=== PATIENT | female | born 1980 | race Caucasian/White ===

== ENCOUNTER 2019-08-08 21:17 | Emergency (ER) | payer BC, SELFPAY ==
[2019-08-08 21:32] VITALS: BP 116/81; PULSE 80; RESP 18; TEMP 36.4; O2SAT 99; BMI 18.0
--- NOTE | 2019-08-08 21:45 | W.ED.EXTPRO ---
HPI - Extremity Problem General: Chief complaint: Extremity Injury, Lower Stated complaint: ingrown toenail Time Seen by Provider: 08/08/19 21:32 History of Present Illness: HPI Narrative: Left great toe with redness and pain from ingrown nail. Patient currently is on Keflex. Complaint: other Onset (ago): month(s) Pain Consistency: constant Location: left and toe Severity scale (1-10): 8 Quality: aching Radiation: none Relieving factors: nothing Exacerbating factors: weight bearing and walking Associated symptoms: Reports no associated symptoms; Deny fever(s) Review of Systems Narrative: Ingrown nail on the left great toe present times months worse last few days currently taking antibiotics Const: Denies: fever or chills Psych: Denies: anxiety or depression PFSH ED PFSH: Social History Smoking and tobacco status: former smoker Physical Exam Const: COMMON NORMALS: no apparent distress Extremity: OTHER: Left great toe with redness and swelling to the lateral edge Course Vital Signs: Vital signs: Vital Signs Temperature 97.6 F 08/08/19 21:32 Pulse Rate 80 08/08/19 21:32 Respiratory Rate 18 08/08/19 21:32 Blood Pressure 116/81 08/08/19 21:32 Pulse Oximetry 99 08/08/19 21:32 Coding Level of Care Code ED Guest Laundry Attendant for Shira Carter
[2019-08-08 22:23] VITALS: BP 116/81; PULSE 102; RESP 22; TEMP 36.7; O2SAT 97
[2019-08-08] MEDS: lidocaine 1% INJ 20 mL INTRADERMA (22:45)
[2019-08-08 23:21] VITALS: BP 120/76; PULSE 96; RESP 20; TEMP 36.7; O2SAT 96
--- NOTE | 2019-08-08 23:28 | PC.NURSE ---
RN reviewed and agrees with assessment
== END 2019-08-08 23:21 | disposition home or self-care (01) ==
PROVIDERS: Emergency Provider Nurse Practitioner Family; Family Provider Family Medicine; PCP Family Medicine
DX: L60.0 Ingrowing nail (principal); Z87.891 Personal history of nicotine dependence
CPT/HCPCS: 99281; J2001

== ENCOUNTER 2019-10-12 08:57 | Emergency (ER) | payer BC, SELFPAY ==
[2019-10-12 08:59] VITALS: BP 157/92; PULSE 82; RESP 16; TEMP 36.6; O2SAT 98; BMI 20.9
--- NOTE | 2019-10-12 09:07 | W.ED.SEIZURE ---
HPI - Seizure General: Chief Complaint: Seizure Stated Complaint: seizure Time Seen by Provider: 10/12/19 09:07 History of Present Illness: HPI Narrative: 39-year-old female presents to the emergency room with complaint of abdominal pain with nausea and vomiting. She has history of psuedo-seizure disorders. She does use marijuana regularly she has been having problems with recurrent nausea and vomiting even sometimes small flecks of blood. She is being worked up for this and has a appointment set up with Dr. Garcia for an EGD. She continues to smoke marijuana regularly. She recognizes her pseudoseizures being pseudoseizures. Associated symptoms: Reports malaise; Deny chest pain, chills or fever(s) Review of Systems Const: Reports: fatigue and malaise; Denies: fever, chills, body aches or change in appetite ENMT: Denies: throat pain, ear pain, nasal discharge or nasal congestion Card: Denies: chest pain, edema, shortness of breath on exertion or shortness of breath when lying down Resp: Denies: shortness of breath, productive cough or non-productive cough GI: Reports: abdominal pain, nausea and vomiting; Denies: vomiting blood, coffee grounds in vomit, diarrhea, constipation, bloating, blood in stool or black tarry stool : Denies: flank pain, difficulty urinating, painful urination, urinary frequency or urinary urgency Skin/Breast: Denies: rash or itching [facility] ED PFSH: Family History Denies family history of Anesthesia complication Bleeding disorder Social History Smoking and tobacco status: current every day smoker cigarettes Alcohol intake: never Last substance use date: 10/12/19 Last substance use time: 01:00 Other details last substance use: Marijuana Physical Exam Const: COMMON NORMALS: no apparent distress GENERAL APPEARANCE: cooperative; not comfortable ORIENTATION/CONSCIOUSNESS: Yes awake, Yes oriented to person, Yes oriented to place and Yes oriented to time HENMT: COMMON NORMALS: normocephalic, head/scalp atraumatic, hearing grossly normal bilaterally, external ears normal, EAC's normal, TM's normal bilaterally, nasal mucous membranes and turbinates normal, moist oral mucous membranes and oropharynx normal HEAD & SCALP: normocephalic and atraumatic NOSE: nasal mucous membranes and turbinates normal EXTERNAL EAR: Yes external ears normal EXTERNAL AUDITORY CANAL: EAC's normal TYMPANIC MEMBRANE: TM's normal bilaterally Eye: COMMON NORMALS: PERRL, EOMs intact bilaterally, conjunctivae normal and no scleral icterus CONJUNCTIVA: Yes conjunctivae normal PUPIL: Yes PERRL Neck/C-Spine: COMMON NORMALS: full ROM, no lymphadenopathy, supple and no JVD Lymph: LYMPHATIC: no lymphadenopathy noted and no lymphedema noted Resp: COMMON NORMALS: normal respiratory effort, no retractions, no use of accessory muscles and clear to auscultation bilaterally AUSCULTATION: clear to auscultation bilaterally Cardio: COMMON NORMALS: no JVD, regular rate, regular rhythm and no murmurs RATE: regular rate RHYTHM: regular rhythm GI: COMMON NORMALS: soft to palpation and no hepatosplenomegaly AUSCULTATION: Yes normoactive bowel sounds PALPATION: Yes soft, No tender, No guarding and Yes no hepatosplenomegaly Extremity: COMMON NORMALS: normal to inspection, normal capillary refill, no clubbing, cyanosis or edema, no calf tenderness and no pedal edema Neuro: SENSORIUM/ORIENTATION: Yes oriented to person, Yes oriented to place and Yes oriented to time Skin: COMMON NORMALS: no rashes or lesions noted GENERAL SKIN EXAM: no rashes or lesions noted Course Vital Signs: Vital signs: Vital Signs Temperature 97.9 F 10/12/19 08:59 Pulse Rate 75 10/12/19 09:54 Respiratory Rate 16 10/12/19 09:54 Blood Pressure 142/85 10/12/19 09:54 Pulse Oximetry 97 10/12/19 09:54 MDM - Seizure MDM Narrative: Medical decision making narrative: Patient requesting to leave per the nurse. I went back to the room and talk to her she is anxious we already given her some Haldol offered to give her something else for anxiety encouraged her to stay. She is adamant about leaving. She wants to be with her . She refuses further IV fluids offers of further medication. I explained to her that since we have not completed a work-up she may actually get quite a bit worse and could even potentially from her medical issues. Of the labs we do a back she has an elevated white count. She declines offers or further health continues to insist on leaving AGAINST MEDICAL ADVICE despite these warnings. Lab Data: Labs: Lab Results 10/12/19 10/12/19 10/12/19 Range/Units 09:10 09:10 09:10 WBC 16.7 H (4.0-10.0) 10^3/ uL RBC 4.83 (4.1-5.3) 10^6/u L Hgb 14.6 (11.5-15.3) g/dL Hct 43.4 (37.0-47.0) % MCV 89.9 (81-99) fL MCH 30.2 (28.0-34.0) pg MCHC 33.6 (30.0-36.0) g/dL RDW 13.1 (12.1-15.1) % Plt Count 304 (130-400) 10^3/c mm MPV 10.6 H (7.4-10.4) fL Neut % (Auto) 72.4 % Lymph % (Auto) 20.0 % [place] % (Auto) 5.2 % Eos % (Auto) 1.3 % Baso % (Auto) 0.7 % Neut # (Auto) 12.1 H (1.8-7.7) 10^3/u L Lymph # (Auto) 3.3 (0.8-4.8) 10^3/u L [place] # (Auto) 0.9 (0.2-0.9) 10^3/u L Eos # (Auto) 0.2 (0.0-0.8) 10^3/u L Baso # (Auto) 0.1 (0.0-0.1) 10^3/u L Nucleated RBC % (a uto) 0 % Nucleated RBCs # 0.0 /100WBC Sodium 144 (136-145) mmol/L Potassium 4.1 (3.5-5.1) mmol/L Chloride 108 H (98-107) mmol/L Carbon Dioxide 19 L (22-29) mmol/L Anion Gap 21.1 H (5-19) BUN 17 (6-20) mg/dL Creatinine 0.8 (0.5-0.9) mg/dL GFR Calculation 79.0 L (90-130) mL/min Glucose 207 H (65-115) mg/dL Calculated Osmolal ity 300 H (285-295) mOsm/k g Calcium 10.5 (8.5-10.5) mg/dL Total Bilirubin 0.3 (0.15-1.2) mg/dL AST 20 (0-32) U/L ALT 13 (0-33) U/L Alkaline Phosphata se 87 (35-105) IU/L Total Protein 7.6 (6.6-8.7) g/dL Albumin 5.0 (3.5-5.2) g/dL Globulin 2.6 (1.3-4.6) g/dL Lipase 33 (13-60) U/L Serum Ketones Negative (Negative) Discharge Plan Discharge Patient Disposition: Left Against Medical Advice Clinical Impression: Pseudoseizures, Nausea and vomiting Prescriptions: No Action pantoprazole [Protonix] 40 mg tablet,delayed release (DR/EC) 40 mg PO DAILY RF: 0 promethazine 50 mg tablet 25 mg PO Q6H PRN (Reason: Nausea) RF: 0 Tylenol Extra Strength 500 mg Tablet 1,000 mg PO PRN RF: 0 amitriptyline 25 mg tablet 25 mg PO BEDTIME RF: 0 sucralfate 1 gram tablet 1 g PO QID RF: 0 hydroxyzine HCl 50 mg tablet 50 mg PO TID PRN (Reason: Anxiety) RF: 0 tamsulosin 0.4 mg capsule 0.4 mg PO DAILY RF: 0 Referrals: Jacky Freeman MD [Primary Care Provider] - Interventions: ED Discharge Assessment Last Done: 10/12/19 09:54 ED Charges Last Done: 10/12/19 09:54 Discharge Date/Time: 10/12/19 09:54 Coding Level of Care Code ED Property Site Manager for Chg Fwd Exam Comprehensive
[2019-10-12 09:16] LABS: Basophils # 0.1 10^3/uL (0.0-0.1); Basophils % 0.7 %; Eosinophils # 0.2 10^3/uL (0.0-0.8); Eosinophils % 1.3 %; Hematocrit 43.4 % (37.0-47.0); Hemoglobin 14.6 g/dL (11.5-15.3); Lymphocytes # 3.3 10^3/uL (0.8-4.8); Mean Corpuscular HGB Conc 33.6 g/dL (30.0-36.0); Mean Corpuscular Hemoglobin 30.2 pg (28.0-34.0); Mean Corpuscular Volume 89.9 fL (81-99); Mean Platelet Volume 10.6 fL (7.4-10.4); Monocytes # 0.9 10^3/uL (0.2-0.9); Monocytes % 5.2 %; Neutrophils # 12.1 10^3/uL (1.8-7.7); Neutrophils % 72.4 %; Nucleated Red Blood Cells % 0 %; Platelet Count 304 10^3/cmm (130-400); Red Blood Count 4.83 10^6/uL (4.1-5.3); Red Cell Distribution Width 13.1 % (12.1-15.1); White Blood Count 16.7 10^3/uL (4.0-10.0)
[2019-10-12] MEDS: haloperidol inj 5 mg/mL INJ 1 mL IVP (09:16)
[2019-10-12] MEDS: ondansetron 2 mg/ML SDV 2 mL 4 MG IVP (09:16)
[2019-10-12] MEDS: sodium chlor 0.9% + KCl 20 mEq 20 MEQ/1,000 ML BAG 125 MEQ IV (09:17)
--- NOTE | 2019-10-12 09:30 | PC.NURSE ---
Patient refused CT
[2019-10-12 09:37] LABS: Ketone (Acetest) Serum Negative (Negative)
[2019-10-12 09:49] LABS: Alanine Aminotransferase 13 U/L (0-33); Alkaline Phosphatase 87 IU/L (35-105); Anion Gap 21.1 (5-19); Aspartate Amino Transferase 20 U/L (0-32); Blood Urea Nitrogen 17 mg/dL (6-20); Calcium 10.5 mg/dL (8.5-10.5); Carbon Dioxide 19 mmol/L (22-29); Chloride 108 mmol/L (98-107); Globulin 2.6 g/dL (1.3-4.6); Glucose 207 mg/dL (65-115); Lipase 33 U/L (13-60); Osmolality Calculated 300 mOsm/kg (285-295); Potassium 4.1 mmol/L (3.5-5.1); Sodium 144 mmol/L (136-145); Total Bilirubin 0.3 mg/dL (0.15-1.2); Total Protein 7.6 g/dL (6.6-8.7)
[2019-10-12] MEDS: iohexol 300 mg/mL 100 mL Btl IV (09:52)
[2019-10-12 09:54] VITALS: BP 142/85; PULSE 75; RESP 16; O2SAT 97
== END 2019-10-12 09:54 | disposition left against medical advice (07) ==
PROVIDERS: Emergency Provider Family Medicine; Family Provider Family Medicine; PCP Family Medicine
DX: G40.89 Other seizures (principal); R11.2 Nausea with vomiting, unspecified; Z53.21 Procedure and treatment not carried out due to patient leaving prior to being seen by health care provider; F17.210 Nicotine dependence, cigarettes, uncomplicated
CPT/HCPCS: 12345; 80053; 82009; 83690; 85025; 96365; 96375; 99283; J1630; J2405; Q9967

== ENCOUNTER 2019-10-13 06:17 | Observation (INO) | payer BC, SELFPAY ==
[2019-10-13] VITALS (10 sets, daily range): BP systolic 123–158; BP diastolic 76–106; PULSE 81–103; RESP 16–20; TEMP 36.6–37.6; O2SAT 96–98; BMI 21.2
--- NOTE | 2019-10-13 06:29 | ED_ITS ---
HPI - Nausea/Vomiting/Diarrhea General: Chief complaint: Nausea/Vomiting/Diarrhea Stated complaint: N/V Time Seen by Provider: 10/13/19 06:28 History of Present Illness: Associated nausea: Yes Associated symtoms: Reports nausea Review of Systems General: Reports: 10 or more systems reviewed and unremarkable except in HPI and below GI: Reports: abdominal pain, nausea, vomiting and heartburn/indigestion; Denies: diarrhea PFSH ED PFSH: Medical History GERD (gastroesophageal reflux disease) Pseudoseizures Surgical History History of appendectomy History of History of cholecystectomy History of colonoscopy History of esophagogastroduodenoscopy (EGD) History of hysterectomy for cancer History of ovarian resection Family History Denies family history of Anesthesia complication Bleeding disorder Social History Smoking and tobacco status: never smoked Alcohol intake: never Last substance use date: 10/12/19 Last substance use time: 01:00 Other details last substance use: Marijuana Physical Exam Const: COMMON NORMALS: average body habitus, oriented x3, no limitations, healthy appearing, alert and well nourished GENERAL APPEARANCE: in distress, ill appearing and appears older than stated age HENMT: COMMON NORMALS: normocephalic, head/scalp atraumatic, hearing grossly normal bilaterally, external ears normal, EAC's normal, TM's normal bilaterally, external nose normal, nasal mucous membranes and turbinates normal, moist oral mucous membranes, oropharynx normal, dentition normal and gingiva normal HEAD & SCALP: normocephalic and atraumatic NOSE: external nose normal and nasal mucous membranes and turbinates normal EXTERNAL EAR: Yes external ears normal EXTERNAL AUDITORY CANAL: EAC's normal TYMPANIC MEMBRANE: TM's normal bilaterally Eye: COMMON NORMALS: PERRL, EOMs intact bilaterally, conjunctivae normal, no scleral icterus, no papilledema, normal visual salguero by confrontation and fundi normal bilaterally CONJUNCTIVA: Yes conjunctivae normal PUPIL: Yes PERRL DIRECT OPHTHALMOSCOPY: Yes no papilledema and Yes fundi normal bilaterally Neck/C-Spine: COMMON NORMALS: full ROM, no lymphadenopathy, supple, no meningeal signs, no JVD, thyroid normal and no carotid bruits THYROID: thyroid normal Chest: COMMONS NORMALS: inspection of chest normal and palpation of chest normal Resp: COMMON NORMALS: normal respiratory effort, no retractions, no use of accessory muscles, clear to auscultation bilaterally and percussion normal AUSCULTATION: clear to auscultation bilaterally PERCUSSION: percussion normal Cardio: COMMON NORMALS: no JVD, regular rate, regular rhythm, S1 normal heart sound, S2 normal heart sound, no gallops, no clicks, no murmurs, no rub and peripheral pulses 2+ throughout RATE: regular rate RHYTHM: regular rhythm HEART SOUNDS: S1 normal and S2 normal PERIPHERAL PULSES: pulses 2+ throughout GI: COMMON NORMALS: soft to palpation, no masses and no bruits AUSCULTATION: Yes normoactive bowel sounds PALPATION: Yes soft, Yes tender, Yes guarding and No rigid : COMMON NORMALS: Yes no CVA tenderness and Yes external appearance normal BLADDER/KIDNEY EXAM: Yes no CVA tenderness Back/Pelvis: COMMON NORMALS: no CVA tenderness, thoracic and lumbar spine normal to inspection, no thoracic nor lumbar tenderness, thoraco-lumbar ROM normal and straight leg raise negative bilaterally Extremity: COMMON NORMALS: normal to inspection, full ROM, normal capillary refill, no joint enlargement, no clubbing, cyanosis or edema, no calf tenderness and no pedal edema Neuro: COMMON NORMALS: oriented x3 SENSORIUM/ORIENTATION: Yes alert MENINGEAL SIGNS: Yes no meningeal signs Skin: COMMON NORMALS: no rashes or lesions noted, no wounds, skin turgor normal, no jaundice, no petechiae and no mottling GENERAL SKIN EXAM: no rashes or lesions noted and turgor normal Procedures Intubation Mg Given: 20 Mg Given: 200 Course Vital Signs: Vital signs: Vital Signs Temperature 99.6 F 10/13/19 08:52 Pulse Rate 95 10/13/19 09:46 Respiratory Rate 18 10/13/19 09:46 Blood Pressure 147/80 10/13/19 09:46 Pulse Oximetry 96 10/13/19 09:46 MDM - Nausea/Vomiting/Diarrhea Lab Data: Labs: Lab Results 05/10/2710/13/19 10/13/19 Range/Units 07:06 07:06 07:34 WBC 17.6 H (4.0-10.0) 10^3/ uL RBC 4.81 (4.1-5.3) 10^6/u L Hgb 14.3 (11.5-15.3) g/dL Hct 42.7 (37.0-47.0) % MCV 88.8 (81-99) fL MCH 29.7 (28.0-34.0) pg MCHC 33.5 (30.0-36.0) g/dL RDW 13.3 (12.1-15.1) % Plt Count 269 (130-400) 10^3/c mm MPV 11.2 H (7.4-10.4) fL Neut % (Auto) 82.9 % Lymph % (Auto) 8.2 % [place] % (Auto) 8.2 % Eos % (Auto) 0.1 % Baso % (Auto) 0.2 % Neut # (Auto) 14.6 H (1.8-7.7) 10^3/u L Lymph # (Auto) 1.4 (0.8-4.8) 10^3/u L [place] # (Auto) 1.5 H (0.2-0.9) 10^3/u L Eos # (Auto) 0.0 (0.0-0.8) 10^3/u L Baso # (Auto) 0.0 (0.0-0.1) 10^3/u L Nucleated RBC % (a uto) 0 % Nucleated RBCs # 0.0 /100WBC Sodium 145 (136-145) mmol/L Potassium 3.4 L (3.5-5.1) mmol/L Chloride 107 (98-107) mmol/L Carbon Dioxide 20 L (22-29) mmol/L Anion Gap 21.4 H (5-19) BUN 35 H (6-20) mg/dL Creatinine 1.3 H (0.5-0.9) mg/dL GFR Calculation 45.1 L (90-130) mL/min Glucose 145 H (65-115) mg/dL Calculated Osmolal ity 300 H (285-295) mOsm/k g Calcium 10.5 (8.5-10.5) mg/dL Magnesium 2.2 (1.7-2.3) mg/dL Total Bilirubin 0.6 (0.15-1.2) mg/dL AST 21 (0-32) U/L ALT 16 (0-33) U/L Alkaline Phosphata se 84 (35-105) IU/L Total Protein 8.5 (6.6-8.7) g/dL Albumin 5.3 H (3.5-5.2) g/dL Globulin 3.2 (1.3-4.6) g/dL Lipase 19 (13-60) U/L Urine Color Yellow (Yellow) Urine Appearance Clear (CLEAR) Urine pH 5.0 (5-7) Ur Specific Gravit y 1.010 (1.005-1.030) Urine Protein 1+ H (Negative) Urine Glucose (UA) Norm (Normal) Urine Ketones Negative (Negative) Urine Blood 3+ H (Negative) Urine Nitrate Negative (Negative) Urine Bilirubin Neg (NEGATIVE) Urine Urobilinogen Norm (Negative) mg/dL Ur Leukocyte Mandi ase Negative (Negative) Urine RBC 5-10 H (0-2) /hpf Urine WBC Rare (0-5) /hpf Ur Squamous Epith Cells 0-4 H (0-5) Urine Bacteria 1+ H (NONE) Hyaline Casts 25-40 H Urine Mucus 3+ Urine Opiates Scre en (Negative) ng/mL Ur Barbiturates Sc reen (Negative) ng/mL Ur Phencyclidine S crn (Negative) ng/mL Ur Amphetamines Sc reen (Negative) ng/mL U Benzodiazepines Scrn (Negative) ng/mL Urine Cocaine Scre en (Negative) ng/mL U Marijuana (THC) Screen (Negative) ng/mL 10/13/19 Range/Units 07:34 WBC (4.0-10.0) 10^3/ uL RBC (4.1-5.3) 10^6/u L Hgb (11.5-15.3) g/dL Hct (37.0-47.0) % MCV (81-99) fL MCH (28.0-34.0) pg MCHC (30.0-36.0) g/dL RDW (12.1-15.1) % Plt Count (130-400) 10^3/c mm MPV (7.4-10.4) fL Neut % (Auto) % Lymph % (Auto) % [place] % (Auto) % Eos % (Auto) % Baso % (Auto) % Neut # (Auto) (1.8-7.7) 10^3/u L Lymph # (Auto) (0.8-4.8) 10^3/u L [place] # (Auto) (0.2-0.9) 10^3/u L Eos # (Auto) (0.0-0.8) 10^3/u L Baso # (Auto) (0.0-0.1) 10^3/u L Nucleated RBC % (a uto) % Nucleated RBCs # /100WBC Sodium (136-145) mmol/L Potassium (3.5-5.1) mmol/L Chloride (98-107) mmol/L Carbon Dioxide (22-29) mmol/L Anion Gap (5-19) BUN (6-20) mg/dL Creatinine (0.5-0.9) mg/dL GFR Calculation (90-130) mL/min Glucose (65-115) mg/dL Calculated Osmolal ity (285-295) mOsm/k g Calcium (8.5-10.5) mg/dL Magnesium (1.7-2.3) mg/dL Total Bilirubin (0.15-1.2) mg/dL AST (0-32) U/L ALT (0-33) U/L Alkaline Phosphata se (35-105) IU/L Total Protein (6.6-8.7) g/dL Albumin (3.5-5.2) g/dL Globulin (1.3-4.6) g/dL Lipase (13-60) U/L Urine Color (Yellow) Urine Appearance (CLEAR) Urine pH (5-7) Ur Specific Gravit y (1.005-1.030) Urine Protein (Negative) Urine Glucose (UA) (Normal) Urine Ketones (Negative) Urine Blood (Negative) Urine Nitrate (Negative) Urine Bilirubin (NEGATIVE) Urine Urobilinogen (Negative) mg/dL Ur Leukocyte Mandi ase (Negative) Urine RBC (0-2) /hpf Urine WBC (0-5) /hpf Ur Squamous Epith Cells (0-5) Urine Bacteria (NONE) Hyaline Casts Urine Mucus Urine Opiates Scre en Negative (Negative) ng/mL Ur Barbiturates Sc reen Negative (Negative) ng/mL Ur Phencyclidine S crn Negative (Negative) ng/mL Ur Amphetamines Sc reen Negative (Negative) ng/mL U Benzodiazepines Scrn Positive H (Negative) ng/mL Urine Cocaine Scre en Negative (Negative) ng/mL U Marijuana (THC) Screen Positive H (Negative) ng/mL Discharge Plan Discharge Patient Disposition: Admitted As Inpatient Admit Provider: Radha Martinez Clinical Impression: Acute dehydration Nausea and vomiting Qualifiers: Vomiting type: unspecified Vomiting Intractability: intractable Qualified Code(s): R11.2 - Nausea with vomiting, unspecified Gastritis Qualifiers: Gastritis type: unspecified gastritis Chronicity: acute Gastritis bleeding: without bleeding Qualified Code(s): K29.00 - Acute gastritis without bleeding Condition: Fair Referrals: Jacky Freeman MD [Primary Care Provider] - Discharge Date/Time: 10/13/19 10:00 Coding Level of Care Code ED Film Numberer for g Fwd Exam Comprehensive
--- NOTE | 2019-10-13 06:35 | CTR_ITS ---
PROCEDURE INFORMATION: Exam: CT Abdomen And Pelvis With Contrast Exam date and time: 10/13/2019 6:42 AM Age: 39 years old Clinical indication: Abdominal pain; Prior surgery; Surgery type: Gb. Appy. Hysterectomy. ; Patient HX: Epigastric pain with n/v. History of pancreatitis; Additional info: Intractable nausea and vomiting; Epigastric abd pain TECHNIQUE: Imaging protocol: Computed tomography of the abdomen and pelvis with intravenous contrast. Radiation optimization: All CT scans at this facility use at least one of these dose optimization techniques: automated exposure control; mA and/or kV adjustment per patient size (includes targeted exams where dose is matched to clinical indication); or iterative reconstruction. Contrast material: OMNI 300; Contrast volume: 95 ml; Contrast route: 20G LAC; COMPARISON: CT abdomen pelvis wo con [id number] 10/23/2018 12:53 PM RADIATION DOSE METRICS: Total DLP: 538.04 mGy-cm FINDINGS: Liver: Normal. No mass. Gallbladder and bile ducts: The gallbladder is surgically absent. Pancreas: Normal. No ductal dilation. Spleen: Normal. No splenomegaly. Adrenals: Normal. No mass. Kidneys and ureters: Normal. No hydronephrosis. Stomach and bowel: Unremarkable. No obstruction. No mucosal thickening. Appendix: The appendix is surgically absent. Intraperitoneal space: Unremarkable. No free air. No significant fluid collection. Vasculature: Unremarkable. No abdominal aortic aneurysm. Lymph nodes: Unremarkable. No enlarged lymph nodes. Bladder: The urinary bladder is under filled and not well evaluated. Reproductive: The uterus is surgically absent. Bones/joints: Unremarkable. No acute fracture. Soft tissues: Unremarkable. CT/CT abdomen pelvis w con* [id number] IMPRESSION: No acute abnormality. Radiation Dose CTDIVOL = (mGy): DLP = 538.04 (mGy-cm)
--- NOTE | 2019-10-13 06:40 | PC.NURSE ---
Patient states she has been having nausea/diarrhea/vomiting with abdominal pain for the last two weeks. Patient states she has not been able to get out of the bath tub for the last 22 hours. Patient states that her symptoms are getting worse. Patient states she has a history of ovarian cancer, and that she has had her appendix out and multiple other abdominal surgeries. Patient had a hysterectomy two years ago.
[2019-10-13] MEDS: LORazepam 2 mg/mL INJ 1 mL 1 MG IVP (07:04)
[2019-10-13] MEDS: ondansetron 2 mg/ML SDV 2 mL 4 MG IVP ×2 (07:04→21:15)
[2019-10-13] MEDS: sodium chloride 0.9% 1,000 ML 999 ML IV (07:05)
[2019-10-13] MEDS: iohexol 300 mg/mL 100 mL Btl IV (07:20)
[2019-10-13 07:32] LABS: Basophils % 0.2 %; Eosinophils % 0.1 %; Hematocrit 42.7 % (37.0-47.0); Hemoglobin 14.3 g/dL (11.5-15.3); Lymphocytes # 1.4 10^3/uL (0.8-4.8); Lymphocytes % 8.2 %; Mean Corpuscular HGB Conc 33.5 g/dL (30.0-36.0); Mean Corpuscular Hemoglobin 29.7 pg (28.0-34.0); Mean Corpuscular Volume 88.8 fL (81-99); Mean Platelet Volume 11.2 fL (7.4-10.4); Monocytes # 1.5 10^3/uL (0.2-0.9); Monocytes % 8.2 %; Neutrophils # 14.6 10^3/uL (1.8-7.7); Neutrophils % 82.9 %; Nucleated Red Blood Cells % 0 %; Platelet Count 269 10^3/cmm (130-400); Red Blood Count 4.81 10^6/uL (4.1-5.3); Red Cell Distribution Width 13.3 % (12.1-15.1); White Blood Count 17.6 10^3/uL (4.0-10.0)
[2019-10-13 07:48] LABS: Alanine Aminotransferase 16 U/L (0-33); Albumin Level 5.3 g/dL (3.5-5.2); Alkaline Phosphatase 84 IU/L (35-105); Anion Gap 21.4 (5-19); Aspartate Amino Transferase 21 U/L (0-32); Blood Urea Nitrogen 35 mg/dL (6-20); Calcium 10.5 mg/dL (8.5-10.5); Carbon Dioxide 20 mmol/L (22-29); Chloride 107 mmol/L (98-107); Globulin 3.2 g/dL (1.3-4.6); Glomerular Filtration Rate 45.1 mL/min (90-130); Glucose 145 mg/dL (65-115); Lipase 19 U/L (13-60); Magnesium 2.2 mg/dL (1.7-2.3); Osmolality Calculated 300 mOsm/kg (285-295); Potassium 3.4 mmol/L (3.5-5.1); Sodium 145 mmol/L (136-145); Total Bilirubin 0.6 mg/dL (0.15-1.2); Total Protein 8.5 g/dL (6.6-8.7)
[2019-10-13 08:01] LABS: Amphetamines Screen Urine Negative (Negative); Barbiturates Screen Urine Negative (Negative); Benzodiazepines Screen Urine Positive (Negative); Cocaine Screen Urine Negative (Negative); Opiate Screen Urine Negative (Negative); PCP Screen Urine Negative (Negative); THC Screen Urine Positive (Negative)
[2019-10-13 08:15] LABS: Add Urine Microscopic? YES; Bilirubin Urine Neg (NEGATIVE); Blood Urine 3+ (Negative); Glucose Urine UA Norm (Normal); Ketones Urine Negative (Negative); Leukocyte Esterase Urine Negative (Negative); Nitrate Urine Negative (Negative); Protein Urine 1+ (Negative); Urine Appearance Clear (CLEAR); Urine Color Yellow (Yellow); Urobilinogen Urine Norm (Negative)
[2019-10-13 08:23] LABS: Add Urine Culture? No; Bacteria Urine 1+; Hyaline Casts Urine 25-40; Mucus Urine 3+; Squamous Epithelial Cell Urine 0-4 (0-5); WBC Urine RARE /hpf (0-5)
[2019-10-13] MEDS: metoclopramide 5 mg/mL SDV 2 mL 10 MG IVP (08:37)
[2019-10-13] MEDS: sodium chloride 0.9% 1,000 ML 100 ML IV (09:32)
--- NOTE | 2019-10-13 12:02 | PM.PN ---
Subjective Subjective: Interval history: Patient complains of history of persistent nausea and vomiting HPI This is a pleasant 39 years old female patient well-known to me and was recently evaluated in my office due to history of nausea and vomiting and epigastric pain, patient is already scheduled tomorrow for diagnostic EGD with possible biopsy, she gives a history of duodenitis and gastritis based on a scope that was done by me back in September 2018, apparently the patient since yesterday she had persistent symptoms came to the ER and was discharged and comes back again today with worsening symptoms of dehydration, patient was admitted on the medical service on Dr. Freeman and surgery was consulted for further evaluation. Vitals/I&O/Wt Last Vital Signs Temp 98.7 F 10/13/19 11:22 Pulse 87 10/13/19 11:22 Resp 18 10/13/19 11:22 BP 123/77 10/13/19 11:22 Pulse Ox 97 10/13/19 11:22 10/12/19 10/13/19 10/13/19 22:59 06:59 14:59 Intake Total 1000 / 1000 Balance 1000 / 1000 Weight last 48 hrs Weight 140 lb Physical Exam Narrative: EXAM NARRATIVE: Patient is conscious alert oriented X3 BMI 21 Head and neck examination PERRLA no masses no cervical lymphadenopathy no jaundice Abdomen tender in the epigastric region nondistended soft no organomegaly guarding or rigidity/no signs of peritonitis Extremities no cyanosis no clubbing no edema Data : 10/13/19 07:06 10/13/19 07:06 A&P Assessment and plan (1) Gastritis: Plan of care; After thorough history and physical examination and reviewing the chart and reviewing the CT scan images with my personal interpretation, plan to perform a diagnostic esophagogastroduodenoscopy and possible biopsy tomorrow as scheduled from before Informed consent per chart were,Indications, risks, benefits, and alternatives were all discussed with the patient and did agree to proceed. From surgical standpoint of view patient can have clear liquid diet if she tolerates and have her n.p.o. after midnight PPI therapy IV fluid resuscitation Repeat CBC and BMP in the a.m. We will continue coordinating with Dr. Freeman Status: Acute Qualifiers: Chronicity: acute Gastritis bleeding: without bleeding Gastritis type: unspecified gastritis Qualified Code(s): K29.00 - Acute gastritis without bleeding Attestations Medical Necessity Statement*: Observation Time Spent in Patient Care: less than 15 minutes (>than 50% of time spent in counselling and/or direct pt care on unit). Coding Level of Care Code Acute Mirror Department Supervisor for Shira Carter Diagnoses Gastritis K29.00 Chronicity: acute Gastritis bleeding: without bleeding Gastritis type: unspecified gastritis
[2019-10-13 14:31] LABS: Lactic Acid level (Lactate) 2.1 mmol/L (0.5-2.2)
[2019-10-13] MEDS: chlorPROMazine 25 mg Tablet PO ×2 (15:06→21:15)
--- NOTE | 2019-10-13 17:16 | PM.HP ---
Providers/Chief Complaint Admitting Physician: Jacky Freeman MD Primary Care Provider: Jacky Freeman MD Chief Complaint: ACUTE ON CHRONIC GASTRITITS History of Present Illness Jana Pulliam is a 39 year old female with history of nausea and vomiting, ovarian cancer, functional seizures who presented to the emergency department yesterday with nausea vomiting and abdominal pain. She left AGAINST MEDICAL ADVICE. The patient returns to the ER on the morning of 10/13/2019 with continued nausea, vomiting and abdominal pain. In the ER she was given Thorazine, Reglan and Zofran. She was given IV fluids for rehydration. Currently the patient states that she has not thrown up for approximately 3 hours. Prior to this, she had been throwing up approximately every hour. The patient was scheduled to have an upper endoscopy done by Dr. Garcia tomorrow. The patient admits to abdominal pain in the lower abdomen and she feels like it is secondary to her retching. It is crampy in nature. Patient denies any diarrhea, constipation, dysuria, cough, fever, chest pains, shortness of breath. Medications/Allergies Home Medications Medication Instructions Recorded Confirmed Last Taken Type pantoprazole 40 mg tablet,delayed 40 mg PO DAILY 10/07/19 10/13/19 10/12/19 History release promethazine 50 mg tablet 25 mg PO Q6H PRN 10/07/19 10/13/19 10/12/19 History hydroxyzine HCl 50 mg PO TID PRN 10/12/19 10/13/19 10/12/19 History sucralfate 1 g PO QID 10/12/19 10/13/19 10/11/19 History tamsulosin 0.4 mg PO DAILY 10/12/19 10/13/19 10/11/19 History acetaminophen [Tylenol Extra 1,000 mg PO PRN 10/13/19 10/13/19 10/12/19 History Strength] amitriptyline 25 mg PO BEDTIME 10/13/19 10/13/19 10/12/19 History Allergies Allergy/AdvReac Type Severity Reaction Status Date / Time aspirin Allergy Unknown Verified 10/08/19 15:54 cephalexin [From Keflex] Allergy Unknown Verified 10/08/19 15:54 meperidine [From Demerol] Allergy Unknown Verified 10/08/19 15:54 PFSH Acute PFSH: Medical History GERD (gastroesophageal reflux disease) Pseudoseizures Surgical History History of appendectomy History of History of cholecystectomy History of colonoscopy History of esophagogastroduodenoscopy (EGD) History of hysterectomy for cancer History of ovarian resection Family History Denies family history of Anesthesia complication Bleeding disorder Social History Smoking and tobacco status: current every day smoker cigarettes Alcohol intake: never Last substance use date: 10/12/19 Last substance use time: 01:00 Other details last substance use: Marijuana Vitals/I&O/Wt Last Vital Signs Temp 98.9 F 10/13/19 15:38 Pulse 90 10/13/19 15:38 Resp 16 10/13/19 15:38 BP 158/76 10/13/19 15:38 Pulse Ox 98 10/13/19 15:38 10/13/19 10/13/19 10/13/19 06:59 14:59 22:59 Intake Total 1240 / 1240 Output Total 200 / 200 Balance 1040 / 1040 Weight last 48 hrs Weight 140 lb Physical Exam Narrative: EXAM NARRATIVE: General: Alert and oriented x3 Eyes: PERRLA, EOMI Mouth: Mucous membranes moist, no lesions Neck: No lymphadenopathy appreciated, no thyromegaly noted. Cardiac: Regular rate and rhythm without murmurs Lungs: Clear to auscultation bilaterally without wheezes, crackles or rhonchi Abdomen: No significant tenderness over the liver or spleen. No hepatosplenomegaly noted, mild to moderate tenderness over the suprapubic abdominal wall. Moderate flank pain on the right. Extremities: Trace edema in the bilateral lower extremities Data : 10/13/19 07:06 10/13/19 07:06 A&P Additional A&P Information 1. Intractable nausea and vomiting -the patient is currently on Pepcid IV drip. She will get an upper endoscopy done tomorrow to further evaluate the underlying cause. Continue with Zofran and Reglan as needed. Thorazine if necessary after that. I spoke with the patient about the possibility of marijuana causing nausea and vomiting. She will look into this. 2. Anxiety -stable for now. We will treat if necessary while hospitalized. 3. Gastritis -continue with famotidine drip. Proceed with upper endoscopy tomorrow as scheduled with Dr. Garcia. 4. Volume depletion -the patient will be given IV fluids for rehydration. I will add potassium to replace levels. 5. Hypokalemia -replace by IV as the patient is unable to tolerate p.o. 6. Prophylaxis -SCDs for now. Attestations Medical Necessity Statement*: Patient currently under observation. My hope is that she will be able to be discharged over the next 48 hours. I expect her stay to not cross 2 midnights. Coding Level of Care Code Acute Automobile Rental Representative for Shira Carter
[2019-10-13] MEDS: sodium chlor 0.9% + KCl 40 mEq 40 MEQ/1,000 ML BAG 100 MEQ IV (17:51)
[2019-10-13] MEDS: trazodone 50 mg Tablet PO (21:15)
[2019-10-13] MEDS: sucralfate 1 gm Tablet PO (21:15)
[2019-10-13] MEDS: promethazine 25 mg Tablet PO (23:39)
[2019-10-13] MEDS: hyDROXYzine 25 mg Capsule 50 MG PO (23:39)
[2019-10-13] MEDS: morphine 4 mg/mL SDV 1 mL 2 MG IVP (23:50)
[2019-10-14] VITALS (10 sets, daily range): BP systolic 107–138; BP diastolic 65–91; PULSE 66–95; RESP 14–20; TEMP 36.4–36.8; O2SAT 94–98
--- NOTE | 2019-10-14 01:26 | PC.NURSE ---
Patient is complaining of gnawing/burning pain to generalized abdomen. Soft and tender to touch upon assessment. Nauseous and pain is 9 on a scale of 0-10. Morphine was given not long ago with some relief. Dr. Lozano called at this time and he ordered GI cocktail and 2MG IV dilaudid x1 dose. If pain does not get better in a couple of hours call back and may need abdominal CT.
[2019-10-14 01:33] LABS: Basophils % 0.3 %; Eosinophils # 0.1 10^3/uL (0.0-0.8); Eosinophils % 0.4 %; Hematocrit 33.9 % (37.0-47.0); Hemoglobin 11.2 g/dL (11.5-15.3); Lymphocytes # 2.8 10^3/uL (0.8-4.8); Lymphocytes % 20.9 %; Mean Corpuscular Hemoglobin 29.7 pg (28.0-34.0); Mean Corpuscular Volume 89.9 fL (81-99); Monocytes # 1.6 10^3/uL (0.2-0.9); Monocytes % 12.1 %; Neutrophils # 8.7 10^3/uL (1.8-7.7); Neutrophils % 65.9 %; Nucleated Red Blood Cells % 0 %; Platelet Count 200 10^3/cmm (130-400); Red Blood Count 3.77 10^6/uL (4.1-5.3); Red Cell Distribution Width 13.2 % (12.1-15.1); White Blood Count 13.3 10^3/uL (4.0-10.0)
[2019-10-14] MEDS: HYDROmorphone 1 mg/mL INJ 1 mL 2 MG IVP (01:44)
[2019-10-14] MEDS: lidocaine 2% viscous 15 ML, aluminum-mag hydrox-simethicon 30 ML, sucralfate oral liq 1 GM PO ×2 (01:45→13:16)
[2019-10-14] MEDS: ondansetron 2 mg/ML SDV 2 mL 4 MG IVP (01:51)
[2019-10-14] MEDS: sodium chlor 0.9% + KCl 40 mEq 40 MEQ/1,000 ML BAG 100 MEQ IV ×2 (01:51→13:19)
[2019-10-14 01:53] LABS: Alanine Aminotransferase 21 U/L (0-33); Albumin Level 4.2 g/dL (3.5-5.2); Alkaline Phosphatase 61 IU/L (35-105); Anion Gap 14.5 (5-19); Aspartate Amino Transferase 27 U/L (0-32); Blood Urea Nitrogen 11 mg/dL (6-20); Calcium 8.3 mg/dL (8.5-10.5); Carbon Dioxide 22 mmol/L (22-29); Chloride 110 mmol/L (98-107); Glomerular Filtration Rate 110.2 mL/min (90-130); Glucose 139 mg/dL (65-115); Magnesium 2.1 mg/dL (1.7-2.3); Osmolality Calculated 294 mOsm/kg (285-295); Phosphorus 1.7 mg/dL (2.5-4.5); Potassium 3.5 mmol/L (3.5-5.1); Sodium 143 mmol/L (136-145); Total Bilirubin 0.9 mg/dL (0.15-1.2); Total Protein 6.2 g/dL (6.6-8.7)
--- NOTE | 2019-10-14 07:57 | P.ANESASSM_ITS ---
Pre-Anesthetic Assessment Pre-Anesthetic Assessment: Height/Weight: Height 1.73 m Weight 63.503 kg Temp Pulse Resp BP Pulse Ox 98.2 F 85 14 125/71 94 10/14/19 04:00 10/14/19 04:00 10/14/19 04:00 10/14/19 04:00 10/14/19 04:00 Preop Diagnosis: Nausea and vomiting Proposed Procedure: Operation Date: 10/14/19 08:15 Proposed Procedures p EGD 34449 Z87.898(Not Applicable) - Booker Garcia MD Familial anesthetic complications: none Was Beta Hank taken within 24 hours: N/A Last intake: Intake Last vomited up stomach bile 4 hours ago, still feels nauseated, last ate on saturday Last Liquid Date 10/13/19 Last Liquid Time 23:00 Last Solid Date 10/11/19 Social: Social History: Tobacco and No alcohol Packs per day: 0.5 ppd Exam: Pre-Anes Outpt Exam: alert, oriented x 3, clear to auscultation bilaterally and regular rate & rhythm Airway: Cervical ROM: WNL MP: 2 Dentition: Full Pulmonary: Pulmonary: None reported CV/HEM: CV/HEM: None reported : : None reported Hepatic: Hepatic: None reported GI: GI: GERD Comments: NV/ Metabolic: Metabolic: None reported Musc/skel: Musc/skel: None reported Neuropsych: Neuropsych: Seizure (3 years ago -(pseudoseizures from stress)) Comments: Hx ovarian cancer Anesthetic Plan: ASA status: 2 Anesthesia: General Other: RSI d/t active nauesa and recent vomiting Risk of > 500 ml blood loss (7ml/kg in children): No Meds/Allergies Current Medications: Current Medications Generic Name Dose Route Start Last Admin Trade Name Freq PRN Reason Stop Dose Admin Chlorpromazine HCl 25 mg 10/13/19 08:58 10/13/19 21:15 Thorazine PO 25 mg Q6H PRN Administration AGITATION Hydroxyzine Pamoat e 50 mg 10/13/19 17:31 10/13/19 23:39 Vistaril PO 50 mg TID PRN Administration Anxiety Famotidine 100 mg/ Sodium 100 mls @ 4 mls/h r 10/13/19 09:00 10/14/19 03:55 Chloride IV 4 mg/hr .Q24H SIDNEY 4 mls/hr Infusion 4 MG/HR Potassium Chloride /Sodium Chloride 40 meq in 1,000 m ls @ 100 mls/hr 10/13/19 17:30 10/14/19 01:51 Sodium Chlor 0.9 % + Kcl 40 Meq IV 100 mls/hr .Q10H SIDNEY Administration Morphine Sulfate 2 mg 10/13/19 08:57 10/13/19 23:50 Morphine IVP 2 mg Q4H PRN Administration SEVERE PAIN Ondansetron HCl 4 mg 10/13/19 08:57 10/14/19 01:51 Zofran IVP 4 mg Q6H PRN Administration NAUSEA AND VOMITI NG Promethazine HCl 25 mg 10/13/19 17:31 10/13/19 23:39 Phenergan PO 25 mg Q6H PRN Administration Nausea Sucralfate 1 gm 10/13/19 21:00 10/13/19 21:15 Carafate PO 1 gm QID SIDNEY Administration Trazodone HCl 50 mg 10/13/19 17:30 10/13/19 21:15 Desyrel PO 50 mg BEDTIME PRN Administration INSOMNIA PFSH Anesthesia PFSH: Medical History GERD (gastroesophageal reflux disease) Pseudoseizures Surgical History History of appendectomy History of History of cholecystectomy History of colonoscopy History of esophagogastroduodenoscopy (EGD) History of hysterectomy for cancer History of ovarian resection Family History Denies family history of Anesthesia complication Bleeding disorder Social History Smoking and tobacco status: current every day smoker cigarettes Alcohol intake: never Last substance use date: 10/12/19 Last substance use time: 01:00 Other details last substance use: Marijuana Data Anesthesia CBC & Chem 7: 10/14/19 01:09 10/14/19 01:09 Other Labs: Laboratory Results - last 48 hr 10/13/19 10/13/19 10/13/19 07:06 07:06 07:34 WBC 17.6 H RBC 4.81 Hgb 14.3 Hct 42.7 MCV 88.8 MCH 29.7 MCHC 33.5 RDW 13.3 Plt Count 269 MPV 11.2 H Neut % (Auto) 82.9 Lymph % (Auto) 8.2 Isabella % (Auto) 8.2 Eos % (Auto) 0.1 Baso % (Auto) 0.2 Neut # (Auto) 14.6 H Lymph # (Auto) 1.4 Isabella # (Auto) 1.5 H Eos # (Auto) 0.0 Baso # (Auto) 0.0 Nucleated RBC % (auto) 0 Nucleated RBCs # 0.0 Sodium 145 Potassium 3.4 L Chloride 107 Carbon Dioxide 20 L Anion Gap 21.4 H BUN 35 H Creatinine 1.3 H GFR Calculation 45.1 L Glucose 145 H Calculated Osmolality 300 H Lactic Acid (Sepsis) Calcium 10.5 Phosphorus Magnesium 2.2 Total Bilirubin 0.6 AST 21 ALT 16 Alkaline Phosphatase 84 C-React Prot High Sens Total Protein 8.5 Albumin 5.3 H Globulin 3.2 Lipase 19 Urine Color Yellow Urine Appearance Clear Urine pH 5.0 Ur Specific [place] 1.010 Urine Protein 1+ H Urine Glucose (UA) Norm Urine Ketones Negative Urine Blood 3+ H Urine Nitrate Negative Urine Bilirubin Neg Urine Urobilinogen Norm Ur Leukocyte Esterase Negative Urine RBC 5-10 H Urine WBC Rare Ur Squamous Epith Cells 0-4 H Urine Bacteria 1+ H Hyaline Casts 25-40 H Urine Mucus 3+ Urine Opiates Screen Ur Barbiturates Screen Ur Phencyclidine Scrn Ur Amphetamines Screen U Benzodiazepines Scrn Urine Cocaine Screen U Marijuana (THC) Screen 10/13/19 10/13/19 10/14/19 07:34 13:38 01:09 WBC 13.3 H RBC 3.77 L Hgb 11.2 L Hct 33.9 L MCV 89.9 MCH 29.7 MCHC 33.0 RDW 13.2 Plt Count 200 MPV 11.0 H Neut % (Auto) 65.9 Lymph % (Auto) 20.9 Isabella % (Auto) 12.1 Eos % (Auto) 0.4 Baso % (Auto) 0.3 Neut # (Auto) 8.7 H Lymph # (Auto) 2.8 Isabella # (Auto) 1.6 H Eos # (Auto) 0.1 Baso # (Auto) 0.0 Nucleated RBC % (auto) 0 Nucleated RBCs # 0.0 Sodium Potassium Chloride Carbon Dioxide Anion Gap BUN Creatinine GFR Calculation Glucose Calculated Osmolality Lactic Acid (Sepsis) 2.1 Calcium Phosphorus Magnesium Total Bilirubin AST ALT Alkaline Phosphatase C-React Prot High Sens Total Protein Albumin Globulin Lipase Urine Color Urine Appearance Urine pH Ur Specific [place] Urine Protein Urine Glucose (UA) Urine Ketones Urine Blood Urine Nitrate Urine Bilirubin Urine Urobilinogen Ur Leukocyte Esterase Urine RBC Urine WBC Ur Squamous Epith Cells Urine Bacteria Hyaline Casts Urine Mucus Urine Opiates Screen Negative Ur Barbiturates Screen Negative Ur Phencyclidine Scrn Negative Ur Amphetamines Screen Negative U Benzodiazepines Scrn Positive H Urine Cocaine Screen Negative U Marijuana (THC) Screen Positive H 10/14/19 01:09 WBC RBC Hgb Hct MCV MCH MCHC RDW Plt Count MPV Neut % (Auto) Lymph % (Auto) [place]abella % (Auto) Eos % (Auto) Baso % (Auto) Neut # (Auto) Lymph # (Auto) Isabella # (Auto) Eos # (Auto) Baso # (Auto) Nucleated RBC % (auto) Nucleated RBCs # Sodium 143 Potassium 3.5 Chloride 110 H Carbon Dioxide 22 Anion Gap 14.5 BUN 11 Creatinine 0.6 GFR Calculation 110.2 Glucose 139 H Calculated Osmolality 294 Lactic Acid (Sepsis) Calcium 8.3 L Phosphorus 1.7 L Magnesium 2.1 Total Bilirubin 0.9 AST 27 ALT 21 Alkaline Phosphatase 61 C-React Prot High Sens 0.300 Total Protein 6.2 L D Albumin 4.2 Globulin 2.0 Lipase Urine Color Urine Appearance Urine pH Ur Specific [place] Urine Protein Urine Glucose (UA) Urine Ketones Urine Blood Urine Nitrate Urine Bilirubin Urine Urobilinogen Ur Leukocyte Esterase Urine RBC Urine WBC Ur Squamous Epith Cells Urine Bacteria Hyaline Casts Urine Mucus Urine Opiates Screen Ur Barbiturates Screen Ur Phencyclidine Scrn Ur Amphetamines Screen U Benzodiazepines Scrn Urine Cocaine Screen U Marijuana (THC) Screen Cardiac Studies: No Data to Display
[2019-10-14] MEDS: sodium chloride 0.9% 1,000 ML 30 ML IV (07:58)
[2019-10-14] MEDS: sucralfate 1 gm Tablet PO (08:49)
--- NOTE | 2019-10-14 10:19 | PC.CHAP ---
Pastoral Care Encounter/Spiritual Assessment Type of Contact [] Declined delivery associate visit [] Patient/Family/Request visit [] Outpatient visit [] Follow-up visit [] Physician referral [] Code/Alert [x] Routine visit [] Staff referral [] Actively dying [] Patient sleeping [] Family support [] [] Out of room [] Palliative care [] [] Receiving care in room [] Pre-surgical visit [] Trauma [] Long length of stay [] ICU visit [] Other: Relational/Emotional Strength [] Patient feels connected with others/family/visitors/staff [] Distress [] Loneliness/isolation [] Abandonment Spirituality of Patient [] Person of Romi [] Attends Shinto of their Romi [] Believes in Prayer [] Reads Bible or Congregational materials [] There are Spiritual issues to be addressed Camera Machinist Interventions [x] Prayer [] Active listening [] Non-anxious presence [] Spiritual/emotional support [] Crisis/trauma care [] Spiritual counseling [] Bereavement support [] Provided bereavement packet [] Provided Bible/devotional materials [] Provided toy/stuffed animal, coloring book to patient or family member [] Provided Communion [] Anointing/[place] [] Salvation [x] Completed spiritual assessment [] Other: Impact on Illness or Injury [] Angry [] Fearful [] Anxious [] Often cries [] Exhaustion [] Unable to work [] Unable to attend sikhism [] Unable to walk/stand [] Unable to read [] Unable to drive [] Unable to eat/drink [] Unable to sleep [] Unable to be with family [] Patient intubated [] Other: Summary Patient resting well Time spent with patient 5 min
--- NOTE | 2019-10-14 13:57 | PM.DCS ---
Discharge Providers Date of Admission: 10/13/19 09:01 Date of Discharge: October 14, 2019 Attending Provider at Admission: Radha Martinez DO Attending Provider at Discharge: Radha Martinez DO Primary Care Provider: Jacky Freeman MD Diagnoses at Discharge Discharge Diagnosis (1) Gastritis: Status: Acute Qualifiers: Chronicity: acute Gastritis bleeding: without bleeding Gastritis type: unspecified gastritis Qualified Code(s): K29.00 - Acute gastritis without bleeding (2) Intractable nausea and vomiting: Status: Acute Reason for Visit Reason for Visit: Reason For Visit: ACUTE ON CHRONIC GASTRITITS Hospital Course Hospital Course: The patient was admitted for observation secondary to intractable nausea and vomiting. Outpatient therapy has been attempted, however she did not improve with it. She was given a GI cocktail in the ER that helped and IV fluids for rehydration as she showed signs of elevated white blood cell count and hypokalemia with hypophosphatemia. These were replaced by IV. The patient's nausea and vomiting did improve with IV Zofran and Thorazine. The patient was scheduled to have an EGD to follow-up on the gastritis that she had previously and Dr. Garcia did the EGD on the morning of 10/14/2019. He found that there were signs of gastritis, however no other significant findings. The patient's abdominal pain is improving and is felt to be likely secondary to abdominal muscle strain from vomiting. The patient's nausea and vomiting has improved and she is able to hold down food and fluids at this time. She is showing signs of improvement, so will be discharged home on Protonix, Zofran, promethazine and Carafate. She is having further problems she is to let me know. She is to follow-up with me in clinic over the next week. Physical Exam Narrative: EXAM NARRATIVE: General: Alert and oriented x3 Cardiac: Regular rate and rhythm without murmurs Lungs: Clear to auscultation bilaterally without wheezes, crackles or rhonchi Abdomen: No significant tenderness over the liver or spleen. No hepatosplenomegaly noted, mild tenderness over the suprapubic abdominal wall. No significant flank pain. Extremities: Trace edema in the bilateral lower extremities Discharge Data Data Completed and Pending: Completed Studies During Hospitalization Category Date Time Status CT abdomen pelvis w con* [id number] Urge nt Cat Scan 05/05/20 06:35 Completed Pending at discharge Category Date Time Status H. Pylori / MARTY T est Routine Lab 10/14/19 08:19 Ordered Labs from last 24 hours 10/14/19 10/14/19 10/13/19 01:09 01:09 13:38 WBC 13.3 H RBC 3.77 L Hgb 11.2 L Hct 33.9 L MCV 89.9 MCH 29.7 MCHC 33.0 RDW 13.2 Plt Count 200 MPV 11.0 H Neut % (Auto) 65.9 Lymph % (Auto) 20.9 [place] % (Auto) 12.1 Eos % (Auto) 0.4 Baso % (Auto) 0.3 Neut # (Auto) 8.7 H Lymph # (Auto) 2.8 [place] # (Auto) 1.6 H Eos # (Auto) 0.1 Baso # (Auto) 0.0 Nucleated RBC % (a uto) 0 Nucleated RBCs # 0.0 Sodium 143 Potassium 3.5 Chloride 110 H Carbon Dioxide 22 Anion Gap 14.5 BUN 11 Creatinine 0.6 GFR Calculation 110.2 Glucose 139 H Calculated Osmolal ity 294 Lactic Acid (Sepsi s) 2.1 Calcium 8.3 L Phosphorus 1.7 L Magnesium 2.1 Total Bilirubin 0.9 AST 27 ALT 21 Alkaline Phosphata se 61 C-React Prot High Sens 0.300 Total Protein 6.2 L D Albumin 4.2 Globulin 2.0 Vitals: Last Vital Signs Temp 97.7 F 10/14/19 12:00 Pulse 66 10/14/19 12:00 Resp 18 10/14/19 12:00 BP 121/77 10/14/19 12:00 Pulse Ox 97 10/14/19 12:00 Discharge Plan Discharge Patient Disposition: Home, Self-Care Condition: Good Prescriptions: New ondansetron HCl 4 mg tablet 4 mg PO Q8H Qty: 30 RF: 2 Continued pantoprazole [Protonix] 40 mg tablet,delayed release (DR/EC) 40 mg PO DAILY RF: 0 promethazine 50 mg tablet 25 mg PO Q6H PRN (Reason: Nausea) RF: 0 Tylenol Extra Strength 500 mg Tablet 1,000 mg PO PRN RF: 0 amitriptyline 25 mg tablet 25 mg PO BEDTIME RF: 0 sucralfate 1 gram tablet 1 g PO QID RF: 0 hydroxyzine HCl 50 mg tablet 50 mg PO TID PRN (Reason: Anxiety) RF: 0 tamsulosin 0.4 mg capsule 0.4 mg PO DAILY RF: 0 Discharge Orders: Discharge Order (Routine); Ordered 10/14/19 Ordered By: Jacky Freeman Referrals: Jacky Freeman MD [Primary Care Provider] - 7-10 days (You have an follow-up appointment with Dr. Freeman on October 21 at 9:00a.m. If, need to reschedule or have any questions. Please, call ) Discharge Diet: Advance as tolerated Patient Instructions: Abdominal Pain - Adult, Ondansetron (By mouth), Gastritis (DC), Acute Nausea and Vomiting (DC) Discharge Date/Time: 10/14/19 15:37 Discharge Attestations Time Spent in Discharge Care*: less than 30 min Quality Metrics Clinical Quality Measures During this hospital stay, did patient experience: None Coding Level of Care Code Acute Range Technician for Gaurangg Fwd Diagnoses Gastritis K29.00 Chronicity: acute Gastritis bleeding: without bleeding Gastritis type: unspecified gastritis Intractable nausea and vomiting R11.2
[2019-10-15 08:01] LABS: H. Pylori / CLO Test Negative
== END 2019-10-14 15:37 | disposition home or self-care (01) ==
LOC: ER 08:51 → MEDSURG 09:31
PROVIDERS: Surgery; Admitting Provider Family Medicine; Emergency Provider Family Medicine; Family Provider Family Medicine; PCP Family Medicine; Visit Provider Family Medicine
PROC: 0DJ08ZZ Inspection of Upper Intestinal Tract, Via Natural or Artificial Opening Endoscopic (ICD-10-PCS; CPT 43235; principal; 2019-10-14 08:10)
DX: K29.00 Acute gastritis without bleeding (principal); R11.2 Nausea with vomiting, unspecified; F17.210 Nicotine dependence, cigarettes, uncomplicated; K21.9 Gastro-esophageal reflux disease without esophagitis
CPT/HCPCS: 12345; 36415; 43239; 74177; 80053; 80306; 81001; 83605; 83690; 83735; 84100; 85025; 86141; 87077; 96361; 96365; 96366; 96372; 96374; 96375; 99284; 99285; G0378; J1170; J2060; J2270; J2405; J2765; J3230; J3490; J7030; Q0161; Q0169; Q9967

== ENCOUNTER 2020-02-20 20:31 | Emergency (ER) | payer BC, SELFPAY ==
[2020-02-20 20:59] VITALS: BP 119/70; PULSE 84; RESP 16; TEMP 36.7; O2SAT 94; BMI 21.4
[2020-02-20 21:29] VITALS: BP 129/90; PULSE 80; RESP 16; O2SAT 96
[2020-02-20 21:36] VITALS: BP 129/90; PULSE 76; RESP 18; O2SAT 97
--- NOTE | 2020-02-20 21:43 | ED_ITS ---
HPI - Back Pain/Injury General: Chief Complaint: Back Pain/Injury Stated Complaint: heard pop in lower back/ pain/ tingling Time Seen by Provider: 02/20/20 21:37 Source: patient Mode of arrival: ambulatory Limitations: no limitations History of Present Illness: HPI Narrative: Jana is a very nice 39-year-old female who comes in complaining of pain in her left lower back. Patient states 2 days prior she was working on scrubbing a deck when she moved wrong and felt a pop in her back. Patient is complaining of pain in the left lower lateral side of her back that radiates shooting pain down her left leg into her foot. She also complains of a paresthesias type sensation sometimes going up the left side of her back along with back spasms. She denies any fevers or chills, loss of bowel or bladder control, groin numbness, leg weakness or abdominal pain. Patient denies having similar symptoms in the past. She states when she tries to walk or move in certain positions makes her back pain worse and occasionally will make the pain radiate down her left leg. Patient denies any abdominal pain, nausea or vomiting, chest pain or shortness of breath. Associated symptoms: Deny abdominal pain, chills, difficulty walking, dysuria, fatigue, fever(s), hematuria, nausea, syncope, urinary urgency or vomiting Review of Systems Const: Denies: fever(s), chills, body aches, fatigue, malaise or diaphoresis Eyes: Denies: change in vision, blurry vision, photophobia, eye discomfort, eye discharge, eye redness or yellow eyes ENMT: Denies: throat pain, odynophagia, hoarseness, swelling of lips/tongue, ear or mastoid pain, ear discharge, change in hearing or nasal discharge Card: Denies: chest pain, palpitations, irregular heart rhythm, edema, lightheadedness, syncope, pre-syncope, dyspnea on exertion or orthopnea Resp: Denies: dyspnea, productive cough, non-productive cough, wheezing, hemoptysis or chest congestion GI: Denies: abdominal pain, nausea, vomiting, hematemesis, coffee ground emesis, heartburn, diarrhea, constipation, GI cramping, hematochezia or melena : Denies: flank pain, dysuria, urinary frequency, urinary urgency or hematuria Musc: Reports: back pain and extremity pain; Denies: neck pain, extremity swelling, joint pain, joint swelling, joint redness, joint warmth or joint stiffness Skin/Breast: Denies: rash, pruritus, erythema, skin pain or skin tenderness Neuro: Denies: headache(s), numbness in extremities, weakness in extremities, sensory changes, lack of coordination, difficulty walking, dizziness, vertigo, confusion, Slurred speech present or seizure-like activity Austyn/Lymph: Denies: easy bruising, easy bleeding, petechiae, purpura or enlarged lymph nodes All/Imm: Denies: urticaria, throat swelling, tongue swelling, facial swelling or acute wheezing PFSH ED PFSH: Medical History GERD (gastroesophageal reflux disease) Pseudoseizures Surgical History History of appendectomy History of History of cholecystectomy History of colonoscopy History of esophagogastroduodenoscopy (EGD) History of hysterectomy for cancer History of ovarian resection Family History Denies family history of Anesthesia complication Bleeding disorder Social History Smoking and tobacco status: current every day smoker cigarettes Alcohol intake: never Last substance use date: 10/12/19 Last substance use time: 01:00 Other details last substance use: Marijuana Physical Exam Const: COMMON NORMALS: no acute distress, patient oriented x3, no limitations and alert GENERAL APPEARANCE: cooperative HENMT: COMMON NORMALS: normocephalic, atraumatic, external ears normal, EAC's normal and Normal external nose present HEAD & SCALP: normal to inspection, normocephalic and atraumatic FACE & SINUS: normal facial exam and face symmetric NOSE: Normal external nose present and Normal nares present EXTERNAL EAR: Yes external ears normal EXTERNAL AUDITORY CANAL: EAC's normal MOUTH: Normal oral and palatal mucosa present, lip normal and tongue normal Eye: COMMON NORMALS: Equal, round and reactive pupils present and conjunctivae normal GENERAL EYE: appearance normal, both eyes and all related structures ALIGNMENT: Yes alignment normal PERIORBITAL: periorbital findings normal EYELID: eyelids normal CONJUNCTIVA: Yes conjunctivae normal SCLERA: sclerae normal PUPIL: Yes Equal, round and reactive pupils present Neck/C-Spine: COMMON NORMALS: full ROM, no lymphadenopathy, supple, no meningeal signs and no JVD GENERAL: Yes normal visual inspection and Yes trachea midline Chest: COMMONS NORMALS: normal inspection of the chest and normal palpation of entire chest wall Resp: COMMON NORMALS: normal respiratory effort, No retractions, No use of accessory muscles and clear to auscultation bilaterally EFFORT & INSPECTION: Yes able to speak in complete sentences and Yes symmetric chest movement AUSCULTATION: clear to auscultation bilaterally, no crackles, no rales, no rhonchi and no wheezes Cardio: COMMON NORMALS: no JVD, regular rate, regular rhythm, S1 normal heart sound present and S2 normal heart sound present RATE: regular rate RHYTHM: regular rhythm HEART SOUNDS: S1 normal heart sound present, S2 normal heart sound present, no click, no gallops, no murmurs and no rubs GI: COMMON NORMALS: Soft to palpation and No hepatosplenomegaly present PALPATION: Yes Soft to palpation, No Tenderness to palpation present (GI), No Guarding due to palpation present (GI), No Rigid due to palpation, Yes No hepatosplenomegaly present, No Hernia present, No Palpable mass present and No Pulsatile mass present : COMMON NORMALS: Yes no CVA tenderness BLADDER/KIDNEY EXAM: Yes no CVA tenderness EXTERNAL FEMALE EXAM: No Hernia present Back/Pelvis: COMMON NORMALS: no CVA tenderness and thoraco-lumbar ROM normal OTHER: Patient with mild tenderness to palpation over left lower paraspinal muscles of the lumbar spine. Straight leg raising test on the left was positive at approximately 45 degrees. Patient had a negative contralateral straight leg raising test. Extremity: COMMON NORMALS: normal to inspection, full ROM, capillary refill normal, no joint enlargement, no clubbing, cyanosis or edema and no calf tenderness Neuro: COMMON NORMALS: patient oriented x3, CN's II-XII intact bilaterally, moves all extremities, no focal motor deficits and no sensory deficits noted SENSORIUM/ORIENTATION: Yes alert MENINGEAL SIGNS: Yes no meningeal signs SPEECH: speech normal DEEP TENDON REFLEXES: Right patellar reflex intensity grade: 2+, Left patellar reflex intensity grade: 2+, Right ankle reflex intensity grade: 2+ and Left ankle reflex intensity grade: 2+ Psych: COMMON NORMALS: mental status grossly normal, Normal thought process present, cooperative, normal affect, speech normal and activity/motor behavior normal SPEECH: Yes normal speech THOUGHT PROCESS: Normal thought process present Skin: COMMON NORMALS: no rashes or lesions noted, turgor normal, no jaundice, no petechiae and no mottling GENERAL SKIN EXAM: no rashes or lesions noted and turgor normal Course Vital Signs: Vital signs: Vital Signs Temperature 98.1 F 02/20/20 22:51 Pulse Rate 57 L 02/20/20 22:51 Respiratory Rate 16 02/20/20 22:51 Blood Pressure 101/61 02/20/20 22:51 Pulse Oximetry 99 02/20/20 22:51 MDM - Back Pain/Injury MDM Narrative: Medical decision making narrative: Jana is a very nice 39-year-old female who comes in complaining of back pain after she moved wrong while working on her deck at home. I see no sign of CRAFTI. Patient has no abdominal pain, no fever, no history of injection drug use, no saddle anesthesia, no loss of bowel or bladder control or any other sign of acute cord compressive syndrome. Patient's exam and history are most consistent with a sciatica type distribution of her pain. She could have a herniated disc or severe muscle spasm causing nerve irritation. This time I see no sign of motor loss/involvement or numbness. I believe the patient can be treated conservatively with pain medicine, muscle relaxers and anti-inflammatories. Patient has an allergy to aspirin but when asked she states she can take Motrin without any problems. Patient be medicated here and sent home with medications and instructed to follow-up with Dr. Freeman. Patient states she understands these directions she will follow-up as directed or return if needed. Patient does not have signs or symptoms consistent with acute abdominal or genitourinary infection. Patient does not have a history of trauma to the area or other reasons to think that there should be a need to image the bones. X-rays were negative for fracture or lytic lesions. Differential Diagnosis: Differential diagnosis back pain/injury: Likely lumbar radiculopathy, sciatica, strain of lumbar region, renal colic, pyelonephritis, thoracic back pain, AAA and discitis Imaging Data^: XR Lumbar Spine: Attestation: I personally reviewed and interpreted this imaging study as follows: My impression: No acute fractures or lytic lesions. Discharge Plan Discharge Patient Disposition: Home Clinical Impression: Sciatica Qualifiers: Laterality: left Qualified Code(s): M54.32 - Sciatica, left side Condition: Stable Prescriptions: New Motrin IB 200 mg tablet 400 mg PO Q6H PRN (Reason: pain) Qty: 30 RF: 0 cyclobenzaprine 10 mg tablet 10 mg PO Q8H Qty: 30 RF: 0 [place] 5-325 mg tablet 1 tab PO Q6H PRN (Reason: pain) Qty: 14 RF: 0 No Action pantoprazole [Protonix] 40 mg tablet,delayed release (DR/EC) 40 mg PO DAILY RF: 0 promethazine 50 mg tablet 25 mg PO Q6H PRN (Reason: Nausea) RF: 0 silver sulfadiazine [Silvadene] 1 % cream 1 applic TOPICAL BID Qty: 50 RF: 0 Tylenol Extra Strength 500 mg Tablet 1,000 mg PO PRN RF: 0 amitriptyline 25 mg tablet 25 mg PO BEDTIME RF: 0 ondansetron HCl 4 mg tablet 4 mg PO Q8H Qty: 30 RF: 2 sucralfate 1 gram tablet 1 g PO QID RF: 0 hydroxyzine HCl 50 mg tablet 50 mg PO TID PRN (Reason: Anxiety) RF: 0 tamsulosin 0.4 mg capsule 0.4 mg PO DAILY RF: 0 Discharge Orders: Discharge Order (Routine); Ordered 02/20/20 Ordered By: Amelia Mcclain Referrals: Jacky Freeman MD [Primary Care Provider] - 1-3 days Discharge Diet: Advance as tolerated Discharge Activity: Increase activity as tolerated Patient Instructions: Sciatica (ED) Activity Restrictions/Additional Instructions: Please return to the ER immediately for any of the signs or symptoms listed on your discharge instruction sheets, worsening/changing of your symptoms, you are not getting better as quickly as expected, or for ANY other cause or concerns. Return to the ER for fever, increased pain, numbness or weakness in your leg, abdominal pain, or for any other cause for concern. Be certain to follow-up with Dr. Freeman for recheck and for further evaluation and care. Discharge Date/Time: 02/20/20 22:51 Coding Level of Care Code ED Rehabilitation Liaison for g Fwd Exam Comprehensive
--- NOTE | 2020-02-20 21:54 | XRR_ITS ---
PROCEDURE INFORMATION: Exam: XR Lumbosacral Spine, 2 or 3 Views Exam date and time: 02/20/2020 10:37 PM Age: 39 years old Clinical indication: Low back pain; Patient HX: Lower back pain. Monona pop TECHNIQUE: Imaging protocol: XR of the lumbosacral spine, 2 or 3 views. COMPARISON: CR Lumbar Spine Flex/Extens [id number] 11/24/2018 3:48 PM FINDINGS: Vertebrae: Normal. No acute fracture. Normal alignment. Soft tissues: Unremarkable. XR/XR lumbar spine 2-3V* [id number] IMPRESSION: No acute findings.
[2020-02-20] MEDS: HYDROcodone-acetaminophen 5-325 mg Tablet 1 TAB PO (22:02)
[2020-02-20] MEDS: ketorolac 60 mg/2 mL INJ IM (22:04)
[2020-02-20] MEDS: orphenadrine 30 mg/mL Inj 2 mL 60 MG IM (22:04)
[2020-02-20 22:06] VITALS: BP 125/78; PULSE 64; RESP 18; O2SAT 98
[2020-02-20 22:51] VITALS: BP 101/61; PULSE 57; RESP 16; TEMP 36.7; O2SAT 99
== END 2020-02-20 22:51 | disposition home or self-care (01) ==
PROVIDERS: Emergency Provider Emergency Medicine; PCP Family Medicine
DX: M54.32 Sciatica, left side (principal); F17.210 Nicotine dependence, cigarettes, uncomplicated
CPT/HCPCS: 12345; 72100; 96372; 99281; 99283; J1885; J2360

== ENCOUNTER 2020-04-19 15:19 | Outpatient (CLI) | payer BC, SELFPAY ==
--- NOTE | 2020-04-19 15:27 | XR_ITS ---
WS: [id number] XR foot LT min 3V* [id number] REASON FOR EXAM: LEFT FOOT PAIN FINDINGS: Joint spaces of the left Joint spaces in the left midfoot are intact. No fracture or other focal bony abnormality. Joint spaces in the hindfoot are intact. No fracture or other focal bony abnormality. No soft tissue abnormality. Forefoot are intact. No fracture or other focal bony abnormality in the l eft forefoot. XR/XR foot LT min 3V* [id number] IMPRESSION: No significant abnormality of the left foot identified.
== END 2020-04-19 15:20 | disposition home or self-care (01) ==
LOC: RAD 15:24
PROVIDERS: PCP Family Medicine; Visit Provider Family Medicine
DX: M79.672 Pain in left foot (principal)
CPT/HCPCS: 73630

== ENCOUNTER 2020-05-07 12:37 | Emergency (ER) | payer BC, SELFPAY ==
[2020-05-07 12:48] VITALS: BP 105/75; PULSE 86; RESP 16; TEMP 36.4; O2SAT 96; BMI 19.5
--- NOTE | 2020-05-07 12:59 | W.ED.GENADLT ---
HPI - General Adult General: Chief complaint: Abdominal Pain Stated complaint: N/V X 24 HOURS, CRAMPING EXTREMITIES, ANXIETY Time Seen by Provider: 05/07/20 12:54 History of Present Illness: HPI narrative: Patient complain about anxiety and which is brought on by the vomiting and a low potassium is brought on by the vomiting also. Patient has had quite a few episodes of vomiting patient is a daily marijuana smoker also. Says she has her medical card. Denies any fever chills denies any bladder problems MD complaint: Vomiting and anxiety Onset (ago): hour(s) Location: abdomen Radiation: non-radiation Severity: moderate Pain Consistency: colicky Relieving factors: none Associated symptoms: Reports nausea and vomiting; Deny chest pain, dyspnea, headache(s) or rash Treatments prior to arrival: none Review of Systems Const: Denies: fever(s), chills or body aches Eyes: Denies: change in vision or blurry vision ENMT: Denies: throat pain or nasal congestion Card: Denies: chest pain or dyspnea on exertion Resp: Denies: dyspnea, productive cough or non-productive cough GI: Reports: abdominal pain, nausea and vomiting Musc: Denies: extremity pain Skin/Breast: Denies: rash Neuro: Denies: headache(s) Psych: Denies: anxiety or depression Austyn/Lymph: Denies: easy bruising PFS ED PFSH: Medical History (Updated 05/07/20 @ 14:02 by PETR Carr) GERD (gastroesophageal reflux disease) Pseudoseizures Surgical History History of appendectomy History of History of cholecystectomy History of colonoscopy History of esophagogastroduodenoscopy (EGD) History of hysterectomy for cancer History of ovarian resection Family History Denies family history of Anesthesia complication Bleeding disorder Social History Smoking and tobacco status: current every day smoker cigarettes Alcohol intake: never Last substance use date: 10/12/19 Last substance use time: 01:00 Other details last substance use: Marijuana Physical Exam Const: COMMON NORMALS: no acute distress, average body habitus and patient oriented x3 HENMT: COMMON NORMALS: normocephalic HEAD & SCALP: normal to inspection and normocephalic FACE & SINUS: normal facial exam Eye: COMMON NORMALS: conjunctivae normal GENERAL EYE: appearance normal, both eyes and all related structures CONJUNCTIVA: Yes conjunctivae normal Neck/C-Spine: COMMON NORMALS: no JVD Chest: COMMONS NORMALS: normal inspection of the chest Resp: COMMON NORMALS: normal respiratory effort and clear to auscultation bilaterally AUSCULTATION: clear to auscultation bilaterally Cardio: COMMON NORMALS: no JVD, regular rate and regular rhythm RATE: regular rate RHYTHM: regular rhythm GI: COMMON NORMALS: Normal to inspection, nondistended, normoactive bowel sounds present Extremity: COMMON NORMALS: normal to inspection and full ROM Neuro: COMMON NORMALS: patient oriented x3 Course Vital Signs: Vital signs: Vital Signs Temperature 97.5 F L 05/07/20 12:48 Pulse Rate 73 05/07/20 14:10 Respiratory Rate 14 05/07/20 14:10 Blood Pressure 119/65 05/07/20 14:10 Pulse Oximetry 98 05/07/20 14:10 [facility] - General Adult Lab Data: Labs: Lab Results 05/07/20 05/07/20 05/07/20 Range/Units 12:59 12:59 13:12 WBC 8.7 (4.0-10.0) 10^3/ uL RBC 4.74 (4.1-5.3) 10^6/u L Hgb 14.1 (11.5-15.3) g/dL Hct 42.3 (37.0-47.0) % MCV 89.2 (81-99) fL MCH 29.7 (28.0-34.0) pg MCHC 33.3 (30.0-36.0) g/dL RDW 12.5 (12.1-15.1) % Plt Count 288 (130-400) 10^3/c mm MPV 10.7 H (7.4-10.4) fL Neut % (Auto) 63.5 % Lymph % (Auto) 27.3 % [place] % (Auto) 6.6 % Eos % (Auto) 1.5 % Baso % (Auto) 0.8 % Neut # (Auto) 5.52 (1.8-7.7) 10^3/u L Lymph # (Auto) 2.4 (0.8-4.8) 10^3/u L [place] # (Auto) 0.6 (0.2-0.9) 10^3/u L Eos # (Auto) 0.1 (0.0-0.8) 10^3/u L Baso # (Auto) 0.1 (0.0-0.1) 10^3/u L Nucleated RBC % (a uto) 0 % Nucleated RBCs # 0.0 /100WBC Sodium 139 (136-145) mmol/L Potassium 3.9 (3.5-5.1) mmol/L Chloride 106 (98-107) mmol/L Carbon Dioxide 22 (22-29) mmol/L Anion Gap 14.9 (5-19) BUN 16 (6-20) mg/dL Creatinine 0.6 (0.5-0.9) mg/dL GFR Calculation 110.2 (90-130) mL/min Glucose 105 (65-115) mg/dL Calculated Osmolal ity 290 (285-295) mOsm/k g Calcium 9.5 (8.5-10.5) mg/dL Urine Color Dark yellow (Yellow) Urine Appearance Sl hazy (CLEAR) Urine pH 5 (5-7) Ur Specific Gravit y 1.020 (1.005-1.030) Urine Protein Neg (Negative) Urine Glucose (UA) Norm (Normal) Urine Ketones Negative (Negative) Urine Blood 3+ H (Negative) Urine Nitrate Negative (Negative) Urine Bilirubin 1+ H (Negative) Urine Urobilinogen 1 H (Negative) mg/dL Ur Leukocyte Mandi ase Negative (Negative) Urine RBC 0-4 H (0-2) /hpf Urine WBC 0-4 H (0-5) /hpf Ur Squamous Epith Cells 0-4 H (0-5) /hpf Amorphous Sediment 2+ /hpf Urine Bacteria Trace (NONE) /hpf Urine Mucus 2+ /hpf Discharge Plan Discharge Patient Disposition: Home Clinical Impression: Anxiety, Cyclic vomiting syndrome Nausea and vomiting Qualifiers: Vomiting type: unspecified Vomiting Intractability: intractable Qualified Code(s): R11.2 - Nausea with vomiting, unspecified Condition: Stable Prescriptions: New Ativan 0.5 mg tablet 0.5 mg PO BID PRN (Reason: anxiety) Qty: 10 RF: 0 Zofran 4 mg tablet 4 mg PO Q8H PRN (Reason: nausea and vomiting) 3 Days Qty: 10 RF: 0 Discontinued promethazine 50 mg tablet 25 mg PO Q6H PRN (Reason: Nausea) RF: 0 ondansetron HCl 4 mg tablet 4 mg PO Q8H Qty: 30 RF: 2 hydroxyzine HCl 50 mg tablet 50 mg PO TID PRN (Reason: Anxiety) RF: 0 No Action pantoprazole [Protonix] 40 mg tablet,delayed release (DR/EC) 40 mg PO DAILY RF: 0 silver sulfadiazine [Silvadene] 1 % cream 1 applic TOPICAL BID Qty: 50 RF: 0 Tylenol Extra Strength 500 mg Tablet 1,000 mg PO PRN RF: 0 amitriptyline 25 mg tablet 25 mg PO BEDTIME RF: 0 sucralfate 1 gram tablet 1 g PO QID RF: 0 tamsulosin 0.4 mg capsule 0.4 mg PO DAILY RF: 0 Motrin IB 200 mg tablet 400 mg PO Q6H PRN (Reason: pain) Qty: 30 RF: 0 cyclobenzaprine 10 mg tablet 10 mg PO Q8H Qty: 30 RF: 0 [place] 5-325 mg tablet 1 tab PO Q6H PRN (Reason: pain) Qty: 14 RF: 0 Discharge Orders: Discharge Order (Routine); Ordered 05/07/20 Ordered By: Kamran Fraser Referrals: Jacky Freeman MD [Primary Care Provider] - Discharge Diet: Usual diet Discharge Activity: Resume usual activity Patient Instructions: Medicinal Use of Cannabis (ED), Anxiety (ED) Activity Restrictions/Additional Instructions: Follow-up with medical provider as directed. Take medications as prescribed. Return to the ER or your medical provider if condition worsens. Please read and understand discharge instructions. If any questions ask please. See if marijuana use and vomiting correlate at all Coding Level of Care Code ED Hygiene Teacher for Shira Fwd Exam Comprehensive
[2020-05-07 13:09] LABS: Basophils # 0.1 10^3/uL (0.0-0.1); Basophils % 0.8 %; Eosinophils # 0.1 10^3/uL (0.0-0.8); Eosinophils % 1.5 %; Hematocrit 42.3 % (37.0-47.0); Hemoglobin 14.1 g/dL (11.5-15.3); Lymphocytes # 2.4 10^3/uL (0.8-4.8); Lymphocytes % 27.3 %; Mean Corpuscular HGB Conc 33.3 g/dL (30.0-36.0); Mean Corpuscular Hemoglobin 29.7 pg (28.0-34.0); Mean Corpuscular Volume 89.2 fL (81-99); Mean Platelet Volume 10.7 fL (7.4-10.4); Monocytes # 0.6 10^3/uL (0.2-0.9); Monocytes % 6.6 %; Neutrophils # 5.52 10^3/uL (1.8-7.7); Neutrophils % 63.5 %; Nucleated Red Blood Cells % 0 %; Platelet Count 288 10^3/cmm (130-400); Red Blood Count 4.74 10^6/uL (4.1-5.3); Red Cell Distribution Width 12.5 % (12.1-15.1); White Blood Count 8.7 10^3/uL (4.0-10.0)
[2020-05-07] MEDS: ondansetron 2 mg/ML SDV 2 mL 4 MG IVP (13:17)
[2020-05-07] MEDS: sodium chloride 0.9% 500 ML IV (13:17)
[2020-05-07 13:23] VITALS: BP 145/92; RESP 20; O2SAT 96
[2020-05-07 13:31] LABS: Anion Gap 14.9 (5-19); Blood Urea Nitrogen 16 mg/dL (6-20); Calcium 9.5 mg/dL (8.5-10.5); Carbon Dioxide 22 mmol/L (22-29); Chloride 106 mmol/L (98-107); Glomerular Filtration Rate 110.2 mL/min (90-130); Glucose 105 mg/dL (65-115); Osmolality Calculated 290 mOsm/kg (285-295); Potassium 3.9 mmol/L (3.5-5.1); Sodium 139 mmol/L (136-145)
[2020-05-07] MEDS: LORazepam 1 mg Tablet PO (13:36)
[2020-05-07 13:53] LABS: Add Urine Microscopic? YES; Bilirubin Urine 1+ (Negative); Blood Urine 3+ (Negative); Glucose Urine UA Norm (Normal); Ketones Urine Negative (Negative); Leukocyte Esterase Urine Negative (Negative); Nitrate Urine Negative (Negative); Protein Urine Neg (Negative); Urine Appearance SL Hazy (CLEAR); Urine Color Dark Yellow (Yellow); Urobilinogen Urine 1 mg/dL (Negative); pH Urine 5 (5-7)
[2020-05-07 13:54] LABS: Bacteria Urine TRACE /hpf; RBC Urine 0-4 /hpf (0-2); Squamous Epithelial Cell Urine 0-4 /hpf (0-5); WBC Urine 0-4 /hpf (0-5)
[2020-05-07 13:55] LABS: Add Urine Culture? No; Amorphous Sediment Urine 2+ /hpf; Mucus Urine 2+ /hpf
[2020-05-07 14:10] VITALS: BP 119/65; PULSE 73; RESP 14; O2SAT 98
== END 2020-05-07 14:11 | disposition home or self-care (01) ==
PROVIDERS: Emergency Provider Nurse Practitioner Family; PCP Family Medicine
DX: F41.9 Anxiety disorder, unspecified (principal); R11.15 Cyclical vomiting syndrome unrelated to migraine
CPT/HCPCS: 12345; 80048; 81001; 85025; 96361; 96374; 96375; 99283; J2405; J7040

== ENCOUNTER 2020-05-10 12:14 | Emergency (ER) | payer BC, SELFPAY ==
[2020-05-10 12:30] VITALS: BP 152/76; PULSE 92; RESP 18; TEMP 36.9; O2SAT 95; BMI 20.9
--- NOTE | 2020-05-10 13:45 | CT_ITS ---
WS: [id number] CT ABDOMEN PELVIS TECHNIQUE: Contrast-enhanced CT of the abdomen and pelvis with coronal and sagittal reformatted image s. CLINICAL INFORMATION: abd pain COMPARISON: None. DLP: 269.[address] scans at [facility] use at least one of these dose optimization techniques: automat ed exposure control; mA and/or kV adjustment per patient size (includes targeted exams where dose is matched to clinical indication); or iterative reconstruction. FINDINGS: Prior cholecystectomy. Prior hysterectomy. Prior appendectomy. Mild diffuse fatty infiltration of the liver. Lung bases are well aerated. Adrenal glands are normal. Normal spleen. Normal renal parenchym al enhancement. No hydronephrosis. Normal pancreas. No evidence of pancreatitis. Normal caliber abdom inal aorta. No free fluid in the abdomen or pelvis. Normal sigmoid colon. No evidence of small or large bowel obs truction. Tiny fat-containing umbilical hernia. No abdominal pelvic lymphadenopathy. No inguinal lymp hadenopathy. Normal lumbar spine. CT/CT abdomen pelvis w con* [id number] IMPRESSION: 1. No evidence of small or large bowel obstruction. 2. No free fluid in the pelvis. 3. A few sigmoid diverticuli. No evidence of diverticulitis. 4. Prior hysterectomy cholecystectomy. 5. Mild diffuse fatty infiltration of the liver. 6. No evidence of pancreatitis.
--- NOTE | 2020-05-10 13:47 | ED_ITS ---
HPI - Abdominal Pain General: Chief Complaint: Abdominal Pain Stated Complaint: phy ref/abd pain Time Seen by Provider: 05/10/20 13:39 Source: patient Mode of arrival: ambulatory Limitations: no limitations History of Present Illness: HPI narrative: 39-year-old female states she been having abdominal pain since Saturday. States pain is been sharp in nature and diffuse. She has had vomiting along with it. She denies any bowel movements. She had multiple surgeries including cholecystectomy appendectomy and had her ovaries out due to ovarian cancer. She is concerned she may have a small bowel obstruction. She denies any improving or worsening factors and rates her pain a 6 out of 10. Associated Symptoms: Denies chills, diarrhea, dysuria, fever(s), nausea and vomiting Review of Systems Const: Denies: fever(s), chills, body aches or change in appetite Eyes: Denies: blurry vision or eye discomfort ENMT: Denies: throat pain or dental pain Card: Denies: chest pain Resp: Denies: dyspnea GI: Reports: abdominal pain; Denies: nausea, vomiting or diarrhea : Denies: dysuria Musc: Denies: neck pain or back pain Skin/Breast: Denies: rash Neuro: Denies: headache(s) Psych: Denies: depression Austyn/Lymph: Denies: easy bruising All/Imm: Denies: urticaria PFSH ED PFSH: Medical History (Updated 05/10/20 @ 16:29 by Jessica Paniagua MD) GERD (gastroesophageal reflux disease) Pseudoseizures Surgical History History of appendectomy History of History of cholecystectomy History of colonoscopy History of esophagogastroduodenoscopy (EGD) History of hysterectomy for cancer History of ovarian resection Family History Denies family history of Anesthesia complication Bleeding disorder Social History Smoking and tobacco status: current every day smoker cigarettes Alcohol intake: never Last substance use date: 10/12/19 Last substance use time: 01:00 Other details last substance use: Marijuana Physical Exam Const: COMMON NORMALS: no acute distress, patient oriented x3 and healthy appearing HENMT: COMMON NORMALS: normocephalic and atraumatic HEAD & SCALP: normocephalic and atraumatic Eye: COMMON NORMALS: Equal, round and reactive pupils present and EOMs intact bilaterally PUPIL: Yes Equal, round and reactive pupils present Neck/C-Spine: COMMON NORMALS: full ROM and supple Chest: COMMONS NORMALS: normal inspection of the chest and normal palpation of entire chest wall Resp: COMMON NORMALS: normal respiratory effort, No retractions, No use of accessory muscles and clear to auscultation bilaterally AUSCULTATION: clear to auscultation bilaterally Cardio: COMMON NORMALS: regular rate, regular rhythm and No murmurs present (Cardio) RATE: regular rate RHYTHM: regular rhythm GI: COMMON NORMALS: Normal to inspection, nondistended, normoactive bowel sounds present, Soft to palpation and no masses PALPATION: Yes Soft to palpation and Yes Tenderness to palpation present (GI) (diffuse) Extremity: COMMON NORMALS: normal to inspection and full ROM Neuro: COMMON NORMALS: patient oriented x3, moves all extremities and no focal motor deficits Psych: COMMON NORMALS: mental status grossly normal, Normal thought process present and cooperative THOUGHT PROCESS: Normal thought process present Skin: COMMON NORMALS: no rashes or lesions noted and no wounds GENERAL SKIN EXAM: no rashes or lesions noted Course Vital Signs: Vital signs: Vital Signs Temperature 98.4 F 05/10/20 12:30 Pulse Rate 65 05/10/20 16:04 Respiratory Rate 18 05/10/20 16:04 Blood Pressure 121/70 05/10/20 16:04 Pulse Oximetry 97 05/10/20 16:04 MDM - Abdominal Pain MDM Narrative: Medical decision making narrative: Jana presents abdominal pain that resolved with Reglan. Her CT scan here showed no acute findings and her blood work including lactate are normal. Her abdominal exam at discharge is benign and she has no tenderness at discharge. We will place her on Reglan at home and she is to follow-up with PCP in 2 to 4 days return if worsening. She understands and agrees to the plan. Lab Data: Labs: Lab Results 05/10/20 05/10/20 05/10/20 Range/Units 13:50 13:50 13:58 WBC 8.1 (4.0-10.0) 10^3/ uL RBC 4.71 (4.1-5.3) 10^6/u L Hgb 13.9 (11.5-15.3) g/dL Hct 42.0 (37.0-47.0) % MCV 89.2 (81-99) fL MCH 29.5 (28.0-34.0) pg MCHC 33.1 (30.0-36.0) g/dL RDW 12.3 (12.1-15.1) % Plt Count 283 (130-400) 10^3/c mm MPV 10.7 H (7.4-10.4) fL Neut % (Auto) 49.3 % Lymph % (Auto) 37.3 % Jewell % (Auto) 9.3 % Eos % (Auto) 2.7 % Baso % (Auto) 1.2 % Neut # (Auto) 3.98 (1.8-7.7) 10^3/u L Lymph # (Auto) 3.0 (0.8-4.8) 10^3/u L Jewell # (Auto) 0.8 (0.2-0.9) 10^3/u L Eos # (Auto) 0.2 (0.0-0.8) 10^3/u L Baso # (Auto) 0.1 (0.0-0.1) 10^3/u L Nucleated RBC % (a uto) 0 % Nucleated RBCs # 0.0 /100WBC Sodium (136-145) mmol/L Potassium (3.5-5.1) mmol/L Chloride (98-107) mmol/L Carbon Dioxide (22-29) mmol/L Anion Gap (5-19) BUN (6-20) mg/dL Creatinine (0.5-0.9) mg/dL GFR Calculation (90-130) mL/min Glucose (65-115) mg/dL Calculated Osmolal ity (285-295) mOsm/k g Lactate (0.5-2.2) mmol/L Calcium (8.5-10.5) mg/dL Total Bilirubin (0.15-1.2) mg/dL AST (0-32) U/L ALT (0-33) U/L Alkaline Phosphata se (35-105) IU/L Total Protein (6.6-8.7) g/dL Albumin (3.5-5.2) g/dL Globulin (1.3-4.6) g/dL Lipase (13-60) U/L HCG, Qual Negative (Negative) Urine Color Straw (Yellow) Urine Appearance Clear (CLEAR) Urine pH 6.5 (5-7) Ur Specific Gravit y 1.005 (1.005-1.030) Urine Protein Neg (Negative) Urine Glucose (UA) Norm (Normal) Urine Ketones Negative (Negative) Urine Blood Neg (Negative) Urine Nitrate Negative (Negative) Urine Bilirubin Neg (Negative) Urine Urobilinogen Norm (Negative) mg/dL Ur Leukocyte Mandi ase Negative (Negative) 05/10/20 05/10/20 Range/Units 13:58 15:34 WBC (4.0-10.0) 10^3/ uL RBC (4.1-5.3) 10^6/u L Hgb (11.5-15.3) g/dL Hct (37.0-47.0) % MCV (81-99) fL MCH (28.0-34.0) pg MCHC (30.0-36.0) g/dL RDW (12.1-15.1) % Plt Count (130-400) 10^3/c mm MPV (7.4-10.4) fL Neut % (Auto) % Lymph % (Auto) % Jewell % (Auto) % Eos % (Auto) % Baso % (Auto) % Neut # (Auto) (1.8-7.7) 10^3/u L Lymph # (Auto) (0.8-4.8) 10^3/u L Jewell # (Auto) (0.2-0.9) 10^3/u L Eos # (Auto) (0.0-0.8) 10^3/u L Baso # (Auto) (0.0-0.1) 10^3/u L Nucleated RBC % (a uto) % Nucleated RBCs # /100WBC Sodium 142 (136-145) mmol/L Potassium 4.1 (3.5-5.1) mmol/L Chloride 107 (98-107) mmol/L Carbon Dioxide 24 (22-29) mmol/L Anion Gap 15.1 (5-19) BUN 11 (6-20) mg/dL Creatinine 0.7 (0.5-0.9) mg/dL GFR Calculation 92.2 (90-130) mL/min Glucose 97 (65-115) mg/dL Calculated Osmolal ity 293 (285-295) mOsm/k g Lactate 0.6 (0.5-2.2) mmol/L Calcium 9.3 (8.5-10.5) mg/dL Total Bilirubin 0.2 (0.15-1.2) mg/dL AST 14 (0-32) U/L ALT 9 (0-33) U/L Alkaline Phosphata se 84 (35-105) IU/L Total Protein 6.9 (6.6-8.7) g/dL Albumin 4.5 (3.5-5.2) g/dL Globulin 2.4 (1.3-4.6) g/dL Lipase 24 (13-60) U/L HCG, Qual (Negative) Urine Color (Yellow) Urine Appearance (CLEAR) Urine pH (5-7) Ur Specific Gravit y (1.005-1.030) Urine Protein (Negative) Urine Glucose (UA) (Normal) Urine Ketones (Negative) Urine Blood (Negative) Urine Nitrate (Negative) Urine Bilirubin (Negative) Urine Urobilinogen (Negative) mg/dL Ur Leukocyte Mandi ase (Negative) Imaging Data ^: CT Abd/Pel: Radiologist's impression: [address] [address] [address] Scan Report Signed Patient: Jana Pulliam I Unit #: [id number] : 1980 Age/Sex: 39 / F ADM Date: 05/10/20 Loc: ER Room/Bed: Attending Dr: Ordering Provider/Ordering MD: Jessica Paniagua MD Date of Service: 05/10/20 Procedure(s): CT abdomen pelvis w con* [id number] Accession Number(s): [id number] Report Number: [id number] WS: [id number] CT ABDOMEN PELVIS TECHNIQUE: Contrast-enhanced CT of the abdomen and pelvis with coronal and sagittal reformatted images. CLINICAL INFORMATION: abd pain COMPARISON: None. DLP: 269.[address] scans at [facility] use at least one of these dose optimization techniques: automated exposure control; mA and/or kV adjustment per patient size (includes targeted exams where dose is matched to clinical indication); or iterative reconstruction. FINDINGS: Prior cholecystectomy. Prior hysterectomy. Prior appendectomy. Mild diffuse fatty infiltration of the liver. Lung bases are well aerated. Adrenal glands are normal. Normal spleen. Normal renal parenchymal enhancement. No hydronephrosis. Normal pancreas. No evidence of pancreatitis. Normal caliber abdominal aorta. No free fluid in the abdomen or pelvis. Normal sigmoid colon. No evidence of small or large bowel obstruction. Tiny fat-containing umbilical hernia. No abdominal pelvic lymphadenopathy. No inguinal lymphadenopathy. Normal lumbar spine. CT/CT abdomen pelvis w con* [id number] IMPRESSION: 1. No evidence of small or large bowel obstruction. 2. No free fluid in the pelvis. 3. A few sigmoid diverticuli. No evidence of diverticulitis. 4. Prior hysterectomy cholecystectomy. 5. Mild diffuse fatty infiltration of the liver. 6. No evidence of pancreatitis. Discharge Plan Discharge Patient Disposition: Home Clinical Impression: Abdominal pain Qualifiers: Abdominal location: generalized Qualified Code(s): R10.84 - Generalized abdominal pain Condition: Stable Prescriptions: New Reglan 10 mg tablet 10 mg PO Q6H PRN (Reason: nausea and vomiting) Qty: 20 RF: 0 No Action pantoprazole [Protonix] 40 mg tablet,delayed release (DR/EC) 40 mg PO DAILY RF: 0 silver sulfadiazine [Silvadene] 1 % cream 1 applic TOPICAL BID Qty: 50 RF: 0 sucralfate 1 gram tablet 1 g PO QID RF: 0 ondansetron HCl 4 mg tablet 4 mg PO Q8H PRN (Reason: n/v) RF: 0 promethazine 25 mg tablet See Rx Instructions .ROUTE .COMPLEX RF: 0 Discharge Orders: Discharge ED (Routine); Ordered 05/10/20 Ordered By: Jessica Paniagua Referrals: Jacky Freeman MD [Primary Care Provider] - 1-3 days Discharge Diet: Advance as tolerated Discharge Activity: Resume usual activity Patient Instructions: Abdominal Pain (ED) Coding Level of Care Code ED Numerical Control Nesting Operator for Chg Fwd Exam Comprehensive
[2020-05-10 14:04] VITALS: BP 108/75; PULSE 63; RESP 18; O2SAT 97
[2020-05-10] MEDS: ondansetron 2 mg/ML SDV 2 mL 4 MG IVP (14:05)
[2020-05-10 14:06] VITALS: RESP 18
[2020-05-10] MEDS: morphine 4 mg/mL SDV 1 mL IM (14:06)
[2020-05-10 14:07] LABS: Add Urine Microscopic? NO
[2020-05-10] MEDS: sodium chloride 0.9% 1,000 ML 999 ML IV (14:07)
[2020-05-10] MEDS: iohexol 300 mg/mL 100 mL Btl IV (14:16)
[2020-05-10 14:18] LABS: Bilirubin Urine Neg (Negative); Blood Urine Neg (Negative); Glucose Urine UA Norm (Normal); HCG Qualitative Urine. Negative (Negative); Ketones Urine Negative (Negative); Leukocyte Esterase Urine Negative (Negative); Nitrate Urine Negative (Negative); Protein Urine Neg (Negative); Specific Gravity, Urine 1.005 (1.005-1.030); Urine Appearance Clear (CLEAR); Urine Color Straw (Yellow); Urobilinogen Urine Norm (Negative); pH Urine 6.5 (5-7)
[2020-05-10 14:19] LABS: Basophils # 0.1 10^3/uL (0.0-0.1); Basophils % 1.2 %; Eosinophils # 0.2 10^3/uL (0.0-0.8); Eosinophils % 2.7 %; Hemoglobin 13.9 g/dL (11.5-15.3); Lymphocytes % 37.3 %; Mean Corpuscular HGB Conc 33.1 g/dL (30.0-36.0); Mean Corpuscular Hemoglobin 29.5 pg (28.0-34.0); Mean Corpuscular Volume 89.2 fL (81-99); Mean Platelet Volume 10.7 fL (7.4-10.4); Monocytes # 0.8 10^3/uL (0.2-0.9); Monocytes % 9.3 %; Neutrophils # 3.98 10^3/uL (1.8-7.7); Neutrophils % 49.3 %; Nucleated Red Blood Cells % 0 %; Platelet Count 283 10^3/cmm (130-400); Red Blood Count 4.71 10^6/uL (4.1-5.3); Red Cell Distribution Width 12.3 % (12.1-15.1); White Blood Count 8.1 10^3/uL (4.0-10.0)
[2020-05-10 15:12] VITALS: BP 111/72; PULSE 66; RESP 18; O2SAT 98
--- NOTE | 2020-05-10 15:13 | PC.NURSE ---
C/o low abd pain 03/19
[2020-05-10] MEDS: metoclopramide 5 mg/mL SDV 2 mL 10 MG IVP (15:23)
[2020-05-10] MEDS: diphenhydrAMINE 50 mg/mL SDV 1mL IVP (15:23)
[2020-05-10 16:04] VITALS: BP 121/70; PULSE 65; RESP 18; O2SAT 97
[2020-05-10 16:11] LABS: Alanine Aminotransferase 9 U/L (0-33); Albumin Level 4.5 g/dL (3.5-5.2); Alkaline Phosphatase 84 IU/L (35-105); Anion Gap 15.1 (5-19); Aspartate Amino Transferase 14 U/L (0-32); Blood Urea Nitrogen 11 mg/dL (6-20); Calcium 9.3 mg/dL (8.5-10.5); Carbon Dioxide 24 mmol/L (22-29); Chloride 107 mmol/L (98-107); Globulin 2.4 g/dL (1.3-4.6); Glomerular Filtration Rate 92.2 mL/min (90-130); Glucose 97 mg/dL (65-115); Lipase 24 U/L (13-60); Osmolality Calculated 293 mOsm/kg (285-295); Potassium 4.1 mmol/L (3.5-5.1); Sodium 142 mmol/L (136-145); Total Bilirubin 0.2 mg/dL (0.15-1.2); Total Protein 6.9 g/dL (6.6-8.7)
[2020-05-10 16:14] LABS: Lactate (Lactic Acid level) 0.6 mmol/L (0.5-2.2)
[2020-05-10 16:47] VITALS: BP 121/70; PULSE 64; RESP 18; TEMP 36.6; O2SAT 99
== END 2020-05-10 16:50 | disposition home or self-care (01) ==
PROVIDERS: Emergency Provider Emergency Medicine; PCP Family Medicine
DX: R10.84 Generalized abdominal pain (principal); F17.210 Nicotine dependence, cigarettes, uncomplicated
CPT/HCPCS: 12345; 74177; 80053; 81003; 81025; 83605; 83690; 85025; 96372; 96375; 99283; J1200; J2270; J2405; J2765; J7030; Q9967

== ENCOUNTER 2020-05-14 09:29 | Emergency (ER) | payer BC, SELFPAY ==
[2020-05-14 09:39] VITALS: BP 125/74; PULSE 74; RESP 18; TEMP 36.6; O2SAT 96; BMI 20.9
--- NOTE | 2020-05-14 09:44 | XRR_ITS ---
PROCEDURE INFORMATION: Exam: XR Abdomen, 2 Views Exam date and time: 05/14/2020 9:45 AM Age: 39 years old Clinical indication: Nausea and vomiting; Additional info: N/v TECHNIQUE: Imaging protocol: XR of the abdomen. Views: 2 Views. COMPARISON: CT abdomen pelvis w con* [id number] 05/10/2020 2:08 PM FINDINGS: Gastrointestinal tract: Normal. No bowel dilation. Intraperitoneal space: Normal. No free air. Organs: Clips are present in the right upper quadrant from cholecystectomy. Vasculature: Small phleboliths are present in the pelvis. No other calcifications project on the kidneys. Bones/joints: Unremarkable for age. XR/XR abdomen min 2V [id number] IMPRESSION: No acute abnormalities are seen in the abdomen.
[2020-05-14 10:13] VITALS: BP 125/85; PULSE 63; RESP 18; O2SAT 96
[2020-05-14 10:15] LABS: Basophils # 0.1 10^3/uL (0.0-0.1); Basophils % 0.8 %; Eosinophils # 0.2 10^3/uL (0.0-0.8); Eosinophils % 3.1 %; Hematocrit 40.5 % (37.0-47.0); Lymphocytes # 2.4 10^3/uL (0.8-4.8); Lymphocytes % 32.3 %; Mean Corpuscular HGB Conc 34.6 g/dL (30.0-36.0); Mean Corpuscular Volume 86.7 fL (81-99); Mean Platelet Volume 10.8 fL (7.4-10.4); Monocytes # 0.6 10^3/uL (0.2-0.9); Monocytes % 8.1 %; Neutrophils # 4.09 10^3/uL (1.8-7.7); Neutrophils % 55.6 %; Nucleated Red Blood Cells % 0 %; Platelet Count 267 10^3/cmm (130-400); Red Blood Count 4.67 10^6/uL (4.1-5.3); Red Cell Distribution Width 12.6 % (12.1-15.1); White Blood Count 7.4 10^3/uL (4.0-10.0)
[2020-05-14] MEDS: ondansetron 2 mg/ML SDV 2 mL 4 MG IVP (10:15)
[2020-05-14] MEDS: sodium chloride 0.9% 500 ML 999 ML IV (10:15)
--- NOTE | 2020-05-14 10:39 | ED_ITS ---
HPI - Nausea/Vomiting/Diarrhea General: Chief complaint: Nausea/Vomiting/Diarrhea Stated complaint: n/v Time Seen by Provider: 05/14/20 09:36 Source: patient Mode of arrival: ambulatory Limitations: no limitations History of Present Illness: HPI Narrative: 39-year-old female patient presents to the emergency department with continued nausea vomiting diarrhea x7 days. She reports seen in the emergency department 05/10/2020 for similar symptoms. Reports unable to tolerate oral fluids, ice chips or broth at home despite use of Reglan and Zofran. She reports abdominal pain continues. CT scan of the abdomen and pelvis completed 05/10/2020 did not reveal acute abnormalities. She reports pain is the same. She denies change of pain. 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 She also reports 7-day history of chest congestion, nasal congestion. Reports chills but denies fever. Reports history of interstitial cystitis, referred to urology due to chronic hematuria. She denies urinary symptoms upon exam. MD elicited complaint: nausea, vomiting and diarrhea (denies diarrhea today) Pertinent past history: abdominal surgery (Cholecystectomy, hysterectomy and appendectomy) Onset (ago): day(s) (7) Associated nausea: Yes Associated abdominal pain: Yes Location of pain: Epigastric and Periumbilical Severity: moderate Quality: cramping and aching Exacerbating factors: eating Relieving factors: rest and hot shower/bath Context: sick contacts (COVID through employees) Associated symtoms: Reports cough, fatigue, malaise, nausea and weakness; Denies anxiety, change in vision, chest pain, dysuria, headache(s) or palpitations Treatment prior to arrival: other (Rx Zofran and Reglan) Review of Systems General: Reports: 10 or more systems reviewed and unremarkable except in HPI and below Const: Reports: chills, body aches, change in appetite, fatigue and malaise Eyes: Denies: change in vision, blurry vision, eye discharge, eye redness or yellow eyes ENMT: Reports: nasal discharge, nasal congestion and post nasal drip; Denies: throat pain, odynophagia, mouth pain, dental pain or disequilibrium Card: Denies: chest pain, palpitations, irregular heart rhythm, lightheadedness or dyspnea on exertion Resp: Reports: chest congestion; Denies: dyspnea, productive cough, non-productive cough or wheezing GI: Reports: abdominal pain, nausea, vomiting and diarrhea; Denies: dysphagia, heartburn or constipation : Denies: difficulty voiding or dysuria Musc: Denies: neck pain, back pain, joint pain or joint warmth Skin/Breast: Denies: rash or pruritus Neuro: Denies: headache(s), weakness in extremities or behavioral changes Psych: Denies: anxiety or depression Austyn/Lymph: Denies: easy bruising PFSH ED PFSH: Medical History (Updated 05/14/20 @ 12:35 by SHAYY García) GERD (gastroesophageal reflux disease) Pseudoseizures Surgical History History of appendectomy History of History of cholecystectomy History of colonoscopy History of esophagogastroduodenoscopy (EGD) History of hysterectomy for cancer History of ovarian resection Family History Denies family history of Anesthesia complication Bleeding disorder Social History Smoking and tobacco status: current every day smoker cigarettes Alcohol intake: never Last substance use date: 10/12/19 Last substance use time: 01:00 Other details last substance use: Marijuana Physical Exam Const: COMMON NORMALS: no acute distress, patient oriented x3, healthy appearing and alert GENERAL APPEARANCE: cooperative, well kempt and well hydrated; not ill appearing and not frail appearing NUTRITIONAL APPEARANCE: thin ORIENTATION/CONSCIOUSNESS: Yes awake, Yes oriented to person, Yes oriented to place and Yes oriented to time HENMT: COMMON NORMALS: normocephalic, atraumatic, Normal external nose present and moist oral mucous membranes HEAD & SCALP: normocephalic and atraumatic FACE & SINUS: normal facial exam and face symmetric NOSE: Normal external nose present MOUTH: Normal oral and palatal mucosa present THROAT: posterior oropharynx normal Eye: COMMON NORMALS: Equal, round and reactive pupils present and EOMs intact bilaterally GENERAL EYE: appearance normal, both eyes and all related structures PUPIL: Yes Equal, round and reactive pupils present Neck/C-Spine: COMMON NORMALS: full ROM and no lymphadenopathy GENERAL: Yes normal visual inspection and Yes trachea midline CERVICAL SPINE: Yes cervical ROM normal, No Cervical spine tenderness, No Paracervical muscle tenderness and No Trapezius muscle tenderness Lymph: LYMPHATIC: no lymphadenopathy noted Chest: COMMONS NORMALS: normal inspection of the chest Resp: COMMON NORMALS: normal respiratory effort and clear to auscultation bilaterally EFFORT & INSPECTION: Yes able to speak in complete sentences, Yes symmetric chest movement and No paradoxical thoraco-abdominal movements AUSCULTATION: clear to auscultation bilaterally Cardio: COMMON NORMALS: regular rhythm, S1 normal heart sound present, S2 normal heart sound present and Peripheral pulses 2+ throughout RHYTHM: regular rhythm HEART SOUNDS: S1 normal heart sound present and S2 normal heart sound present PERIPHERAL PULSES: Peripheral pulses 2+ throughout GI: COMMON NORMALS: Soft to palpation INSPECTION: Yes normal to inspection, No Abdominal wall edema, No abdominal distension, Yes scar (RLQ) and No GI erythema present AUSCULTATION: Yes normoactive bowel sounds PALPATION: Yes Soft to palpation and Yes Tenderness to palpation present (GI) Details: other (central abdomen) : COMMON NORMALS: Yes no CVA tenderness BLADDER/KIDNEY EXAM: Yes no CVA tenderness Back/Pelvis: COMMON NORMALS: no CVA tenderness and thoracic and lumbar spine normal to inspection Extremity: COMMON NORMALS: normal to inspection and capillary refill normal Neuro: COMMON NORMALS: patient oriented x3 and no focal motor deficits SENSORIUM/ORIENTATION: Yes alert, Yes oriented to person, Yes oriented to place and Yes oriented to time Psych: COMMON NORMALS: mental status grossly normal, Normal thought process present and cooperative APPEARANCE: Yes well kempt ACTIVITY/MOTOR BEHAVIOR: Yes appropriate eye contact THOUGHT PROCESS: Normal thought process present Skin: COMMON NORMALS: no rashes or lesions noted and turgor normal GENERAL SKIN EXAM: no rashes or lesions noted and turgor normal Course ED course: 39-year-old female patient presents to the emergency department with 7-day history of nausea vomiting diarrhea. Reports Zofran and Reglan has not helped with symptoms at home. States Covid exposure to fellow employees. She also reports 7-day history of cough congestion with nasal congestion. Phenergan, promethazine, and Reglan administered here in the ED. Was able to tolerate ice chips and Sprite without further vomiting. She states wants to go home. X-ray abdominal series, serology testing negative for acute findings. CT scan completed on 05/10/2020 without acute abnormalities. She was advised to return to the emergency department if she develops further symptoms or inability to tolerate p.o. intake with use of promethazine. Abdominal pain resolved with use of promethazine. She is requesting prescription of promethazine for home use. Vital Signs: Vital signs: Vital Signs Temperature 98.9 F 05/14/20 13:37 Pulse Rate 61 05/14/20 13:37 Respiratory Rate 18 05/14/20 13:37 Blood Pressure 123/78 05/14/20 13:37 Pulse Oximetry 97 05/14/20 13:37 MDM - Nausea/Vomiting/Diarrhea Lab Data: Labs: Lab Results 05/14/20 05/14/20 05/14/20 Range/Units 10:07 10:07 10:43 WBC 7.4 (4.0-10.0) 10^3/ uL RBC 4.67 (4.1-5.3) 10^6/u L Hgb 14.0 (11.5-15.3) g/dL Hct 40.5 (37.0-47.0) % MCV 86.7 (81-99) fL MCH 30.0 (28.0-34.0) pg MCHC 34.6 (30.0-36.0) g/dL RDW 12.6 (12.1-15.1) % Plt Count 267 (130-400) 10^3/c mm MPV 10.8 H (7.4-10.4) fL Neut % (Auto) 55.6 % Lymph % (Auto) 32.3 % Benzie % (Auto) 8.1 % Eos % (Auto) 3.1 % Baso % (Auto) 0.8 % Neut # (Auto) 4.09 (1.8-7.7) 10^3/u L Lymph # (Auto) 2.4 (0.8-4.8) 10^3/u L Benzie # (Auto) 0.6 (0.2-0.9) 10^3/u L Eos # (Auto) 0.2 (0.0-0.8) 10^3/u L Baso # (Auto) 0.1 (0.0-0.1) 10^3/u L Nucleated RBC % (a uto) 0 % Nucleated RBCs # 0.0 /100WBC Sodium 139 (136-145) mmol/L Potassium 3.9 (3.5-5.1) mmol/L Chloride 105 (98-107) mmol/L Carbon Dioxide 24 (22-29) mmol/L Anion Gap 13.9 (5-19) BUN 13 (6-20) mg/dL Creatinine 0.6 (0.5-0.9) mg/dL GFR Calculation 110.2 (90-130) mL/min Glucose 101 (65-115) mg/dL Calculated Osmolal ity 288 (285-295) mOsm/k g Calcium 9.5 (8.5-10.5) mg/dL Total Bilirubin 0.3 (0.15-1.2) mg/dL AST 13 (0-32) U/L ALT 15 (0-33) U/L Alkaline Phosphata se 85 (35-105) IU/L Total Protein 7.0 (6.6-8.7) g/dL Albumin 4.5 (3.5-5.2) g/dL Globulin 2.5 (1.3-4.6) g/dL Lipase 25 (13-60) U/L Urine Color (Yellow) Urine Appearance (CLEAR) Urine pH (5-7) Ur Specific Gravit y (1.005-1.030) Urine Protein (Negative) Urine Glucose (UA) (Normal) Urine Ketones (Negative) Urine Blood (Negative) Urine Nitrate (Negative) Urine Bilirubin (Negative) Urine Urobilinogen (Negative) mg/dL Ur Leukocyte Mandi ase (Negative) Urine RBC (0-2) /hpf Urine WBC (0-5) /hpf Ur Squamous Epith Cells (0-5) /hpf Amorphous Sediment Urine Bacteria (NONE) /hpf Urine Mucus /hpf Influenza Type A A g Negative (Negative) Influenza Type B A g Negative (Negative) 05/14/20 Range/Units 10:45 WBC (4.0-10.0) 10^3/ uL RBC (4.1-5.3) 10^6/u L Hgb (11.5-15.3) g/dL Hct (37.0-47.0) % MCV (81-99) fL MCH (28.0-34.0) pg MCHC (30.0-36.0) g/dL RDW (12.1-15.1) % Plt Count (130-400) 10^3/c mm MPV (7.4-10.4) fL Neut % (Auto) % Lymph % (Auto) % Benzie % (Auto) % Eos % (Auto) % Baso % (Auto) % Neut # (Auto) (1.8-7.7) 10^3/u L Lymph # (Auto) (0.8-4.8) 10^3/u L Benzie # (Auto) (0.2-0.9) 10^3/u L Eos # (Auto) (0.0-0.8) 10^3/u L Baso # (Auto) (0.0-0.1) 10^3/u L Nucleated RBC % (a uto) % Nucleated RBCs # /100WBC Sodium (136-145) mmol/L Potassium (3.5-5.1) mmol/L Chloride (98-107) mmol/L Carbon Dioxide (22-29) mmol/L Anion Gap (5-19) BUN (6-20) mg/dL Creatinine (0.5-0.9) mg/dL GFR Calculation (90-130) mL/min Glucose (65-115) mg/dL Calculated Osmolal ity (285-295) mOsm/k g Calcium (8.5-10.5) mg/dL Total Bilirubin (0.15-1.2) mg/dL AST (0-32) U/L ALT (0-33) U/L Alkaline Phosphata se (35-105) IU/L Total Protein (6.6-8.7) g/dL Albumin (3.5-5.2) g/dL Globulin (1.3-4.6) g/dL Lipase (13-60) U/L Urine Color Yellow (Yellow) Urine Appearance Clear (CLEAR) Urine pH 5 (5-7) Ur Specific Gravit y 1.010 (1.005-1.030) Urine Protein Neg (Negative) Urine Glucose (UA) Norm (Normal) Urine Ketones Negative (Negative) Urine Blood 2+ H (Negative) Urine Nitrate Negative (Negative) Urine Bilirubin Neg (Negative) Urine Urobilinogen Norm (Negative) mg/dL Ur Leukocyte Mandi ase Negative (Negative) Urine RBC 0-4 H (0-2) /hpf Urine WBC None (0-5) /hpf Ur Squamous Epith Cells Rare (0-5) /hpf Amorphous Sediment Not Reportable Urine Bacteria Trace (NONE) /hpf Urine Mucus Trace /hpf Influenza Type A A g (Negative) Influenza Type B A g (Negative) Imaging Data^: Other Xray: Radiologist's impression: [facility] [address] [place] [address] XRay Report Signed Patient: Jana Pulliam I Unit #: [id number] : 1980 Age/Sex: 39 / F ADM Date: 05/14/20 Loc: ER Room/Bed: Attending Dr: Ordering Provider/Ordering MD: Eliana Clarke Date of Service: 05/14/20 Procedure(s): XR abdomen min 2V [id number] Accession Number(s): [id number] Report Number: [id number] PROCEDURE INFORMATION: Exam: XR Abdomen, 2 Views Exam date and time: 05/14/2020 9:45 AM Age: 39 years old Clinical indication: Nausea and vomiting; Additional info: N/v TECHNIQUE: Imaging protocol: XR of the abdomen. Views: 2 Views. COMPARISON: CT abdomen pelvis w con* [id number] 05/10/2020 2:08 PM FINDINGS: Gastrointestinal tract: Normal. No bowel dilation. Intraperitoneal space: Normal. No free air. Organs: Clips are present in the right upper quadrant from cholecystectomy. Vasculature: Small phleboliths are present in the pelvis. No other calcifications project on the kidneys. Bones/joints: Unremarkable for age. XR/XR abdomen min 2V [id number] IMPRESSION: No acute abnormalities are seen in the abdomen. Dictated By: Trevor Regan Signed By: Trevor Regan Signed Date/Time: 05/14/20 1201 DD/ 120 Discharge Plan Discharge Patient Disposition: Home Clinical Impression: Suspected 2019 novel coronavirus infection Nausea & vomiting Qualifiers: Vomiting type: unspecified Vomiting Intractability: intractable Qualified Code(s): R11.2 - Nausea with vomiting, unspecified Abdominal pain Qualifiers: Abdominal location: generalized Qualified Code(s): R10.84 - Generalized abdominal pain Condition: Stable Prescriptions: New promethazine 25 mg suppository 25 mg W[place] Q6H PRN (Reason: nausea and vomiting) Qty: 12 RF: 0 Continued pantoprazole [Protonix] 40 mg tablet,delayed release (DR/EC) 40 mg PO DAILY@08 RF: 0 sucralfate 1 gram tablet 1 g PO QID RF: 0 ondansetron HCl 4 mg tablet 4 mg PO Q8H PRN (Reason: n/v) RF: 0 hydroxyzine HCl 50 mg tablet 50 mg PO TID@08,13,21 RF: 0 Reglan 10 mg Tablet 10 mg PO Q6H PRN (Reason: nausea/vomiting) RF: 0 Discharge Orders: Discharge ED (Routine); Ordered 05/14/20 Ordered By: Eliana Clarke Referrals: Jacky Freeman MD [Primary Care Provider] - Discharge Diet: Advance as tolerated and Clear Liquid Discharge Activity: Limit activity as instructed Patient Instructions: Acute Nausea and Vomiting (ED), Acute Abdominal Pain (ED), Abdominal Pain (ED) Activity Restrictions/Additional Instructions: Clear liquid diet x24 hours then attempt bland diet. No fried greasy fatty or spicy foods for the next 72 hours. Follow-up with your primary care physician this week without fail to ensure you are improving. Return to the emergency department if you develop blood in your stool, blood in your emesis. Continue Zofran, Reglan and Carafate, if vomiting occurs, use promethazine, rectal then wait 30 minutes before attempting oral hydration. Avoid alcohol for 7 days to allow stomach to heal. Remain in quarantine until Covid results are known. Results will be called to you in 24 to 48 hours. Tylenol as needed for pain. Coding Level of Care Code ED Quality Assurance Auditor for Chg Fwd Exam Comprehensive
[2020-05-14 10:42] LABS: Alanine Aminotransferase 15 U/L (0-33); Albumin Level 4.5 g/dL (3.5-5.2); Alkaline Phosphatase 85 IU/L (35-105); Anion Gap 13.9 (5-19); Aspartate Amino Transferase 13 U/L (0-32); Blood Urea Nitrogen 13 mg/dL (6-20); Calcium 9.5 mg/dL (8.5-10.5); Carbon Dioxide 24 mmol/L (22-29); Chloride 105 mmol/L (98-107); Globulin 2.5 g/dL (1.3-4.6); Glomerular Filtration Rate 110.2 mL/min (90-130); Glucose 101 mg/dL (65-115); Lipase 25 U/L (13-60); Osmolality Calculated 288 mOsm/kg (285-295); Potassium 3.9 mmol/L (3.5-5.1); Sodium 139 mmol/L (136-145); Total Bilirubin 0.3 mg/dL (0.15-1.2)
[2020-05-14 11:07] LABS: Add Urine Microscopic? YES; Bilirubin Urine Neg (Negative); Blood Urine 2+ (Negative); Glucose Urine UA Norm (Normal); Ketones Urine Negative (Negative); Leukocyte Esterase Urine Negative (Negative); Nitrate Urine Negative (Negative); Protein Urine Neg (Negative); Urine Appearance Clear (CLEAR); Urine Color Yellow (Yellow); Urobilinogen Urine Norm (Negative); pH Urine 5 (5-7)
[2020-05-14 11:09] LABS: Bacteria Urine TRACE /hpf; RBC Urine 0-4 /hpf (0-2); Squamous Epithelial Cell Urine RARE /hpf (0-5)
[2020-05-14 11:10] LABS: Add Urine Culture? No; Mucus Urine TRACE /hpf
[2020-05-14 11:20] LABS: Influenza A by IFA Negative (Negative); Influenza B by IFA Negative (Negative)
[2020-05-14 11:21] VITALS: RESP 18
[2020-05-14] MEDS: morphine 4 mg/mL SDV 1 mL 2 MG IVP (11:21)
[2020-05-14] MEDS: promethazine 25 mg/mL SDV 1 mL IM (12:09)
[2020-05-14 12:14] VITALS: BP 124/86; PULSE 61; RESP 18; O2SAT 97
[2020-05-14] MEDS: metoclopramide 5 mg/mL SDV 2 mL 10 MG IVP (13:09)
[2020-05-14 13:37] VITALS: BP 123/78; PULSE 61; RESP 18; TEMP 37.2; O2SAT 97
[2020-05-15 17:47] LABS: Quest SARS-CoV-2 RNA NOT DETECTED (NOT DETECTED)
--- NOTE | 2020-05-16 08:56 | PC.NURSE ---
pt called and informed of covid results
== END 2020-05-14 13:39 | disposition home or self-care (01) ==
PROVIDERS: Emergency Provider Nurse Practitioner Family; PCP Family Medicine
DX: Z20.828 Contact with and (suspected) exposure to other viral communicable diseases (principal); R11.2 Nausea with vomiting, unspecified; R10.84 Generalized abdominal pain; F17.210 Nicotine dependence, cigarettes, uncomplicated
CPT/HCPCS: 12345; 74019; 80053; 81001; 83690; 85025; 87635; 87804; 96372; 96374; 96375; 99283; J2270; J2405; J2550; J2765; J7040

== ENCOUNTER 2020-06-06 15:05 | Outpatient (CLI) | payer BC, SELFPAY ==
--- NOTE | 2020-06-06 15:18 | XR_ITS ---
WS: [id number] Exam: XR elbow RT min 3V* [id number] Date/Time of Exam: 06/06/2020 3:42 PM Reason For Exam: RIGHT LATERAL EPICONDYLITIS Findings: There are no fractures, soft tissue swelling, or calcifications. The elbow shows normal bony alignme nt. There is no irregularity of the bony architecture. Small tendinous bone spur along the lateral e picondyle of the lower humerus. XR/XR elbow RT min 3V* [id number] IMPRESSION: No fracture or dislocation. Small bone spur seen along the lateral humeral epi condyles.
== END 2020-06-06 15:06 | disposition home or self-care (01) ==
LOC: RAD 15:07
PROVIDERS: PCP Family Medicine; Visit Provider Family Medicine
DX: M77.11 Lateral epicondylitis, right elbow (principal)
CPT/HCPCS: 73080

== ENCOUNTER → 2020-06-14 14:54 | Outpatient (BNVA) | payer OTHER, SELFPAY | PROVIDERS: PCP Family Medicine; Visit Provider Nurse Practitioner Family | DX: N30.20 Other chronic cystitis without hematuria (principal); R31.0 Gross hematuria | CPT/HCPCS: 81003; 87086 ==

== ENCOUNTER 2020-06-15 08:09 | Outpatient (RCR) | payer OTHER, SELFPAY | END 2020-07-10 23:59 | disposition home or self-care (01) | LOC: SOT 08:09 | PROVIDERS: PCP Family Medicine; Referring Provider Orthopaedic Surgery; Visit Provider Orthopaedic Surgery | DX: M25.521 Pain in right elbow (principal) | CPT/HCPCS: 88112; 97110; 97140; 97166 ==

== ENCOUNTER 2020-06-23 20:27 | Emergency (ER) | payer SELFPAY ==
[2020-06-23 20:31] VITALS: BP 114/78; PULSE 73; RESP 18; TEMP 36.4; O2SAT 97; BMI 23.1
[2020-06-23 21:36] LABS: Add Urine Microscopic? NO
[2020-06-23 21:43] LABS: Bilirubin Urine Neg (Negative); Blood Urine Neg (Negative); Glucose Urine UA Norm (Normal); Ketones Urine Negative (Negative); Leukocyte Esterase Urine Negative (Negative); Nitrate Urine Negative (Negative); Protein Urine Neg (Negative); Urine Appearance Clear (CLEAR); Urine Color Yellow (Yellow); Urobilinogen Urine Norm (Negative)
--- NOTE | 2020-06-23 21:46 | W.ED.FEMALGU ---
HPI - Female Genitourinary General: Chief complaint: Urogenital-Female Stated complaint: suspects kidney stones/lower abdominal pain Time Seen by Provider: 06/23/20 21:45 History of Present Illness: HPI Narrative: Patient is a 39-year-old female comes to the ED with right flank pain. Patient has a history of multiple kidney stones. Today she developed right flank pain, hematuria and nausea. She says symptoms are similar to her past kidney stone episodes. Endorses chills. Denies fever, emesis, chest pain, shortness of breath, bowel symptoms. Associated symptoms: Deny abdominal pain, headache(s) or nausea Review of Systems Const: Reports: chills; Denies: fever(s) or fatigue Eyes: Denies: change in vision or eye discomfort ENMT: Denies: throat pain, odynophagia, nasal discharge or nasal congestion Card: Denies: chest pain, palpitations, edema, swelling of feet/ankles, dyspnea on exertion or orthopnea Resp: Denies: dyspnea, productive cough or non-productive cough GI: Denies: abdominal pain, nausea, vomiting, diarrhea, constipation or hematochezia : Reports: flank pain (right) and hematuria; Denies: dysuria Musc: Denies: neck pain, back pain or extremity swelling Skin/Breast: Denies: rash or new lesions Neuro: Denies: headache(s), numbness in extremities or weakness in extremities PFSH ED PFSH: Medical History Cystitis GERD (gastroesophageal reflux disease) Gross hematuria Pseudoseizures Surgical History History of appendectomy History of History of cholecystectomy History of colonoscopy History of esophagogastroduodenoscopy (EGD) History of hysterectomy for cancer History of ovarian resection Family History Denies family history of Anesthesia complication Bleeding disorder Social History Smoking and tobacco status: current every day smoker cigarettes Alcohol intake: never Last substance use date: 10/12/19 Last substance use time: 01:00 Other details last substance use: Marijuana Current occupational status: employed Physical Exam Const: COMMON NORMALS: patient oriented x3 and alert GENERAL APPEARANCE: cooperative; not comfortable (uncomfortable due to pain) HENMT: COMMON NORMALS: normocephalic HEAD & SCALP: normocephalic MOUTH: Normal oral and palatal mucosa present THROAT: posterior oropharynx normal and uvula midline Neck/C-Spine: COMMON NORMALS: supple GENERAL: Yes normal visual inspection Resp: COMMON NORMALS: normal respiratory effort, No retractions, No use of accessory muscles and clear to auscultation bilaterally AUSCULTATION: clear to auscultation bilaterally Cardio: COMMON NORMALS: regular rate, regular rhythm, S1 normal heart sound present, S2 normal heart sound present, No gallops present (Cardio), No clicks present (Cardio), No murmurs present (Cardio) and Peripheral pulses 2+ throughout RATE: regular rate RHYTHM: regular rhythm HEART SOUNDS: S1 normal heart sound present and S2 normal heart sound present PERIPHERAL PULSES: Peripheral pulses 2+ throughout GI: COMMON NORMALS: Normal to inspection, nondistended, normoactive bowel sounds present, Soft to palpation, non-tender and no masses PALPATION: Yes Soft to palpation : COMMON NORMALS: Yes no CVA tenderness BLADDER/KIDNEY EXAM: Yes no CVA tenderness and Yes CVA tenderness Back/Pelvis: COMMON NORMALS: no CVA tenderness GENERAL BACK: Yes CVA tenderness CVA tenderness: right Extremity: COMMON NORMALS: normal to inspection Neuro: COMMON NORMALS: patient oriented x3 and moves all extremities SENSORIUM/ORIENTATION: Yes alert Skin: GENERAL SKIN EXAM: dry skin Course Vital Signs: Vital signs: Vital Signs Temperature 97.6 F 06/23/20 20:31 Pulse Rate 63 06/23/20 23:47 Respiratory Rate 17 06/23/20 23:47 Blood Pressure 136/84 06/23/20 23:47 Pulse Oximetry 98 06/23/20 23:47 MDM - Female MDM Narrative: Medical decision making narrative: Patient is a 39-year-old female comes to the ED with right flank pain. Patient has a history of multiple kidney stones and states that this pain is similar to past kidney stone symptoms. Exam shows right CVA tenderness. UA was clean. CBC and CMP were unremarkable. CT abdomen showed a small stone near the right UVJ. Patient was given IV Toradol while here in the ED and her pain improved. I placed an order with case management for patient to be referred to Dr. Stevenson. She was discharged with a prescription for naproxen, tamsulosin and Reglan. She was told to continue straining urine to catch stone and save stone and bring to Dr. Stevenson's office at next appointment. Return to ED precautions given. Told patient that watch case polisher will be contacting her in the next several days set up an appoint with Dr. Stevenson. Patient understood agree with plan. Lab Data: Attestation: I reviewed the patient's lab results. Labs: Lab Results 06/23/20 06/23/20 06/23/20 Range/Units 20:42 21:55 21:55 WBC 9.1 (4.0-10.0) 10^3/ uL RBC 3.87 L (4.1-5.3) 10^6/u L Hgb 11.7 (11.5-15.3) g/dL Hct 36.0 L (37.0-47.0) % MCV 93.0 (81-99) fL MCH 30.2 (28.0-34.0) pg MCHC 32.5 (30.0-36.0) g/dL RDW 13.1 (12.1-15.1) % Plt Count 271 (130-400) 10^3/c mm MPV 10.8 H (7.4-10.4) fL Neut % (Auto) 46.0 % Lymph % (Auto) 39.1 % [place] % (Auto) 10.6 % Eos % (Auto) 3.2 % Baso % (Auto) 0.8 % Neut # (Auto) 4.20 (1.8-7.7) 10^3/u L Lymph # (Auto) 3.6 (0.8-4.8) 10^3/u L [place] # (Auto) 1.0 H (0.2-0.9) 10^3/u L Eos # (Auto) 0.3 (0.0-0.8) 10^3/u L Baso # (Auto) 0.1 (0.0-0.1) 10^3/u L Nucleated RBC % (a uto) 0 % Nucleated RBCs # 0.0 /100WBC Sodium 140 (136-145) mmol/L Potassium 3.9 (3.5-5.1) mmol/L Chloride 106 (98-107) mmol/L Carbon Dioxide 24 (22-29) mmol/L Anion Gap 13.9 (5-19) BUN 21 H (6-20) mg/dL Creatinine 0.7 (0.5-0.9) mg/dL GFR Calculation 92.2 (90-130) mL/min Glucose 129 H (65-115) mg/dL Calculated Osmolal ity 295 (285-295) mOsm/k g Calcium 9.0 (8.5-10.5) mg/dL Total Bilirubin 0.2 (0.15-1.2) mg/dL AST 12 (0-32) U/L ALT 11 (0-33) U/L Alkaline Phosphata se 85 (35-105) IU/L Total Protein 6.1 L (6.6-8.7) g/dL Albumin 3.8 (3.5-5.2) g/dL Globulin 2.3 (1.3-4.6) g/dL Urine Color Yellow (Yellow) Urine Appearance Clear (CLEAR) Urine pH 5.0 (5-7) Ur Specific Gravit y 1.020 (1.005-1.030) Urine Protein Neg (Negative) Urine Glucose (UA) Norm (Normal) Urine Ketones Negative (Negative) Urine Blood Neg (Negative) Urine Nitrate Negative (Negative) Urine Bilirubin Neg (Negative) Urine Urobilinogen Norm (Negative) mg/dL Ur Leukocyte Mandi ase Negative (Negative) Imaging Data: CT Abd/Pel: Attestation: I personally reviewed and interpreted this imaging study as follows: My impression: CT the abdomen appears to show a small stone near the right UVJ. Radiologist's impression: [address] [address] [address] Scan Report Signed Patient: Jana Pulliam I Unit #: [id number] : 1980 Age/Sex: 39 / F ADM Date: 06/23/20 Loc: ER Room/Bed: Attending Dr: Ordering Provider/Ordering MD: Jacky Latif Date of Service: 06/23/20 Procedure(s): CT kidney stone 84086 Accession Number(s): [id number] Report Number: [id number] PROCEDURE INFORMATION: Exam: CT Abdomen And Pelvis Without Contrast Exam date and time: 06/23/2020 10:08 PM Age: 39 years old Clinical indication: Abdominal pain; Prior surgery; Surgery type: Hysterectomy. Gb. Appy. ; Patient HX: Right flank pain. TECHNIQUE: Imaging protocol: Computed tomography of the abdomen and pelvis without contrast. Radiation optimization: All CT scans at this facility use at least one of these dose optimization techniques: automated exposure control; mA and/or kV adjustment per patient size (includes targeted exams where dose is matched to clinical indication); or iterative reconstruction. COMPARISON: CT abdomen pelvis w con* [id number] 05/10/2020 2:08 PM RADIATION DOSE METRICS: Total DLP (mGy-cm): 803.68 FINDINGS: Lungs: Small ground-glass opacities in the right middle lobe. No consolidation. Liver: Normal. No mass. Gallbladder and bile ducts: Cholecystectomy. The bile ducts are normal. Pancreas: Normal. No ductal dilation. Spleen: Calcified granuloma in the spleen. Adrenal glands: Normal. No mass. Kidneys and ureters: Normal. No hydronephrosis. Stomach and bowel: The stomach is distended with food. Mild diverticulosis of the sigmoid colon without diverticulitis. The stomach and small bowel are unremarkable. Appendix: The appendix is not visualized. No secondary signs of appendicitis. Intraperitoneal space: Unremarkable. No free air. No significant fluid collection. Vasculature: Unremarkable. No abdominal aortic aneurysm. Lymph nodes: Unremarkable. No enlarged lymph nodes. Urinary bladder: Unremarkable as visualized. Reproductive: The uterus and ovaries are absent. Bones/joints: Unremarkable. No acute fracture. Soft tissues: Unremarkable. CT/CT kidney stone [id number] IMPRESSION: 1. No acute abnormality identified in the abdomen or pelvis. 2. Small ground-glass opacities in the right middle lobe could represent mild pneumonia. Radiation Dose CTDIVOL = (mGy): DLP = 803.68 (mGy-cm) Dictated By: Yury Zhu Signed By: Yury Zhu Signed Date/Time: 06/23/202237 DD/ 36 Discharge Plan Discharge Patient Disposition: Home Clinical Impression: Kidney stone on right side Condition: Stable Prescriptions: New naproxen 500 mg tablet 500 mg PO BID PRN (Reason: pain) Qty: 20 RF: 0 metoclopramide HCl 10 mg tablet 10 mg PO Q6H PRN (Reason: nausea and vomiting) Qty: 15 RF: 0 tamsulosin 0.4 mg capsule 0.4 mg PO DAILY Qty: 20 RF: 0 No Action pantoprazole [Protonix] 40 mg tablet,delayed release (DR/EC) 40 mg PO DAILY@08 RF: 0 estradiol 10 mcg tablet 10 mcg vaginal DAILY RF: 0 naproxen [EC-Naprosyn] 500 mg tablet,delayed release (DR/EC) 500 mg PO Q12H 30 Days Qty: 60 RF: 0 sucralfate 1 gram tablet 1 g PO QID RF: 0 ondansetron HCl 4 mg tablet 4 mg PO Q8H PRN (Reason: n/v) RF: 0 hydroxyzine HCl 50 mg tablet 50 mg PO TID@08,,21 RF: 0 Reglan 10 mg Tablet 10 mg PO Q6H PRN (Reason: nausea/vomiting) RF: 0 promethazine 25 mg suppository 25 mg [place] Q6H PRN (Reason: nausea and vomiting) Qty: 12 RF: 0 Discharge Orders: Discharge ED (Routine); Ordered 06/23/20 Ordered By: Jacky Latif Referrals: Jacky Freeman MD [Primary Care Provider] - Discharge Diet: Regular Discharge Activity: Resume usual activity Patient Instructions: Kidney Stones (ED) Activity Restrictions/Additional Instructions: Follow-up with medical provider as directed. Case management should be contacting you in the next several days to set up an appointment with Dr. Stevenson the urologist. Strain urine to catch stone and drink lots of fluid to stay hydrated and help pass stone. Take medications as prescribed. Return to the ER or your medical provider if condition worsens. Please read and understand discharge instructions. If any questions, please ask. Coding Level of Care Code ED Switchboard Wirer for Gaurangg Fwd Exam Comprehensive
--- NOTE | 2020-06-23 22:06 | CTR_ITS ---
PROCEDURE INFORMATION: Exam: CT Abdomen And Pelvis Without Contrast Exam date and time: 06/23/2020 10:08 PM Age: 39 years old Clinical indication: Abdominal pain; Prior surgery; Surgery type: Hysterectomy. Gb. Appy. ; Patient HX: Right flank pain. TECHNIQUE: Imaging protocol: Computed tomography of the abdomen and pelvis without contrast. Radiation optimization: All CT scans at this facility use at least one of these dose optimization techniques: automated exposure control; mA and/or kV adjustment per patient size (includes targeted exams where dose is matched to clinical indication); or iterative reconstruction. COMPARISON: CT abdomen pelvis w con* [id number] 05/10/2020 2:08 PM RADIATION DOSE METRICS: Total DLP (mGy-cm): 803.68 FINDINGS: Lungs: Small ground-glass opacities in the right middle lobe. No consolidation. Liver: Normal. No mass. Gallbladder and bile ducts: Cholecystectomy. The bile ducts are normal. Pancreas: Normal. No ductal dilation. Spleen: Calcified granuloma in the spleen. Adrenal glands: Normal. No mass. Kidneys and ureters: Normal. No hydronephrosis. Stomach and bowel: The stomach is distended with food. Mild diverticulosis of the sigmoid colon without diverticulitis. The stomach and small bowel are unremarkable. Appendix: The appendix is not visualized. No secondary signs of appendicitis. Intraperitoneal space: Unremarkable. No free air. No significant fluid collection. Vasculature: Unremarkable. No abdominal aortic aneurysm. Lymph nodes: Unremarkable. No enlarged lymph nodes. Urinary bladder: Unremarkable as visualized. Reproductive: The uterus and ovaries are absent. Bones/joints: Unremarkable. No acute fracture. Soft tissues: Unremarkable. CT/CT kidney stone [id number] IMPRESSION: 1. No acute abnormality identified in the abdomen or pelvis. 2. Small ground-glass opacities in the right middle lobe could represent mild pneumonia. Radiation Dose CTDIVOL = (mGy): DLP = 803.68 (mGy-cm)
[2020-06-23 22:18] VITALS: RESP 17; O2SAT 97
[2020-06-23] MEDS: morphine 4 mg/mL SDV 1 mL IVP (22:18)
[2020-06-23] MEDS: ondansetron 2 mg/ML SDV 2 mL 4 MG IVP (22:19)
[2020-06-23] MEDS: sodium chloride 0.9% 1,000 ML 999 ML IV (22:19)
[2020-06-23 22:40] VITALS: BP 173/111; PULSE 62; RESP 18; O2SAT 98
[2020-06-23 22:40] LABS: Alanine Aminotransferase 11 U/L (0-33); Albumin Level 3.8 g/dL (3.5-5.2); Alkaline Phosphatase 85 IU/L (35-105); Anion Gap 13.9 (5-19); Aspartate Amino Transferase 12 U/L (0-32); Basophils # 0.1 10^3/uL (0.0-0.1); Basophils % 0.8 %; Blood Urea Nitrogen 21 mg/dL (6-20); Carbon Dioxide 24 mmol/L (22-29); Chloride 106 mmol/L (98-107); Eosinophils # 0.3 10^3/uL (0.0-0.8); Eosinophils % 3.2 %; Globulin 2.3 g/dL (1.3-4.6); Glomerular Filtration Rate 92.2 mL/min (90-130); Glucose 129 mg/dL (65-115); Hemoglobin 11.7 g/dL (11.5-15.3); Lymphocytes # 3.6 10^3/uL (0.8-4.8); Lymphocytes % 39.1 %; Mean Corpuscular HGB Conc 32.5 g/dL (30.0-36.0); Mean Corpuscular Hemoglobin 30.2 pg (28.0-34.0); Mean Platelet Volume 10.8 fL (7.4-10.4); Monocytes % 10.6 %; Nucleated Red Blood Cells % 0 %; Osmolality Calculated 295 mOsm/kg (285-295); Platelet Count 271 10^3/cmm (130-400); Potassium 3.9 mmol/L (3.5-5.1); Red Blood Count 3.87 10^6/uL (4.1-5.3); Red Cell Distribution Width 13.1 % (12.1-15.1); Sodium 140 mmol/L (136-145); Total Bilirubin 0.2 mg/dL (0.15-1.2); Total Protein 6.1 g/dL (6.6-8.7); White Blood Count 9.1 10^3/uL (4.0-10.0)
[2020-06-23] MEDS: ketorolac 30 mg/mL INJ IVP (23:29)
[2020-06-23] MEDS: tamsulosin 0.4 mg Capsule PO (23:29)
[2020-06-23 23:31] VITALS: BP 136/84; PULSE 63; RESP 18; O2SAT 99
[2020-06-23 23:47] VITALS: BP 136/84; PULSE 63; RESP 17; O2SAT 98
--- NOTE | 2020-06-24 09:37 | DCPLANNER ---
manager social responsibility had message to schedule a follow up appointment for patient with Dr. Stevenson. manager social responsibility called the office of Dr. Stevenson, spoke with Shima, gave clinic patients information. manager social responsibility was told that patients information would be printed and reviewed. Clinic will call patient with appointment information.
--- NOTE | 2020-06-27 16:08 | DCPLANNER ---
Patient has a follow up appointment scheduled for Saturday, July 04, 2020 at 4:[address] Stevenson. Clinic will call patient with appointment information.
--- NOTE | 2020-07-12 07:34 | DCPLANNER ---
Patient had a follow up appointment scheduled for 07.04.[address] Stevenson - patient did attend appointment.
== END 2020-06-23 23:47 | disposition home or self-care (01) ==
PROVIDERS: Emergency Medicine; Emergency Provider Physician Assistant; PCP Family Medicine
DX: N20.0 Calculus of kidney (principal); F17.210 Nicotine dependence, cigarettes, uncomplicated
CPT/HCPCS: 12345; 74176; 80053; 81003; 85025; 96361; 96374; 96375; 99282; 99284; J1885; J2270; J2405; J7030

== ENCOUNTER 2020-06-27 08:41 | Outpatient (CLI) | payer SELFPAY ==
--- NOTE | 2020-06-27 08:53 | XRR_ITS ---
PROCEDURE INFORMATION: Exam: XR Abdomen, 1 View Exam date and time: 06/27/2020 8:55 AM Age: 39 years old Clinical indication: Condition or disease; Kidney or ureter condition; Calculus (stone) in kidney; Prior surgery; Surgery type: Hyst, gb, appy; Additional info: Kidney stone TECHNIQUE: Imaging protocol: XR of the abdomen. Views: Frontal supine view of the abdomen. 1 View. COMPARISON: CT kidney stone [id number] 06/23/2020 10:13 PM FINDINGS: Gastrointestinal tract: The bowel gas pattern is nonspecific. Air filled large bowel including distal rectal gas. Moderate amount stool within the large bowel. Organs: Surgical clips are present in the region of the gallbladder fossa. No calcifications are seen overlying the renal outlines or the expected course of the right or left ureters. No suspicious calcifications within the pelvis. Bones/joints: Unremarkable. XR/XR KUB [id number] IMPRESSION: The bowel gas pattern is nonspecific. Air filled large bowel including distal rectal gas.
== END 2020-06-27 08:42 | disposition home or self-care (01) ==
PROVIDERS: PCP Family Medicine; Visit Provider Urology
DX: N20.0 Calculus of kidney (principal)
CPT/HCPCS: 74018; 81003

== ENCOUNTER 2020-07-13 11:51 | Outpatient (CLI) | payer OTHER, SELFPAY ==
--- NOTE | 2020-07-13 11:59 | MM_ITS ---
WS: [id number] BILATERAL SCREENING DIGITAL MAMMOGRAM WITH CAD HISTORY: SCREENING COMPARISON: None available. Bilateral CC and MLO views submitted. Computer aided detection analyzed. Breast composition: The breasts are heterogeneously dense, which may obscure small masses. No suspici ous masses, microcalcifications or architectural distortion. MM/[place] [id number] IMPRESSION: BI-RADS: 1-Negative FOLLOW UP: 1 Year Follow-up
== END 2020-07-13 11:52 | disposition home or self-care (01) ==
LOC: RADSHAW 11:55
PROVIDERS: PCP Family Medicine; Visit Provider Family Medicine
DX: Z12.31 Encounter for screening mammogram for malignant neoplasm of breast (principal)
CPT/HCPCS: 77067

== ENCOUNTER → 2020-07-18 10:30 | Outpatient (BNVA) | payer OTHER, SELFPAY | PROVIDERS: PCP Family Medicine; Visit Provider Nurse Practitioner Family | DX: N30.10 Interstitial cystitis (chronic) without hematuria (principal) | CPT/HCPCS: 81003 ==

== ENCOUNTER 2020-07-19 12:27 | Emergency (ER) | payer OTHER, SELFPAY ==
[2020-07-19 12:36] VITALS: BP 138/84; PULSE 79; RESP 26; TEMP 36.6; O2SAT 97; BMI 23.1
[2020-07-19 12:40] VITALS: BP 146/83; PULSE 73; RESP 28; O2SAT 100
[2020-07-19] MEDS: LORazepam 2 mg Tablet PO (12:47)
[2020-07-19 12:49] VITALS: BP 116/88; PULSE 79; RESP 28; O2SAT 98
--- NOTE | 2020-07-19 12:51 | W.ED.ANXIETY ---
HPI - Anxiety General: Chief Complaint: Anxiety Stated Complaint: panic attack Time Seen by Provider: 07/19/20 12:42 Source: patient Mode of arrival: ambulatory Limitations: no limitations History of Present Illness: HPI narrative: 40-year-old female who states she has a history of anxiety. 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 Patient is hyperventilating and is quite anxious. She states she took hydroxyzine typically abates this but states that did not help her anxiety attack. She denies any suicidal or homicidal ideations. Associated symptoms: Deny chest pain, chills, fever(s), headache(s), nausea or vomiting Review of Systems Const: Denies: fever(s), chills, body aches or change in appetite Eyes: Denies: blurry vision or eye discomfort ENMT: Denies: throat pain or dental pain Card: Denies: chest pain Resp: Denies: dyspnea GI: Denies: abdominal pain, nausea, vomiting or diarrhea : Denies: dysuria Musc: Denies: neck pain or back pain Skin/Breast: Denies: rash Neuro: Denies: headache(s) Psych: Reports: anxiety Austyn/Lymph: Denies: easy bruising All/Imm: Denies: urticaria PFSH ED PFSH: Medical History Cystitis GERD (gastroesophageal reflux disease) Gross hematuria Interstitial cystitis Pseudoseizures Surgical History History of appendectomy History of History of cholecystectomy History of colonoscopy History of esophagogastroduodenoscopy (EGD) History of hysterectomy for cancer History of ovarian resection Family History Denies family history of Anesthesia complication Bleeding disorder Social History Smoking and tobacco status: current every day smoker cigarettes Alcohol intake: never Last substance use date: 10/12/19 Last substance use time: 01:00 Other details last substance use: Marijuana Current occupational status: employed Physical Exam Const: COMMON NORMALS: no acute distress, patient oriented x3 and healthy appearing HENMT: COMMON NORMALS: normocephalic and atraumatic HEAD & SCALP: normocephalic and atraumatic Eye: COMMON NORMALS: Equal, round and reactive pupils present and EOMs intact bilaterally PUPIL: Yes Equal, round and reactive pupils present Neck/C-Spine: COMMON NORMALS: full ROM and supple Chest: COMMONS NORMALS: normal inspection of the chest and normal palpation of entire chest wall Resp: COMMON NORMALS: normal respiratory effort, No retractions, No use of accessory muscles and clear to auscultation bilaterally EFFORT & INSPECTION: Yes tachypneic AUSCULTATION: clear to auscultation bilaterally Cardio: COMMON NORMALS: regular rhythm and No murmurs present (Cardio) RATE: tachycardic RHYTHM: regular rhythm GI: COMMON NORMALS: Normal to inspection, nondistended, normoactive bowel sounds present, Soft to palpation, non-tender and no masses PALPATION: Yes Soft to palpation Extremity: COMMON NORMALS: normal to inspection and full ROM Neuro: COMMON NORMALS: patient oriented x3, moves all extremities and no focal motor deficits Psych: COMMON NORMALS: mental status grossly normal, Normal thought process present and cooperative MOOD & AFFECT: Yes anxious THOUGHT PROCESS: Normal thought process present Skin: COMMON NORMALS: no rashes or lesions noted and no wounds GENERAL SKIN EXAM: no rashes or lesions noted Course Vital Signs: Vital signs: Vital Signs Temperature 97.9 F 07/19/20 12:36 Pulse Rate 79 07/19/20 12:49 Respiratory Rate 28 H 07/19/20 12:49 Blood Pressure 116/88 07/19/20 12:49 Pulse Oximetry 98 07/19/20 12:49 MDM - Anxiety MDM Narrative: Medical decision making narrative: Jana presents here with an anxiety attack after being in a verbal altercation. She feels much improved here after Ativan. She has no sign of heart attack and has no chest pain. She is to continue take her hydroxyzine as needed and she is to follow-up with her PCP for her anxiety. She has no suicidal or homicidal ideations. She is stable for discharge is to follow-up with PCP and return if worsening. Discharge Plan Discharge Patient Disposition: Home Clinical Impression: Acute anxiety Condition: Stable Prescriptions: No Action pantoprazole [Protonix] 40 mg tablet,delayed release (DR/EC) 40 mg PO DAILY@08 RF: 0 estradiol 10 mcg tablet See Rx Instructions .ROUTE .COMPLEX RF: 0 Elmiron 100 mg capsule 200 mg PO BID Qty: 120 RF: 12 naproxen 500 mg tablet 500 mg PO BID PRN (Reason: pain) Qty: 20 RF: 0 sucralfate 1 gram tablet 1 g PO QID PRN (Reason: stomach ) RF: 0 ondansetron HCl 4 mg tablet 4 mg PO Q8H PRN (Reason: n/v) RF: 0 hydroxyzine HCl 50 mg tablet 50 mg PO TID@08,13,21 RF: 0 promethazine 25 mg suppository 25 mg [place] Q6H PRN (Reason: nausea and vomiting) Qty: 12 RF: 0 Discharge Orders: Discharge ED (Routine); Ordered 07/19/20 Ordered By: Jessica Paniagua Referrals: Jacky Freeman MD [Primary Care Provider] - 1-3 days Discharge Diet: Advance as tolerated Discharge Activity: Resume usual activity Patient Instructions: Anxiety (ED) Coding Level of Care Code ED Lithograph Printer for Chg Fwd Exam Comprehensive
--- NOTE | 2020-07-19 13:01 | PC.NURSE ---
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
[2020-07-19] MEDS: LORazepam 2 mg/mL INJ 1 mL 1 MG IVP (13:23)
[2020-07-19 14:04] VITALS: BP 119/64; PULSE 73; RESP 18; TEMP 36.6; O2SAT 99
== END 2020-07-19 14:06 | disposition home or self-care (01) ==
PROVIDERS: Emergency Provider Emergency Medicine; PCP Family Medicine
DX: F41.8 Other specified anxiety disorders (principal); F43.0 Acute stress reaction; Z79.1 Long term (current) use of non-steroidal anti-inflammatories (NSAID)
CPT/HCPCS: 12345; 96374; 99282; 99283; J2060

== ENCOUNTER 2020-07-22 13:27 | Emergency (ER) | payer OTHER, SELFPAY ==
[2020-07-22 13:30] VITALS: BP 176/150; PULSE 84; RESP 20; TEMP 36.8; O2SAT 95; BMI 23.1
--- NOTE | 2020-07-22 13:48 | W.ED.ANXIETY ---
Documented by User: PETR Carr 07/22/20 16:56 HPI - Anxiety General: Chief Complaint: Anxiety Stated Complaint: PANIC ATTACK Time Seen by Provider: 07/22/20 13:44 History of Present Illness: HPI narrative: Patient complains about to increase number of panic attacks since Covid crisis. 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 Said she had a lot of patients complain about having to wear a mask at her restaurant because it required. And she keeps have more more panic attacks. A she returned back to work after being off couple days because the last panic attack and and had customers yell at her because the mask and and she went into full-blown panic attack she states MD complaint: anxiety and heart racing Onset (ago): hour(s) Severity: similar to previous episodes Quality: worsening Place: work History of similar episodes: Yes Provoking factors: emotional stress and work/job stress Relieving factors: nothing Exacerbating factors: thinking about event Associated symptoms: Reports other (Blood pressure elevated in triage); Deny chest pain, chills, fever(s), headache(s), nausea or vomiting Review of Systems Const: Denies: fever(s), chills or body aches Eyes: Denies: change in vision or blurry vision ENMT: Denies: throat pain or nasal congestion Card: Denies: chest pain or dyspnea on exertion Resp: Denies: dyspnea, productive cough or non-productive cough GI: Denies: abdominal pain, nausea or vomiting Musc: Denies: extremity pain Skin/Breast: Denies: rash Neuro: Denies: headache(s) Psych: Reports: other (History of anxiety panic attacks at has been controlled for the last 5 year); Denies: anxiety ([employer] usually works for her but is not working today has been to ER ) or depression Austyn/Lymph: Denies: easy bruising PFSH ED PFSH: Medical History Cystitis GERD (gastroesophageal reflux disease) Gross hematuria Interstitial cystitis Pseudoseizures Surgical History History of appendectomy History of History of cholecystectomy History of colonoscopy History of esophagogastroduodenoscopy (EGD) History of hysterectomy for cancer History of ovarian resection Family History Denies family history of Anesthesia complication Bleeding disorder Social History Smoking and tobacco status: current every day smoker cigarettes Alcohol intake: never Last substance use date: 10/12/19 Last substance use time: 01:00 Other details last substance use: Marijuana Current occupational status: employed Physical Exam Const: COMMON NORMALS: no acute distress, average body habitus and patient oriented x3 GENERAL APPEARANCE: well kempt HENMT: COMMON NORMALS: normocephalic HEAD & SCALP: normal to inspection and normocephalic FACE & SINUS: normal facial exam Eye: COMMON NORMALS: conjunctivae normal GENERAL EYE: appearance normal, both eyes and all related structures CONJUNCTIVA: Yes conjunctivae normal Neck/C-Spine: COMMON NORMALS: no JVD Chest: COMMONS NORMALS: normal inspection of the chest Resp: COMMON NORMALS: normal respiratory effort and clear to auscultation bilaterally AUSCULTATION: clear to auscultation bilaterally Cardio: COMMON NORMALS: no JVD, regular rate and regular rhythm RATE: regular rate RHYTHM: regular rhythm GI: COMMON NORMALS: Normal to inspection, nondistended, normoactive bowel sounds present Extremity: COMMON NORMALS: normal to inspection and full ROM Neuro: COMMON NORMALS: patient oriented x3 Psych: COMMON NORMALS: mental status grossly normal and Normal thought process present APPEARANCE: Yes well kempt ATTITUDE: Yes agitated ACTIVITY/MOTOR BEHAVIOR: Yes appropriate eye contact SPEECH: Yes soft MOOD & AFFECT: Yes anxious THOUGHT PROCESS: Normal thought process present THOUGHT CONTENT: Yes Normal thought content present ATTENTION/CONCENTRATION: Yes attention grossly intact MEMORY/COGNITION: Yes memory grossly intact INSIGHT: Good insight present (Psych) JUDGEMENT: Good judgement present (Psych) OTHER: Appears to be having a panic attack Course Vital Signs: Vital signs: Vital Signs Temperature 98.2 F 07/22/20 13:30 Pulse Rate 69 07/22/20 18:41 Respiratory Rate 20 H 07/22/20 18:41 Blood Pressure 140/113 07/22/20 18:41 Pulse Oximetry 98 07/22/20 18:41 MDM - Anxiety MDM Narrative: Medical decision making narrative: Discussed patient's presenting signs and symptoms EKG and medication regimen with Dr. Greene. Discussed plan of care. Patient did have some relief from anxiety with Ativan not complete has has chest tightness along the way. Morphine helps some but not as much as she had hoped. Patient is having burning going up into her chest from her stomach she will feel like her stomach is cramping some still feels anxious. Will try GI cocktail for possible reflux from the throwing up that she did after the morphine. And also get 1 more milligram of Ativan. Patient is alert breathing fine does not appear that she would have problem haling 1 more milligram. Respirations are 1620 sats 100% Lab Data: Labs: Lab Results 07/22/20 07/22/20 07/22/20 Range/Units 15:45 15:45 15:45 WBC 8.2 (4.0-10.0) 10^3/ uL RBC 4.46 (4.1-5.3) 10^6/u L Hgb 13.2 (11.5-15.3) g/dL Hct 39.0 (37.0-47.0) % MCV 87.4 (81-99) fL MCH 29.6 (28.0-34.0) pg MCHC 33.8 (30.0-36.0) g/dL RDW 12.8 (12.1-15.1) % Plt Count 289 (130-400) 10^3/c mm MPV 10.6 H (7.4-10.4) fL Neut % (Auto) 58.2 % Lymph % (Auto) 30.6 % [place] % (Auto) 9.2 % Eos % (Auto) 0.9 % Baso % (Auto) 0.9 % Neut # (Auto) 4.75 (1.8-7.7) 10^3/u L Lymph # (Auto) 2.5 (0.8-4.8) 10^3/u L [place] # (Auto) 0.8 (0.2-0.9) 10^3/u L Eos # (Auto) 0.1 (0.0-0.8) 10^3/u L Baso # (Auto) 0.1 (0.0-0.1) 10^3/u L Nucleated RBC % (a uto) 0 % Nucleated RBCs # 0.0 /100WBC Sodium 139 (136-145) mmol/L Potassium 3.9 (3.5-5.1) mmol/L Chloride 102 (98-107) mmol/L Carbon Dioxide 25 (22-29) mmol/L Anion Gap 15.9 (5-19) BUN 10 (6-20) mg/dL Creatinine 0.5 (0.5-0.9) mg/dL GFR Calculation 135.3 H (90-130) mL/min Glucose 82 (65-115) mg/dL Calculated Osmolal ity 286 (285-295) mOsm/k g Calcium 9.3 (8.5-10.5) mg/dL Total Bilirubin 0.4 (0.15-1.2) mg/dL AST 18 (0-32) U/L ALT 14 (0-33) U/L Alkaline Phosphata se 92 (35-105) IU/L Troponin T Baselin e 6 (0-10) ng/L Total Protein 7.7 (6.6-8.7) g/dL Albumin 4.6 (3.5-5.2) g/dL Globulin 3.1 (1.3-4.6) g/dL Discharge Plan Discharge Patient Disposition: Home Clinical Impression: Acute anxiety Gastritis Qualifiers: Gastritis type: unspecified gastritis Chronicity: acute Gastritis bleeding: without bleeding Qualified Code(s): K29.00 - Acute gastritis without bleeding Condition: Stable Prescriptions: New metronidazole 500 mg tablet 500 mg PO TID 10 Days Qty: 30 RF: 0 bismuth subsalicylate 262 mg tablet,chewable 2 tab PO QID 7 Days Qty: 56 RF: 0 clarithromycin 500 mg tablet 500 mg PO BID 10 Days Qty: 20 RF: 0 No Action pantoprazole [Protonix] 40 mg tablet,delayed release (DR/EC) 40 mg PO DAILY@08 RF: 0 estradiol 10 mcg tablet See Rx Instructions .ROUTE .COMPLEX RF: 0 naproxen 500 mg tablet 500 mg PO BID PRN (Reason: pain) Qty: 20 RF: 0 sucralfate 1 gram tablet 1 g PO QID PRN (Reason: stomach ) RF: 0 ondansetron HCl 4 mg tablet 4 mg PO Q8H PRN (Reason: n/v) RF: 0 hydroxyzine HCl 50 mg tablet 50 mg PO TID@08,13,21 RF: 0 promethazine 25 mg suppository 25 mg IA Q6H PRN (Reason: nausea and vomiting) Qty: 12 RF: 0 citalopram 10 mg tablet 10 mg PO DAILY@0800 RF: 0 lorazepam 0.5 mg tablet 0.5 mg PO DAILY PRN (Reason: Anxiety) RF: 0 Elmiron 100 mg capsule 200 mg PO BID@0800,1999 RF: 0 Discharge Orders: Discharge ED (Routine); Ordered 07/22/20 Ordered By: Jacky Latif Referrals: Jacky Freeman MD [Primary Care Provider] - Discharge Diet: Advance as tolerated Discharge Activity: Resume usual activity Patient Instructions: Gastritis (ED), Anxiety (ED) Activity Restrictions/Additional Instructions: Follow-up with medical provider as directed. Take medications as prescribed. Return to the ER or your medical provider if condition worsens. Please read and understand discharge instructions. If any questions, please ask. Sign Out Sign Out Data: Patient Sign Out occurred on 07/22/20 at 17:08. Patient's care was discussed, and care was transferred from to DINH Suarez. Coding Level of Care Code ED Employee Development Director for Chg Fwd Exam Comprehensive Documented by User: DINH Suarez 07/23/20 02:01 HPI - Anxiety General: Chief Complaint: Anxiety Stated Complaint: PANIC ATTACK Time Seen by Provider: 07/22/20 13:44 [facility] ED PFSH: Medical History Cystitis GERD (gastroesophageal reflux disease) Gross hematuria Interstitial cystitis Pseudoseizures Surgical History History of appendectomy History of History of cholecystectomy History of colonoscopy History of esophagogastroduodenoscopy (EGD) History of hysterectomy for cancer History of ovarian resection Family History Denies family history of Anesthesia complication Bleeding disorder Social History Smoking and tobacco status: current every day smoker cigarettes Alcohol intake: never Last substance use date: 10/12/19 Last substance use time: 01:00 Other details last substance use: Marijuana Current occupational status: employed Physical Exam GI: PALPATION: Yes Tenderness to palpation present (GI) (Mild epigastric) Details: other (Mild epigastric tenderness) Course Vital Signs: Vital signs: Vital Signs Temperature 98.2 F 07/22/20 13:30 Pulse Rate 69 07/22/20 18:41 Respiratory Rate 20 H 07/22/20 18:41 Blood Pressure 140/113 07/22/20 18:41 Pulse Oximetry 98 07/22/20 18:41 MDM - Anxiety MDM Narrative: Medical decision making narrative: I took over patient care at 5 PM from Evelio's nurse practitioner. Patient had anxiety and some chest pain and Evelio performed a chest pain work-up on patient. Patient's chest pain and anxiety improved with some Ativan. EKG and troponins negative for any [place]. CBC and CMP were unremarkable. Patient was also complaining to me of some epigastric pain since she was given a GI cocktail and it did improve her symptoms. She still had some tenderness of her epigastric region patient was diagnosed with gastritis and discharged with bismuth, clarithromycin and Flagyl. Patient already takes Protonix. She was told to follow-up with her PCP in 7 to 10 days for reevaluation. She also has a scheduled appointment with behavioral health in the next 2 weeks to reevaluate her anxiety. Return to ED precautions given. Patient understood and agreed with plan. Lab Data: Attestation: I reviewed the patient's lab results. Labs: Lab Results 07/22/20 07/22/20 07/22/20 Range/Units 15:45 15:45 15:45 WBC 8.2 (4.0-10.0) 10^3/ uL RBC 4.46 (4.1-5.3) 10^6/u L Hgb 13.2 (11.5-15.3) g/dL Hct 39.0 (37.0-47.0) % MCV 87.4 (81-99) fL MCH 29.6 (28.0-34.0) pg MCHC 33.8 (30.0-36.0) g/dL RDW 12.8 (12.1-15.1) % Plt Count 289 (130-400) 10^3/c mm MPV 10.6 H (7.4-10.4) fL Neut % (Auto) 58.2 % Lymph % (Auto) 30.6 % [place] % (Auto) 9.2 % Eos % (Auto) 0.9 % Baso % (Auto) 0.9 % Neut # (Auto) 4.75 (1.8-7.7) 10^3/u L Lymph # (Auto) 2.5 (0.8-4.8) 10^3/u L [place] # (Auto) 0.8 (0.2-0.9) 10^3/u L Eos # (Auto) 0.1 (0.0-0.8) 10^3/u L Baso # (Auto) 0.1 (0.0-0.1) 10^3/u L Nucleated RBC % (a uto) 0 % Nucleated RBCs # 0.0 /100WBC Sodium 139 (136-145) mmol/L Potassium 3.9 (3.5-5.1) mmol/L Chloride 102 (98-107) mmol/L Carbon Dioxide 25 (22-29) mmol/L Anion Gap 15.9 (5-19) BUN 10 (6-20) mg/dL Creatinine 0.5 (0.5-0.9) mg/dL GFR Calculation 135.3 H (90-130) mL/min Glucose 82 (65-115) mg/dL Calculated Osmolal ity 286 (285-295) mOsm/k g Calcium 9.3 (8.5-10.5) mg/dL Total Bilirubin 0.4 (0.15-1.2) mg/dL AST 18 (0-32) U/L ALT 14 (0-33) U/L Alkaline Phosphata se 92 (35-105) IU/L Troponin T Baselin e 6 (0-10) ng/L Total Protein 7.7 (6.6-8.7) g/dL Albumin 4.6 (3.5-5.2) g/dL Globulin 3.1 (1.3-4.6) g/dL Discharge Plan Discharge Patient Disposition: Home Clinical Impression: Acute anxiety Gastritis Qualifiers: Gastritis type: unspecified gastritis Chronicity: acute Gastritis bleeding: without bleeding Qualified Code(s): K29.00 - Acute gastritis without bleeding Condition: Stable Prescriptions: New metronidazole 500 mg tablet 500 mg PO TID 10 Days Qty: 30 RF: 0 bismuth subsalicylate 262 mg tablet,chewable 2 tab PO QID 7 Days Qty: 56 RF: 0 clarithromycin 500 mg tablet 500 mg PO BID 10 Days Qty: 20 RF: 0 No Action pantoprazole [Protonix] 40 mg tablet,delayed release (DR/EC) 40 mg PO DAILY@08 RF: 0 estradiol 10 mcg tablet See Rx Instructions .ROUTE .COMPLEX RF: 0 naproxen 500 mg tablet 500 mg PO BID PRN (Reason: pain) Qty: 20 RF: 0 sucralfate 1 gram tablet 1 g PO QID PRN (Reason: stomach ) RF: 0 ondansetron HCl 4 mg tablet 4 mg PO Q8H PRN (Reason: n/v) RF: 0 hydroxyzine HCl 50 mg tablet 50 mg PO TID@08,,21 RF: 0 promethazine 25 mg suppository 25 mg IA Q6H PRN (Reason: nausea and vomiting) Qty: 12 RF: 0 citalopram 10 mg tablet 10 mg PO DAILY@0800 RF: 0 lorazepam 0.5 mg tablet 0.5 mg PO DAILY PRN (Reason: Anxiety) RF: 0 Elmiron 100 mg capsule 200 mg PO BID@0800,2000 RF: 0 Discharge Orders: Discharge ED (Routine); Ordered 07/22/20 Ordered By: Jacky Latif Referrals: Jacky Freeman MD [Primary Care Provider] - Discharge Diet: Advance as tolerated Discharge Activity: Resume usual activity Patient Instructions: Gastritis (ED), Anxiety (ED) Activity Restrictions/Additional Instructions: Follow-up with medical provider as directed. Take medications as prescribed. Return to the ER or your medical provider if condition worsens. Please read and understand discharge instructions. If any questions, please ask. Sign Out Sign Out Data: Patient Sign Out occurred on 07/22/20 at 17:08. Patient's care was discussed, and care was transferred from to DINH Suarez. Coding Level of Care Code ED Employee Development Director for g Fwd Exam Comprehensive
[2020-07-22] MEDS: LORazepam 2 mg/mL INJ 1 mL IM (14:11)
[2020-07-22 14:23] VITALS: BP 136/113; PULSE 773; RESP 18; O2SAT 98
[2020-07-22 15:12] VITALS: BP 136/91; PULSE 85; RESP 22; O2SAT 97
--- NOTE | 2020-07-22 15:12 | XR_ITS ---
WS: [id number] Portable AP upright chest, 07/22/2020 Clinical Data: chest tight Comparison: PA and lateral chest, 05/11/2019. Findings: No nodules, masses or effusions are seen. The heart is normal. The pulmonary vascularity is not increased. No pneumonia or pneumothorax is seen. XR/XR chest 1V portable [id number] Impression: Negative chest.
--- NOTE | 2020-07-22 15:12 | ECG_ITS ---
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 Measurements Intervals [place] Rate: 78 P: 89 PA: 128 QRS: 78 QRSD: 82 T: -90 QT: 354 QTc: 403 Interpretive Statements SINUS RHYTHM WITH SINUS ARRHYTHMIA POSSIBLE LEFT ATRIAL ENLARGEMENT [-0.1mV P WAVE IN V1/V2] ST DEVIATION AND MODERATE T-WAVE ABNORMALITY, CONSIDER ANTEROLATERAL ISCHEMIA [-0.1+ mV T WAVE IN V3-V6] ST DEVIATION AND MODERATE T-WAVE ABNORMALITY, CONSIDER INFERIOR ISCHEMIA [-0.1+ mV T WAVE IN II/aVF] Compared to ECG 12/02/2018 10:42:50 No significant changes Electronically Signed On 07-23-2020 19:18:40 POWER PLANT MANAGER by Andre Kong M.D. [email or web address]/store/[id number]
[2020-07-22 15:45] VITALS: RESP 22
[2020-07-22] MEDS: ondansetron 2 mg/ML SDV 2 mL 4 MG IVP (15:45)
[2020-07-22] MEDS: morphine 4 mg/mL SDV 1 mL IVP (15:45)
[2020-07-22 16:25] LABS: Basophils # 0.1 10^3/uL (0.0-0.1); Basophils % 0.9 %; Eosinophils # 0.1 10^3/uL (0.0-0.8); Eosinophils % 0.9 %; Hemoglobin 13.2 g/dL (11.5-15.3); Lymphocytes # 2.5 10^3/uL (0.8-4.8); Lymphocytes % 30.6 %; Mean Corpuscular HGB Conc 33.8 g/dL (30.0-36.0); Mean Corpuscular Hemoglobin 29.6 pg (28.0-34.0); Mean Corpuscular Volume 87.4 fL (81-99); Mean Platelet Volume 10.6 fL (7.4-10.4); Monocytes # 0.8 10^3/uL (0.2-0.9); Monocytes % 9.2 %; Neutrophils # 4.75 10^3/uL (1.8-7.7); Neutrophils % 58.2 %; Nucleated Red Blood Cells % 0 %; Platelet Count 289 10^3/cmm (130-400); Red Blood Count 4.46 10^6/uL (4.1-5.3); Red Cell Distribution Width 12.8 % (12.1-15.1); White Blood Count 8.2 10^3/uL (4.0-10.0)
[2020-07-22] MEDS: morphine 4 mg/mL SDV 1 mL 2 MG IVP (16:35)
[2020-07-22 16:55] LABS: Alanine Aminotransferase 14 U/L (0-33); Albumin Level 4.6 g/dL (3.5-5.2); Alkaline Phosphatase 92 IU/L (35-105); Anion Gap 15.9 (5-19); Aspartate Amino Transferase 18 U/L (0-32); Blood Urea Nitrogen 10 mg/dL (6-20); Calcium 9.3 mg/dL (8.5-10.5); Carbon Dioxide 25 mmol/L (22-29); Chloride 102 mmol/L (98-107); Globulin 3.1 g/dL (1.3-4.6); Glomerular Filtration Rate 135.3 mL/min (90-130); Glucose 82 mg/dL (65-115); Osmolality Calculated 286 mOsm/kg (285-295); Potassium 3.9 mmol/L (3.5-5.1); Sodium 139 mmol/L (136-145); Total Bilirubin 0.4 mg/dL (0.15-1.2); Total Protein 7.7 g/dL (6.6-8.7); Troponin(5th) Baseline 6 ng/L (0-10)
[2020-07-22] MEDS: LORazepam 2 mg/mL INJ 1 mL 1 MG IVP (17:10)
[2020-07-22] MEDS: lidocaine 2% viscous 15 ML, aluminum-mag hydrox-simethicon 30 ML, sucralfate oral liq 1 GM PO (17:14)
--- NOTE | 2020-07-22 17:27 | ECG_ITS ---
[facility] Test Date: 2020-07-22 Pat Name: Jana Pulliam Department: Room: Gender: Female Note Teller: : 1980 Requested By: Kamran Fraser Order Number: [id number] Misa MD: Andre Kong M.D. Measurements Intervals [place] Rate: 79 P: 83 AL: 126 QRS: 77 QRSD: 86 T: -45 QT: 402 QTc: 461 Interpretive Statements SINUS RHYTHM POSSIBLE LEFT ATRIAL ENLARGEMENT [-0.1mV P WAVE IN V1/V2] ST DEVIATION AND MODERATE T-WAVE ABNORMALITY, CONSIDER ANTEROLATERAL ISCHEMIA [-0.1+ mV T WAVE IN V3-V6] ST DEVIATION AND MODERATE T-WAVE ABNORMALITY, CONSIDER INFERIOR ISCHEMIA [-0.1+ mV T WAVE IN II/aVF] Compared to ECG 07/22/2020 15:22:25 Sinus arrhythmia no longer present T-wave abnormality still present Possible ischemia still present Electronically Signed On 07-23-2020 19:34:33 CHANNEL EXECUTIVE by Andre Kong M.D. [id number]
--- NOTE | 2020-07-22 18:12 | PC.NURSE ---
EKG done at 1802 and shown to ER doctor
[2020-07-22 18:41] VITALS: BP 140/113; PULSE 69; RESP 20; O2SAT 98
[2020-07-22] MEDS: HYDROmorphone 1 mg/mL INJ 1 mL 0.5 MG IVP (18:41)
== END 2020-07-22 18:58 | disposition home or self-care (01) ==
PROVIDERS: Nurse Practitioner Family; Emergency Provider Physician Assistant; PCP Family Medicine
DX: F41.9 Anxiety disorder, unspecified (principal); K29.00 Acute gastritis without bleeding; F17.210 Nicotine dependence, cigarettes, uncomplicated
CPT/HCPCS: 71045; 80053; 84484; 85025; 93005; 96372; 96374; 96375; 96376; 99284; J1170; J2060; J2270; J2405

== ENCOUNTER 2020-08-04 16:42 | Emergency (ER) | payer OTHER, SELFPAY ==
[2020-08-04] VITALS (10 sets, daily range): BP systolic 122–176; BP diastolic 75–132; PULSE 63–78; RESP 11–22; TEMP 36.7; O2SAT 95–98; BMI 23.3
--- NOTE | 2020-08-04 17:15 | ECG_ITS ---
[facility] Test Date: 2020-08-04 Pat Name: Jana Pulliam Department: Room: Gender: Female Center Customer Service Associate: : 1980 Requested By: Jacky Latif Order Number: [id number] Misa MD: Andre Kong M.D. Measurements Intervals [place] Rate: 90 P: 79 MD: 126 QRS: 75 QRSD: 89 T: -4 QT: 356 QTc: 437 Interpretive Statements SINUS RHYTHM WITH SINUS ARRHYTHMIA POSSIBLE RIGHT ATRIAL ENLARGEMENT [0.25mV P WAVE] POSSIBLE LEFT ATRIAL ENLARGEMENT [-0.1mV P WAVE IN V1/V2] ST DEVIATION AND MODERATE T-WAVE ABNORMALITY, CONSIDER LATERAL ISCHEMIA [-0.1+ mV T WAVE IN I/aVL/V5/V6] ST DEVIATION AND MODERATE T-WAVE ABNORMALITY, CONSIDER INFERIOR ISCHEMIA [-0.1+ mV T WAVE IN II/aVF] Compared to ECG 07/22/2020 18:02:26 No significant changes Electronically Signed On 08-04-2020 20:08:49 MAIL CALLER by Andre Kong M.D. [id number]
--- NOTE | 2020-08-04 17:15 | XR_ITS ---
WS: [id number] Exam: XR chest 1V portable [id number] Date/Time of Exam: 08/04/2020 5:24 PM Reason For Exam: cp Comparison 07/22/2020. The lungs are clear and fully inflated. Normal cardiomediastinal structures and bony elements. No ple ural effusions. Soft tissue calcification along the right humeral head suggesting calcific bursitis o r tendinitis. XR/XR chest 1V portable [id number] IMPRESSION: 1. No acute cardiopulmonary finding.
--- NOTE | 2020-08-04 17:27 | W.ED.CHESTPA ---
HPI - Chest Pain General: Chief Complaint: Chest Pain Stated Complaint: CHEST PAIN Time Seen by Provider: 08/04/20 17:07 History of Present Illness: HPI narrative: Patient is a 40-year-old female comes to the ED with chest pain. Patient has a past medical history of GERD, anxiety and interstitial cystitis. Patient is also had her gallbladder removed. Patient says she started getting chest pain this morning while at rest. She states that the chest discomfort got a little worse and she got nauseous when she was up trying to move around. Denies any worsening of symptoms after she ate. Her current chest pain is centrally located and she rates it about a 7 out of 10. She describes the chest pain as that squeezing or tightness. She has a history of anxiety and has had similar chest pain before that ended up being anxiety or acid reflux symptoms. 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 Denies any fever, chills, heart palpitations, abdominal pain, bladder or bowel symptoms. Patient says that she stopped smoking approximately 1 year ago. Patient does have a history of having previous upper GI scopes and will be seen Dr. Garcia to talk about getting another upper GI scope on August 08. Associated symptoms: Deny abdominal pain, dyspnea, fever(s), nausea, palpitations or vomiting Review of Systems Const: Denies: fever(s), chills or fatigue Eyes: Denies: change in vision or eye discomfort ENMT: Denies: throat pain, odynophagia, nasal discharge or nasal congestion Card: Reports: chest pain; Denies: palpitations, edema, swelling of feet/ankles, dyspnea on exertion or orthopnea Resp: Denies: dyspnea, productive cough or non-productive cough GI: Denies: abdominal pain, nausea, vomiting, diarrhea, constipation or hematochezia : Denies: flank pain, dysuria or hematuria Musc: Denies: neck pain, back pain or extremity swelling Skin/Breast: Denies: rash or new lesions Neuro: Denies: headache(s), numbness in extremities or weakness in extremities PFS ED PFSH: Medical History Cystitis GERD (gastroesophageal reflux disease) Gross hematuria Interstitial cystitis Pseudoseizures Surgical History History of appendectomy History of History of cholecystectomy History of colonoscopy History of esophagogastroduodenoscopy (EGD) History of hysterectomy for cancer History of ovarian resection Family History Denies family history of Anesthesia complication Bleeding disorder Social History Smoking and tobacco status: former smoker Alcohol intake: never Last substance use date: 10/12/19 Last substance use time: 01:00 Other details last substance use: Marijuana Current occupational status: employed Physical Exam Const: COMMON NORMALS: no acute distress, patient oriented x3, healthy appearing and alert GENERAL APPEARANCE: cooperative and comfortable HENMT: COMMON NORMALS: normocephalic HEAD & SCALP: normocephalic MOUTH: Normal oral and palatal mucosa present THROAT: posterior oropharynx normal and uvula midline Neck/C-Spine: COMMON NORMALS: supple GENERAL: Yes normal visual inspection Resp: COMMON NORMALS: normal respiratory effort, No retractions, No use of accessory muscles and clear to auscultation bilaterally EFFORT & INSPECTION: Yes able to speak in complete sentences, No tachypneic, No respiratory distress and No labored AUSCULTATION: clear to auscultation bilaterally Cardio: COMMON NORMALS: regular rate, regular rhythm, S1 normal heart sound present, S2 normal heart sound present, No gallops present (Cardio), No clicks present (Cardio), No murmurs present (Cardio) and Peripheral pulses 2+ throughout RATE: regular rate RHYTHM: regular rhythm HEART SOUNDS: S1 normal heart sound present and S2 normal heart sound present PERIPHERAL PULSES: Peripheral pulses 2+ throughout GI: COMMON NORMALS: Normal to inspection, nondistended, normoactive bowel sounds present, Soft to palpation and no masses PALPATION: Yes Soft to palpation and Yes Tenderness to palpation present (GI) (Epigastric tenderness) : COMMON NORMALS: Yes no CVA tenderness BLADDER/KIDNEY EXAM: Yes no CVA tenderness Back/Pelvis: COMMON NORMALS: no CVA tenderness Extremity: COMMON NORMALS: normal to inspection Neuro: COMMON NORMALS: patient oriented x3 and moves all extremities SENSORIUM/ORIENTATION: Yes alert Skin: GENERAL SKIN EXAM: dry skin Course ED course: heart score-1 Pt is low risk for any major cardiac event Reevaluation(s): Reevaluation #1: I checked on patient after she received a GI cocktail and IV morphine. Patient says she is still feeling some chest tightness and pressure. I told her I will give her a dose of Ativan here and then reevaluate. Told her first troponin was very low which is a good indicator that it is not cardiac related but I did want to keep her around for the 2-hour troponin check to make sure. Patient patient understood and agreed with plan. Time: 18:10 Vital Signs: Vital signs: Vital Signs Temperature 98.0 F 08/04/20 21:57 Pulse Rate 72 08/04/20 21:57 Respiratory Rate 16 08/04/20 21:57 Blood Pressure 122/75 08/04/20 21:57 Pulse Oximetry 98 08/04/20 21:57 MDM - Chest Pain MDM Narrative: Medical decision making narrative: Patient is a 40-year-old female comes to the ED with chest pain. Patient has had this kind of chest pain in the past and has a history of anxiety, GERD and interstitial cystitis. Patient has history of cholecystectomy. Chest pain started at rest and she describes it as a tightness and it is centrally located in the chest. Patient admits to having some increased stress at work recently. Exam findings are remarkable for epigastric region tenderness. CBC and CMP were unremarkable. EKG showed no signs of GA and comparing EKGs from previous ED visit on July 22 showed no acute change. Troponins were negative. Chest x-ray showed no acute findings. Patient was given IV fluids, GI cocktail and morphine. She had some improvement in her symptoms, but states that when she received Ativan she got the most improvement in her symptoms. Patient's heart score is 1 and she does have an appointment with Dr. Garcia on August 08 to evaluate her GERD symptoms and to discuss possibly doing another upper GI scope. Patient diagnosed with noncardiac chest pain and acute anxiety. Patient was discharged home and told to continue taking her sucralfate and Protonix as previously prescribed. Also discussed with her about starting to clear liquid diet and then slowly advancing diet as tolerated. She has an appointment with Dr. Garcia on August 08 to evaluate her GERD symptoms. Lab Data: Attestation: I reviewed the patient's lab results. Labs: Lab Results 08/04/20 08/04/20 08/04/20 Range/Units 17:15 17:15 17:15 WBC 9.6 (4.0-10.0) 10^3/ uL RBC 4.24 (4.1-5.3) 10^6/u L Hgb 12.6 (11.5-15.3) g/dL Hct 39.3 (37.0-47.0) % MCV 92.7 (81-99) fL MCH 29.7 (28.0-34.0) pg MCHC 32.1 (30.0-36.0) g/dL RDW 13.2 (12.1-15.1) % Plt Count 287 (130-400) 10^3/c mm MPV 10.5 H (7.4-10.4) fL Neut % (Auto) 47.1 % Lymph % (Auto) 37.7 % [place] % (Auto) 10.2 % Eos % (Auto) 3.4 % Baso % (Auto) 1.1 % Neut # (Auto) 4.54 (1.8-7.7) 10^3/u L Lymph # (Auto) 3.6 (0.8-4.8) 10^3/u L [place] # (Auto) 1.0 H (0.2-0.9) 10^3/u L Eos # (Auto) 0.3 (0.0-0.8) 10^3/u L Baso # (Auto) 0.1 (0.0-0.1) 10^3/u L Nucleated RBC % (a uto) 0 % Nucleated RBCs # 0.0 /100WBC Sodium 140 (136-145) mmol/L Potassium 4.0 (3.5-5.1) mmol/L Chloride 102 (98-107) mmol/L Carbon Dioxide 26 (22-29) mmol/L Anion Gap 16.0 (5-19) BUN 14 (6-20) mg/dL Creatinine 0.6 (0.5-0.9) mg/dL GFR Calculation 109.6 (90-130) mL/min Glucose 100 (65-115) mg/dL Calculated Osmolal ity 291 (285-295) mOsm/k g Calcium 8.8 (8.5-10.5) mg/dL Troponin T Baselin e 6 (0-10) ng/L Troponin T 120 Min [place] (0-10) ng/L Delta Troponin T (0-10) ABS# Lipase 37 (13-60) U/L 08/04/20 Range/Units 19:17 WBC (4.0-10.0) 10^3/ uL RBC (4.1-5.3) 10^6/u L Hgb (11.5-15.3) g/dL Hct (37.0-47.0) % MCV (81-99) fL MCH (28.0-34.0) pg MCHC (30.0-36.0) g/dL RDW (12.1-15.1) % Plt Count (130-400) 10^3/c mm MPV (7.4-10.4) fL Neut % (Auto) % Lymph % (Auto) % [place] % (Auto) % Eos % (Auto) % Baso % (Auto) % Neut # (Auto) (1.8-7.7) 10^3/u L Lymph # (Auto) (0.8-4.8) 10^3/u L [place] # (Auto) (0.2-0.9) 10^3/u L Eos # (Auto) (0.0-0.8) 10^3/u L Baso # (Auto) (0.0-0.1) 10^3/u L Nucleated RBC % (a uto) % Nucleated RBCs # /100WBC Sodium (136-145) mmol/L Potassium (3.5-5.1) mmol/L Chloride (98-107) mmol/L Carbon Dioxide (22-29) mmol/L Anion Gap (5-19) BUN (6-20) mg/dL Creatinine (0.5-0.9) mg/dL GFR Calculation (90-130) mL/min Glucose (65-115) mg/dL Calculated Osmolal ity (285-295) mOsm/k g Calcium (8.5-10.5) mg/dL Troponin T Baselin e (0-10) ng/L Troponin T 120 Min [place] 6.00 (0-10) ng/L Delta Troponin T 0 (0-10) ABS# Lipase (13-60) U/L Imaging Data^: CXR: Attestation: I personally reviewed and interpreted this imaging study as follows: My impression: Chest x-ray showed no acute findings or infiltrates seen. EKG Data^: EKG 1: Attestation: I personally reviewed and interpreted this EKG as follows: EKG interpretation date: 08/04/20 Interpretation: Sinus rhythm, 90 bpm, no ST segment elevation or depression seen. EKG 2: Attestation: I personally reviewed and interpreted this EKG as follows: EKG interpretation date: 08/04/20 Interpretation: Normal sinus rhythm, 63 bpm, no ST segment elevation or depression seen. Discharge Plan Discharge Patient Disposition: Home Clinical Impression: Non-cardiac chest pain, Acute anxiety Condition: Stable Prescriptions: No Action pantoprazole [Protonix] 40 mg tablet,delayed release (DR/EC) 40 mg PO DAILY@08 RF: 0 estradiol 10 mcg tablet See Rx Instructions .ROUTE .COMPLEX RF: 0 naproxen 500 mg tablet 500 mg PO BID PRN (Reason: pain) Qty: 20 RF: 0 sucralfate 1 gram tablet 1 g PO QID PRN (Reason: stomach ) RF: 0 ondansetron HCl 4 mg tablet 4 mg PO Q8H PRN (Reason: n/v) RF: 0 hydroxyzine HCl 50 mg tablet 50 mg PO TID@08,, RF: 0 promethazine 25 mg suppository 25 mg GA Q6H PRN (Reason: nausea and vomiting) Qty: 12 RF: 0 citalopram 10 mg tablet 10 mg PO DAILY@0800 RF: 0 lorazepam 0.5 mg tablet 0.5 mg PO DAILY PRN (Reason: Anxiety) RF: 0 Elmiron 100 mg capsule 200 mg PO BID@0800,1999 RF: 0 Discharge Orders: Discharge ED (Routine); Ordered 08/04/20 Ordered By: Jacky Latif Referrals: Jacky Freeman MD [Primary Care Provider] - Discharge Diet: Advance as tolerated and Clear Liquid Discharge Activity: Increase activity as tolerated Patient Instructions: Gastritis (ED), Noncardiac Chest Pain (ED), Anxiety (ED) Activity Restrictions/Additional Instructions: Follow-up with medical provider as directed. Go to your previously scheduled appointment on August [address] Garcia. Continue taking all home medications as prescribed. Return to the ER or your medical provider if condition worsens. Please read and understand discharge instructions. If any questions, please ask. Coding Level of Care Code ED Outside Food Server for Chg Fwd Exam Comprehensive
[2020-08-04] MEDS: lidocaine 2% viscous 15 ML, aluminum-mag hydrox-simethicon 30 ML, sucralfate oral liq 1 GM PO (17:29)
[2020-08-04] MEDS: sodium chloride 0.9% 500 ML IV (17:31)
[2020-08-04] MEDS: ondansetron 2 mg/ML SDV 2 mL 4 MG IVP (17:32)
[2020-08-04] MEDS: morphine 4 mg/mL SDV 1 mL IVP ×2 (17:32→19:47)
[2020-08-04 17:33] LABS: Basophils # 0.1 10^3/uL (0.0-0.1); Basophils % 1.1 %; Eosinophils # 0.3 10^3/uL (0.0-0.8); Eosinophils % 3.4 %; Hematocrit 39.3 % (37.0-47.0); Hemoglobin 12.6 g/dL (11.5-15.3); Lymphocytes # 3.6 10^3/uL (0.8-4.8); Lymphocytes % 37.7 %; Mean Corpuscular HGB Conc 32.1 g/dL (30.0-36.0); Mean Corpuscular Hemoglobin 29.7 pg (28.0-34.0); Mean Corpuscular Volume 92.7 fL (81-99); Mean Platelet Volume 10.5 fL (7.4-10.4); Monocytes % 10.2 %; Neutrophils # 4.54 10^3/uL (1.8-7.7); Neutrophils % 47.1 %; Nucleated Red Blood Cells % 0 %; Platelet Count 287 10^3/cmm (130-400); Red Blood Count 4.24 10^6/uL (4.1-5.3); Red Cell Distribution Width 13.2 % (12.1-15.1); White Blood Count 9.6 10^3/uL (4.0-10.0)
[2020-08-04 18:02] LABS: Blood Urea Nitrogen 14 mg/dL (6-20); Calcium 8.8 mg/dL (8.5-10.5); Carbon Dioxide 26 mmol/L (22-29); Chloride 102 mmol/L (98-107); Glomerular Filtration Rate 109.6 mL/min (90-130); Glucose 100 mg/dL (65-115); Lipase 37 U/L (13-60); Osmolality Calculated 291 mOsm/kg (285-295); Sodium 140 mmol/L (136-145)
[2020-08-04 18:04] LABS: Troponin(5th) Baseline 6 ng/L (0-10)
--- NOTE | 2020-08-04 18:31 | PC.NURSE ---
Collected urine and sent to lab, informed doc that an order is needed if he would like a UA.
[2020-08-04] MEDS: LORazepam 2 mg/mL INJ 1 mL IVP ×2 (18:53→21:01)
--- NOTE | 2020-08-04 19:15 | ECG_ITS ---
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 Measurements Intervals [place] Rate: 63 P: 69 RI: 124 QRS: 66 QRSD: 90 T: 33 QT: 413 QTc: 425 Interpretive Statements SINUS RHYTHM ST DEVIATION AND MODERATE T-WAVE ABNORMALITY, CONSIDER INFERIOR ISCHEMIA [-0.1+ mV T WAVE IN II/aVF] Compared to ECG 08/04/2020 17:02:57 Sinus arrhythmia no longer present T-wave abnormality still present Possible ischemia still present Electronically Signed On 08-04-2020 20:14:06 [employer] by Andre Kong M.D. [id number]
[2020-08-04 19:42] LABS: Troponin 5 2HR Delta 0 ABS# (0-10)
--- NOTE | 2020-08-04 20:18 | PC.NURSE ---
EKG done at 1999 and shown to ER doctor
--- NOTE | 2020-08-04 20:45 | PC.NURSE ---
Provider seen patient nurse monitoring showing abnormalities and went to check on her. Patient seizing, provider states seizing lasted 30 seconds. Provider shook patient and patient stopped seizing and became responsive. Patient talking immediately after.
--- NOTE | 2020-08-04 20:57 | PC.NURSE ---
Patient discharge specialist showed VF and I went into room patient was having seizure. Seizure lasted for approximately 30 seconds. Patient arms and legs were stiff. Immediately after seizing stopped patient was responsive and talking.
== END 2020-08-04 21:57 | disposition home or self-care (01) ==
PROVIDERS: Emergency Provider Physician Assistant; PCP Family Medicine
DX: R07.89 Other chest pain (principal); F41.9 Anxiety disorder, unspecified; Z87.891 Personal history of nicotine dependence
CPT/HCPCS: 36415; 71045; 80048; 81003; 83690; 84484; 85025; 93005; 96361; 96374; 96375; 96376; 99284; J2060; J2270; J2405; J7040

== ENCOUNTER → 2020-08-12 10:46 | Outpatient (BNVA) | payer OTHER, SELFPAY | PROVIDERS: PCP Family Medicine; Visit Provider Surgery | DX: Z20.822 Contact with and (suspected) exposure to COVID-19 (principal) | CPT/HCPCS: 87635 ==

== ENCOUNTER 2020-08-15 09:54 | Outpatient (CLI) | payer OTHER, SELFPAY ==
--- NOTE | 2020-08-15 09:58 | FL_ITS ---
WS: [id number] DOUBLE CONTRAST UPPER GI EXAMINATION HISTORY: K29.00 - Acute gastritis without bleeding COMPARISON: 06/22/2010 FLUOROSCOPY TIME: 2.4 minutes. Barium mixture traversed normally throughout the esophagus. No filling defects within the stomach. Du odenal bulb was normally distensible and pliable. No gastroesophageal reflux Single episode of very small reducible hiatal hernia was identified. Prior cholecystectomy. FL/FL upper GI w air* [id number] IMPRESSION: 1. No gastroesophageal reflux identified on this examination. 2. Very small reducible hiatal hernia.
== END 2020-08-15 09:55 | disposition home or self-care (01) ==
LOC: RADWPI 09:56
PROVIDERS: PCP Family Medicine; Visit Provider Surgery
DX: K29.00 Acute gastritis without bleeding (principal); K44.9 Diaphragmatic hernia without obstruction or gangrene
CPT/HCPCS: 74246

== ENCOUNTER 2020-08-17 08:58 | Day surgery (SDC) | payer OTHER, SELFPAY ==
[2020-08-16 16:10] VITALS: BMI 22.8
[2020-08-17] VITALS (13 sets, daily range): BP systolic 90–122; BP diastolic 53–86; PULSE 54–84; RESP 14–20; TEMP 36.3–36.9; O2SAT 97–100
--- NOTE | 2020-08-17 09:19 | ANES.PREANE2 ---
Pre-Anesthetic Assessment Pre-Anesthetic Assessment: Height/Weight: Height 1.7 m Weight 66.224 kg Preop Diagnosis: Nausea and vomiting Proposed Procedure: Operation Date: 08/17/20 10:45 Proposed Procedures p EGD 82870 k29.0(Not Applicable) - Booker Garcia MD Was Beta Hank taken within 24 hours: N/A Social: Social History: No alcohol and No tobacco Exam: Pre-Anes Outpt Exam: alert, oriented x 3, clear to auscultation bilaterally and regular rate & rhythm Airway: Submandibular: WNL Cervical ROM: WNL MP: 2 Dentition: Full GI: GI: GERD Musc/skel: Musc/skel: Lower Back Pain Neuropsych: Neuropsych: Anxiety Anesthetic Plan: ASA status: 3 Anesthesia: MAC Risk of > 500 ml blood loss (7ml/kg in children): No PFSH Anesthesia PFSH: Medical History Cystitis GERD (gastroesophageal reflux disease) Gross hematuria Interstitial cystitis Pseudoseizures Surgical History History of appendectomy History of History of cholecystectomy History of colonoscopy History of esophagogastroduodenoscopy (EGD) History of hysterectomy for cancer History of ovarian resection Family History Denies family history of Anesthesia complication Bleeding disorder Social History Smoking and tobacco status: former smoker Alcohol intake: never Last substance use date: 10/12/19 Last substance use time: 01:00 Other details last substance use: Marijuana Current occupational status: employed Data Anesthesia Cardiac Studies: No Data to Display
--- NOTE | 2020-08-17 09:36 | W.PM.OPSUD ---
Surgery/Procedure H&P Update DATE OF PROCEDURE: August 17, 2020 DATE H&P PERFORMED: 08/08/20 H&P UPDATE INFORMATION: I have reviewed H&P completed within last 30 days, I have examined patient prior to procedure and No changes to prior documentation PREOP DIAGNOSIS: Nausea and vomiting PRIMARY INDICATION FOR PROCEDURE: The same PLANNED PROCEDURE: Operation Date: 08/17/20 10:45 Proposed Procedures p EGD 99433 k29.0(Not Applicable) - Booker Garcia MD
[2020-08-17] MEDS: sodium chloride 0.9% 1,000 ML 30 ML IV (09:50)
--- NOTE | 2020-08-17 10:27 | PC.NURSE ---
Patient was taken to GI post-op room at 1027. Pt was there for a couple minutes before she started having seizure-like s/sx. Nurse gave 2 mg Versed IVP ordered by WASTE SPECIALIST. WASTE SPECIALIST got ambu bag to ventilate patient and began bagging. WASTE SPECIALIST ordered another 2 mg Versed IVP. WASTE SPECIALIST decided to take patient to PACU for more intensive care. GI nurse and WASTE SPECIALIST took patient by kate to PACU. Upon arrival to PACU, patient began having seizure-like s/sx again. WASTE SPECIALIST asked RN to give another 2mg Versed IVP. Pt was hooked up to monitors and oxygen. WASTE SPECIALIST asked RN to give 1 mg Versed. WASTE SPECIALIST asked PACU nurse to give Ativan which was given by PACU nurse. GI nurse departed PACU when patient was stable and a full team of providers and nurses were available.
[2020-08-17] MEDS: midazolam 1 mg/mL INJ 5 ML 5 MG (10:30)
[2020-08-17] MEDS: midazolam 1 mg/mL INJ 2 mL 2 MG IVP (10:35)
[2020-08-17] MEDS: midazolam 1 mg/mL INJ 2 mL IVP (10:40)
--- NOTE | 2020-08-17 11:04 | SUR.PHASEII ---
PATIENT TRANSFERRED TO GI POST ROOM 2. ONCE IN ROOM PATIENT STARTED TO SEIZE. PATIENT WAS STARTED ON O2 AND BAGGED BY ANESTHESIA. PATIENT WAS GIVEN 2ML OF VERSED AND ANOTHER 2ML OF VERSED IN 5MIN TO TOTAL 4ML. PATIENT WAS THEN TRANSFERRED TO PACU PER ANESTHESIA REQUEST.
--- NOTE | 2020-08-17 11:24 | SUR.PHASEI ---
1035 PT TO PACU O2 PER AMBU BAG TO ASSIST PT RESP SATS 100% HR SR APPROX 80 BUT HARD TO TELL PT HAVING FULL BODY SX ACTIVITY, IV PATENT DISCHARGE RN X 3 AT BEDSIDE, SEE MEDS GIVEN VERSED AND ATIVAN CALLED FOR, UNABLE TO GET BP AT THIS TIME, PT SKIN PINK WARM DRY. 1050 PT STILL HAVING ACTIVITY BUT LESS SEE ATIVAN GIVEN PER DISCHARGE RN. IV PATENT SX PADS TO SIDES OF CART. 1055 PT NOT HAVING SIEZURES NOW AND AWAKES LOOKS AT STAFF, VERBALIZES APPROP VSS.
--- NOTE | 2020-08-17 11:37 | SUR.PHASEI ---
1056 DR TOTH AT BEDSIDE PT HAVING SAME FULL BODY JERKING SEEMS UNCONTROLLED WITH HEAD PRESSED BACK IN BED EYES ROLLED BACK IN HEAD MANUAL JAW LIFT DONE AND PT TOLD TO STOP THIS, AND PT AWAKES AND STOPS IMMEDIATELY, NO S/S OF SEIZURES NOW, PT TEARFULL VSS 1113 PT TO OPS HANDOFF AT BEDSIDE PT REQUESTS SPRITE TO SIP ON.
--- NOTE | 2020-08-17 14:27 | ANE.PACU2 ---
Inpatient post-anesthesia follow up: Airway intact: Yes Vital signs: Temperature 97.8 F Pulse Rate 72 Respiratory Rate 16 Blood Pressure 114/78 Pulse Oximetry 99 Oxygen Delivery Me thod Room Air Oxygen Flow Rate 8 Fraction of Inspir ed Oxygen Hydration adequate: Yes Nausea and vomiting: No Pain level: 1 Additional Comments: Patient with multiple pseudoseizure events post procedure with transfer to PACU (6mg midazolam and 3mg Ativan), patient stable and able to follow commands.
[2020-08-18 14:05] LABS: H. Pylori / CLO Test Negative
== END 2020-08-17 12:05 | disposition home or self-care (01) ==
LOC: GILAB 10:27 → OPS 10:38
PROVIDERS: PCP Family Medicine; Visit Provider Surgery
PROC: 0DJ08ZZ Inspection of Upper Intestinal Tract, Via Natural or Artificial Opening Endoscopic (ICD-10-PCS; CPT 43235; principal; 2020-08-17 10:45)
DX: R11.2 Nausea with vomiting, unspecified (principal); K21.00 Gastro-esophageal reflux disease with esophagitis, without bleeding; K44.9 Diaphragmatic hernia without obstruction or gangrene; K29.70 Gastritis, unspecified, without bleeding; Z87.891 Personal history of nicotine dependence
CPT/HCPCS: 43239; 87077; 96361; 96374; 96375; J2060; J2250; J2704; J3490; J7030

== ENCOUNTER 2020-09-05 14:32 | Emergency (ER) | payer OTHER, SELFPAY ==
[2020-09-05 15:01] VITALS: BP 148/94; PULSE 96; RESP 18; TEMP 36.5; O2SAT 99; BMI 25.0
--- NOTE | 2020-09-05 15:21 | W.ED.NAVMDI ---
HPI - Nausea/Vomiting/Diarrhea General: Chief complaint: Nausea/Vomiting/Diarrhea Stated complaint: N/V, ANXIETY ATTACK Time Seen by Provider: 09/05/20 15:14 History of Present Illness: HPI Narrative: Patient is a 40-year-old female comes to the ED with nausea/vomiting and anxiety attack. Patient says she woke up at 4:00 this morning nauseous and vomiting. The nausea vomiting has continued throughout the day and then she started developing an anxiety attack. She also reports having some epigastric pain which is very common for her and she has been seen here in the ED for epigastric pain multiple times in the last 2 months. Patient also had a seizure that lasted about 30 seconds before arriving here to the ED. She had seen bladder and bowel incontinence during seizure. Associated nausea: Yes Associated symtoms: Reports anxiety and nausea; Denies change in vision, chest pain, dysuria, fatigue, headache(s) or palpitations Review of Systems Const: Denies: fever(s), chills or fatigue Eyes: Denies: change in vision or eye discomfort ENMT: Denies: throat pain, odynophagia, nasal discharge or nasal congestion Card: Denies: chest pain, palpitations, edema, swelling of feet/ankles, dyspnea on exertion or orthopnea Resp: Denies: dyspnea, productive cough or non-productive cough GI: Reports: nausea and vomiting; Denies: abdominal pain, diarrhea, constipation or hematochezia : Denies: flank pain, dysuria or hematuria Musc: Denies: neck pain, back pain or extremity swelling Skin/Breast: Denies: rash or new lesions Neuro: Denies: headache(s), numbness in extremities or weakness in extremities Psych: Reports: anxiety and panic attacks PFS ED PFSH: Medical History Cystitis GERD (gastroesophageal reflux disease) Gross hematuria Interstitial cystitis Pseudoseizures Surgical History History of appendectomy History of History of cholecystectomy History of colonoscopy History of esophagogastroduodenoscopy (EGD) History of hysterectomy for cancer History of ovarian resection Family History Denies family history of Anesthesia complication Bleeding disorder Social History Smoking and tobacco status: former smoker Alcohol intake: never Last substance use date: 10/12/19 Last substance use time: 01:00 Other details last substance use: Marijuana Current occupational status: employed Physical Exam Const: COMMON NORMALS: patient oriented x3 and alert GENERAL APPEARANCE: cooperative, in distress (Patient appears anxious and in pain.) and anxious HENMT: COMMON NORMALS: normocephalic HEAD & SCALP: normocephalic MOUTH: Normal oral and palatal mucosa present THROAT: posterior oropharynx normal and uvula midline Neck/C-Spine: COMMON NORMALS: supple GENERAL: Yes normal visual inspection Resp: COMMON NORMALS: normal respiratory effort, No retractions, No use of accessory muscles and clear to auscultation bilaterally AUSCULTATION: clear to auscultation bilaterally Cardio: COMMON NORMALS: regular rate, regular rhythm, S1 normal heart sound present, S2 normal heart sound present, No gallops present (Cardio), No clicks present (Cardio), No murmurs present (Cardio) and Peripheral pulses 2+ throughout RATE: regular rate RHYTHM: regular rhythm HEART SOUNDS: S1 normal heart sound present and S2 normal heart sound present PERIPHERAL PULSES: Peripheral pulses 2+ throughout GI: COMMON NORMALS: Normal to inspection, nondistended, normoactive bowel sounds present, Soft to palpation, non-tender and no masses PALPATION: Yes Soft to palpation : COMMON NORMALS: Yes no CVA tenderness BLADDER/KIDNEY EXAM: Yes no CVA tenderness Back/Pelvis: COMMON NORMALS: no CVA tenderness Extremity: COMMON NORMALS: normal to inspection Neuro: COMMON NORMALS: patient oriented x3 and moves all extremities SENSORIUM/ORIENTATION: Yes alert Skin: GENERAL SKIN EXAM: dry skin Course Reevaluation(s): Reevaluation #1: Pt given ativan for anxiety along with zofran, halidol for nausea/vomiting. Her nausea and vomiting improved but was not completely gone. pt wanted to go home and did not want to be here in the ED. I told pt that labs had not been complete and further testing would be recommended. Patient understood and still wanted to go home so she signed AMA form. Vital Signs: Vital signs: Vital Signs Temperature 98.2 F 09/05/20 17:13 Pulse Rate 88 09/05/20 17:13 Respiratory Rate 18 09/05/20 17:13 Blood Pressure 151/95 09/05/20 17:13 Pulse Oximetry 94 09/05/20 17:13 MDM - Nausea/Vomiting/Diarrhea MDM Narrative: Medical decision making narrative: Patient is a 40-year-old female comes to the ED with acute anxiety nausea and vomiting. Pt given ativan for anxiety along with zofran, halidol for nausea/vomiting. Her nausea and vomiting improved but was not completely gone. pt wanted to go home and did not want to be here in the ED. I told pt that labs had not been complete and further testing would be recommended. Patient understood and still wanted to go home so she signed AMA form. Lab Data: Attestation: I reviewed the patient's lab results. Labs: Lab Results 09/05/20 09/05/20 Range/Units 15:16 15:16 WBC 14.2 H (4.0-10.0) 10^3/ uL RBC 5.06 (4.1-5.3) 10^6/u L Hgb 14.9 (11.5-15.3) g/dL Hct 44.5 (37.0-47.0) % MCV 87.9 (81-99) fL MCH 29.4 (28.0-34.0) pg MCHC 33.5 (30.0-36.0) g/dL RDW 12.5 (12.1-15.1) % Plt Count 345 (130-400) 10^3/c mm MPV 10.8 H (7.4-10.4) fL Neut % (Auto) 86.9 % Lymph % (Auto) 6.5 % [place] % (Auto) 5.5 % Eos % (Auto) 0.1 % Baso % (Auto) 0.4 % Neut # (Auto) 12.39 H (1.8-7.7) 10^3/u L Lymph # (Auto) 0.9 (0.8-4.8) 10^3/u L [place] # (Auto) 0.8 (0.2-0.9) 10^3/u L Eos # (Auto) 0.0 (0.0-0.8) 10^3/u L Baso # (Auto) 0.1 (0.0-0.1) 10^3/u L Nucleated RBC % (a uto) 0 % Nucleated RBCs # 0.0 /100WBC Sodium 136 (136-145) mmol/L Potassium 3.7 (3.5-5.1) mmol/L Chloride 99 (98-107) mmol/L Carbon Dioxide 18 L (22-29) mmol/L Anion Gap 22.7 H (5-19) BUN 14 (6-20) mg/dL Creatinine 0.6 (0.5-0.9) mg/dL GFR Calculation 109.6 (90-130) mL/min Glucose 193 H (65-115) mg/dL Calculated Osmolal ity 288 (285-295) mOsm/k g Calcium 9.5 (8.5-10.5) mg/dL Total Bilirubin 0.3 (0.15-1.2) mg/dL AST 25 (0-32) U/L ALT 18 (0-33) U/L Alkaline Phosphata se 126 H (35-105) IU/L Total Protein 8.3 (6.6-8.7) g/dL Albumin 4.7 (3.5-5.2) g/dL Globulin 3.6 (1.3-4.6) g/dL Lipase 16 (13-60) U/L Discharge Plan Discharge Patient Disposition: Left Against Medical Advice Clinical Impression: Acute anxiety Nausea and vomiting Qualifiers: Vomiting type: unspecified Vomiting Intractability: non-intractable Qualified Code(s): R11.2 - Nausea with vomiting, unspecified Condition: Stable Prescriptions: No Action pantoprazole [Protonix] 40 mg tablet,delayed release (DR/EC) 40 mg PO BID RF: 0 estradiol 10 mcg tablet See Rx Instructions .ROUTE .COMPLEX RF: 0 cyclobenzaprine 10 mg tablet 10 mg PO TID PRN (Reason: muscle spasm) Qty: 15 RF: 0 sucralfate 1 gram tablet 1 g PO QID PRN (Reason: stomach ) RF: 0 ondansetron HCl 4 mg tablet 4 mg PO Q8H PRN (Reason: n/v) RF: 0 hydroxyzine HCl 50 mg tablet 50 mg PO TID@08,13,21 RF: 0 promethazine 25 mg suppository 25 mg MA Q6H PRN (Reason: nausea and vomiting) Qty: 12 RF: 0 citalopram 10 mg tablet 10 mg PO DAILY@0800 RF: 0 Elmiron 100 mg capsule 200 mg PO BID@0800,1999 RF: 0 Referrals: Jacky Freemna MD [Primary Care Provider] - Coding Level of Care Code ED Stone Finisher for Chg Fwd Exam Comprehensive
[2020-09-05] MEDS: sodium chloride 0.9% 1,000 ML 999 ML IV (16:06)
[2020-09-05] MEDS: ondansetron 2 mg/ML SDV 2 mL 4 MG IVP (16:06)
[2020-09-05] MEDS: LORazepam 2 mg/mL INJ 1 mL IM (16:08)
[2020-09-05 16:10] VITALS: RESP 18
[2020-09-05] MEDS: morphine 4 mg/mL SDV 1 mL 2 MG IVP (16:10)
[2020-09-05 16:38] LABS: Basophils # 0.1 10^3/uL (0.0-0.1); Basophils % 0.4 %; Eosinophils % 0.1 %; Hematocrit 44.5 % (37.0-47.0); Hemoglobin 14.9 g/dL (11.5-15.3); Lymphocytes # 0.9 10^3/uL (0.8-4.8); Lymphocytes % 6.5 %; Mean Corpuscular HGB Conc 33.5 g/dL (30.0-36.0); Mean Corpuscular Hemoglobin 29.4 pg (28.0-34.0); Mean Corpuscular Volume 87.9 fL (81-99); Mean Platelet Volume 10.8 fL (7.4-10.4); Monocytes # 0.8 10^3/uL (0.2-0.9); Monocytes % 5.5 %; Neutrophils # 12.39 10^3/uL (1.8-7.7); Neutrophils % 86.9 %; Nucleated Red Blood Cells % 0 %; Platelet Count 345 10^3/cmm (130-400); Red Blood Count 5.06 10^6/uL (4.1-5.3); Red Cell Distribution Width 12.5 % (12.1-15.1); White Blood Count 14.2 10^3/uL (4.0-10.0)
[2020-09-05 16:41] LABS: Albumin Level 4.7 g/dL (3.5-5.2); Blood Urea Nitrogen 14 mg/dL (6-20); Calcium 9.5 mg/dL (8.5-10.5); Chloride 99 mmol/L (98-107); Globulin 3.6 g/dL (1.3-4.6); Glomerular Filtration Rate 109.6 mL/min (90-130); Lipase 16 U/L (13-60); Osmolality Calculated 288 mOsm/kg (285-295); Sodium 136 mmol/L (136-145); Total Bilirubin 0.3 mg/dL (0.15-1.2); Total Protein 8.3 g/dL (6.6-8.7)
[2020-09-05] MEDS: haloperidol inj 5 mg/mL INJ 1 mL IVP (16:42)
[2020-09-05 17:10] LABS: Alanine Aminotransferase 18 U/L (0-33)
[2020-09-05 17:13] VITALS: BP 151/95; PULSE 88; RESP 18; TEMP 36.8; O2SAT 94
[2020-09-05 17:28] LABS: Aspartate Amino Transferase 25 U/L (0-32); Potassium 3.7 mmol/L (3.5-5.1)
[2020-09-05 17:59] LABS: Anion Gap 22.7 (5-19); Carbon Dioxide 18 mmol/L (22-29)
[2020-09-05 18:00] LABS: Glucose 193 mg/dL (65-115)
[2020-09-05 18:02] LABS: Alkaline Phosphatase 126 IU/L (35-105)
== END 2020-09-05 17:14 | disposition left against medical advice (07) ==
PROVIDERS: Emergency Provider Physician Assistant; PCP Family Medicine
DX: F41.9 Anxiety disorder, unspecified (principal); Z53.21 Procedure and treatment not carried out due to patient leaving prior to being seen by health care provider; Z87.891 Personal history of nicotine dependence
CPT/HCPCS: 80053; 83690; 85025; 96361; 96372; 96374; 96375; 99284; J1630; J2060; J2270; J2405; J7030

== ENCOUNTER → 2020-09-08 15:54 | Outpatient (BNVA) | payer OTHER, SELFPAY | PROVIDERS: PCP Family Medicine; Visit Provider Nurse Practitioner Family | DX: N30.10 Interstitial cystitis (chronic) without hematuria (principal) | CPT/HCPCS: 81003 ==

== ENCOUNTER 2020-09-10 08:15 | Emergency (ER) | payer OTHER, SELFPAY ==
[2020-09-10 08:25] VITALS: BP 152/110; PULSE 70; RESP 16; TEMP 36.4; O2SAT 97; BMI 25.0
--- NOTE | 2020-09-10 08:35 | ED_ITS ---
HPI - GI Bleed General: Chief complaint: GI Bleed Stated complaint: Anal Bleeding Time Seen by Provider: 09/10/20 08:25 History of Present Illness: HPI Narrative: Patient presents with a 3-day history of bright red bleeding associated with loose stools and some mild lower abdominal cramping. This is happening about twice a day she came in today because it seems to just be more volume amounts. She denies any clots earlier in the week she had some foul-smelling stool but denies having any now and feels like that is improved. She was on antibiotics about a month ago for urine complaint. She denies any fevers or chills she is had previous appendectomy C [place] ovarian cancer and interstitial cystitis as well as a recent EGD that showed some gastritis. She describes the blood is bright red denies it being dark or melanotic. She denies any recent hemorrhoid she does have a history of internal hemorrhoids that are usually associated with pain and itching and she denies feeling any type of that sensation and denies any external bulges or masses Review of Systems General: Reports: 10 or more systems reviewed and unremarkable except in HPI and below Narrative: General: denies fatigue, fever or chills HEENT: denies ear pain, denies nasal congestion, denies vision changes, denies sore throat Neck: denies masses or pain Resp: denies cough, denies shortness of breath, denies pleuritic pain Cardio: denies chest pain, denies edema GI: + abdominal pain lower crampy, bright red blood associated with stool : denies hematuria, denies dysuria Neuro: denies headache, denies dizziness, denies motor or sensory changes Musculoskeletal: denies pain, denies swelling Skin: denies rashes Psych: denies SI or HI Endocrine: denies thyroid symptoms, denies lymphadenopathy all over ROS reviewed and patient denies PFSH ED PFSH: Medical History Cystitis GERD (gastroesophageal reflux disease) Gross hematuria Interstitial cystitis Pseudoseizures Surgical History History of appendectomy History of History of cholecystectomy History of colonoscopy History of esophagogastroduodenoscopy (EGD) History of hysterectomy for cancer History of ovarian resection Family History Denies family history of Anesthesia complication Bleeding disorder Social History Smoking and tobacco status: former smoker Alcohol intake: never Last substance use date: 10/12/19 Last substance use time: 01:00 Other details last substance use: Marijuana Current occupational status: employed Physical Exam Narrative: EXAM NARRATIVE: General: a/o/3, no distress Head: atraumatic HEENT: normal eyes, normal conjunctiva, normal hearing, normal external nose, normal mouth, mucous membranes moist Neck: FROM, trachea midline Chest: normal expansion, no gross deformities Resp: normal speech, no retractions, no accessory muscle use, CTA bilaterally Cardio: regular rate and rhythm and no murmur, no peripheral edema, normal p eripheral pulses GI: soft, flat non tender, no guarding normal BS pt defers Rectal exam : deferred Musculoskeletal: FROM, no pain or gross deformities Neuro: a/o appropriate for age, no gross motor or sensory deficitys, CN II-XII grossly intact, normal coordination, normal speech Skin: no rashes Psych: cooperative, normal mood and effect Course Vital Signs: Vital signs: Vital Signs Temperature 97.5 F L 09/10/20 08:25 Pulse Rate 62 09/10/20 10:31 Respiratory Rate 17 09/10/20 10:31 Blood Pressure 123/82 09/10/20 10:31 Pulse Oximetry 98 09/10/20 10:31 MDM - GI Bleed MDM Narrative: Medical decision making narrative: Discussed with patient checking her bottom for hemorrhoids she really does not want that done at this time if we do not need to she says it does not feel like hemorrhoids however I discussed with her that her laboratory work is stable and her CT scan does not show any lower GI pathology at this time she has some cortisone suppositories she may try for the next couple of days and see if that helps otherwise discussed with her colonoscopy and following up with general surgery Dr. Tna or Lydia to discuss a colonoscopy she should return if she has increased pain increased bleeding if she feels weak or dizzy Differential Diagnosis: GI bleed differential diagnosis: Likely hemorrhoids, Lower gastrointestinal hemorrhage and anal fissure Medical Records: Attestation: I reviewed the patient's medical records. Lab Data: Attestation: I reviewed the patient's lab results. Labs: Lab Results 09/10/20 09/10/20 09/10/20 Range/Units 08:52 08:52 08:52 WBC 6.9 (4.0-10.0) 10^3/ uL RBC 4.44 (4.1-5.3) 10^6/u L Hgb 13.0 (11.5-15.3) g/dL Hct 39.8 (37.0-47.0) % MCV 89.6 (81-99) fL MCH 29.3 (28.0-34.0) pg MCHC 32.7 (30.0-36.0) g/dL RDW 12.4 (12.1-15.1) % Plt Count 306 (130-400) 10^3/c mm MPV 10.2 (7.4-10.4) fL Neut % (Auto) 51.8 % Lymph % (Auto) 34.5 % [place] % (Auto) 8.7 % Eos % (Auto) 3.8 % Baso % (Auto) 0.9 % Neut # (Auto) 3.60 (1.8-7.7) 10^3/u L Lymph # (Auto) 2.4 (0.8-4.8) 10^3/u L [place] # (Auto) 0.6 (0.2-0.9) 10^3/u L Eos # (Auto) 0.3 (0.0-0.8) 10^3/u L Baso # (Auto) 0.1 (0.0-0.1) 10^3/u L Nucleated RBC % (a uto) 0 % Nucleated RBCs # 0.0 /100WBC Sodium 140 (136-145) mmol/L Potassium 4.2 (3.5-5.1) mmol/L Chloride 102 (98-107) mmol/L Carbon Dioxide 30 H (22-29) mmol/L Anion Gap 12.2 (5-19) BUN 11 (6-20) mg/dL Creatinine 0.6 (0.5-0.9) mg/dL GFR Calculation 109.6 (90-130) mL/min Glucose 89 (65-115) mg/dL Calculated Osmolal ity 289 (285-295) mOsm/k g Calcium 9.3 (8.5-10.5) mg/dL Total Bilirubin 0.2 (0.15-1.2) mg/dL AST 14 (0-32) U/L ALT 12 (0-33) U/L Alkaline Phosphata se 94 (35-105) IU/L Total Protein 6.8 (6.6-8.7) g/dL Albumin 4.5 (3.5-5.2) g/dL Globulin 2.3 (1.3-4.6) g/dL Lipase 25 (13-60) U/L Urine Color Straw (Yellow) Urine Appearance Clear (CLEAR) Urine pH 7 (5-7) Ur Specific Gravit y 1.005 (1.005-1.030) Urine Protein Neg (Negative) Urine Glucose (UA) Norm (Normal) Urine Ketones Negative (Negative) Urine Blood Neg (Negative) Urine Nitrate Negative (Negative) Urine Bilirubin Neg (Negative) Urine Urobilinogen Norm (Negative) mg/dL Ur Leukocyte Mandi ase Negative (Negative) Urine RBC None (0-2) /hpf Urine WBC Rare (0-5) /hpf Ur Squamous Epith Cells Rare (0-5) /hpf Amorphous Sediment Not Reportable Urine Bacteria Trace (NONE) /hpf Imaging Data^: CT Abd/Pel: Radiologist's impression: [place] [address] CT Scan Report Signed Patient: Jhonny Pulliam #: [id number] : 1980Acct#:[id number] Age/Sex: 40 / FADM Date: 09/10/20 Loc: ERRoom/Bed: Attending Dr: Ordering Provider/Ordering MD: Angelita Ernandez DO Date of Service: 09/10/20 Procedure(s): CT abdomen pelvis w con* [id number] Accession Number(s): [id number] Report Number: [id number] PROCEDURE INFORMATION: Exam: CT Abdomen And Pelvis With Contrast Exam date and time: 09/10/2020 8:48 AM Age: 40 years old Clinical indication: Abdominal tenderness; Abdominal pain; Localized; Lower; Prior surgery; Surgery date: 6+ months; Surgery type: Hyster, gb, appy; Additional info: Lower abd pain, lower gi bleeding, diarrhea TECHNIQUE: Imaging protocol: Computed tomography of the abdomen and pelvis with contrast. Radiation optimization: All CT scans at this facility use at least one of these dose optimization techniques: automated exposure control; mA and/or kV adjustment per patient size (includes targeted exams where dose is matched to clinical indication); or iterative reconstruction. Contrast material: OMNIPAQUE 300; Contrast volume: 95 ml; Contrast route: INTRAVENOUS (IV); COMPARISON: CT abdomen pelvis w con* [id number] 05/10/2020 2:08 PM RADIATION DOSE METRICS: Total DLP (mGy-cm): 1209.15 FINDINGS: Inferior thorax: Mild interstitial prominence without acute airspace or pleural disease. Liver: Stable 7 mm hemangioma in the posterior segment of the right hepatic lobe. Gallbladder and bile ducts: Status post cholecystectomy. Pancreas: No pancreatic mass or ductal dilatation. Spleen: No splenomegaly. Adrenal glands: Unremarkable adrenals. Kidneys and ureters: Normal renal morphology. No hydronephrosis. Stomach and bowel: Gastric and jejunal wall thickening, consistent with gastroenteritis in the appropriate clinical setting. Additional jejunal dilatation. Copious stool. Diverticula, without pericolonic inflammation. Appendix: Status post appendectomy. Intraperitoneal space: No significant free fluid. Vasculature: Vascular calcification. Normal caliber of the abdominal aorta. Lymph nodes: Subcentimeter lymph nodes. Urinary bladder: Normal bladder morphology. Reproductive: Status post hysterectomy. Bones/joints: Mild degenerative change and disc bulging. Soft tissues: Small umbilical hernia. CT/CT abdomen pelvis w con* [id number] IMPRESSION: 1. Gastric and jejunal wall thickening, consistent with gastroenteritis in the appropriate clinical setting. 2. Copious stool. 3. Additional findings as described above. Discharge Plan Discharge Condition: Stable Prescriptions: No Action pantoprazole [Protonix] 40 mg tablet,delayed release (DR/EC) 40 mg PO BID RF: 0 estradiol 10 mcg tablet See Rx Instructions .ROUTE .COMPLEX RF: 0 cyclobenzaprine 10 mg tablet 10 mg PO TID PRN (Reason: muscle spasm) Qty: 15 RF: 0 sucralfate 1 gram tablet 1 g PO QID PRN (Reason: stomach ) RF: 0 ondansetron HCl 4 mg tablet 4 mg PO Q8H PRN (Reason: n/v) RF: 0 hydroxyzine HCl 50 mg tablet 50 mg PO TID@,, RF: 0 promethazine 25 mg suppository 25 mg CO Q6H PRN (Reason: nausea and vomiting) Qty: 12 RF: 0 citalopram 10 mg tablet 10 mg PO DAILY@0800 RF: 0 Elmiron 100 mg capsule 200 mg PO BID@0800,1999 RF: 0 Discharge Orders: Discharge ED (Routine); Ordered 09/10/20 Ordered By: Angelita Ernandez Referrals: Jacky Freeman MD [Primary Care Provider] - Discharge Diet: Usual diet Discharge Activity: Resume usual activity Patient Instructions: Gastrointestinal Bleeding (ED), Rectal Bleeding (ED) Activity Restrictions/Additional Instructions: Make sure you call your providers to discuss if you need to get a colonoscopy Return if you have weakness dizziness increased pain increased bleeding Thank you for choosing [facility] for your healthcare needs today. Please realize this is an emergency room and that we are providing you with a medical screening exam and this may not be complete and all inclusive of all the testing and or work up that you may need to determine your ailment or severity of your illness. It is very important that you follow up as instructed or that you return to the Emergency Department should you have concerns or if your condition changes or worsens in any way. Coding Level of Care Code ED Statement Clerks Manager for Shira Carter
[2020-09-10 09:09] LABS: Basophils # 0.1 10^3/uL (0.0-0.1); Basophils % 0.9 %; Eosinophils # 0.3 10^3/uL (0.0-0.8); Eosinophils % 3.8 %; Hematocrit 39.8 % (37.0-47.0); Lymphocytes # 2.4 10^3/uL (0.8-4.8); Lymphocytes % 34.5 %; Mean Corpuscular HGB Conc 32.7 g/dL (30.0-36.0); Mean Corpuscular Hemoglobin 29.3 pg (28.0-34.0); Mean Corpuscular Volume 89.6 fL (81-99); Mean Platelet Volume 10.2 fL (7.4-10.4); Monocytes # 0.6 10^3/uL (0.2-0.9); Monocytes % 8.7 %; Neutrophils % 51.8 %; Nucleated Red Blood Cells % 0 %; Platelet Count 306 10^3/cmm (130-400); Red Blood Count 4.44 10^6/uL (4.1-5.3); Red Cell Distribution Width 12.4 % (12.1-15.1); White Blood Count 6.9 10^3/uL (4.0-10.0)
[2020-09-10 09:13] VITALS: BP 133/84; PULSE 67; RESP 18; O2SAT 98
[2020-09-10 09:27] LABS: Alanine Aminotransferase 12 U/L (0-33); Albumin Level 4.5 g/dL (3.5-5.2); Alkaline Phosphatase 94 IU/L (35-105); Anion Gap 12.2 (5-19); Aspartate Amino Transferase 14 U/L (0-32); Blood Urea Nitrogen 11 mg/dL (6-20); Calcium 9.3 mg/dL (8.5-10.5); Carbon Dioxide 30 mmol/L (22-29); Chloride 102 mmol/L (98-107); Globulin 2.3 g/dL (1.3-4.6); Glomerular Filtration Rate 109.6 mL/min (90-130); Glucose 89 mg/dL (65-115); Lipase 25 U/L (13-60); Osmolality Calculated 289 mOsm/kg (285-295); Potassium 4.2 mmol/L (3.5-5.1); Sodium 140 mmol/L (136-145); Total Bilirubin 0.2 mg/dL (0.15-1.2); Total Protein 6.8 g/dL (6.6-8.7)
[2020-09-10 09:32] LABS: Add Urine Culture? No; Bacteria Urine TRACE /hpf; Bilirubin Urine Neg (Negative); Blood Urine Neg (Negative); Glucose Urine UA Norm (Normal); Ketones Urine Negative (Negative); Leukocyte Esterase Urine Negative (Negative); Nitrate Urine Negative (Negative); Protein Urine Neg (Negative); Specific Gravity, Urine 1.005 (1.005-1.030); Squamous Epithelial Cell Urine RARE /hpf (0-5); Urine Appearance Clear (CLEAR); Urine Color Straw (Yellow); Urobilinogen Urine Norm (Negative); WBC Urine RARE /hpf (0-5); pH Urine 7 (5-7)
[2020-09-10 10:31] VITALS: BP 123/82; PULSE 62; RESP 17; O2SAT 98
[2020-09-10 10:45] VITALS: BP 123/82; PULSE 67; RESP 18; O2SAT 97
== END 2020-09-10 10:46 ==
PROVIDERS: Emergency Provider Emergency Medicine; PCP Family Medicine
DX: K92.2 Gastrointestinal hemorrhage, unspecified (principal); Z87.891 Personal history of nicotine dependence
CPT/HCPCS: 74177; 80053; 81001; 83690; 85025; 99283; Q9967

== ENCOUNTER 2021-02-19 11:16 | Emergency (ER) | payer SELFPAY ==
[2021-02-19 11:25] VITALS: BP 148/102; PULSE 82; RESP 16; TEMP 37; O2SAT 100
--- NOTE | 2021-02-19 11:30 | ED_ITS ---
HPI - General Adult General: Chief complaint: Nausea/Vomiting/Diarrhea Stated complaint: ANXIETY/ SEIZURES/ VOMITING Time Seen by Provider: 02/19/21 11:23 History of Present Illness: HPI narrative: 40-year-old female with history of anxiety presenting to the emergency room after a panic attack. Patient describes feeling severely short of breath and anxious to the point where she had 2 episodes of vomiting. Afterwards, patient says that she felt shaky over her body and almost lost consciousness. In addition, patient was witnessed to have multiple episodes while in the emergency room each time, patient is easily distractible, she has maintained reflex and has no postictal confusion. Onset:1 hr ago Duration:1 hr Location:home Severity:mild Review of Systems Narrative: Constitutional: No fever, no chills. HEENT: No vision changes CV: No chest pain, no palpitations PULM: no cough, no dyspnea. GI: No abdominal pain, +N/+V/-D. : No dysuria MSKEL: No muscle pain SKIN: No new rashes, no lesions. NEURO: +headache, no focal weakness. HEME: No visible bruises PSYCH: Normal mood PFSH ED PFSH: Medical History Acute dehydration Cystitis Gastritis GERD (gastroesophageal reflux disease) Gross hematuria Interstitial cystitis Nausea and vomiting Pseudoseizures Surgical History History of appendectomy History of History of cholecystectomy History of colonoscopy History of esophagogastroduodenoscopy (EGD) History of hysterectomy for cancer History of ovarian resection Family History Denies family history of Anesthesia complication Bleeding disorder Social History Smoking and tobacco status: former smoker Alcohol intake: never Last substance use date: 10/12/19 Last substance use time: 01:00 Other details last substance use: Marijuana Current occupational status: employed Female Reproductive History: Date of last menstrual period: 09/01/20 Physical Exam Narrative: EXAM NARRATIVE: Head: Atraumatic Eyes: PERRL, conjunctiva without injection ENT: Mucous membrane moist NECK: Supple, ROM intact LUNGS: LCTAB, no crackles/rhonchi CV: RRR ABDOMEN: Soft, nontender in all quadrants EXTREMITY: Normal ROM SKIN: No rash or erythema NEURO: Awake and alert, no focal motor deficits, +jerky movements all over PSYCH: Normal mood and affect Course Vital Signs: Vital signs: Vital Signs Temperature 98.6 F 02/19/21 11:25 Pulse Rate 81 02/19/21 15:09 Respiratory Rate 16 02/19/21 13:41 Blood Pressure 170/100 02/19/21 15:09 Pulse Oximetry 97 02/19/21 15:09 MDM - General Adult MDM Narrative: Medical decision making narrative: [40]yo patient presents with severe anxiety and observed shaking-jerking movements in ED today. In contrast from findings in normal seizure activity, patient was: ? ABSENT postictal confusion ? ABSENT physical injury ? Continued to respond to stimuli throughout shaking movements ? Demonstrated voluntary eye movements away from the examiner/forceful closing of the eyes ? Actively cried during shaking activity Symptoms more consistent with PNES and not concerning for seizure. [13:00] On reassessment, patient is back to baseline, now tolerating PO, ambulating, without neurological complaints. Patient received Ativan, Reglan, IVF, and Haldol, and magnesium in the emergency room for nausea/vomiting, anxiety, and headache with significant improvement of symptoms. Neuro exam at this time back to baseline and wnl. No supsicion for ACS at ths time. Patient will be discharged with strict return precautions and follow up with primary MD within 24-48 hours for further evaluation including a referral to psychiatry and neurology for further testing. Lab Data: Labs: Lab Results 02/19/21 Range/Units 12:00 Urine HCG, Qual Negative (Negative) Discharge Plan Discharge Patient Disposition: Home Clinical Impression: Anxiety, Shortness of breath, Nausea & vomiting Condition: Stable Prescriptions: No Action pantoprazole [Protonix] 40 mg tablet,delayed release (DR/EC) 40 mg PO BID RF: 0 estradiol 10 mcg tablet See Rx Instructions .ROUTE .COMPLEX RF: 0 cyclobenzaprine 10 mg tablet 10 mg PO TID PRN (Reason: muscle spasm) Qty: 15 RF: 0 sucralfate 1 gram tablet 1 g PO QID PRN (Reason: stomach ) RF: 0 ondansetron HCl 4 mg tablet 4 mg PO Q8H PRN (Reason: n/v) RF: 0 hydroxyzine HCl 50 mg tablet 50 mg PO TID@,, RF: 0 promethazine 25 mg suppository 25 mg ID Q6H PRN (Reason: nausea and vomiting) Qty: 12 RF: 0 citalopram 10 mg tablet 10 mg PO DAILY@0800 RF: 0 Elmiron 100 mg capsule 200 mg PO BID@0800,2000 RF: 0 Discharge Orders: Discharge ED (Routine); Ordered 02/19/21 Ordered By: Sven Cruz Referrals: Jacky Freeman MD [Primary Care Provider] - Discharge Diet: Advance as tolerated Discharge Activity: Resume usual activity Patient Instructions: Anxiety (ED) Activity Restrictions/Additional Instructions: Please come back to the emergency room if you have any more symptoms, if have any anxiety, if you have any worsening shortness of breath, nausea or vomiting. Please do not operate vehicles, bathe, or do any unsupervised activity at this time. Coding Level of Care Code ED Doctor Of Nurse Anesthesia Practice for Shira Carter
[2021-02-19] MEDS: LORazepam 2 mg/mL INJ 1 mL IVP (12:04)
[2021-02-19] MEDS: metoclopramide 5 mg/mL SDV 2 mL IVP (12:05)
[2021-02-19] MEDS: sodium chloride 0.9% 1,000 ML 30 ML IV (12:05)
[2021-02-19] MEDS: lidocaine 1% INJ 20 mL 5 ML INTRADERMA (12:06)
[2021-02-19] MEDS: haloperidol inj 5 mg/mL INJ 1 mL IVP (12:44)
[2021-02-19] MEDS: magnesium sulfate premix 2 GM/50 ML PIGGYBACK IV (13:29)
[2021-02-19] MEDS: diphenhydrAMINE 50 mg/mL SDV 1mL IVP (13:29)
[2021-02-19 13:41] VITALS: BP 152/66; PULSE 85; RESP 16; O2SAT 96
[2021-02-19] MEDS: LORazepam 2 mg Tablet PO (15:08)
[2021-02-19 15:09] VITALS: BP 170/100; PULSE 81; O2SAT 97
== END 2021-02-19 15:09 | disposition home or self-care (01) ==
PROVIDERS: Emergency Provider Emergency Medicine; PCP Family Medicine
DX: F41.9 Anxiety disorder, unspecified (principal); R06.02 Shortness of breath; R11.2 Nausea with vomiting, unspecified; Z87.891 Personal history of nicotine dependence
CPT/HCPCS: 81025; 96365; 96375; 96376; 99284; J1200; J1630; J2060; J2765; J3475; J7030

== ENCOUNTER 2021-04-20 08:20 | Emergency (ER) | payer OTHER, SELFPAY ==
[2021-04-20 09:13] VITALS: BP 128/93; PULSE 68; RESP 16; TEMP 36.8; O2SAT 99; BMI 27.3
--- NOTE | 2021-04-20 09:27 | XR_ITS ---
WS: [id number] Right elbow, 2 views, 04/20/2021 Clinical Data: pain Comparison: Right elbow, 06/06/2020. Findings: No fractures or dislocations are seen. The radial head is normal. The soft tissues are unremarkable. XR/XR elbow RT min 3V* [id number] Impression: Negative right elbow.
--- NOTE | 2021-04-20 09:28 | XR_ITS ---
WS: [id number] Right foot, 3 views, 04/20/2021 Clinical Data: injury Comparison: None. Findings: No fractures or dislocations are seen. No bone destruction or erosion is noted. The joint spaces and soft tissues are normal. XR/XR foot RT min 3V* [id number] Impression: Negative right foot.
--- NOTE | 2021-04-20 09:28 | W.ED.FALL ---
HPI - Fall General: Chief Complaint: Fall Stated Complaint: Injury to right foot and elbow from fall Time Seen by Provider: 04/20/21 08:22 Source: patient Mode of arrival: ambulatory Limitations: no limitations History of Present Illness: HPI Narrative: Patient is a 40-year-old female who presents to ED today with complaint of right elbow and right foot pain. Patient tells me she accidentally tripped and fell a few weeks ago and injured these areas. She states pain has continued to persist. She states she is on her feet all day and her right foot continues to bother her. She has no other injuries or complaints at this time. complaint: fall Onset (ago): week(s) Fall from: standing Fall witnessed: no Place fall occurred: home Loss of consciousness: None Prolonged down time: no Symptoms prior to fall: none Context: tripped/slipped Location of injury - extremities: Right: elbow and foot Associated symptoms-after fall: Reports no associated symptoms; Denies chest pain, difficulty walking or neck pain Review of Systems Card: Denies: chest pain Resp: Denies: dyspnea Musc: Reports: extremity pain and joint pain; Denies: neck pain, back pain, extremity swelling, joint swelling, joint redness, joint warmth or limited range of motion Skin/Breast: Denies: rash Neuro: Denies: numbness in extremities, weakness in extremities, sensory changes or difficulty walking [facility] ED PFSH: Medical History Acute dehydration Cystitis Gastritis GERD (gastroesophageal reflux disease) Gross hematuria Interstitial cystitis Nausea and vomiting Pseudoseizures Surgical History History of appendectomy History of History of cholecystectomy History of colonoscopy History of esophagogastroduodenoscopy (EGD) History of hysterectomy for cancer History of ovarian resection Family History Denies family history of Anesthesia complication Bleeding disorder Social History Smoking and tobacco status: former smoker Alcohol intake: never Last substance use date: 10/12/19 Last substance use time: 01:00 Other details last substance use: Marijuana Current occupational status: employed Female Reproductive History: Date of last menstrual period: 09/01/20 Physical Exam Const: COMMON NORMALS: no acute distress, average body habitus, patient oriented x3, no limitations, healthy appearing, alert and well nourished Extremity: RIGHT UPPER EXTREMITY: Yes elbow joint Right elbow: Yes palpation (mild TTP to radial head), Yes ROM (full) and Yes neurovascular exam (normal) RIGHT LOWER EXTREMITY: Yes foot & digits Right foot and digits: Yes palpation (TTP at head of 1st metatarsal), Yes ROM (normal) and Yes neurovascular exam (normal) Neuro: COMMON NORMALS: patient oriented x3, moves all extremities, no focal motor deficits and no sensory deficits noted SENSORIUM/ORIENTATION: Yes alert Skin: COMMON NORMALS: no rashes or lesions noted GENERAL SKIN EXAM: no rashes or lesions noted TRAUMA: no lacerations or abrasions Course Vital Signs: Vital signs: Vital Signs Temperature 98.6 F 04/20/21 09:42 Pulse Rate 66 04/20/21 09:42 Respiratory Rate 16 04/20/21 09:42 Blood Pressure 124/71 04/20/21 09:42 Pulse Oximetry 98 04/20/21 09:42 MDM - Fall MDM Narrative: Medical decision making narrative: XRs negative. Recommend follow up with PCP if pain persists. Imaging Data^: XR R elbow: Radiologist's impression: [address] [address] XRay Report Signed Patient: Jana Strange Unit #: [id number] : 1980 Age/Sex: 40 / F ADM Date: 04/20/21 Loc: ER Room/Bed: Attending Dr: Ordering Provider/Ordering MD: Qian Knight Date of Service: 04/20/21 Procedure(s): XR elbow RT min 3V* 06252 Accession Number(s): [id number] Report Number: [id number] WS: [id number] Right elbow, 2 views, 04/20/2021 Clinical Data: pain Comparison: Right elbow, 06/06/2020. Findings: No fractures or dislocations are seen. The radial head is normal. The soft tissues are unremarkable. XR/XR elbow RT min 3V* 22871 Impression: Negative right elbow. Dictated By: Berta Freeman MD Signed By: Berta Freeman MD Signed Date/Time: 04/20/21944 DD/ 3 XR R foot: Radiologist's impression: [facility] [address] [place] [address] XRay Report Signed Patient: Jana Strange Unit #: [id number] : 1980 Age/Sex: 40 / F ADM Date: 04/20/21 Loc: ER Room/Bed: Attending Dr: Ordering Provider/Ordering MD: Qian Knight Date of Service: 04/20/21 Procedure(s): XR foot RT min 3V* 14983 Accession Number(s): [id number] Report Number: [id number] WS: [id number] Right foot, 3 views, 04/20/2021 Clinical Data: injury Comparison: None. Findings: No fractures or dislocations are seen. No bone destruction or erosion is noted. The joint spaces and soft tissues are normal. XR/XR foot RT min 3V* 26793 Impression: Negative right foot. Dictated By: Berta Freeman MD Signed By: Berta Freeman MD Signed Date/Time: 04/20/21947 DD/ 7 Discharge Plan Discharge Patient Disposition: Home Clinical Impression: Pain in right foot, Pain in right elbow Condition: Stable Prescriptions: No Action pantoprazole [Protonix] 40 mg tablet,delayed release (DR/EC) 40 mg PO BID RF: 0 estradiol 10 mcg tablet See Rx Instructions .ROUTE .COMPLEX RF: 0 cyclobenzaprine 10 mg tablet 10 mg PO TID PRN (Reason: muscle spasm) Qty: 15 RF: 0 sucralfate 1 gram tablet 1 g PO QID PRN (Reason: stomach ) RF: 0 ondansetron HCl 4 mg tablet 4 mg PO Q8H PRN (Reason: n/v) RF: 0 hydroxyzine HCl 50 mg tablet 50 mg PO TID@08,,21 RF: 0 promethazine 25 mg suppository 25 mg [place] Q6H PRN (Reason: nausea and vomiting) Qty: 12 RF: 0 citalopram 10 mg tablet 10 mg PO DAILY@0800 RF: 0 Elmiron 100 mg capsule 200 mg PO BID@0800,2000 RF: 0 Discharge Orders: Discharge ED (Routine); Ordered 04/20/21 Ordered By: Qian Knight Referrals: Jacky Freeman MD [Primary Care Provider] - Coding Level of Care Code ED Senior Controls Analyst for Shira Carter
[2021-04-20 09:42] VITALS: BP 124/71; PULSE 66; RESP 16; TEMP 37; O2SAT 98
== END 2021-04-20 10:06 | disposition home or self-care (01) ==
PROVIDERS: Emergency Provider Physician Assistant; PCP Family Medicine
DX: M25.521 Pain in right elbow (principal); M79.671 Pain in right foot; Z87.891 Personal history of nicotine dependence
CPT/HCPCS: 73080; 73630; 99282

== ENCOUNTER 2021-07-08 02:09 | Emergency (ER) | payer OTHER, SELFPAY ==
[2021-07-08 02:30] VITALS: BP 130/75; PULSE 67; RESP 18; TEMP 36.7; O2SAT 95; BMI 27.3
--- NOTE | 2021-07-08 02:56 | XRR_ITS ---
PROCEDURE INFORMATION: Exam: XR Right Shoulder Exam date and time: 07/08/2021 2:56 AM Age: 40 years old Clinical indication: Injury or trauma; Fall; Blunt trauma (contusions or hematomas); Right; Patient HX: Patient fell at home landing directly onto RT shoulder. C/O pain with reduced rom. ; Additional info: Fall shoulder pain TECHNIQUE: Imaging protocol: XR Right shoulder. Views: 2 or more views. COMPARISON: CR XR chest 1V portable [id number] 08/04/2020 5:23 PM FINDINGS: Bones/joints: There are calcifications of the rotator cuff tendons. No acute fracture or dislocation. Soft tissues: Normal. XR/XR shoulder RT min 2V* 52111 IMPRESSION: 1. No acute fracture or dislocation. 2. Calcific tendinitis of the rotator cuff.
[2021-07-08] MEDS: oxyCODONE-APAP 5-325 mg Tablet 2 TAB PO (04:11)
--- NOTE | 2021-07-08 20:17 | ED_ITS ---
HPI - Extremity Problem General: Chief complaint: Extremity Injury, Upper Stated complaint: R shoulder injury Time Seen by Provider: 07/08/21 03:32 Source: patient History of Present Illness: 40-year-old female who fell out of her chair tonight, on her right shoulder. She is experiencing lateral and anterior right shoulder pain. No numbness or tingling. No other injury MD Complaint: extremity pain Onset (ago): hour(s) Pain Consistency: constant Location: right and upper extremity Quality: aching Radiation: none Relieving factors: nothing Exacerbating factors: nothing Associated symptoms: Deny chest pain, fever(s), myalgias, rash or short of breath Review of Systems Const: Denies: fever(s) Card: Denies: chest pain Resp: Denies: dyspnea or productive cough GI: Denies: abdominal pain or vomiting Skin/Breast: Denies: rash PFSH ED PFSH: Medical History Acute dehydration Cystitis Gastritis GERD (gastroesophageal reflux disease) Gross hematuria Interstitial cystitis Nausea and vomiting Pseudoseizures Surgical History History of appendectomy History of History of cholecystectomy History of colonoscopy History of esophagogastroduodenoscopy (EGD) History of hysterectomy for cancer History of ovarian resection Family History Denies family history of Anesthesia complication Bleeding disorder Social History Smoking and tobacco status: former smoker Alcohol intake: never Last substance use date: 10/12/19 Last substance use time: 01:00 Other details last substance use: Marijuana Current occupational status: employed Female Reproductive History: Date of last menstrual period: 09/01/20 Physical Exam Const: GENERAL APPEARANCE: cooperative; not comfortable HENMT: COMMON NORMALS: normocephalic, atraumatic and Normal external nose present HEAD & SCALP: normocephalic and atraumatic FACE & SINUS: normal facial exam NOSE: Normal external nose present Eye: COMMON NORMALS: Equal, round and reactive pupils present and EOMs intact bilaterally PUPIL: Yes Equal, round and reactive pupils present Neck/C-Spine: COMMON NORMALS: full ROM GENERAL: No tender Chest: COMMONS NORMALS: normal inspection of the chest Resp: COMMON NORMALS: normal respiratory effort and No use of accessory muscles Cardio: COMMON NORMALS: regular rate and regular rhythm RATE: regular rate RHYTHM: regular rhythm Extremity: NARRATIVE EXTREMITY EXAM: Exam of the right shoulder reveals tenderness over the anterior joint line and deltoid. No posterior tenderness. No deformity. There is pain with passive and active range of motion. Sensation is intact distally. Pulses are normal Course Vital Signs: Vital signs: Vital Signs Temperature 98.1 F 07/08/21 02:30 Pulse Rate 67 07/08/21 02:30 Respiratory Rate 18 07/08/21 02:30 Blood Pressure 130/75 07/08/21 02:30 Pulse Oximetry 95 07/08/21 02:30 MDM - Extremity (Nontraumatic) Medical Decision Making Calcific tendinitis on x-ray. Shoulder is in joint. No fracture. No evidence of AC separation. She will be placed in a sling for comfort, given medication for pain control, and asked to follow-up with PCP Lab Data Radiology Impressions Shoulder X-Ray 07/08/21 02:56 IMPRESSION: 1. No acute fracture or dislocation. 2. Calcific tendinitis of the rotator cuff. Discharge Plan Discharge Patient Disposition: Home Clinical Impression: Contusion of right shoulder Condition: Stable Prescriptions: New hydrocodone-acetaminophen 5-325 mg tablet 1 tab PO Q8H PRN (Reason: pain) Qty: 7 0RF ketorolac 10 mg tablet 10 mg PO TID PRN (Reason: pain) Qty: 10 0RF No Action pantoprazole [Protonix] 40 mg tablet,delayed release (DR/EC) 40 mg PO BID 0RF estradiol 10 mcg tablet See Rx Instructions .ROUTE .COMPLEX 0RF Rx Instructions: 10 mcg vaginally twice weekly cyclobenzaprine 10 mg tablet 10 mg PO TID PRN (Reason: muscle spasm) Qty: 15 0RF sucralfate 1 gram tablet 1 g PO QID PRN (Reason: stomach ) 0RF ondansetron HCl 4 mg tablet 4 mg PO Q8H PRN (Reason: n/v) 0RF hydroxyzine HCl 50 mg tablet 50 mg PO TID@08,13,21 0RF promethazine 25 mg suppository 25 mg [place] Q6H PRN (Reason: nausea and vomiting) Qty: 12 0RF Rx Instructions: 1 MI every 6 hour PRN n/v - wait 30 minutes then attempt oral fluids citalopram 10 mg tablet 10 mg PO DAILY@0800 0RF Elmiron 100 mg capsule 200 mg PO BID@0800,2000 0RF Discharge Orders: Discharge ED (Routine); Ordered 07/08/21 Ordered By: Roman Myles Referrals: Jacky Freeman MD [Primary Care Provider] - 4-7 days Discharge Diet: Usual diet Discharge Activity: Limit activity as instructed Patient Instructions: Shoulder Pain (ED) Activity Restrictions/Additional Instructions: Sling from no more than 5 days. Come out of your sling to stretch as you were shown in the emergency room several times a day. Ice the shoulder, especially for the next 48 hours. Alternate pain medication for pain control. Return for worsening pain despite treatment, inability to move your wrist, loss of sensati on, other concerning symptoms peer Coding Level of Care Code ED Clinical Systems Educator for Shira Carter
== END 2021-07-08 04:12 | disposition home or self-care (01) ==
PROVIDERS: Emergency Provider Emergency Medicine; PCP Family Medicine
DX: S40.011A Contusion of right shoulder, initial encounter (principal); Z87.891 Personal history of nicotine dependence; W07.XXXA Fall from chair, initial encounter
CPT/HCPCS: 73030; 99283

== ENCOUNTER 2021-07-14 21:24 | Emergency (ER) | payer OTHER, SELFPAY ==
[2021-07-14 22:04] VITALS: BP 141/83; PULSE 61; RESP 12; TEMP 36.6; O2SAT 99; BMI 26.9
--- NOTE | 2021-07-14 22:16 | ED_ITS ---
HPI - Extremity Problem General: Chief complaint: Extremity Injury, Upper Stated complaint: left shoulder injury\last week Time Seen by Provider: 07/14/21 22:14 Source: patient Mode of arrival: ambulatory Limitations: no limitations History of Present Illness: 41-year-old female states she had injured her shoulder a week ago when she fell. States she is followed up with Ortho they are concerned that she has a rotator cuff tear and actually set up for an MRI states she is ran out of her pain meds and is having increasing pain especially with movement denies any fever denies any weakness in that arm states the pain is worse with the movement improved with rest. Rates her pain a 7 out of 10 currently and is having difficulty sleeping. Associated symptoms: Deny chest pain, fever(s) or rash Review of Systems Const: Denies: fever(s), chills, body aches or change in appetite Eyes: Denies: blurry vision or eye discomfort ENMT: Denies: throat pain or dental pain Card: Denies: chest pain Resp: Denies: dyspnea GI: Denies: abdominal pain, nausea, vomiting or diarrhea : Denies: dysuria Musc: Reports: extremity pain Skin/Breast: Denies: rash Neuro: Denies: headache(s) Psych: Denies: depression Austyn/Lymph: Denies: easy bruising All/Imm: Denies: urticaria PFSH ED PFSH: Medical History Acute dehydration Cystitis Gastritis GERD (gastroesophageal reflux disease) Gross hematuria Interstitial cystitis Nausea and vomiting Pseudoseizures Surgical History History of appendectomy History of History of cholecystectomy History of colonoscopy History of esophagogastroduodenoscopy (EGD) History of hysterectomy for cancer History of ovarian resection Family History Denies family history of Anesthesia complication Bleeding disorder Social History Smoking and tobacco status: former smoker Alcohol intake: never Last substance use date: 10/12/19 Last substance use time: 01:00 Other details last substance use: Marijuana Current occupational status: employed Female Reproductive History: Date of last menstrual period: 09/01/20 Physical Exam Const: COMMON NORMALS: no acute distress, patient oriented x3 and healthy appearing HENMT: COMMON NORMALS: normocephalic and atraumatic HEAD & SCALP: normocephalic and atraumatic Eye: COMMON NORMALS: Equal, round and reactive pupils present and EOMs intact bilaterally PUPIL: Yes Equal, round and reactive pupils present Neck/C-Spine: COMMON NORMALS: full ROM and supple Chest: COMMONS NORMALS: normal inspection of the chest and normal palpation of entire chest wall Resp: COMMON NORMALS: normal respiratory effort, No retractions, No use of accessory muscles and clear to auscultation bilaterally AUSCULTATION: clear to auscultation bilaterally Cardio: COMMON NORMALS: regular rate, regular rhythm and No murmurs present (Cardio) RATE: regular rate RHYTHM: regular rhythm GI: COMMON NORMALS: Normal to inspection, nondistended, normoactive bowel sounds present, Soft to palpation, non-tender and no masses PALPATION: Yes Soft to palpation Extremity: COMMON NORMALS: normal to inspection and full ROM Neuro: COMMON NORMALS: patient oriented x3, moves all extremities and no focal motor deficits Psych: COMMON NORMALS: mental status grossly normal, Normal thought process present and cooperative THOUGHT PROCESS: Normal thought process present Skin: COMMON NORMALS: no rashes or lesions noted and no wounds GENERAL SKIN EXAM: no rashes or lesions noted Course Vital Signs: Vital signs: Vital Signs Temperature 98 F 07/14/21 22:04 Pulse Rate 61 07/14/21 22:04 Respiratory Rate 12 07/14/21 22:04 Blood Pressure 141/83 07/14/21 22:04 Pulse Oximetry 99 07/14/21 22:04 MDM - Extremity (Nontraumatic) Medical Decision Making Patient presents here with shoulder pain from a fall a week ago she refused x- rays she has had an x-ray before and is actually scheduled to have an MRI in a couple weeks. She is having pain could have a rotator cuff tear no signs of infection distal pulses intact we will place her on pain meds she is to follow- up with orthopedic as scheduled return if worsening. Discharge Plan Discharge Patient Disposition: Home Clinical Impression: Pain in right shoulder Qualifiers: Chronicity: acute Qualified Code(s): M25.511 - Pain in right shoulder Condition: Stable Prescriptions: New hydrocodone-acetaminophen 5-325 mg tablet 1 tab PO Q6H PRN (Reason: pain) Qty: 14 0RF Naprosyn 500 mg tablet 500 mg PO BID PRN (Reason: pain) Qty: 20 0RF No Action pantoprazole [Protonix] 40 mg tablet,delayed release (DR/EC) 40 mg PO BID 0RF estradiol 10 mcg tablet See Rx Instructions .ROUTE .COMPLEX 0RF Rx Instructions: 10 mcg vaginally twice weekly cyclobenzaprine 10 mg tablet 10 mg PO TID PRN (Reason: muscle spasm) Qty: 15 0RF hydrocodone-acetaminophen 5-325 mg tablet 1 tab PO Q8H PRN (Reason: pain) Qty: 7 0RF ketorolac 10 mg tablet 10 mg PO TID PRN (Reason: pain) Qty: 10 0RF sucralfate 1 gram tablet 1 g PO QID PRN (Reason: stomach ) 0RF ondansetron HCl 4 mg tablet 4 mg PO Q8H PRN (Reason: n/v) 0RF hydroxyzine HCl 50 mg tablet 50 mg PO TID@08,13,21 0RF promethazine 25 mg suppository 25 mg [place] Q6H PRN (Reason: nausea and vomiting) Qty: 12 0RF Rx Instructions: 1 MA every 6 hour PRN n/v - wait 30 minutes then attempt oral fluids citalopram 10 mg tablet 10 mg PO DAILY@0800 0RF Elmiron 100 mg capsule 200 mg PO BID@0800,2000 0RF Discharge Orders: Discharge ED (Routine); Ordered 07/14/21 Ordered By: Jessica Paniagua Referrals: Jacky Freeman MD [Primary Care Provider] - Discharge Diet: Advance as tolerated Discharge Activity: Resume usual activity Patient Instructions: Shoulder Pain (ED), Opioid Safety Coding Level of Care Code ED Director Sanitation Bureau for Shira Carter
[2021-07-14] MEDS: HYDROcodone-acetaminophen 7.5-325 mg Tablet 1 TAB PO (22:26)
[2021-07-14 22:42] VITALS: BP 122/72; PULSE 63; RESP 16; O2SAT 97
== END 2021-07-14 22:43 | disposition home or self-care (01) ==
PROVIDERS: Emergency Provider Emergency Medicine; PCP Family Medicine
DX: M25.511 Pain in right shoulder (principal); Z87.891 Personal history of nicotine dependence
CPT/HCPCS: 99283

== ENCOUNTER 2021-09-14 09:26 | Observation (INO) | payer OTHER, SELFPAY ==
[2021-09-14] VITALS (12 sets, daily range): BP systolic 127–172; BP diastolic 76–113; PULSE 77–90; RESP 16–30; TEMP 35.8–36.9; O2SAT 96–100; BMI 25.0
[2021-09-14] MEDS: ondansetron 2 mg/ML SDV 2 mL 4 MG IVP ×4 (09:30→23:23)
--- NOTE | 2021-09-14 09:30 | ECG_ITS ---
[facility] Test Date: 2021-09-14 Pat Name: Jana Strange Department: Room: Gender: Female Campaign Consultant: : 1980 Requested By: Catarino Machuca Order Number: [id number] Misa MD: Jaydon Ray M.D. Measurements Intervals [place] Rate: 88 P: 66 [place]: 138 QRS: 59 QRSD: 85 T: -39 QT: 396 QTc: 480 Interpretive Statements SINUS RHYTHM ST DEVIATION AND MODERATE T-WAVE ABNORMALITY, CONSIDER ANTEROLATERAL ISCHEMIA [-0.1+ mV T-WAVE IN V3-V6] ST DEVIATION AND MODERATE T-WAVE ABNORMALITY, CONSIDER INFERIOR ISCHEMIA [-0.1+ mV T-WAVE IN II/aVF] Compared to ECG 08/04/2020 20:05:30 No significant changes Electronically Signed On 09-14-2021 16:12:10 CDT by Jaydon Ray M.D. [id number]
--- NOTE | 2021-09-14 09:30 | CT_ITS ---
WS: [id number] CT HEAD TECHNIQUE: Noncontrast CT of the head obtained from the skullbase to the vertex. CLINICAL INFORMATION: AMS/vomitting/new onset seizure COMPARISON: 5 16,019 DLP: 1536.[address] scans at [facility] use at least one of these dose optimization techniques: automated e xposure control; mA and/or kV adjustment per patient size (includes targeted exams where dose is matc hed to clinical indication); or iterative reconstruction. FINDINGS: No evidence of intracranial hemorrhage or mass effect. Ventricular system and basal cisterns are rust nt. No extra-axial fluid collections. No evidence of mass or mass effect. Normal bender-white different iation. Mastoid air cells are well aerated. Secretions within the RIGHT maxillary sinus mucosal thickening. S ecretions in the ethmoid air cells. CT/CT head wo con* [id number] IMPRESSION: 1. No evidence of intracranial hemorrhage or mass effect. 2. Normal bender-white differentiation. 3. Mild sinusitis within the RIGHT maxillary sinus and ethmoid air cells.
[2021-09-14] MEDS: LORazepam 2 mg/mL INJ 1 mL IVP (09:37)
[2021-09-14 09:49] LABS: ABG PH Result 7.53 (7.35-7.45); Alveolar-Arterial Oxygen Gradi 0.7 mmHg (5-10); Arterial Blood Gas Hematocrit 44.8 % (37-47); Base Excess ABG -5.4 mmol/L (-2.0-2.0); Blood Gas Allen Test Pos; Blood Gas Operator Identificat CAK; Blood Gas Sample Site Radial, left; Blood Gas Sample Type Arterial; Carboxyhemoglobin 0.7 %THgb (0.4-20.1); HCO3 ABG 14.2 mmol/L (22-26); HGB O2 Sat 98.1 % (95-100); Ionized Calcium Level - ABG 1.2 mmol/L (1.1-1.4); Methemoglobin 0.8 % (0.4-1.5); Oxygen Device ROOM AIR; Oxygen Saturation ABG 99.6; Potassium Level - ABG 3.6 mmol/L (3.5-5.0); Total Hemoglobin 14.6 g/dL (12-16)
--- NOTE | 2021-09-14 10:13 | ED_ITS ---
HPI - Seizure General: Chief Complaint: Nausea/Vomiting/Diarrhea Stated Complaint: vomiting/seizing Time Seen by Provider: 09/14/21 09:29 Source: patient Mode of arrival: wheelchair Limitations: altered mental status History of Present Illness: HPI Narrative: 41-year-old female initially arrives with a complaint of a seizure there is report of a seizure prior to arrival shortly after she arrived here I witnessed seizure-like activity after being called to the bedside by the nursing staff. Patient subsequently had other seizures that she was able to terminate with verbal redirecting. 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 She had been vomiting prior to the episodes of seizures. Evidently according to her this is a pattern that she has had in the past. MD complaint: seizure Onset (ago): minute(s) Description of Episode: tonic-clonic movement and post-event confusion Witnessed: Yes - by Other (Initial seizure witnessed in the waiting room by staff I witnessed a second seizure in the exam room shortly after she arrived in room) Trauma: No Seizure History: Yes Place: Home Associated symptoms: Reports confusion, malaise and weakness; Deny chest pain, chills, cough, diaphoresis, fever(s), anorexia, rash, short of breath or syncope Treatments prior to arrival: none Review of Systems Const: Reports: malaise; Denies: fever(s), chills or diaphoresis ENMT: Denies: throat pain, ear or mastoid pain, nasal discharge or nasal congestion Card: Denies: chest pain or syncope Resp: Denies: dyspnea, productive cough or non-productive cough GI: Reports: nausea and vomiting; Denies: abdominal pain, hematemesis, coffee ground emesis, diarrhea, constipation, bloating, hematochezia or melena : Denies: flank pain, difficulty voiding, dysuria, urinary frequency or urinary urgency Skin/Breast: Denies: rash or pruritus Neuro: Reports: confusion PFSH ED PFSH: Medical History Acute dehydration Cystitis Gastritis GERD (gastroesophageal reflux disease) Gross hematuria Interstitial cystitis Nausea and vomiting Pseudoseizures Surgical History History of appendectomy History of History of cholecystectomy History of colonoscopy History of esophagogastroduodenoscopy (EGD) History of hysterectomy for cancer History of ovarian resection Family History Denies family history of Anesthesia complication Bleeding disorder Social History Smoking and tobacco status: former smoker Alcohol intake: never Last substance use date: 10/12/19 Last substance use time: 01:00 Other details last substance use: Marijuana Current occupational status: employed Female Reproductive History: Date of last menstrual period: 09/01/20 Physical Exam HENMT: COMMON NORMALS: normocephalic and atraumatic HEAD & SCALP: normocephalic and atraumatic Eye: COMMON NORMALS: Equal, round and reactive pupils present, EOMs intact bilaterally, conjunctivae normal and no scleral icterus CONJUNCTIVA: Yes conjunctivae normal PUPIL: Yes Equal, round and reactive pupils present Neck/C-Spine: COMMON NORMALS: full ROM, no lymphadenopathy and supple Resp: COMMON NORMALS: normal respiratory effort, No retractions, No use of accessory muscles and clear to auscultation bilaterally AUSCULTATION: clear to auscultation bilaterally Cardio: COMMON NORMALS: regular rate, regular rhythm and No murmurs present (Cardio) RATE: regular rate RHYTHM: regular rhythm GI: COMMON NORMALS: Soft to palpation and No hepatosplenomegaly present AUS CULTATION: Yes normoactive bowel sounds PALPATION: Yes Soft to palpation, No Tenderness to palpation present (GI), No Guarding due to palpation present (GI) and Yes No hepatosplenomegaly present Extremity: COMMON NORMALS: normal to inspection, capillary refill normal, no clubbing, cyanosis or edema, no calf tenderness and no pedal edema Skin: OTHER: Erythema across the buttocks and proximal thighs without evidence of induration. No drainage no lesions no vesicles Course Vital Signs: Vital signs: Vital Signs Temperature 96.4 F L 09/14/21 13:48 Pulse Rate 86 09/14/21 16:13 Respiratory Rate 17 09/14/21 13:48 Blood Pressure 135/76 09/14/21 16:13 Pulse Oximetry 98 09/14/21 16:13 MDM - Seizure MDM Narrative Medical decision making narrative: Patient protracted nausea vomiting initially we gave her Ativan presumptively for seizures once it is covered in the records and she had the episode where she was able to terminate seizure with verbal redirection we did not give any further AVID Ativan I been holding off on any antiemetics that are concerning may lower seizure threshold. Patient informed me that she previously had seen Dr. Hernandez and evidently stopped the Keppra because the seizures were thought to be part of a conversion disorder. Patient is having persistent nausea vomiting despite several hours multiple medications and fluids unable to get the vomiting under control will admit. She also has an elevated white count I think that is in part due to stress in her system from continued vomiting the redness in her skin in the buttocks proximal thighs does not look like cellulitis she not run a fever at all there is no drainage no vesicles no i nduration no abscesses or lumps are noted. I did not initiate antibiotics in the emergency room and I did discuss with hospitalist. Observation for IV fluids antiemetics. Medical Records Attestation: I reviewed the patient's medical records. Lab Data Attestation: I reviewed the patient's lab results. Result diagrams: 09/14/21 09:45 09/14/21 09:45 Labs: Radiology Impressions Head CT 09/14/21 09:30 IMPRESSION: 1. No evidence of intracranial hemorrhage or mass effect. 2. Normal bender-white differentiation. 3. Mild sinusitis within the RIGHT maxillary sinus and ethmoid air cells. Chest X-Ray 09/14/21 12:22 IMPRESSION: No acute chest abnormality Abdomen/Pelvis CT 09/14/21 12:42 IMPRESSION: 1. No acute abdominal or pelvic findings. 2. Prior hysterectomy and cholecystectomy. Prior reported appendectomy. 3. No evidence of high-grade small or large bowel obstruction. No free fluid in the abdomen or pelvis. 4. Tiny fat-containing umbilical hernia. 5. No other significant findings. Laboratory Results WBC 18.2 10^3/uL (4.0-10.0) H 09/14/21 09:45 RBC 4.95 10^6/uL (4.1-5.3) 09/14/21 09:45 Hgb 14.4 g/dL (11.5-15.3) 09/14/21 09:45 Hct 42.2 % (37.0-47.0) 09/14/21 09:45 MCV 85.3 fl (81-99) 09/14/21 09:45 MCH 29.1 pg (28.0-34.0) 09/14/21 09:45 MCHC 34.1 g/dL (30.0-36.0) 09/14/21 09:45 RDW 13.0 % (12.1-15.1) 09/14/21 09:45 Plt Count 423 10^3/cmm (130-400) H 09/14/21 09:45 MPV 11.2 fL (7.4-10.4) H 09/14/21 09:45 Neut % (Auto) 76.2 % 09/14/21 09:45 Lymph % (Auto) 15.1 % 09/14/21 09:45 [place] % (Auto) 7.3 % 09/14/21 09:45 Eos % (Auto) 0.3 % 09/14/21 09:45 Baso % (Auto) 0.5 % 09/14/21 09:45 Neut # (Auto) 13.88 10^3/uL (1.8-7.7) H 09/14/21 09:45 Lymph # (Auto) 2.8 10^3/uL (0.8-4.8) 09/14/21 09:45 [place] # (Auto) 1.3 10^3/uL (0.2-0.9) H 09/14/21 09:45 Eos # (Auto) 0.1 10^3/uL (0.0-0.8) 09/14/21 09:45 Baso # (Auto) 0.1 10^3/uL (0.0-0.1) 09/14/21 09:45 Nucleated RBC % (auto) 0 % 09/14/21 09:45 Nucleated RBCs # 0.0 /100WBC 09/14/21 09:45 Specimen Type Arterial 09/14/21 09:38 Sample Site Radial, left 09/14/21 09:38 ABG pH 7.53 (7.35-7.45) H 09/14/21 09:38 ABG pCO2 16.8 mmHg (35-45) L* 09/14/21 09:38 ABG pO2 119.0 mmHg (80.0-100.0) H 09/14/21 09:38 ABG HCO3 14.2 mmol/L (22-26) L 09/14/21 09:38 ABG O2 Saturation 99.6 04 09:38 ABG Base Excess -5.4 mmol/L (-2.0-2.0) L 09/14/21 09:38 Dylan Test Pos 09/14/21 09:38 A-a O2 Gradient 0.7 mmHg (5-10) L 09/14/21 09:38 Hematocrit 44.8 % (37-47) 09/14/21 09:38 Hgb O2 Saturation 98.1 % (95-100) 09/14/21 09:38 Carboxyhemoglobin 0.7 %THgb (0.4-20.1) 09/14/21 09:38 Methemoglobin 0.8 % (0.4-1.5) 09/14/21 09:38 Total Hemoglobin 14.6 g/dL (12-16) 09/14/21 09:38 Sodium 146.0 mmol/L (131-143) H 09/14/21 09:38 Potassium 3.6 mmol/L (3.5-5.0) 09/14/21 09:38 Glucose 214.0 mg/dL (70-115) H 09/14/21 09:38 Ionized Calcium 1.2 mmol/L (1.1-1.4) 09/14/21 09:38 O2 Delivery Device Room air 09/14/21 09:38 FiO2 21.0 % 09/14/21 09:38 Hydrochloric Area Supervisor ID Cak 09/14/21 09:38 Sodium 142 mmol/L (136-145) 09/14/21 09:45 Potassium 3.6 mmol/L (3.5-5.1) 09/14/21 09:45 Chloride 106 mmol/L (98-107) 09/14/21 09:45 Carbon Dioxide 15 mmol/L (22-29) L 09/14/21 09:45 Anion Gap 24.6 (5-19) H 09/14/21 09:45 BUN 19 mg/dL (6-20) 09/14/21 09:45 Creatinine 0.8 mg/dL (0.5-0.9) 09/14/21 09:45 GFR Calculation 78.3 mL/min (90-130) L 09/14/21 09:45 Glucose 200 mg/dL (65-115) H 09/14/21 09:45 Calculated Osmolality 302 mOsm/kg (285-295) H 09/14/21 09:45 Lactic Acid 4.4 mmol/L (0.5-2.2) H* 09/14/21 09:45 Lactic Acid (Sepsis) 1.8 mmol/L (0.5-2.2) 09/14/21 15:42 Calcium 10.8 mg/dL (8.5-10.5) H 09/14/21 09:45 Magnesium 2.2 mg/dL (1.7-2.3) 09/14/21 09:45 Total Bilirubin 0.5 mg/dL (0.15-1.2) 09/14/21 09:45 AST 20 U/L (0-32) 09/14/21 09:45 ALT 15 U/L (0-33) 09/14/21 09:45 Alkaline Phosphatase 117 IU/L (35-105) H 09/14/21 09:45 Creatine Kinase 109 U/L (26-192) 09/14/21 09:45 Total Protein 8.8 g/dL (6.6-8.7) H 09/14/21 09:45 Albumin 5.1 g/dL (3.5-5.2) 09/14/21 09:45 Globulin 3.7 g/dL (1.3-4.6) 09/14/21 09:45 Lipase 23 U/L (13-60) 09/14/21 09:45 Urine Color Yellow (Yellow) 09/14/21 11:05 Urine Appearance Cloudy (CLEAR) 09/14/21 11:05 Urine pH 5 (5-7) 09/14/21 11:05 Ur Specific [place] 1.030 (1.005-1.030) 09/14/21 11:05 Urine Protein Neg (Negative) 09/14/21 11:05 Urine Glucose (UA) Norm (Normal) 09/14/21 11:05 Urine Ketones 2+ (Negative) H 09/14/21 11:05 Urine Blood 2+ (Negative) H 09/14/21 11:05 Urine Nitrate Negative (Negative) 09/14/21 11:05 Urine Bilirubin Neg (Negative) 09/14/21 11:05 Urine Urobilinogen Norm mg/dL (Negative) 09/14/21 11:05 Ur Leukocyte Esterase Negative (Negative) 09/14/21 11:05 Urine RBC 0-4 /hpf (0-2) H 09/14/21 11:05 Urine WBC 0-4 /hpf (0-5) H 09/14/21 11:05 Ur Squamous Epith Cells 0-4 /hpf (0-5) H 09/14/21 11:05 Amorphous Sediment Not Reportable 09/14/21 11:05 Urine Bacteria Trace /hpf (NONE) 09/14/21 11:05 Hyaline Casts 0-4 /lpf H 09/14/21 11:05 Urine Mucus 3+ /hpf 09/14/21 11:05 Discharge Plan Discharge Patient Disposition: Placed in Observation Admit Provider: Guillermo Aviles Clinical Impression: Nausea and vomiting, Pseudoseizures Condition: Stable Coding Level of Care Code ED Publication Specialist for Chg Fwd Exam Comprehensive
[2021-09-14 10:27] LABS: Basophils # 0.1 10^3/uL (0.0-0.1); Basophils % 0.5 %; Eosinophils # 0.1 10^3/uL (0.0-0.8); Eosinophils % 0.3 %; Hematocrit 42.2 % (37.0-47.0); Hemoglobin 14.4 g/dL (11.5-15.3); Lymphocytes # 2.8 10^3/uL (0.8-4.8); Lymphocytes % 15.1 %; Mean Corpuscular HGB Conc 34.1 g/dL (30.0-36.0); Mean Corpuscular Hemoglobin 29.1 pg (28.0-34.0); Mean Corpuscular Volume 85.3 fl (81-99); Mean Platelet Volume 11.2 fL (7.4-10.4); Monocytes # 1.3 10^3/uL (0.2-0.9); Monocytes % 7.3 %; Neutrophils # 13.88 10^3/uL (1.8-7.7); Neutrophils % 76.2 %; Nucleated Red Blood Cells % 0 %; Platelet Count 423 10^3/cmm (130-400); Red Blood Count 4.95 10^6/uL (4.1-5.3); White Blood Count 18.2 10^3/uL (4.0-10.0)
[2021-09-14] MEDS: LORazepam 2 mg/mL INJ 1 mL 1 MG IVP (10:31)
[2021-09-14 10:49] LABS: Alanine Aminotransferase 15 U/L (0-33); Albumin Level 5.1 g/dL (3.5-5.2); Alkaline Phosphatase 117 IU/L (35-105); Aspartate Amino Transferase 20 U/L (0-32); Blood Urea Nitrogen 19 mg/dL (6-20); Calcium 10.8 mg/dL (8.5-10.5); Carbon Dioxide 15 mmol/L (22-29); Chloride 106 mmol/L (98-107); Creatine Phosphokinase 109 U/L (26-192); Creatinine Clr Calc Pharmacy 94.4596; Globulin 3.7 g/dL (1.3-4.6); Glomerular Filtration Rate 78.3 mL/min (90-130); Glucose 200 mg/dL (65-115); Lipase 23 U/L (13-60); Magnesium 2.2 mg/dL (1.7-2.3); Osmolality Calculated 302 mOsm/kg (285-295); Sodium 142 mmol/L (136-145); Total Bilirubin 0.5 mg/dL (0.15-1.2); Total Protein 8.8 g/dL (6.6-8.7)
[2021-09-14 10:50] LABS: Anion Gap 24.6 (5-19); Potassium 3.6 mmol/L (3.5-5.1)
[2021-09-14] MEDS: sodium chloride 0.9% 1,000 ML 999 ML IV ×3 (11:21→13:33)
--- NOTE | 2021-09-14 12:22 | XR_ITS ---
WS: [id number] XR chest 1V portable [id number] REASON FOR EXAM: leukocytosis FINDINGS: Chest is unchanged compared to 08/04/2020. The heart and mediastinum are within normal limits. Calcified granulomatous disease bilaterally. No active pulmonary parenchymal or pleural disease. Mild degenerative spondylosis in the mid and lower thoracic spine. XR/XR chest 1V portable [id number] IMPRESSION: No acute chest abnormality
[2021-09-14 12:28] LABS: Add Urine Microscopic? YES; Bacteria Urine TRACE /hpf; Bilirubin Urine Neg (Negative); Blood Urine 2+ (Negative); Glucose Urine UA Norm (Normal); Hyaline Casts Urine 0-4 /lpf; Ketones Urine 2+ (Negative); Leukocyte Esterase Urine Negative (Negative); Mucus Urine 3+ /hpf; Nitrate Urine Negative (Negative); Protein Urine Neg (Negative); RBC Urine 0-4 /hpf (0-2); Squamous Epithelial Cell Urine 0-4 /hpf (0-5); Urine Appearance Cloudy (CLEAR); Urine Color Yellow (Yellow); Urobilinogen Urine Norm (Negative); WBC Urine 0-4 /hpf (0-5); pH Urine 5 (5-7)
--- NOTE | 2021-09-14 12:42 | CT_ITS ---
WS: [id number] CT ABDOMEN PELVIS TECHNIQUE: Contrast-enhanced CT of the abdomen and pelvis with coronal and sagittal reformatted image s. CLINICAL INFORMATION: abd pain COMPARISON: September 10, 2020 DLP: 1575.[address] scans at [facility] use at least one of these dose optimization techniques: automated e xposure control; mA and/or kV adjustment per patient size (includes targeted exams where dose is matc hed to clinical indication); or iterative reconstruction. FINDINGS: Prior postoperative hysterectomy. Prior cholecystectomy and appendectomy. Mild diffuse fatty infiltra tion liver. Prior cholecystectomy. Normal spleen. Normal GE junction. Lung bases are well aerated. No rmal spleen. Adrenal glands are normal. Normal renal parenchymal enhancement. No hydronephrosis. Norm al portal vein and splenic vein. Normal pancreatic parenchymal enhancement. Normal caliber abdominal aorta. Tiny fat-containing umbilical hernia. Normal sigmoid colon. No eviden ce of high-grade small or large bowel obstruction. No free fluid in the abdomen or pelvis. Normal lum bar spine. CT/CT abdomen pelvis w con* [id number] IMPRESSION: 1. No acute abdominal or pelvic findings. 2. Prior hysterectomy and cholecystectomy. Prior reported appendectomy. 3. No evidence of high-grade small or large bowel obstruction. No free fluid i n the abdomen or pelvis. 4. Tiny fat-containing umbilical hernia. 5. No other significant findings.
[2021-09-14] MEDS: promethazine 25 mg/mL SDV 1 mL IM (12:53)
[2021-09-14] MEDS: iohexol 300 mg/mL 100 mL Btl IV (13:13)
[2021-09-14 13:31] LABS: Lactic Sepsis W/Reflex 4.4 mmol/L (0.5-2.2)
[2021-09-14] MEDS: haloperidol inj 5 mg/mL INJ 1 mL 2.5 MG IVP (13:32)
[2021-09-14 13:50] LABS: ABG PCO2 16.8 mmHg (35-45)
[2021-09-14 15:02] LABS: Reflex Lactate Order REFLEX LACTIC ORDERD
[2021-09-14] MEDS: enoxaparin 40 mg/0.4 mL Syringe SUBCUT (16:06)
[2021-09-14] MEDS: sodium chloride 0.9% 1,000 ML 125 ML IV (16:06)
[2021-09-14 16:16] LABS: Lactic Acid level (Lactate) 1.8 mmol/L (0.5-2.2)
--- NOTE | 2021-09-14 16:32 | P.HP_ITS ---
Providers/Chief Complaint Primary Care Provider: Jacky Freeman MD Chief Complaint: vomiting/seizing History of Present Illness Jana Strange is a 41 year old female with pmh of Pseudo seizures as well recurrent nausea and vomiting came in with c/o having intractable nausea and vomiting at home,according to her she has h/o cy clic episodes of nausea and vomiting. She was having pseudo seizure like actvities in the ER for which she was given ativan, shhe also received a dose of haldol as well as antiemetics in the ER.She also received I.V Fluids. Pertinent imaging studies in ER Includes: CT abdomen pelvis w con: 1.No acute abdominal or pelvic findings. 2.? Prior hysterectomy and cholecystectomy. Prior reported appendectomy. 3.? No evidence of high-grade small or large bowel obstruction. No free fluid in the abdomen or pelvis. 4.? Tiny fat-containing umbilical hernia. 5.? No other significant findings. Pertinent Lab work in the ER: WBC : 18.9 , Lactic acid : 4.4 --: repeat lactic acid : 1.8 , Lipase : 23, ALP : 117 ,AST ,ALT :Normal Review of Systems General: Reports: 10 or more systems reviewed and unremarkable except in HPI and below Const: Denies: fever(s), chills, body aches, change in appetite or diaphoresis Card: Denies: palpitations, edema, swelling of feet/ankles, dyspnea on exertion, orthopnea or leg pain with exertion Resp: Denies: dyspnea, productive cough, wheezing or pain on inspiration GI: Reports: abdominal pain, nausea and vomiting; Denies: diarrhea or constipation : Denies: flank pain Musc: Denies: back pain, extremity pain or extremity swelling Neuro: Denies: headache(s), difficulty walking or confusion Medications/Allergies Home Medications Medication Instructions Recorded Confirmed Last Taken Type promethazine 25 mg rectal 25 mg TX Q6H PRN #12 ea 05/14/20 09/14/21 08/16/20 Rx suppository estradiol 10 mcg vaginal tablet See Rx Instructions .ROUTE .COMPLEX 06/14/20 09/14/21 08/16/20 History Allergies Allergy/AdvReac Type Severity Reaction Status Date / Time aspirin Allergy ALGY-Hives Verified 08/13/21 17:12 cephalexin [From Keflex] Allergy ALGY-Hives Verified 08/13/21 17:12 meperidine [From Demerol] Allergy Unknown Verified 08/13/21 17:12 PFSH Acute PFSH: Medical History (Updated 09/14/21 @ 20:37 by Guillermo Aviles MD) Acute dehydration Cystitis Gastritis GERD (gastroesophageal reflux disease) Gross hematuria Interstitial cystitis Nausea and vomiting Pseudoseizures Surgical History History of appendectomy History of History of cholecystectomy History of colonoscopy History of esophagogastroduodenoscopy (EGD) History of hysterectomy for cancer History of ovarian resection Family History Denies family history of Anesthesia complication Bleeding disorder Social History Smoking and tobacco status: former smoker Alcohol intake: never Last substance use date: 10/12/19 Last substance use time: 01:00 Other details last substance use: Marijuana Current occupational status: employed Female Reproductive History: Date of last menstrual period: 09/01/20 Vitals/I&O/Wt Last Vital Signs Temp 96.4 F L 09/14/21 13:48 Pulse 86 09/14/21 16:13 Resp 17 09/14/21 13:48 BP 135/76 09/14/21 16:13 Pulse Ox 98 09/14/21 16:13 09/14/21 09/14/21 09/14/21 06:59 14:59 22:59 Intake Total 1159.95 / 1159.95 Balance 1159.95 / 1159.95 Weight last 48 hrs Weight 72.575 kg Physical Exam Const: COMMON NORMALS: patient oriented x3 HENMT: COMMON NORMALS: normocephalic and atraumatic HEAD & SCALP: normocephalic and atraumatic Eye: GENERAL EYE: appearance normal, both eyes and all related structures Chest: COMMONS NORMALS: normal inspection of the chest and normal palpation of entire chest wall CHEST: Yes Symmetrical chest wall rise Resp: COMMON NORMALS: normal respiratory effort, No retractions, No use of accessory muscles and clear to auscultation bilaterally EFFORT & INSPECTION: Yes symmetric chest movement AUSCULTATION: clear to auscultation bilaterally Cardio: COMMON NORMALS: regular rate, regular rhythm, S1 normal heart sound present, S2 normal heart sound present, No gallops present (Cardio), No murmurs present (Cardio), No rub (Cardio) and Peripheral pulses 2+ throughout RATE: regular rate RHYTHM: regular rhythm HEART SOUNDS: S1 normal heart sound present and S2 normal heart sound present PERIPHERAL PULSES: Peripheral pulses 2+ throughout GI: COMMON NORMALS: Normal to inspection, nondistended, normoactive bowel sounds present, Soft to palpation, non-tender, No hepatosplenomegaly present and no masses AUSCULTATION: Yes normoactive bowel sounds PALPATION: Yes Soft to palpation and Yes No hepatosplenomegaly present RECTAL EXAM: deferred Extremity: COMMON NORMALS: no clubbing, cyanosis or edema and no pedal edema Neuro: COMMON NORMALS: patient oriented x3 Data : 09/14/21 09:45 09/14/21 09:45 A&P Assessment and plan (1) Nausea and vomiting: Status: Acute (2) GERD (gastroesophageal reflux disease): Status: Chronic (3) Pseudoseizures: Status: Acute (4) Acute dehydration: Status: Acute (5) Leukocytosis: Status: Acute (6) Lactic acidosis: Status: Acute Plan 41 year old female with pmh of Pseudo seizures as well recurrent nausea and vo miting came in with c/o having intractable nausea and vomiting at home,according to her she has h/o cyclic episodes of nausea and vomiting. Assessment : Pseudo -Seizures : she was loaded with keppra in the ER. We will continue to monitor for now Neuro check Ativan PRN Intractable Nausea and Vomiting: Currently on Zofran, Phenergan Haldol Ac Dehydration : Continue I.V Hydration Leukocytosis : Low clinical suspicion for infection No need for Abxs Lactic Acidosis : Repeat Lactic Acid : Normal Continue I.V Hydration Code Status :Full Code DVT PPX: On Lovenox Attestations Medical Necessity Statement*: Patient needs to be in hospital for the management of Intractable nausea and Vomiting, need for I.V Hydration. Time Spent in Patient Care: Greater than 35 minutes (>than 50% of time spent in counselling and/or direct pt care on unit) . Coding Level of Care Code Acute Dementia Program Director for Chg Fwd Exam Comprehensive Diagnoses Nausea and vomiting R11.2 GERD (gastroesophageal reflux disease) K21.9 Pseudoseizures F44.5 Acute dehydration E86.0 Leukocytosis D72.829 Lactic acidosis E87.2
[2021-09-14] MEDS: acetaminophen 325 mg Tablet 650 MG PO (20:01)
[2021-09-14] MEDS: haloperidol inj 5 mg/mL INJ 1 mL 2 MG IM (20:31)
[2021-09-14] MEDS: promethazine 25 mg/mL SDV 1 mL 12.5 MG IM (22:14)
[2021-09-15] MEDS: ondansetron 2 mg/ML SDV 2 mL 8 MG IVP (00:14)
[2021-09-15] MEDS: haloperidol inj 5 mg/mL INJ 1 mL 2 MG IM ×2 (02:20→07:55)
[2021-09-15] MEDS: diphenhydrAMINE 50 mg/mL SDV 1mL IVP (03:18)
[2021-09-15 04:00] VITALS: BP 152/86; PULSE 83; RESP 21; TEMP 36.4; O2SAT 99
[2021-09-15] MEDS: ondansetron 2 mg/ML SDV 2 mL 4 MG IVP ×2 (04:35→07:55)
[2021-09-15 05:41] LABS: Basophils % 0.2 %; Eosinophils % 0.1 %; Hematocrit 33.5 % (37.0-47.0); Hemoglobin 11.5 g/dL (11.5-15.3); Lymphocytes # 1.7 10^3/uL (0.8-4.8); Lymphocytes % 10.1 %; Mean Corpuscular HGB Conc 34.3 g/dL (30.0-36.0); Mean Corpuscular Hemoglobin 29.7 pg (28.0-34.0); Mean Corpuscular Volume 86.6 fl (81-99); Mean Platelet Volume 10.5 fL (7.4-10.4); Monocytes # 1.2 10^3/uL (0.2-0.9); Monocytes % 7.2 %; Neutrophils # 13.64 10^3/uL (1.8-7.7); Nucleated Red Blood Cells % 0 %; Platelet Count 303 10^3/cmm (130-400); Red Blood Count 3.87 10^6/uL (4.1-5.3); Red Cell Distribution Width 13.3 % (12.1-15.1); White Blood Count 16.6 10^3/uL (4.0-10.0)
[2021-09-15 06:00] LABS: Alanine Aminotransferase 17 U/L (0-33); Albumin Level 4.6 g/dL (3.5-5.2); Alkaline Phosphatase 84 IU/L (35-105); Aspartate Amino Transferase 33 U/L (0-32); Blood Urea Nitrogen 12 mg/dL (6-20); Calcium 9.1 mg/dL (8.5-10.5); Carbon Dioxide 19 mmol/L (22-29); Chloride 105 mmol/L (98-107); Globulin 3.1 g/dL (1.3-4.6); Glomerular Filtration Rate 109.1 mL/min (90-130); Glucose 126 mg/dL (65-115); Lactic Sepsis W/Reflex 1.2 mmol/L (0.5-2.2); Osmolality Calculated 289 mOsm/kg (285-295); Sodium 139 mmol/L (136-145); Total Bilirubin 0.4 mg/dL (0.15-1.2); Total Protein 7.7 g/dL (6.6-8.7)
[2021-09-15] MEDS: promethazine 25 mg/mL SDV 1 mL 12.5 MG IM ×2 (06:04→11:45)
[2021-09-15 06:07] LABS: Procalcitonin 0.16 ng/mL (0-0.5)
[2021-09-15 07:20] VITALS: BP 114/75; PULSE 61; RESP 16; TEMP 36.4; O2SAT 100
[2021-09-15] MEDS: sodium chloride 0.9% 1,000 ML 125 ML IV (07:56)
--- NOTE | 2021-09-15 08:44 | PC.NURSE ---
Helping hands sent a student to the desk to say the patient might be having a seizure. This nurse went to the patient's room and found the patient on the bed shaking her upper body. When sternal rubbed the patient she stopped shaking and opened her eyes. Asked patient orientation questions. She answered them appropriately with no slur to her speech. Homeowner Association Manager were equal and ROM was WNL. Pupils were constricted which was her previous assessment. Patient was told she would be monitored with telemetry and to refrain from showering in case a seizure were to happen in the shower. Patient got out of bed and walked with no difficulty to the bathroom to brush her hair. Nurse notified.
--- NOTE | 2021-09-15 09:47 | PC.CHAP ---
Pastoral Care Encounter/Spiritual Assessment Type of Contact [] Declined audit practice intern visit [] Patient/Family/Request visit [] Outpatient visit [] Follow-up visit [] Physician referral [] Code/Alert [x] Routine visit [] Staff referral [] Actively dying [] Patient sleeping [] Family support [] [] Out of room [] Palliative care [] [] Receiving care in room [] Pre-surgical visit [] Trauma [] Long length of stay [] ICU visit [] Other: Relational/Emotional Strength [x] Patient feels connected with others/family/visitors/staff [] Distress [] Loneliness/isolation [] Abandonment Spirituality of Patient [x] Person of Romi [] Attends Latter-Day of their Romi [x] Believes in Prayer [] Reads Bible or Episcopalian materials [] There are Spiritual issues to be addressed Linesperson Interventions [x] Prayer [x] Active listening [] Non-anxious presence [] Spiritual/emotional support [] Crisis/trauma care [] Spiritual counseling [] Bereavement support [] Provided bereavement packet [] Provided Bible/devotional materials [] Provided toy/stuffed animal, coloring book to patient or family member [] Provided Communion [] Anointing/[place] [] Salvation [x] Completed spiritual assessment [] Other: Impact on Illness or Injury [] Angry [] Fearful [] Anxious [] Often cries [] Exhaustion [] Unable to work [] Unable to attend taoist [] Unable to walk/stand [] Unable to read [] Unable to drive [] Unable to eat/drink [] Unable to sleep [] Unable to be with family [] Patient intubated [] Other: Summary patient having stomach pains Time spent with patient 5 min
[2021-09-15 11:26] VITALS: BP 134/76; PULSE 77; RESP 16; TEMP 37.3; O2SAT 97
--- NOTE | 2021-09-15 11:50 | PC.NURSE ---
Discharge teaching and education went over with patient and significant other, all questions were answered at this time. IV discontinued. Vitals stable. Antimedic given before discharge. Medications sent to patients preferred pharmacy. Belongings accounted for. Patient refused help to car.
[2021-09-15 11:52] VITALS: BP 134/76; PULSE 77; RESP 16; TEMP 37.3; O2SAT 97
--- NOTE | 2021-09-19 14:47 | DCPLANNER ---
Addendum entered by Inocencia Allen 09/27/21 08:18: Patient has an outpatient EEG scheduled for Monday, November 08, 2021 at 1:00. Neurology clinic will call patient with appointment information. Original Note: hospice clinical manager had message to schedule a follow up appointment for patient for an out patient EEG. hospice clinical manager faxed signed order to neurology, who will call patient with appointment information.
== END 2021-09-15 11:53 | disposition home or self-care (01) ==
LOC: ER 10:15 → MEDSURG 16:40
PROVIDERS: Admitting Provider Internal Medicine; Emergency Provider Family Medicine; PCP Family Medicine; Visit Provider Internal Medicine
DX: R11.2 Nausea with vomiting, unspecified (principal); K21.9 Gastro-esophageal reflux disease without esophagitis; F44.5 Conversion disorder with seizures or convulsions; E86.0 Dehydration; D72.829 Elevated white blood cell count, unspecified; E87.2 Acidosis; Z87.891 Personal history of nicotine dependence
CPT/HCPCS: 36415; 36600; 70450; 71045; 74177; 80051; 80053; 81001; 82330; 82550; 82805; 83605; 83690; 83735; 84145; 85025; 87040; 87205; 93005; 96365; 96366; 96367; 96372; 96375; 96376; 99285; G0378; J1200; J1630; J1650; J1953; J2060; J2405; J2550; J7030; Q9967

== ENCOUNTER 2021-09-16 01:13 | Emergency (ER) | payer OTHER, SELFPAY ==
[2021-09-16 01:15] VITALS: BP 149/81; PULSE 81; RESP 17; TEMP 37.3; O2SAT 97; BMI 25.0
--- NOTE | 2021-09-16 01:19 | W.ED.NAVMDI ---
HPI - Nausea/Vomiting/Diarrhea General: Chief complaint: Abdominal Pain Stated complaint: ABD PAIN Time Seen by Provider: 09/16/21 01:14 Source: patient and EMS Mode of arrival: EMS Limitations: no limitations History of Present Illness: 41-year-old female has a history of chronic vomiting over the last 15 years. She has had increased vomiting over the last 2 to 3 days she was seen here yesterday admitted states she felt improved and got discharged in the afternoon states that since being home though her vomiting is started again. She does use THC Gummies. She states she has had multiple episode of vomiting along with some chronic abdominal pain. Denies any worsening proving factors Associated nausea: Yes Associated symtoms: Reports nausea; Denies chest pain, dysuria or headache(s) Review of Systems Const: Denies: fever(s), chills, body aches or change in appetite Eyes: Denies: blurry vision or eye discomfort ENMT: Denies: throat pain or dental pain Card: Denies: chest pain Resp: Denies: dyspnea GI: Reports: abdominal pain, nausea and vomiting : Denies: dysuria Musc: Denies: neck pain or back pain Skin/Breast: Denies: rash Neuro: Denies: headache(s) Psych: Denies: depression Austyn/Lymph: Denies: easy bruising All/Imm: Denies: urticaria PFSH ED PFSH: Medical History Acute dehydration Cystitis Gastritis GERD (gastroesophageal reflux disease) Gross hematuria Interstitial cystitis Lactic acidosis Leukocytosis Nausea and vomiting Nausea and vomiting Pseudoseizures Surgical History History of appendectomy History of History of cholecystectomy History of colonoscopy History of esophagogastroduodenoscopy (EGD) History of hysterectomy for cancer History of ovarian resection Family History Denies family history of Anesthesia complication Bleeding disorder Social History Smoking and tobacco status: former smoker Alcohol intake: never Last substance use date: 10/12/19 Last substance use time: 01:00 Other details last substance use: Marijuana Current occupational status: employed Female Reproductive History: Date of last menstrual period: 09/01/20 Physical Exam Const: COMMON NORMALS: no acute distress, patient oriented x3 and healthy appearing HENMT: COMMON NORMALS: normocephalic and atraumatic HEAD & SCALP: normocephalic and atraumatic Eye: COMMON NORMALS: Equal, round and reactive pupils present and EOMs intact bilaterally PUPIL: Yes Equal, round and reactive pupils present Neck/C-Spine: COMMON NORMALS: full ROM and supple Chest: COMMONS NORMALS: normal inspection of the chest and normal palpation of entire chest wall Resp: COMMON NORMALS: normal respiratory effort, No retractions, No use of accessory muscles and clear to auscultation bilaterally AUSCULTATION: clear to auscultation bilaterally Cardio: COMMON NORMALS: regular rate, regular rhythm and No murmurs present (Cardio) RATE: regular rate RHYTHM: regular rhythm GI: COMMON NORMALS: Normal to inspection, nondistended, normoactive bowel sounds present, Soft to palpation, non-tender and no masses PALPATION: Yes Soft to palpation Extremity: COMMON NORMALS: normal to inspection and full ROM Neuro: COMMON NORMALS: patient oriented x3, moves all extremities and no focal motor deficits Psych: COMMON NORMALS: mental status grossly normal, Normal thought process present and cooperative THOUGHT PROCESS: Normal thought process present Skin: COMMON NORMALS: no rashes or lesions noted and no wounds GENERAL SKIN EXAM: no rashes or lesions noted Course Vital Signs: Vital signs: Vital Signs Temperature 99.1 F 09/16/21 01:15 Pulse Rate 95 09/16/21 04:30 Respiratory Rate 22 H 09/16/21 04:30 Blood Pressure 164/86 09/16/21 04:30 Pulse Oximetry 98 09/16/21 04:30 MDM - Nausea/Vomiting/Diarrhea Medical Decision Making Patient presents with vomiting does have a history of cyclical vomiting syndrome likely from marijuana she had hypokalemia here her potassium is improved after replacement. She is improved after meds as well she is to take her meds she has been prescribed at home follow-up PCP and return if worsening Lab Data : 09/16/21 01:00 09/16/21 03:28 Laboratory Results WBC 16.7 10^3/uL (4.0-10.0) H 09/16/21 01:00 RBC 4.18 10^6/uL (4.1-5.3) 09/16/21 01:00 Hgb 12.2 g/dL (11.5-15.3) 09/16/21 01:00 Hct 35.5 % (37.0-47.0) L 09/16/21 01:00 MCV 84.9 fl (81-99) 09/16/21 01:00 MCH 29.2 pg (28.0-34.0) 09/16/21 01:00 MCHC 34.4 g/dL (30.0-36.0) 09/16/21 01:00 RDW 13.2 % (12.1-15.1) 09/16/21 01:00 Plt Count 321 10^3/cmm (130-400) 09/16/21 01:00 MPV 11.1 fL (7.4-10.4) H 09/16/21 01:00 Neut % (Auto) 70.5 % 09/16/21 01:00 Lymph % (Auto) 17.2 % 09/16/21 01:00 [place] % (Auto) 11.7 % 09/16/21 01:00 Eos % (Auto) 0.0 % 09/16/21 01:00 Baso % (Auto) 0.2 % 09/16/21 01:00 Neut # (Auto) 11.78 10^3/uL (1.8-7.7) H 09/16/21 01:00 Lymph # (Auto) 2.9 10^3/uL (0.8-4.8) 09/16/21 01:00 [place] # (Auto) 2.0 10^3/uL (0.2-0.9) H 09/16/21 01:00 Eos # (Auto) 0.0 10^3/uL (0.0-0.8) 09/16/21 01:00 Baso # (Auto) 0.0 10^3/uL (0.0-0.1) 09/16/21 01:00 Nucleated RBC % (auto) 0 % 09/16/21 01:00 Nucleated RBCs # 0.0 /100WBC 09/16/21 01:00 Sodium 137 mmol/L (136-145) 09/16/21 03:28 Potassium 3.3 mmol/L (3.5-5.1) L 09/16/21 03:28 Chloride 107 mmol/L (98-107) 09/16/21 03:28 Carbon Dioxide 20 mmol/L (22-29) L 09/16/21 03:28 Anion Gap 13.3 (5-19) 09/16/21 03:28 BUN 9 mg/dL (6-20) 09/16/21 03:28 Creatinine 0.7 mg/dL (0.5-0.9) 09/16/21 03:28 GFR Calculation 91.3 mL/min (90-130) 09/16/21 03:28 Glucose 113 mg/dL (65-115) 09/16/21 03:28 Calculated Osmolality 283 mOsm/kg (285-295) L 09/16/21 03:28 Calcium 7.9 mg/dL (8.5-10.5) L 09/16/21 03:28 Magnesium 2.0 mg/dL (1.7-2.3) 09/16/21 01:30 Total Bilirubin 0.6 mg/dL (0.15-1.2) 09/16/21 01:30 AST 33 U/L (0-32) H 09/16/21 01:30 ALT 20 U/L (0-33) 09/16/21 01:30 Alkaline Phosphatase 81 IU/L (35-105) 09/16/21 01:30 Total Protein 6.6 g/dL (6.6-8.7) 09/16/21 01:30 Albumin 4.5 g/dL (3.5-5.2) 09/16/21 01:30 Globulin 2.1 g/dL (1.3-4.6) 09/16/21 01:30 Lipase 11 U/L (13-60) L 09/16/21 01:30 HCG, Qual Negative (Negative) 09/16/21 01:30 Urine Color Yellow (Yellow) 09/16/21 01:45 Urine Appearance Clear (CLEAR) 09/16/21 01:45 Urine pH 5 (5-7) 09/16/21 01:45 Ur Specific [place] 1.020 (1.005-1.030) 09/16/21 01:45 Urine Protein 1+ (Negative) H 09/16/21 01:45 Urine Glucose (UA) Norm (Normal) 09/16/21 01:45 Urine Ketones 3+ (Negative) H 09/16/21 01:45 Urine Blood 3+ (Negative) H 09/16/21 01:45 Urine Nitrate Negative (Negative) 09/16/21 01:45 Urine Bilirubin 1+ (Negative) H 09/16/21 01:45 Urine Urobilinogen 1 mg/dL (Negative) H 09/16/21 01:45 Ur Leukocyte Esterase Trace (Negative) H 09/16/21 01:45 Urine RBC 5-10 /hpf (0-2) H 09/16/21 01:45 Urine WBC 10-15 /hpf (0-5) H 09/16/21 01:45 Ur Squamous Epith Cells 10-15 /hpf (0-5) H 09/16/21 01:45 Amorphous Sediment Not Reportable 09/16/21 01:45 Urine Bacteria 1+ /hpf (NONE) H 09/16/21 01:45 Urine Mucus 4+ /hpf 09/16/21 01:45 Discharge Plan Discharge Patient Disposition: Home Clinical Impression: Vomiting Condition: Stable Prescriptions: No Action estradiol 10 mcg tablet See Rx Instructions .ROUTE .COMPLEX 0RF Rx Instructions: 10 mcg vaginally twice weekly promethazine 25 mg suppository 25 mg PA Q6H PRN (Reason: nausea and vomiting) Qty: 12 0RF Rx Instructions: 1 PA every 6 hour PRN n/v - wait 30 minutes then attempt oral fluids ondansetron 4 mg tablet,disintegrating 4 mg PO Q6H PRN (Reason: nausea and vomiting) 15 Days Qty: 30 0RF Reglan 5 mg tablet 5 mg PO Q6H PRN (Reason: nausea and vomiting) Qty: 20 0RF Discharge Orders: Discharge ED (Routine); Ordered 09/16/21 Ordered By: Jessica Paniagua Referrals: Jacky Freeman MD [Primary Care Provider] - 1-3 days Discharge Diet: Advance as tolerated Discharge Activity: Resume usual activity Patient Instructions: Acute Nausea and Vomiting (DC) Coding Level of Care Code ED [employer] Concierge for Chg Fwd Exam Comprehensive
[2021-09-16 01:31] LABS: Basophils % 0.2 %; Hematocrit 35.5 % (37.0-47.0); Hemoglobin 12.2 g/dL (11.5-15.3); Lymphocytes # 2.9 10^3/uL (0.8-4.8); Lymphocytes % 17.2 %; Mean Corpuscular HGB Conc 34.4 g/dL (30.0-36.0); Mean Corpuscular Hemoglobin 29.2 pg (28.0-34.0); Mean Corpuscular Volume 84.9 fl (81-99); Mean Platelet Volume 11.1 fL (7.4-10.4); Monocytes % 11.7 %; Neutrophils # 11.78 10^3/uL (1.8-7.7); Neutrophils % 70.5 %; Nucleated Red Blood Cells % 0 %; Platelet Count 321 10^3/cmm (130-400); Red Blood Count 4.18 10^6/uL (4.1-5.3); Red Cell Distribution Width 13.2 % (12.1-15.1); White Blood Count 16.7 10^3/uL (4.0-10.0)
[2021-09-16] MEDS: sodium chloride 0.9% 1,000 ML 999 ML IV ×2 (01:34→03:04)
[2021-09-16] MEDS: LORazepam 2 mg/mL INJ 1 mL IVP (01:35)
[2021-09-16 01:48] LABS: HCG, Serum Qual Negative (Negative)
[2021-09-16 01:59] VITALS: BP 141/79; PULSE 87; RESP 20; O2SAT 96
[2021-09-16 01:59] LABS: Alanine Aminotransferase 20 U/L (0-33); Albumin Level 4.5 g/dL (3.5-5.2); Alkaline Phosphatase 81 IU/L (35-105); Anion Gap 17.5 (5-19); Aspartate Amino Transferase 33 U/L (0-32); Blood Urea Nitrogen 11 mg/dL (6-20); Calcium 8.8 mg/dL (8.5-10.5); Carbon Dioxide 21 mmol/L (22-29); Chloride 100 mmol/L (98-107); Creatinine Clr Calc Pharmacy 94.4596; Globulin 2.1 g/dL (1.3-4.6); Glomerular Filtration Rate 78.3 mL/min (90-130); Glucose 132 mg/dL (65-115); Lipase 11 U/L (13-60); Osmolality Calculated 283 mOsm/kg (285-295); Sodium 136 mmol/L (136-145); Total Bilirubin 0.6 mg/dL (0.15-1.2); Total Protein 6.6 g/dL (6.6-8.7)
[2021-09-16 02:04] LABS: Potassium 2.5 mmol/L (3.5-5.1)
--- NOTE | 2021-09-16 02:05 | PC.NURSE ---
Critical K 2.[address] Paniagua
[2021-09-16 02:12] LABS: Blood Urine 3+ (Negative); Glucose Urine UA Norm (Normal); Ketones Urine 3+ (Negative); Protein Urine 1+ (Negative); Urine Appearance Clear (CLEAR); Urine Color Yellow (Yellow); pH Urine 5 (5-7)
[2021-09-16 02:13] LABS: Add Urine Microscopic? YES; Bilirubin Urine 1+ (Negative); Leukocyte Esterase Urine Trace (Negative); Nitrate Urine Negative (Negative); Urobilinogen Urine 1 mg/dL (Negative)
[2021-09-16 02:14] LABS: Add Urine Culture? No; Bacteria Urine 1+ /hpf; Mucus Urine 4+ /hpf
[2021-09-16] MEDS: potassium chloride ER 20 mEq Tablet 80 MEQ PO (02:17)
[2021-09-16] MEDS: lidocaine 1% 5 ML in potassium chloride premix 100 ML 25 ML IV (02:18)
[2021-09-16] MEDS: haloperidol inj 5 mg/mL INJ 1 mL IVP (02:22)
[2021-09-16 03:05] VITALS: BP 125/78; PULSE 88; RESP 14; O2SAT 98
[2021-09-16 03:30] VITALS: BP 145/83; PULSE 71; RESP 13; O2SAT 97
[2021-09-16 04:00] VITALS: BP 144/100; PULSE 68; O2SAT 96
[2021-09-16 04:14] LABS: Anion Gap 13.3 (5-19); Blood Urea Nitrogen 9 mg/dL (6-20); Calcium 7.9 mg/dL (8.5-10.5); Carbon Dioxide 20 mmol/L (22-29); Chloride 107 mmol/L (98-107); Glomerular Filtration Rate 91.3 mL/min (90-130); Glucose 113 mg/dL (65-115); Osmolality Calculated 283 mOsm/kg (285-295); Potassium 3.3 mmol/L (3.5-5.1); Sodium 137 mmol/L (136-145)
[2021-09-16 04:30] VITALS: BP 164/86; PULSE 95; RESP 22; O2SAT 98
[2021-09-16] MEDS: LORazepam 2 mg/mL INJ 1 mL 1 MG IVP (04:31)
[2021-09-16] MEDS: ondansetron 2 mg/ML SDV 2 mL 4 MG IVP (04:32)
== END 2021-09-16 05:58 | disposition home or self-care (01) ==
PROVIDERS: Emergency Provider Emergency Medicine; PCP Family Medicine
DX: R11.2 Nausea with vomiting, unspecified (principal); E87.6 Hypokalemia; F12.90 Cannabis use, unspecified, uncomplicated; Z87.891 Personal history of nicotine dependence
CPT/HCPCS: 80048; 80053; 81001; 83690; 83735; 84703; 85025; 96365; 96366; 96375; 96376; 99284; J1630; J2060; J2405; J3480; J7030

== ENCOUNTER 2021-09-17 19:18 | Emergency (ER) | payer OTHER, SELFPAY ==
[2021-09-17 19:33] VITALS: BP 168/105; PULSE 91; RESP 20; TEMP 37.9; O2SAT 98; BMI 25.0
[2021-09-17] MEDS: metoclopramide 5 mg/mL SDV 2 mL IVP (22:26)
[2021-09-17] MEDS: dexamethasone 10 mg/mL INJ IVP (22:26)
[2021-09-17] MEDS: haloperidol inj 5 mg/mL INJ 1 mL IM (22:28)
[2021-09-17] MEDS: magnesium sulfate premix 2 GM/50 ML PIGGYBACK IV (22:28)
--- NOTE | 2021-09-17 22:33 | ED_ITS ---
Documented by User: Sven Cruz MD 09/18/21 22:33 HPI - General Adult General: Chief complaint: Abdominal Pain Stated complaint: N/V/D, abd pain Time Seen by Provider: 09/17/21 21:31 History of Present Illness: Patient is a 41-year-old female with a history of intractable vomiting presenting to the emergency room for concerns of worsening vomiting symptoms since patient was seen in the emergency room. Patient was seen and evaluated emergency room twice in the last 5 days for similar symptoms. Patient says that since her discharge on 09/16/2021, patient has had persistent intractable vomiting. Patient said that she has had episodes of vomiting simila r to today but these episodes usually last for 2 to 3 days. However this time it has lasted longer. Patient has not been tolerating p.o. since onset of symptoms. Patient denies any fever/chills, diarrhea, melena hematochezia. No other focal complaints at this time. Onset:5 days ago Duration:5 days Location:home Severity:moderate Associated symptoms: Reports nausea and vomiting; Deny chest pain, dyspnea, rash or palpitations Review of Systems Const: Denies: fever(s) or chills Eyes: Denies: change in vision ENMT: Denies: mouth pain Card: Denies: chest pain or palpitations Resp: Denies: dyspnea or non-productive cough GI: Reports: abdominal pain, nausea and vomiting; Denies: diarrhea : Denies: dysuria Musc: Denies: extremity pain Skin/Breast: Denies: rash or new lesions Neuro: Denies: weakness in extremities Psych: Reports: other (Normal mood) Austyn/Lymph: Denies: easy bruising PFS ED PFSH: Medical History Acute dehydration Cystitis Gastritis GERD (gastroesophageal reflux disease) Gross hematuria Interstitial cystitis Lactic acidosis Leukocytosis Nausea and vomiting Nausea and vomiting Pseudoseizures Surgical History History of appendectomy History of History of cholecystectomy History of colonoscopy History of esophagogastroduodenoscopy (EGD) History of hysterectomy for cancer History of ovarian resection Family History Denies family history of Anesthesia complication Bleeding disorder Social History Smoking and tobacco status: former smoker Alcohol intake: never Last substance use date: 10/12/19 Last substance use time: 01:00 Other details last substance use: Marijuana Current occupational status: employed Physical Exam Const: COMMON NORMALS: alert HENMT: COMMON NORMALS: atraumatic HEAD & SCALP: atraumatic MOUTH: moist mucous membranes abnormal Eye: COMMON NORMALS: EOMs intact bilaterally and conjunctivae normal CONJUNCTIVA: Yes conjunctivae normal Neck/C-Spine: COMMON NORMALS: full ROM and supple Resp: COMMON NORMALS: normal respiratory effort and clear to auscultation bilaterally AUSCULTATION: clear to auscultation bilaterally Cardio: COMMON NORMALS: regular rate RATE: regular rate GI: COMMON NORMALS: Soft to palpation PALPATION: Yes Soft to palpation OTHER: +diffuse mild abd TTP. NO guarding rebound, guarding, rigidity. No CVA tenderness to percussion. Neg Lim/Neg McBurney's point tenderness, no suprabupic tenderness to palpation. Extremity: COMMON NORMALS: full ROM Neuro: SENSORIUM/ORIENTATION: Yes alert MOTOR EXAM: No Abnormal motor strength present and Other motor observations present (no focal motor deficits) Psych: COMMON NORMALS: speech normal SPEECH: Yes normal speech MOOD & AFFECT: Yes euthymic mood Course Vital Signs: Vital signs: Vital Signs Temperature 100.2 F H 09/17/21 19:33 Pulse Rate 87 09/18/21 00:06 Respiratory Rate 18 09/18/21 00:06 Blood Pressure 156/106 09/18/21 00:06 Pulse Oximetry 96 09/18/21 00:06 [facility] - General Adult Medical Decision Making 41-year-old female presents emergency room for concerns of intractable vomiting despite recent evaluation in the emergency room. On exam, patient has has diffuse abdominal tenderness without any guarding rebound tenderness. At the present time, pending blood work and medication and reassessment. Case signed out to Dr. Paniagua. Lab Data : 09/17/21 22:49 09/17/21 22:49 Radiology Impressions Abdomen/Pelvis CT 09/17/21 22:55 IMPRESSION: No significant abdominal or pelvic findings Laboratory Results WBC 17.7 10^3/uL (4.0-10.0) H 09/17/21 22:49 RBC 4.62 10^6/uL (4.1-5.3) 09/17/21:49 Hgb 13.6 g/dL (11.5-15.3) 09/17/21 22:49 Hct 39.4 % (37.0-47.0) 09/17/21:49 MCV 85.3 fl (81-99) 09/17/21:49 MCH 29.4 pg (28.0-34.0) 09/17/21:49 MCHC 34.5 g/dL (30.0-36.0) 09/17/21:49 RDW 12.9 % (12.1-15.1) 09/17/21:49 Plt Count 326 10^3/cmm (130-400) 09/17/21 22:49 MPV 11.2 fL (7.4-10.4) H 09/17/21:49 Neut % (Auto) 76.6 % 09/17/21:49 Lymph % (Auto) 13.1 % 09/17/21:49 [place] % (Auto) 9.3 % 09/17/21:49 Eos % (Auto) 0.1 % 09/17/21: Baso % (Auto) 0.4 % 09/17/21:49 Neut # (Auto) 13.56 10^3/uL (1.8-7.7) H 09/17/21:49 Lymph # (Auto) 2.3 10^3/uL (0.8-4.8) 09/17/21:49 [place] # (Auto) 1.7 10^3/uL (0.2-0.9) H 09/17/21 22:49 Eos # (Auto) 0.0 10^3/uL (0.0-0.8) 09/17/21:49 Baso # (Auto) 0.1 10^3/uL (0.0-0.1) 09/17/21:49 Nucleated RBC % (auto) 0 % 09/17/21: Nucleated RBCs # 0.0 /100WBC 09/17/21:49 Sodium 138 mmol/L (136-145) 04/10/22 22:49 Potassium 2.8 mmol/L (3.5-5.1) L* 09/17/21 22:49 Chloride 97 mmol/L (98-107) L 09/17/21 22:49 Carbon Dioxide 25 mmol/L (22-29) 09/17/21 22:49 Anion Gap 18.8 (5-19) 09/17/21 22:49 BUN 5 mg/dL (6-20) L 09/17/21 22:49 Creatinine 0.8 mg/dL (0.5-0.9) 09/17/21 22:49 GFR Calculation 78.3 mL/min (90-130) L 09/17/21 22:49 Glucose 117 mg/dL (65-115) H 09/17/21 22:49 Calculated Osmolality 284 mOsm/kg (285-295) L 09/17/21 22:49 Calcium 9.3 mg/dL (8.5-10.5) 09/17/21 22:49 Total Bilirubin 0.5 mg/dL (0.15-1.2) 09/17/21 22:49 AST 58 U/L (0-32) H 09/17/21 22:49 ALT 65 U/L (0-33) H 09/17/21 22:49 Alkaline Phosphatase 87 IU/L (35-105) 09/17/21 22:49 Total Protein 7.7 g/dL (6.6-8.7) 09/17/21 22:49 Albumin 4.6 g/dL (3.5-5.2) 09/17/21 22:49 Globulin 3.1 g/dL (1.3-4.6) 09/17/21 22:49 Lipase 13 U/L (13-60) 09/17/21 22:49 Urine Color Straw (Yellow) 09/18/21 00:14 Urine Appearance Clear (CLEAR) 09/18/21 00:14 Urine pH 5 (5-7) 09/18/21 00:14 Ur Specific [place] 1.015 (1.005-1.030) 09/18/21 00:14 Urine Protein Neg (Negative) 09/18/21 00:14 Urine Glucose (UA) Norm (Normal) 09/18/21 00:14 Urine Ketones Negative (Negative) 09/18/21 00:14 Urine Blood Trace (Negative) H 09/18/21 00:14 Urine Nitrate Negative (Negative) 09/18/21 00:14 Urine Bilirubin Neg (Negative) 09/18/21 00:14 Urine Urobilinogen Norm mg/dL (Negative) 09/18/21 00:14 Ur Leukocyte Esterase Negative (Negative) 09/18/21 00:14 Urine RBC 0-4 /hpf (0-2) H 09/18/21 00:14 Urine WBC 0-4 /hpf (0-5) H 09/18/21 00:14 Ur Squamous Epith Cells 0-4 /hpf (0-5) H 09/18/21 00:14 Amorphous Sediment Not Reportable 09/18/21 00:14 Urine Bacteria Trace /hpf (NONE) 09/18/21 00:14 Influenza Type A Ag Negative (Negative) 09/18/21 00:14 Influenza Type B Ag Negative (Negative) 09/18/21 00:14 Discharge Plan Discharge Patient Disposition: Home Clinical Impression: Nausea & vomiting, Abdominal pain, Hypokalemia Condition: Stable Prescriptions: New hydrocodone-acetaminophen 5-325 mg tablet 1 tab PO Q6H PRN (Reason: pain) Qty: 14 0RF potassium chloride 40 mEq/15 mL liquid 40 meq PO TID 3 Days Qty: 135 0RF No Action estradiol 10 mcg tablet See Rx Instructions .ROUTE .COMPLEX 0RF Rx Instructions: 10 mcg vaginally twice weekly promethazine 25 mg suppository 25 mg AL Q6H PRN (Reason: nausea and vomiting) Qty: 12 0RF Rx Instructions: 1 AL every 6 hour PRN n/v - wait 30 minutes then attempt oral fluids ondansetron 4 mg tablet,disintegrating 4 mg PO Q6H PRN (Reason: nausea and vomiting) 15 Days Qty: 30 0RF Reglan 5 mg tablet 5 mg PO Q6H PRN (Reason: nausea and vomiting) Qty: 20 0RF Discharge Orders: Discharge ED (Routine); Ordered 09/18/21 Ordered By: Jessica Paniagua Referrals: Jacky Freeman MD [Primary Care Provider] - Patient Instructions: Abdominal Pain (ED), Opioid Safety Coding Level of Care Code ED Clothing Examiner for Chg Fwd Exam Comprehensive Documented by User: Jessica Paniagua MD 09/18/21 00:17 [facility] - General Adult General: Chief complaint: Abdominal Pain Stated complaint: N/V/D, abd pain Time Seen by Provider: 09/17/21 21:31 PFSH ED PFSH: Medical History Acute dehydration Cystitis Gastritis GERD (gastroesophageal reflux disease) Gross hematuria Interstitial cystitis Lactic acidosis Leukocytosis Nausea and vomiting Nausea and vomiting Pseudoseizures Surgical History History of appendectomy History of History of cholecystectomy History of colonoscopy History of esophagogastroduodenoscopy (EGD) History of hysterectomy for cancer History of ovarian resection Family History Denies family history of Anesthesia complication Bleeding disorder Social History Smoking and tobacco status: former smoker Alcohol intake: never Last substance use date: 10/12/19 Last substance use time: 01:00 Other details last substance use: Marijuana Current occupational status: employed Course Vital Signs: Vital signs: Vital Signs Temperature 100.2 F H 09/17/21 19:33 Pulse Rate 87 09/18/21 00:06 Respiratory Rate 18 09/18/21 00:06 Blood Pressure 156/106 09/18/21 00:06 Pulse Oximetry 96 09/18/21 00:06 [facility] - General Adult Medical Decision Making 41-year-old female presents emergency room for concerns of intractable vomiting despite recent evaluation in the emergency room. On exam, patient has has diffuse abdominal tenderness without any guarding rebound tenderness. At the present time, pending blood work and medication and reassessment. Case signed out to Dr. Paniagua. Patient feels much improved here after meds. Abdominal CT is benign does have some slight hypokalemia we will treat here will prescribe her pain meds she has nausea medicine at home and will prescribe her potassium replacement she is to follow-up with PCP in 2 to 4 days return if worsening. Lab Data : 09/17/21 22:49 09/17/21 22:49 Radiology Impressions Abdomen/Pelvis CT 09/17/21 22:55 IMPRESSION: No significant abdominal or pelvic findings Laboratory Results WBC 17.7 10^3/uL (4.0-10.0) H 09/17/21 22:49 RBC 4.62 10^6/uL (4.1-5.3) 09/17/21 22:49 Hgb 13.6 g/dL (11.5-15.3) 09/17/21 22:49 Hct 39.4 % (37.0-47.0) 09/17/21 22:49 MCV 85.3 fl (81-99) 09/17/21 22:49 MCH 29.4 pg (28.0-34.0) 09/17/21 22:49 MCHC 34.5 g/dL (30.0-36.0) 09/17/21 22:49 RDW 12.9 % (12.1-15.1) 09/17/21 22:49 Plt Count 326 10^3/cmm (130-400) 09/17/21 22:49 MPV 11.2 fL (7.4-10.4) H 09/17/21 22:49 Neut % (Auto) 76.6 % 09/17/21 22:49 Lymph % (Auto) 13.1 % 09/17/21 22:49 [place] % (Auto) 9.3 % 09/17/21 22:49 Eos % (Auto) 0.1 % 09/17/21:49 Baso % (Auto) 0.4 % 09/17/21 22:49 Neut # (Auto) 13.56 10^3/uL (1.8-7.7) H 09/17/21 22:49 Lymph # (Auto) 2.3 10^3/uL (0.8-4.8) 09/17/21 22:49 [place] # (Auto) 1.7 10^3/uL (0.2-0.9) H 09/17/21 22:49 Eos # (Auto) 0.0 10^3/uL (0.0-0.8) 09/17/21 22:49 Baso # (Auto) 0.1 10^3/uL (0.0-0.1) 09/17/21 22:49 Nucleated RBC % (auto) 0 % 09/17/21: Nucleated RBCs # 0.0 /100WBC 09/17/21 22:49 Sodium 138 mmol/L (136-145) 09/17/21 22:49 Potassium 2.8 mmol/L (3.5-5.1) L* 09/17/21 22:49 Chloride 97 mmol/L (98-107) L 09/17/21 22:49 Carbon Dioxide 25 mmol/L (22-29) 09/17/21 22:49 Anion Gap 18.8 (5-19) 09/17/21 22:49 BUN 5 mg/dL (6-20) L 09/17/21 22:49 Creatinine 0.8 mg/dL (0.5-0.9) 09/17/21 22:49 GFR Calculation 78.3 mL/min (90-130) L 09/17/21 22:49 Glucose 117 mg/dL (65-115) H 09/17/21 22:49 Calculated Osmolality 284 mOsm/kg (285-295) L 09/17/21 22:49 Calcium 9.3 mg/dL (8.5-10.5) 09/17/21 22:49 Total Bilirubin 0.5 mg/dL (0.15-1.2) 09/17/21 22:49 AST 58 U/L (0-32) H 09/17/21 22:49 ALT 65 U/L (0-33) H 09/17/21 22:49 Alkaline Phosphatase 87 IU/L (35-105) 09/17/21 22:49 Total Protein 7.7 g/dL (6.6-8.7) 09/17/21 22:49 Albumin 4.6 g/dL (3.5-5.2) 09/17/21 22:49 Globulin 3.1 g/dL (1.3-4.6) 09/17/21 22:49 Lipase 13 U/L (13-60) 09/17/21 22:49 Urine Color Straw (Yellow) 09/18/21 00:14 Urine Appearance Clear (CLEAR) 09/18/21 00:14 Urine pH 5 (5-7) 09/18/21 00:14 Ur Specific [place] 1.015 (1.005-1.030) 09/18/21 00:14 Urine Protein Neg (Negative) 09/18/21 00:14 Urine Glucose (UA) Norm (Normal) 09/18/21 00:14 Urine Ketones Negative (Negative) 09/18/21 00:14 Urine Blood Trace (Negative) H 09/18/21 00:14 Urine Nitrate Negative (Negative) 09/18/21 00:14 Urine Bilirubin Neg (Negative) 09/18/21 00:14 Urine Urobilinogen Norm mg/dL (Negative) 09/18/21 00:14 Ur Leukocyte Esterase Negative (Negative) 09/18/21 00:14 Urine RBC 0-4 /hpf (0-2) H 09/18/21 00:14 Urine WBC 0-4 /hpf (0-5) H 09/18/21 00:14 Ur Squamous Epith Cells 0-4 /hpf (0-5) H 09/18/21 00:14 Amorphous Sediment Not Reportable 09/18/21 00:14 Urine Bacteria Trace /hpf (NONE) 09/18/21 00:14 Influenza Type A Ag Negative (Negative) 09/18/21 00:14 Influenza Type B Ag Negative (Negative) 09/18/21 00:14 Discharge Plan Discharge Patient Disposition: Home Clinical Impression: Nausea & vomiting, Abdominal pain, Hypokalemia Condition: Stable Prescriptions: New hydrocodone-acetaminophen 5-325 mg tablet 1 tab PO Q6H PRN (Reason: pain) Qty: 14 0RF potassium chloride 40 mEq/15 mL liquid 40 meq PO TID 3 Days Qty: 135 0RF No Action estradiol 10 mcg tablet See Rx Instructions .ROUTE .COMPLEX 0RF Rx Instructions: 10 mcg vaginally twice weekly promethazine 25 mg suppository 25 mg AL Q6H PRN (Reason: nausea and vomiting) Qty: 12 0RF Rx Instructions: 1 AL every 6 hour PRN n/v - wait 30 minutes then attempt oral fluids ondansetron 4 mg tablet,disintegrating 4 mg PO Q6H PRN (Reason: nausea and vomiting) 15 Days Qty: 30 0RF Reglan 5 mg tablet 5 mg PO Q6H PRN (Reason: nausea and vomiting) Qty: 20 0RF Discharge Orders: Discharge ED (Routine); Ordered 09/18/21 Ordered By: Jessica Paniagua Referrals: Jacky Freeman MD [Primary Care Provider] - Patient Instructions: Abdominal Pain (ED), Opioid Safety Coding Level of Care Code ED Clothing Examiner for Chg Fwd Exam Comprehensive
[2021-09-17 22:41] VITALS: BP 146/102; PULSE 78; RESP 21; O2SAT 96
[2021-09-17] MEDS: sodium chloride 0.9% 1,000 ML 999 ML IV (22:51)
[2021-09-17 22:54] LABS: Basophils # 0.1 10^3/uL (0.0-0.1); Basophils % 0.4 %; Eosinophils % 0.1 %; Hematocrit 39.4 % (37.0-47.0); Hemoglobin 13.6 g/dL (11.5-15.3); Lymphocytes # 2.3 10^3/uL (0.8-4.8); Lymphocytes % 13.1 %; Mean Corpuscular HGB Conc 34.5 g/dL (30.0-36.0); Mean Corpuscular Hemoglobin 29.4 pg (28.0-34.0); Mean Corpuscular Volume 85.3 fl (81-99); Mean Platelet Volume 11.2 fL (7.4-10.4); Monocytes # 1.7 10^3/uL (0.2-0.9); Monocytes % 9.3 %; Neutrophils # 13.56 10^3/uL (1.8-7.7); Neutrophils % 76.6 %; Nucleated Red Blood Cells % 0 %; Platelet Count 326 10^3/cmm (130-400); Red Blood Count 4.62 10^6/uL (4.1-5.3); Red Cell Distribution Width 12.9 % (12.1-15.1); White Blood Count 17.7 10^3/uL (4.0-10.0)
--- NOTE | 2021-09-17 22:55 | CTR_ITS ---
PROCEDURE INFORMATION: Exam: CT Abdomen And Pelvis With Contrast Exam date and time: 09/17/2021 11:21 PM Age: 41 years old Clinical indication: Nausea and vomiting; Prior surgery; Surgery date: 6+ months; Surgery type: Appy, gb, hyst; Patient HX: C/O abd pain w n/v TECHNIQUE: Imaging protocol: Computed tomography of the abdomen and pelvis with contrast. Radiation optimization: All CT scans at this facility use at least one of these dose optimization techniques: automated exposure control; mA and/or kV adjustment per patient size (includes targeted exams where dose is matched to clinical indication); or iterative reconstruction. Contrast material: OMNI 300; Contrast volume: 95 ml; Contrast route: INTRAVENOUS (IV); COMPARISON: CT abdomen pelvis w con* [id number] 09/14/2021 1:09 PM RADIATION DOSE METRICS: Total DLP (mGy-cm): 1152.02 FINDINGS: Liver: The liver is slightly fatty but normal in size. Gallbladder and bile ducts: The gallbladder is surgically absent. Pancreas: Normal. No ductal dilation. Spleen: Normal. No splenomegaly. Adrenal glands: Normal. No mass. Kidneys and ureters: Normal. No hydronephrosis. Stomach and bowel: No bowel obstruction or ileus. Appendix: No evidence of appendicitis. Intraperitoneal space: No free fluid or free air. No abscess. Arteries: Unremarkable. No abdominal aortic aneurysm. Veins: Chronic pelvic phleboliths. Lymph nodes: Unremarkable. No enlarged lymph nodes. Urinary bladder: Unremarkable as visualized. Reproductive: The uterus is absent and the ovaries are not seen. Bones/joints: Unremarkable. No acute fracture. Soft tissues: Unremarkable. CT/CT abdomen pelvis w con* [id number] IMPRESSION: No significant abdominal or pelvic findings
[2021-09-17] MEDS: LORazepam 2 mg/mL INJ 1 mL 1 MG IVP (23:02)
[2021-09-17] MEDS: acetaminophen 325 mg Tablet 650 MG PO (23:02)
[2021-09-17 23:11] LABS: Alanine Aminotransferase 65 U/L (0-33); Albumin Level 4.6 g/dL (3.5-5.2); Alkaline Phosphatase 87 IU/L (35-105); Blood Urea Nitrogen 5 mg/dL (6-20); Calcium 9.3 mg/dL (8.5-10.5); Carbon Dioxide 25 mmol/L (22-29); Chloride 97 mmol/L (98-107); Creatinine Clr Calc Pharmacy 94.4596; Globulin 3.1 g/dL (1.3-4.6); Glomerular Filtration Rate 78.3 mL/min (90-130); Glucose 117 mg/dL (65-115); Lipase 13 U/L (13-60); Osmolality Calculated 284 mOsm/kg (285-295); Sodium 138 mmol/L (136-145); Total Bilirubin 0.5 mg/dL (0.15-1.2); Total Protein 7.7 g/dL (6.6-8.7)
[2021-09-17] MEDS: iohexol 300 mg/mL 100 mL Btl IV (23:19)
[2021-09-17 23:26] LABS: Anion Gap 18.8 (5-19)
[2021-09-17 23:29] LABS: Aspartate Amino Transferase 58 U/L (0-32)
[2021-09-17 23:30] LABS: Potassium 2.8 mmol/L (3.5-5.1)
[2021-09-18] MEDS: potassium chloride ER 20 mEq Tablet 60 MEQ PO (00:01)
[2021-09-18] MEDS: sodium chloride 0.9% 1,000 ML 999 ML IV (00:03)
[2021-09-18] MEDS: capsaicin 0.025% cream 60 gm 1 APPLIC TOPICAL (00:03)
[2021-09-18 00:06] VITALS: BP 156/106; PULSE 87; RESP 18; O2SAT 96
[2021-09-18] MEDS: HYDROcodone-acetaminophen 7.5-325 mg Tablet 1 TAB PO (00:09)
[2021-09-18 00:30] LABS: Add Urine Microscopic? YES; Bilirubin Urine Neg (Negative); Blood Urine Trace (Negative); Glucose Urine UA Norm (Normal); Ketones Urine Negative (Negative); Leukocyte Esterase Urine Negative (Negative); Nitrate Urine Negative (Negative); Protein Urine Neg (Negative); Specific Gravity, Urine 1.015 (1.005-1.030); Urine Appearance Clear (CLEAR); Urine Color Straw (Yellow); Urobilinogen Urine Norm (Negative); pH Urine 5 (5-7)
[2021-09-18 00:37] LABS: Add Urine Culture? No; Bacteria Urine TRACE /hpf; RBC Urine 0-4 /hpf (0-2); Squamous Epithelial Cell Urine 0-4 /hpf (0-5); WBC Urine 0-4 /hpf (0-5)
[2021-09-18 00:43] LABS: Influenza A by IFA Negative (Negative); Influenza B by IFA Negative (Negative)
== END 2021-09-18 00:22 | disposition home or self-care (01) ==
PROVIDERS: Emergency Provider Emergency Medicine; PCP Family Medicine
DX: E87.6 Hypokalemia (principal); R10.9 Unspecified abdominal pain; R11.2 Nausea with vomiting, unspecified
CPT/HCPCS: 74177; 80053; 81001; 83690; 85025; 87804; 96365; 96375; 99284; J1100; J1630; J2060; J2765; J3475; J7030; Q9967

== ENCOUNTER 2021-09-21 23:22 | Emergency (ER) | payer OTHER, SELFPAY ==
[2021-09-21 23:29] VITALS: BP 133/93; PULSE 90; RESP 16; TEMP 37.3; O2SAT 96; BMI 25.0
--- NOTE | 2021-09-22 00:10 | ED_ITS ---
HPI - Nausea/Vomiting/Diarrhea General: Chief complaint: Nausea/Vomiting/Diarrhea Stated complaint: N\V Possible Low Potassium Time Seen by Provider: 09/22/21 00:09 History of Present Illness: Ms. Strange is a 41-year-old lady with history of vomiting and abdominal discomfort presenting to the emergency department due to similar. She reports longstanding history of intermittent episodes that typically last only few days however this most recent episode has been ongoing greater than 1 week. Symptoms are worse with any p.o. intake and she has decreased p.o. intake. She has had hypokalemia associated with this in the past and is concerned that she has this again due to mild to moderate intensity lower extremity cramping. Overall course of symptoms has persisted. Intensity today is moderate to severe. No other specific changes in health, exacerbating, or alleviating factors identified. Onset (ago): day(s) Description of vomiting: watery Associated nausea: Yes Associated abdominal pain: Yes Location of pain: Diffuse Severity: mild Associated symtoms: Reports nausea Review of Systems General: Reports: 10 or more systems reviewed and unremarkable except in HPI and below GI: Reports: nausea PFSH ED PFSH: Medical History Acute dehydration Cystitis Gastritis GERD (gastroesophageal reflux disease) Gross hematuria Interstitial cystitis Lactic acidosis Leukocytosis Nausea and vomiting Nausea and vomiting Pseudoseizures Surgical History History of appendectomy History of History of cholecystectomy History of colonoscopy History of esophagogastroduodenoscopy (EGD) History of hysterectomy for cancer History of ovarian resection Family History Denies family history of Anesthesia complication Bleeding disorder Social History Smoking and tobacco status: former smoker Alcohol intake: never Last substance use date: 10/12/19 Last substance use time: 01:00 Other details last substance use: Marijuana Current occupational status: employed Physical Exam Const: COMMON NORMALS: alert GENERAL APPEARANCE: cooperative, well developed and ill appearing (Mildly) HENMT: COMMON NORMALS: normocephalic and atraumatic HEAD & SCALP: normocephalic and atraumatic OTHER: Dry mucous membranes Eye: COMMON NORMALS: conjunctivae normal CONJUNCTIVA: Yes conjunctivae normal SCLERA: sclerae normal Neck/C-Spine: COMMON NORMALS: supple GENERAL: Yes trachea midline Resp: COMMON NORMALS: clear to auscultation bilaterally EFFORT & INSPECTION: Yes able to speak in complete sentences AUSCULTATION: clear to auscultation bilaterally Cardio: COMMON NORMALS: regular rate and regular rhythm RATE: regular rate RHYTHM: regular rhythm GI: COMMON NORMALS: Soft to palpation PALPATION: Yes Soft to palpation and No Tenderness to palpation present (GI) PERCUSSION: normal to percussion Extremity: GENERAL: Yes normal exam except as noted and No edema Neuro: COMMON NORMALS: moves all extremities SENSORIUM/ORIENTATION: Yes alert and No Orientation impaired Psych: COMMON NORMALS: mental status grossly normal and Normal thought process present THOUGHT PROCESS: Normal thought process present Course ED course: - Patient was seen and evaluated by me at bedside - Patient placed on cardiac monitors, IV access obtained - Initial evaluation notable for exam as above - Labs personally interpreted by me - Antiemetics and fluids given - Labs notable for mild leukocytosis, normal hemoglobin. Metabolic panel with normal potassium and magnesium. Mild evidence of dehydration. Urinalysis not concerning for urinary tract infection given nitrate negative and squamous epithelial contamination in the absence of specific urinary symptoms - Upon serial reexamination after treatment the patient was improved. Attempted p.o. challenge, prior to completion of observation period the patient reportedly had a family emergency and requested to leave. - Based on patient history, evaluation, and testing as interpreted the most likely cause of the patient's condition is unspecified nausea and vomiting. - The results of ED evaluation were discussed with the patient including prescriptions and/or symptomatic cares (if applicable) including appropriate and responsible use, followup plan, and return precautions. The patient verbalized understanding and felt safe for discharge. - Patient discharged in satisfactory condition. Note: Click bubbles or prepopulated salguero in note writing are used for assistance with data collection and billing and are inherently more limited than narrative and other text portions of this note. Please use narrative for additional clinical history and defer to narrative/free test for any case of contradictory information. If information appears in only free text or click bubble it should be considered present or absent as reported. Please contact note automatic typewriter inspector for clarifications of clinical information or contradictory information. MDM is a brief summary, contradictory or erroneous seeming information should be clarified and full note should be reviewed. Vital Signs: Vital signs: Vital Signs Temperature 99.1 F 09/21/21 23:29 Pulse Rate 81 09/22/21 03:22 Respiratory Rate 17 09/22/21 03:22 Blood Pressure 159/112 09/22/21 03:22 Pulse Oximetry 99 09/22/21 03:22 MDM - Nausea/Vomiting/Diarrhea Medical Decision Making 41-year-old lady with longstanding history of episodes of nausea and vomiting that has not completely been explained and recently worsening of symptoms presenting to the emergency department due to nausea and vomiting. Improved with symptom treatment. Patient subsequently had to leave due to family emergency. Satisfactory for continued outpatient management. Medical Records I reviewed the patient's medical records. Lab Data I reviewed the patient's lab results. : 09/22/21 00:25 09/22/21 00:25 Laboratory Results WBC 12.6 10^3/uL (4.0-10.0) H 09/22/21 00:25 RBC 4.30 10^6/uL (4.1-5.3) 09/22/21 00:25 Hgb 12.6 g/dL (11.5-15.3) 09/22/21 00:25 Hct 36.9 % (37.0-47.0) L 09/22/21 00:25 MCV 85.8 fl (81-99) 09/22/21 00:25 MCH 29.3 pg (28.0-34.0) 09/22/21 00:25 MCHC 34.1 g/dL (30.0-36.0) 09/22/21 00:25 RDW 13.6 % (12.1-15.1) 09/22/21 00:25 Plt Count 362 10^3/cmm (130-400) 09/22/21 00:25 MPV 10.3 fL (7.4-10.4) 09/22/21 00:25 Neut % (Auto) 66.3 % 09/22/21 00:25 Lymph % (Auto) 21.8 % 09/22/21 00:25 [place] % (Auto) 9.9 % 09/22/21 00:25 Eos % (Auto) 1.1 % 09/22/21 00:25 Baso % (Auto) 0.4 % 09/22/21 00:25 Neut # (Auto) 8.35 10^3/uL (1.8-7.7) H 09/22/21 00:25 Lymph # (Auto) 2.8 10^3/uL (0.8-4.8) 09/22/21 00:25 [place] # (Auto) 1.3 10^3/uL (0.2-0.9) H 09/22/21 00:25 Eos # (Auto) 0.1 10^3/uL (0.0-0.8) 09/22/21 00:25 Baso # (Auto) 0.1 10^3/uL (0.0-0.1) 09/22/21 00:25 Nucleated RBC % (auto) 0 % 09/22/21 00: Nucleated RBCs # 0.0 /100WBC 09/22/21 00:25 Sodium 134 mmol/L (136-145) L 09/22/21 00:25 Potassium 3.8 mmol/L (3.5-5.1) 09/22/21 00:25 Chloride 97 mmol/L (98-107) L 09/22/21 00:25 Carbon Dioxide 24 mmol/L (22-29) 09/22/21 00:25 Anion Gap 16.8 (5-19) 09/22/21 00:25 BUN 7 mg/dL (6-20) 09/22/21 00:25 Creatinine 0.7 mg/dL (0.5-0.9) 09/22/21 00:25 GFR Calculation 91.3 mL/min (90-130) 09/22/21 00:25 Glucose 126 mg/dL (65-115) H 09/22/21 00:25 Calculated Osmolality 278 mOsm/kg (285-295) L 09/22/21 00:25 Calcium 8.2 mg/dL (8.5-10.5) L 09/22/21 00:25 Magnesium 2.1 mg/dL (1.7-2.3) 09/22/21 00:25 Total Bilirubin 0.3 mg/dL (0.15-1.2) 09/22/21 00:25 AST 15 U/L (0-32) 09/22/21 00:25 ALT 26 U/L (0-33) 09/22/21 00:25 Alkaline Phosphatase 93 IU/L (35-105) 09/22/21 00:25 Total Protein 6.8 g/dL (6.6-8.7) 09/22/21 00:25 Albumin 4.4 g/dL (3.5-5.2) 09/22/21 00:25 Globulin 2.4 g/dL (1.3-4.6) 09/22/21 00:25 Lipase 24 U/L (13-60) 09/22/21 00:25 Urine Color Yellow (Yellow) 09/22/21 00:15 Urine Appearance Hazy (CLEAR) A 09/22/21 00:15 Urine pH 5 (5-7) 09/22/21 00:15 Ur Specific [place] 1.020 (1.005-1.030) 09/22/21 00:15 Urine Protein Trace (Negative) 09/22/21 00:15 Urine Glucose (UA) Norm (Normal) 09/22/21 00:15 Urine Ketones 1+ (Negative) H 09/22/21 00:15 Urine Blood 3+ (Negative) H 09/22/21 00:15 Urine Nitrate Negative (Negative) 09/22/21 00:15 Urine Bilirubin Neg (Negative) 09/22/21 00:15 Urine Urobilinogen Norm mg/dL (Negative) 09/22/21 00:15 Ur Leukocyte Esterase 2+ (Negative) H 09/22/21 00:15 Urine RBC 0-4 /hpf (0-2) H 09/22/21 00:15 Urine WBC 25-40 /hpf (0-5) H 09/22/21 00:15 Ur Squamous Epith Cells 10-15 /hpf (0-5) H 09/22/21 00:15 Amorphous Sediment Not Reportable 09/22/21 00:15 Urine Bacteria 1+ /hpf (NONE) H 09/22/21 00:15 Urine Mucus 1+ /hpf 09/22/21 00:15 Discharge Plan Discharge Patient Disposition: Home Clinical Impression: Nausea and vomiting Condition: Stable Prescriptions: No Action estradiol 10 mcg tablet See Rx Instructions .ROUTE .COMPLEX 0RF Rx Instructions: 10 mcg vaginally twice weekly scopolamine base [Transderm-Scop] 1 mg over 3 days patch 3 day 1 patch transdermal Q3D PRN (Reason: nausea and vomiting) Qty: 1 4RF promethazine 25 mg suppository 25 mg VT Q6H PRN (Reason: nausea and vomiting) Qty: 12 0RF Rx Instructions: 1 VT every 6 hour PRN n/v - wait 30 minutes then attempt oral fluids ondansetron 4 mg tablet,disintegrating 4 mg PO Q6H PRN (Reason: nausea and vomiting) 15 Days Qty: 30 0RF Reglan 5 mg tablet 5 mg PO Q6H PRN (Reason: nausea and vomiting) Qty: 20 0RF hydrocodone-acetaminophen 5-325 mg tablet 1 tab PO Q6H PRN (Reason: pain) Qty: 14 0RF Discharge Orders: Discharge ED (Routine); Ordered 09/22/21 Ordered By: Kaz Mejia Referrals: Jacky Fereman MD [Primary Care Provider] - Discharge Diet: Advance as tolerated and Clear Liquid Discharge Activity: Increase activity as tolerated Patient Instructions: Acute Nausea and Vomiting (ED) Activity Restrictions/Additional Instructions: Thank you for visiting the emergency department. You were seen evaluated for nausea and vomiting which has been ongoing. You do have a mild elevation in your white blood cell count. Your potassium today is normal. Please continue your outpatient medication regimen and follow-up as scheduled. Return to the emergency department as needed. Coding Level of Care Code ED [employer] Molder for Shira Carter
[2021-09-22 00:32] VITALS: BP 139/107; PULSE 84; RESP 16; O2SAT 97
[2021-09-22 00:34] LABS: Basophils # 0.1 10^3/uL (0.0-0.1); Basophils % 0.4 %; Eosinophils # 0.1 10^3/uL (0.0-0.8); Eosinophils % 1.1 %; Hematocrit 36.9 % (37.0-47.0); Hemoglobin 12.6 g/dL (11.5-15.3); Lymphocytes # 2.8 10^3/uL (0.8-4.8); Lymphocytes % 21.8 %; Mean Corpuscular HGB Conc 34.1 g/dL (30.0-36.0); Mean Corpuscular Hemoglobin 29.3 pg (28.0-34.0); Mean Corpuscular Volume 85.8 fl (81-99); Mean Platelet Volume 10.3 fL (7.4-10.4); Monocytes # 1.3 10^3/uL (0.2-0.9); Monocytes % 9.9 %; Neutrophils # 8.35 10^3/uL (1.8-7.7); Neutrophils % 66.3 %; Nucleated Red Blood Cells % 0 %; Platelet Count 362 10^3/cmm (130-400); Red Cell Distribution Width 13.6 % (12.1-15.1); White Blood Count 12.6 10^3/uL (4.0-10.0)
[2021-09-22 00:39] LABS: Protein Urine Trace (Negative); Urine Appearance Hazy (CLEAR); Urine Color Yellow (Yellow); pH Urine 5 (5-7)
[2021-09-22 00:40] LABS: Add Urine Microscopic? YES; Bilirubin Urine Neg (Negative); Blood Urine 3+ (Negative); Glucose Urine UA Norm (Normal); Ketones Urine 1+ (Negative); Leukocyte Esterase Urine 2+ (Negative); Nitrate Urine Negative (Negative); Urobilinogen Urine Norm (Negative)
[2021-09-22] MEDS: ondansetron 2 mg/ML SDV 2 mL 4 MG IVP (00:42)
[2021-09-22] MEDS: diphenhydrAMINE 50 mg/mL SDV 1mL 25 MG IVP (00:42)
[2021-09-22] MEDS: haloperidol inj 5 mg/mL INJ 1 mL 2.5 MG IVP (00:42)
[2021-09-22] MEDS: lactated ringers 1,000 ML 999 ML IV (00:43)
[2021-09-22 00:58] LABS: Alanine Aminotransferase 26 U/L (0-33); Albumin Level 4.4 g/dL (3.5-5.2); Alkaline Phosphatase 93 IU/L (35-105); Anion Gap 16.8 (5-19); Aspartate Amino Transferase 15 U/L (0-32); Blood Urea Nitrogen 7 mg/dL (6-20); Calcium 8.2 mg/dL (8.5-10.5); Carbon Dioxide 24 mmol/L (22-29); Chloride 97 mmol/L (98-107); Globulin 2.4 g/dL (1.3-4.6); Glomerular Filtration Rate 91.3 mL/min (90-130); Glucose 126 mg/dL (65-115); Lipase 24 U/L (13-60); Magnesium 2.1 mg/dL (1.7-2.3); Osmolality Calculated 278 mOsm/kg (285-295); Potassium 3.8 mmol/L (3.5-5.1); Sodium 134 mmol/L (136-145); Total Bilirubin 0.3 mg/dL (0.15-1.2); Total Protein 6.8 g/dL (6.6-8.7)
[2021-09-22 01:00] VITALS: BP 141/106; PULSE 92; RESP 17; O2SAT 97
[2021-09-22 01:30] VITALS: BP 128/88; PULSE 84; RESP 15; O2SAT 97
[2021-09-22 01:44] LABS: Add Urine Culture? No; Bacteria Urine 1+ /hpf; Mucus Urine 1+ /hpf; RBC Urine 0-4 /hpf (0-2); WBC Urine 25-40 /hpf (0-5)
[2021-09-22 01:45] VITALS: BP 127/86; PULSE 87; RESP 16; O2SAT 97
[2021-09-22 02:15] VITALS: BP 134/79; PULSE 78; RESP 17; O2SAT 98
--- NOTE | 2021-09-22 02:56 | PC.NURSE ---
Pt given ice chips. Pt also states that family member just notified of CVA and being airlifted to [facility] and that she needs to be able to leave as soon as possible. Dr Mejia updated.
[2021-09-22 03:22] VITALS: BP 159/112; PULSE 81; RESP 17; O2SAT 99
== END 2021-09-22 03:10 | disposition home or self-care (01) ==
PROVIDERS: Emergency Provider Emergency Medicine; PCP Family Medicine
DX: E86.0 Dehydration (principal); R11.2 Nausea with vomiting, unspecified; D72.829 Elevated white blood cell count, unspecified; K21.9 Gastro-esophageal reflux disease without esophagitis; K29.70 Gastritis, unspecified, without bleeding
CPT/HCPCS: 80053; 81001; 83690; 83735; 85025; 96361; 96374; 96375; 99284; J1200; J1630; J2405

== ENCOUNTER 2021-09-22 23:38 | Emergency (ER) | payer OTHER, SELFPAY ==
[2021-09-22 23:44] VITALS: BP 145/92; PULSE 89; RESP 13; TEMP 36.7; O2SAT 95; BMI 25.0
--- NOTE | 2021-09-22 23:52 | W.ED.NAVMDI ---
HPI - Nausea/Vomiting/Diarrhea General: Chief complaint: Nausea/Vomiting/Diarrhea Stated complaint: vomiting, headache Time Seen by Provider: 09/22/21 23:51 History of Present Illness: 41-year-old female comes in today with complaints of nausea and vomiting. She reports 6 episodes today. Patient has been repeatedly coming to the ER for the 2 weeks with these episodes. Patient reports that she has GERD and other stomach issues and is following up with a specialist in [place]. She is going to get surgery for a hiatal hernia. Associated nausea: Yes Associated symtoms: Reports nausea; Denies chest pain Review of Systems Const: Denies: fever(s) Card: Denies: chest pain Resp: Denies: dyspnea GI: Reports: nausea and vomiting; Denies: diarrhea Skin/Breast: Denies: rash PFSH ED PFSH: Medical History Acute dehydration Cystitis Gastritis GERD (gastroesophageal reflux disease) Gross hematuria Interstitial cystitis Lactic acidosis Leukocytosis Nausea and vomiting Nausea and vomiting Pseudoseizures Surgical History History of appendectomy History of History of cholecystectomy History of colonoscopy History of esophagogastroduodenoscopy (EGD) History of hysterectomy for cancer History of ovarian resection Family History Denies family history of Anesthesia complication Bleeding disorder Social History Smoking and tobacco status: former smoker Alcohol intake: never Last substance use date: 10/12/19 Last substance use time: 01:00 Other details last substance use: Marijuana Current occupational status: employed Physical Exam Const: COMMON NORMALS: alert HENMT: COMMON NORMALS: normocephalic HEAD & SCALP: normocephalic Neck/C-Spine: COMMON NORMALS: full ROM Resp: COMMON NORMALS: normal respiratory effort Cardio: COMMON NORMALS: regular rate and regular rhythm RATE: regular rate RHYTHM: regular rhythm GI: COMMON NORMALS: Soft to palpation AUSCULTATION: Yes normoactive bowel sounds PALPATION: Yes Soft to palpation and Yes Tenderness to palpation present (GI) (Epigastric) Extremity: COMMON NORMALS: normal to inspection Neuro: SENSORIUM/ORIENTATION: Yes alert Skin: COMMON NORMALS: no rashes or lesions noted GENERAL SKIN EXAM: no rashes or lesions noted Course Vital Signs: Vital signs: Vital Signs Temperature 98.1 F 09/22/21 23:44 Pulse Rate 90 09/23/21 00:47 Respiratory Rate 18 09/23/21 00:47 Blood Pressure 171/87 09/23/21 00:47 Pulse Oximetry 97 09/23/21 00:47 MDM - Nausea/Vomiting/Diarrhea Medical Decision Making Patient comes in today for complaints of 6 episodes of nausea and vomiting today. Patient has a history of cyclic vomiting and hiatal hernia and GERD. Patient is scheduled to see a specialist in [place] in order to have surgery to correct the hiatal hernia and hopefully improve her cyclic vomiting. Patient was able to get control of her symptoms today with her home medications. Patient is on Reglan, promethazine, and Zofran. Exam notes a nontoxic appearing female. Abdomen is soft with some epigastric tenderness. Bowel sounds were normal. Patient has had some complete work-ups over the last 2 weeks. Review of the record noted no significant abnormalities on CT scan. Differential diagnosis includes dehydration, hiatal hernia, GERD, cyclic vomiting syndrome. CBC was unchanged from yesterday. CMP was unremarkable. Patient has maybe mild dehydration we will give her 1 L of IV fluids. Dr. Paniagua suggested Haldol and Ativan for treatment of symptoms. Patient had improvement of nausea and vomiting. Patient was then discharged to home for follow-up with specialist. Lab Data : 09/23/21 00:22 09/23/21 00:22 Laboratory Results WBC 12.2 10^3/uL (4.0-10.0) H 09/23/21 00:22 RBC 4.12 10^6/uL (4.1-5.3) 09/23/21 00:22 Hgb 12.1 g/dL (11.5-15.3) 09/23/21 00:22 Hct 35.9 % (37.0-47.0) L 09/23/21 00:22 MCV 87.1 fl (81-99) 09/23/21 00:22 MCH 29.4 pg (28.0-34.0) 09/23/21 00:22 MCHC 33.7 g/dL (30.0-36.0) 09/23/21 00: RDW 13.9 % (12.1-15.1) 09/23/21 00: Plt Count 353 10^3/cmm (130-400) 09/23/21 00: MPV 10.1 fL (7.4-10.4) 09/23/21 00:22 Neut % (Auto) 65.3 % 09/23/21 00: Lymph % (Auto) 21.7 % 09/23/21 00: [place] % (Auto) 10.9 % 09/23/21 00: Eos % (Auto) 1.1 % 09/23/21 00: Baso % (Auto) 0.6 % 09/23/21 00: Neut # (Auto) 7.99 10^3/uL (1.8-7.7) H 09/23/21: Lymph # (Auto) 2.7 10^3/uL (0.8-4.8) 09/23/21 00: [place] # (Auto) 1.3 10^3/uL (0.2-0.9) H 09/23/21 00: Eos # (Auto) 0.1 10^3/uL (0.0-0.8) 09/23/21 00: Baso # (Auto) 0.1 10^3/uL (0.0-0.1) 09/23/21 00: Nucleated RBC % (auto) 0 % 09/23/21 00: Nucleated RBCs # 0.0 /100WBC 09/23/21 00: Sodium 135 mmol/L (136-145) L 09/23/21 00: Potassium 3.4 mmol/L (3.5-5.1) L 09/23/21 00: Chloride 98 mmol/L (98-107) 09/23/21 00: Carbon Dioxide 24 mmol/L (22-29) 09/23/21 00: Anion Gap 16.4 (5-19) 09/23/21 00:22 BUN 6 mg/dL (6-20) 09/23/21 00:22 Creatinine 0.7 mg/dL (0.5-0.9) 09/23/21 00: GFR Calculation 91.3 mL/min (90-130) 09/23/21 00:22 Glucose 120 mg/dL (65-115) H 09/23/21 00:22 Calculated Osmolality 279 mOsm/kg (285-295) L 09/23/21 00:22 Calcium 8.4 mg/dL (8.5-10.5) L 09/23/21 00:22 Total Bilirubin 0.3 mg/dL (0.15-1.2) 09/23/21 00:22 AST 16 U/L (0-32) 09/23/21 00:22 ALT 23 U/L (0-33) 09/23/21 00:22 Alkaline Phosphatase 89 IU/L (35-105) 09/23/21 00:22 Total Protein 6.4 g/dL (6.6-8.7) L 09/23/21 00:22 Albumin 4.3 g/dL (3.5-5.2) 09/23/21 00:22 Globulin 2.1 g/dL (1.3-4.6) 09/23/21 00:22 Lipase 24 U/L (13-60) 09/23/21 00:22 Discharge Plan Discharge Patient Disposition: Home Clinical Impression: Cyclic vomiting syndrome, Hernia, hiatal Condition: Stable Prescriptions: No Action estradiol 10 mcg tablet See Rx Instructions .ROUTE .COMPLEX 0RF Rx Instructions: 10 mcg vaginally twice weekly scopolamine base [Transderm-Scop] 1 mg over 3 days patch 3 day 1 patch transdermal Q3D PRN (Reason: nausea and vomiting) Qty: 1 4RF promethazine 25 mg suppository 25 mg IN Q6H PRN (Reason: nausea and vomiting) Qty: 12 0RF Rx Instructions: 1 IN every 6 hour PRN n/v - wait 30 minutes then attempt oral fluids ondansetron 4 mg tablet,disintegrating 4 mg PO Q6H PRN (Reason: nausea and vomiting) 15 Days Qty: 30 0RF Reglan 5 mg tablet 5 mg PO Q6H PRN (Reason: nausea and vomiting) Qty: 20 0RF hydrocodone-acetaminophen 5-325 mg tablet 1 tab PO Q6H PRN (Reason: pain) Qty: 14 0RF Discharge Orders: Discharge ED (Routine); Ordered 09/23/21 Ordered By: Lamberto Valdivia Referrals: Jacky Freeman MD [Primary Care Provider] - Discharge Diet: Usual diet Discharge Activity: Increase activity as tolerated Patient Instructions: Acute Nausea and Vomiting (ED) Activity Restrictions/Additional Instructions: Home and rest. Continue with routine medications as directed. Drink sips of water. Avoid laying down for 3 hours after eating. Follow-up with primary care as needed. Follow-up with specialist as scheduled. Coding Level of Care Code ED Residential Therapist for Chg Fwd Exam Comprehensive
[2021-09-23 00:17] VITALS: BP 155/88; PULSE 97; RESP 20; O2SAT 96
[2021-09-23 00:31] LABS: Basophils # 0.1 10^3/uL (0.0-0.1); Basophils % 0.6 %; Eosinophils # 0.1 10^3/uL (0.0-0.8); Eosinophils % 1.1 %; Hematocrit 35.9 % (37.0-47.0); Hemoglobin 12.1 g/dL (11.5-15.3); Lymphocytes # 2.7 10^3/uL (0.8-4.8); Lymphocytes % 21.7 %; Mean Corpuscular HGB Conc 33.7 g/dL (30.0-36.0); Mean Corpuscular Hemoglobin 29.4 pg (28.0-34.0); Mean Corpuscular Volume 87.1 fl (81-99); Mean Platelet Volume 10.1 fL (7.4-10.4); Monocytes # 1.3 10^3/uL (0.2-0.9); Monocytes % 10.9 %; Neutrophils # 7.99 10^3/uL (1.8-7.7); Neutrophils % 65.3 %; Nucleated Red Blood Cells % 0 %; Platelet Count 353 10^3/cmm (130-400); Red Blood Count 4.12 10^6/uL (4.1-5.3); Red Cell Distribution Width 13.9 % (12.1-15.1); White Blood Count 12.2 10^3/uL (4.0-10.0)
[2021-09-23] MEDS: lactated ringers 1,000 ML 999 ML IV (00:42)
[2021-09-23] MEDS: haloperidol inj 5 mg/mL INJ 1 mL IVP (00:46)
[2021-09-23] MEDS: LORazepam 2 mg/mL INJ 1 mL IVP (00:46)
[2021-09-23 00:47] VITALS: BP 171/87; PULSE 90; RESP 18; O2SAT 97
[2021-09-23 00:53] LABS: Alanine Aminotransferase 23 U/L (0-33); Albumin Level 4.3 g/dL (3.5-5.2); Alkaline Phosphatase 89 IU/L (35-105); Anion Gap 16.4 (5-19); Aspartate Amino Transferase 16 U/L (0-32); Blood Urea Nitrogen 6 mg/dL (6-20); Calcium 8.4 mg/dL (8.5-10.5); Carbon Dioxide 24 mmol/L (22-29); Chloride 98 mmol/L (98-107); Globulin 2.1 g/dL (1.3-4.6); Glomerular Filtration Rate 91.3 mL/min (90-130); Glucose 120 mg/dL (65-115); Lipase 24 U/L (13-60); Osmolality Calculated 279 mOsm/kg (285-295); Potassium 3.4 mmol/L (3.5-5.1); Sodium 135 mmol/L (136-145); Total Bilirubin 0.3 mg/dL (0.15-1.2); Total Protein 6.4 g/dL (6.6-8.7)
[2021-09-23 02:24] VITALS: BP 155/87; PULSE 98; RESP 20; O2SAT 96
== END 2021-09-23 02:30 | disposition home or self-care (01) ==
PROVIDERS: Emergency Medicine; Emergency Provider Nurse Practitioner Family; PCP Family Medicine
DX: R11.15 Cyclical vomiting syndrome unrelated to migraine (principal); K44.9 Diaphragmatic hernia without obstruction or gangrene; K21.9 Gastro-esophageal reflux disease without esophagitis; Z79.891 Long term (current) use of opiate analgesic; Z87.891 Personal history of nicotine dependence
CPT/HCPCS: 80053; 83690; 85025; 96361; 96374; 96375; 99284; J1630; J2060

== ENCOUNTER 2021-10-01 03:58 | Emergency (ER) | payer OTHER, SELFPAY ==
[2021-10-01] VITALS (11 sets, daily range): BP systolic 117–139; BP diastolic 65–97; PULSE 69–94; RESP 9–22; TEMP 37; O2SAT 96–100; BMI 25.0
[2021-10-01 04:29] LABS: Basophils # 0.1 10^3/uL (0.0-0.1); Basophils % 0.9 %; Eosinophils # 0.1 10^3/uL (0.0-0.8); Eosinophils % 1.5 %; Hematocrit 37.5 % (37.0-47.0); Hemoglobin 12.3 g/dL (11.5-15.3); Lymphocytes # 2.1 10^3/uL (0.8-4.8); Lymphocytes % 24.8 %; Mean Corpuscular HGB Conc 32.8 g/dL (30.0-36.0); Mean Corpuscular Hemoglobin 29.5 pg (28.0-34.0); Mean Corpuscular Volume 89.9 fl (81-99); Mean Platelet Volume 9.8 fL (7.4-10.4); Monocytes # 0.7 10^3/uL (0.2-0.9); Monocytes % 8.1 %; Neutrophils # 5.47 10^3/uL (1.8-7.7); Neutrophils % 64.3 %; Nucleated Red Blood Cells % 0 %; Platelet Count 379 10^3/cmm (130-400); Red Blood Count 4.17 10^6/uL (4.1-5.3); White Blood Count 8.5 10^3/uL (4.0-10.0)
[2021-10-01] MEDS: sodium chloride 0.9% 1,000 ML 999 ML IV (04:43)
[2021-10-01 04:44] LABS: Alanine Aminotransferase 14 U/L (0-33); Albumin Level 4.1 g/dL (3.5-5.2); Alkaline Phosphatase 74 IU/L (35-105); Aspartate Amino Transferase 14 U/L (0-32); Blood Urea Nitrogen 13 mg/dL (6-20); Calcium 8.2 mg/dL (8.5-10.5); Carbon Dioxide 21 mmol/L (22-29); Chloride 106 mmol/L (98-107); Globulin 2.2 g/dL (1.3-4.6); Glomerular Filtration Rate 109.1 mL/min (90-130); Glucose 101 mg/dL (65-115); Osmolality Calculated 292 mOsm/kg (285-295); Phosphorus 4.3 mg/dL (2.5-4.5); Sodium 141 mmol/L (136-145); Total Bilirubin 0.3 mg/dL (0.15-1.2); Total Protein 6.3 g/dL (6.6-8.7)
[2021-10-01] MEDS: ondansetron 2 mg/ML SDV 2 mL 8 MG IVP (04:46)
[2021-10-01] MEDS: haloperidol inj 5 mg/mL INJ 1 mL IVP (04:48)
--- NOTE | 2021-10-01 04:57 | W.ED.ABDPA2 ---
HPI - Abdominal Pain General: Chief Complaint: Abdominal Pain Stated Complaint: cant stop vomiting Time Seen by Provider: 10/01/21 04:07 Source: patient History of Present Illness: 41-year-old female with a history of chronic abdominal pain and vomiting, which she relates to GERD, presents after waking around 1 AM with vomiting. She notes she has vomited 6 times. She complains of epigastric pain. She is supposed to have a procedure on Saturday in . She has not been able to hold down solid food. MD elicited complaint: abdominal pain Pertinent past history: other Onset (ago): minute(s) Pain Consistency: constant Location: Epigastric Quality: stabbing and aching Radiation: back Migration to: no migration Exacerbating factors: eating Relieving factors: nothing Associated Symptoms: Reports belching, dyspepsia, hematemesis (Small amounts), nausea, poor appetite and vomiting; Denies constipation, fever(s) and melena Review of Systems Const: Denies: fever(s) ENMT: Reports: throat pain Card: Reports: chest pain (Lower extremity) Resp: Denies: dyspnea or productive cough GI: Reports: nausea, vomiting, hematemesis (Small amounts) and belching; Denies: constipation or melena PFSH ED PFSH: Medical History Acute dehydration Cystitis Gastritis GERD (gastroesophageal reflux disease) Gross hematuria Interstitial cystitis Lactic acidosis Leukocytosis Nausea and vomiting Nausea and vomiting Pseudoseizures Surgical History History of appendectomy History of History of cholecystectomy History of colonoscopy History of esophagogastroduodenoscopy (EGD) History of hysterectomy for cancer History of ovarian resection Family History Denies family history of Anesthesia complication Bleeding disorder Social History Smoking and tobacco status: former smoker Alcohol intake: never Last substance use date: 10/12/19 Last substance use time: 01:00 Other details last substance use: Marijuana Current occupational status: employed Physical Exam Const: GENERAL APPEARANCE: ill appearing (mildly) NUTRITIONAL APPEARANCE: thin HENMT: COMMON NORMALS: normocephalic, hearing grossly normal bilaterally and Normal external nose present HEAD & SCALP: normocephalic FACE & SINUS: normal facial exam and face symmetric NOSE: Normal external nose present Eye: COMMON NORMALS: Equal, round and reactive pupils present and EOMs intact bilaterally PUPIL: Yes Equal, round and reactive pupils present Neck/C-Spine: GENERAL: Yes normal visual inspection Chest: COMMONS NORMALS: normal inspection of the chest Resp: COMMON NORMALS: normal respiratory effort, No use of accessory muscles and clear to auscultation bilaterally AUSCULTATION: clear to auscultation bilaterally Cardio: COMMON NORMALS: regular rate and regular rhythm RATE: regular rate RHYTHM: regular rhythm GI: COMMON NORMALS: Normal to inspection, nondistended, normoactive bowel sounds present PALPATION: Yes Tenderness to palpation present (GI) Extremity: COMMON NORMALS: normal to inspection Neuro: KARINA COMA SCALE: document GCS findings [place] coma scale eye opening: Spontaneous [place] coma scale verbal response: Orientated [place] coma scale motor response: Obey commands [place] coma scale total score: 15 Course Vital Signs: Vital signs: Vital Signs Temperature 98.6 F 10/01/21 04:04 Pulse Rate 86 10/01/21 05:30 Respiratory Rate 21 H 10/01/21 05:30 Blood Pressure 117/74 10/01/21 05:30 Pulse Oximetry 100 10/01/21 05:30 MDM - Abdominal Pain Medical Decision Making No vomiting since here. No retching. No fever. Vitals are normal. Laboratory is essentially normal. Her CRP is only 3. No UTI by urinalysis. UDS is positive for marijuana, which is likely the cause of her vomiting, but the patient has adamantly denied this in the past. She is receiving some IV fluid. She will be discharged. She was out of her Zofran at home, so we will prescribe this. Lab Data : 10/01/21 04:24 10/01/21 04:24 Labs/Radiology: Laboratory Results WBC 8.5 10^3/uL (4.0-10.0) 10/01/21 04:24 RBC 4.17 10^6/uL (4.1-5.3) 10/01/21 04:24 Hgb 12.3 g/dL (11.5-15.3) 10/01/21 04:24 Hct 37.5 % (37.0-47.0) 10/01/21 04:24 MCV 89.9 fl (81-99) 10/01/21 04:24 MCH 29.5 pg (28.0-34.0) 10/01/21 04:24 MCHC 32.8 g/dL (30.0-36.0) 10/01/21 04:24 RDW 14.0 % (12.1-15.1) 10/01/21 04:24 Plt Count 379 10^3/cmm (130-400) 10/01/21 04:24 MPV 9.8 fL (7.4-10.4) 10/01/21 04:24 Neut % (Auto) 64.3 % 10/01/21 04:24 Lymph % (Auto) 24.8 % 10/01/21 04:24 Eddy % (Auto) 8.1 % 10/01/21 04:24 Eos % (Auto) 1.5 % 10/01/21 04: Baso % (Auto) 0.9 % 10/01/21 04:24 Neut # (Auto) 5.47 10^3/uL (1.8-7.7) 10/01/21 04:24 Lymph # (Auto) 2.1 10^3/uL (0.8-4.8) 10/01/21 04:24 Eddy # (Auto) 0.7 10^3/uL (0.2-0.9) 10/01/21 04:24 Eos # (Auto) 0.1 10^3/uL (0.0-0.8) 10/01/21 04:24 Baso # (Auto) 0.1 10^3/uL (0.0-0.1) 10/01/21 04:24 Nucleated RBC % (auto) 0 % 10/01/21 04:24 Nucleated RBCs # 0.0 /100WBC 10/01/21 04:24 Sodium 141 mmol/L (136-145) 10/01/21 04:24 Potassium 4.0 mmol/L (3.5-5.1) 10/01/21 04:24 Chloride 106 mmol/L (98-107) 10/01/21 04:24 Carbon Dioxide 21 mmol/L (22-29) L 10/01/21 04:24 Anion Gap 18.0 (5-19) 10/01/21 04:24 BUN 13 mg/dL (6-20) 10/01/21 04:24 Creatinine 0.6 mg/dL (0.5-0.9) 10/01/21 04:24 GFR Calculation 109.1 mL/min (90-130) 10/01/21 04:24 Glucose 101 mg/dL (65-115) 10/01/21 04:24 Calculated Osmolality 292 mOsm/kg (285-295) 10/01/21 04:24 Calcium 8.2 mg/dL (8.5-10.5) L 10/01/21 04:24 Phosphorus 4.3 mg/dL (2.5-4.5) 10/01/21 04:24 Magnesium 2.0 mg/dL (1.7-2.3) 10/01/21 04:24 Total Bilirubin 0.3 mg/dL (0.15-1.2) 10/01/21 04:24 AST 14 U/L (0-32) 10/01/21 04:24 ALT 14 U/L (0-33) 10/01/21 04:24 Alkaline Phosphatase 74 IU/L (35-105) 10/01/21 04:24 C-Reactive Protein 3.0 mg/L (0.0-4.9) 10/01/21 04:24 Total Protein 6.3 g/dL (6.6-8.7) L 10/01/21 04:24 Albumin 4.1 g/dL (3.5-5.2) 10/01/21 04:24 Globulin 2.2 g/dL (1.3-4.6) 10/01/21 04:24 Urine Color Yellow (Yellow) 10/01/21 04:25 Urine Appearance Clear (CLEAR) 10/01/21 04:25 Urine pH 5 (5-7) 10/01/21 04:25 Ur Specific [place] 1.030 (1.005-1.030) 10/01/21 04:25 Urine Protein Neg (Negative) 10/01/21 04:25 Urine Glucose (UA) Norm (Normal) 10/01/21 04:25 Urine Ketones Negative (Negative) 10/01/21 04:25 Urine Blood 3+ (Negative) H 10/01/21 04:25 Urine Nitrate Negative (Negative) 10/01/21 04:25 Urine Bilirubin Neg (Negative) 10/01/21 04:25 Urine Urobilinogen Norm mg/dL (Negative) 10/01/21 04:25 Ur Leukocyte Esterase Negative (Negative) 10/01/21 04:25 Urine RBC 5-10 /hpf (0-2) H 10/01/21 04:25 Urine WBC 0-4 /hpf (0-5) H 10/01/21 04:25 Ur Squamous Epith Cells 10-15 /hpf (0-5) H 10/01/21 04:25 Amorphous Sediment Not Reportable 10/01/21 04:25 Urine Bacteria 2+ /hpf (NONE) H 10/01/21 04:25 Urine Opiates Screen Positive ng/mL (Negative) H 10/01/21 04:25 Ur Barbiturates Screen Negative ng/mL (Negative) 10/01/21 04:25 Ur Phencyclidine Scrn Negative ng/mL (Negative) 10/01/21 04:25 Ur Amphetamines Screen Negative ng/mL (Negative) 10/01/21 04:25 U Benzodiazepines Scrn Negative ng/mL (Negative) 10/01/21 04:25 Urine Cocaine Screen Negative ng/mL (Negative) 10/01/21 04:25 U Marijuana (THC) Screen Positive ng/mL (Negative) H 10/01/21 04:25 Discharge Plan Discharge Patient Disposition: Home Clinical Impression: Cyclical vomiting Condition: Stable Prescriptions: New ondansetron 4 mg film 4 mg PO DAILY PRN (Reason: nausea and vomiting) Qty: 10 0RF No Action estradiol 10 mcg tablet See Rx Instructions .ROUTE .COMPLEX 0RF Rx Instructions: 10 mcg vaginally twice weekly scopolamine base [Transderm-Scop] 1 mg over 3 days patch 3 day 1 patch transdermal Q3D PRN (Reason: nausea and vomiting) Qty: 1 4RF promethazine 25 mg suppository 25 mg NC Q6H PRN (Reason: nausea and vomiting) Qty: 12 0RF Rx Instructions: 1 NC every 6 hour PRN n/v - wait 30 minutes then attempt oral fluids Reglan 5 mg tablet 5 mg PO Q6H PRN (Reason: nausea and vomiting) Qty: 20 0RF hydrocodone-acetaminophen 5-325 mg tablet 1 tab PO Q6H PRN (Reason: pain) Qty: 14 0RF Discharge Orders: Discharge ED (Routine); Ordered 10/01/21 Ordered By: Roman Myles Referrals: Jacky Freeman MD [Primary Care Provider] - 1-3 days Patient Instructions: Abdominal Pain (ED), Vomiting - Adult Activity Restrictions/Additional Instructions: Return for fever greater than 100, vomiting liquids despite treatment, blood in the vomitus, other concerning symptoms. Follow-up with your doctor on Saturday for your test as scheduled. Take the Zofran you are prescribed every 4 hours while awake for the next 48 hours, then as needed. Coding Level of Care Code ED Ecology Professor for Chg Fwd Exam Comprehensive
[2021-10-01 05:00] LABS: Amphetamines Screen Urine Negative (Negative); Barbiturates Screen Urine Negative (Negative); Benzodiazepines Screen Urine Negative (Negative); Cocaine Screen Urine Negative (Negative); Opiate Screen Urine Positive (Negative); PCP Screen Urine Negative (Negative); THC Screen Urine Positive (Negative)
[2021-10-01 05:03] LABS: Add Urine Microscopic? YES; Bilirubin Urine Neg (Negative); Blood Urine 3+ (Negative); Glucose Urine UA Norm (Normal); Ketones Urine Negative (Negative); Leukocyte Esterase Urine Negative (Negative); Nitrate Urine Negative (Negative); Protein Urine Neg (Negative); Urine Appearance Clear (CLEAR); Urine Color Yellow (Yellow); Urobilinogen Urine Norm (Negative); pH Urine 5 (5-7)
[2021-10-01 05:05] LABS: Add Urine Culture? No; Bacteria Urine 2+ /hpf; WBC Urine 0-4 /hpf (0-5)
--- NOTE | 2021-10-01 05:07 | PC.NURSE ---
pt requesting something for anxiety
[2021-10-01] MEDS: LORazepam 2 mg/mL INJ 1 mL IVP (05:15)
--- NOTE | 2021-10-01 05:23 | PC.NURSE ---
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
--- NOTE | 2021-10-01 05:24 | PC.NURSE ---
pt requesting another warm blanket, pt given blanket states no other needs at this time
== END 2021-10-01 06:17 | disposition home or self-care (01) ==
PROVIDERS: Emergency Provider Emergency Medicine; PCP Family Medicine
DX: R11.15 Cyclical vomiting syndrome unrelated to migraine (principal); K21.9 Gastro-esophageal reflux disease without esophagitis; F12.90 Cannabis use, unspecified, uncomplicated; Z87.891 Personal history of nicotine dependence
CPT/HCPCS: 80053; 80306; 81001; 83735; 84100; 85025; 86140; 96361; 96374; 96375; 99284; J1630; J2060; J2405; J7030

== ENCOUNTER 2021-10-31 14:07 | Observation (INO) | payer OTHER, SELFPAY ==
[2021-10-30 15:31] VITALS: BMI 23.5
[2021-10-31] VITALS (22 sets, daily range): BP systolic 116–171; BP diastolic 71–106; PULSE 68–103; RESP 14–22; TEMP 36.1–36.7; O2SAT 87–100; BMI 25.0
[2021-10-31] MEDS: scopolamine 1.5 Patch 1 PATCH TRANSDERMA (08:15)
[2021-10-31] MEDS: acetaminophen 1,000 MG/100 ML PIGGYBACK 400 MG IV ×2 (08:16→14:49)
[2021-10-31] MEDS: heparin 5,000 unit/mL INJ 1 mL 3000 UNIT SUBCUT (08:18)
[2021-10-31] MEDS: pantoprazole 40 mg SDV IVP (08:31)
[2021-10-31] MEDS: sodium chloride 0.9% 1,000 ML 30 ML IV (08:31)
--- NOTE | 2021-10-31 08:43 | ANES.PREANE2 ---
Pre-Anesthetic Assessment Height/Weight: Height 1.7 m Weight 72.575 kg Temp Pulse BP Pulse Ox 98.0 F 68 116/71 96 10/31/21 07:32 10/31/21 07:32 10/31/21 07:32 10/31/21 07:32 Preop Diagnosis: Abnormal 24-hour pH monitoring Operation Date: 10/31/21 08:20 Proposed Procedures p Laparoscopic Hiatal Hernia Repair w/ teddy fundoplication poss mesh [id number]/r943.8/k44.9/k21.9(Not Applicable) - Booker Garcia MD s EGD(Not Applicable) - Booker Garcia MD Familial anesthetic complications: None Was Beta Hank taken within 24 hours: N/A Was Clonidine taken within 24 hours: N/A Last intake: Intake Last Liquid Date 10/30/21 Last Liquid Time 22:00 Last Solid Date 10/20/21 Last Solid Time 20:00 Social No alcohol and No tobacco Exam alert, oriented x 3, clear to auscultation bilaterally and regular rate & rhythm Airway Mallampati: Class I Dentition: full Pulmonary None reported CV/HEM None reported None reported Hepatic None reported GI cyclical vomiting syndrome Metabolic None reported Musc/skel None reported Neuropsych ? pseudoseizures Anesthetic Plan ASA status: 2 Anesthesia: General Risk of > 500 ml blood loss (7ml/kg in children): No Medications/Allergies Home Medications Medication Instructions Recorded Confirmed Last Taken Type estradiol 10 mcg vaginal tablet See Rx Instructions .ROUTE .COMPLEX 06/14/20 10/31/21 10/29/21 History ondansetron 4 mg oral soluble film 4 mg PO DAILY PRN #10 each 10/01/21 10/31/21 10/31/21 06:00 Rx hydroxyzine HCl 50 mg tablet 50 mg PO DAILY 10/30/21 10/31/21 10/31/21 06:00 History pantoprazole 40 mg tablet,delayed 40 mg PO DAILY 10/30/21 10/31/21 10/30/21 History release Allergies Allergy/AdvReac Type Severity Reaction Status Date / Time aspirin Allergy ALGY-Hives Verified 10/19/21 12:53 capsaicin Allergy ALGY-Redness Verified 10/19/21 12:53 of Skin cephalexin [From Keflex] Allergy ALGY-Hives Verified 10/19/21 12:53 meperidine [From Demerol] Allergy Unknown Verified 10/19/21 12:53 Current Medications Generic Name Dose Route Start Last Admin Trade Name Ronald PRN Reason Stop Dose Admin Sodium Chloride 1,000 mls @ 30 mls/hr 10/31/21 07:30 10/31/21 08:31 Sodium Chloride 0.9% IV 11/01/21 07:29 30 mls/hr .Q24H SIDNEY Administration PFSH Anesthesia Medical History Acute dehydration Cystitis Gastritis GERD (gastroesophageal reflux disease) Gross hematuria Interstitial cystitis Lactic acidosis Leukocytosis Nausea and vomiting Nausea and vomiting Pseudoseizures Surgical History History of appendectomy History of History of cholecystectomy History of colonoscopy History of esophagogastroduodenoscopy (EGD) History of hysterectomy for cancer History of ovarian resection Family History Denies family history of Anesthesia complication Bleeding disorder Social History Smoking and tobacco status: never smoked Alcohol intake: never Last substance use date: 10/12/19 Last substance use time: 01:00 Other details last substance use: Marijuana Current occupational status: employed Data Anesthesia Cardiac Studies: No Data to Display
--- NOTE | 2021-10-31 08:46 | W.PM.OPSUD ---
Surgery/Procedure H&P Update DATE OF PROCEDURE: October 31, 2021 DATE H&P PERFORMED: 10/18/21 H&P UPDATE INFORMATION: I have reviewed H&P completed within last 30 days, I have examined patient prior to procedure and Changes to prior documentation as noted here (Patient reports that she lost 11 pounds on liquid protein diet.) PREOP DIAGNOSIS: Abnormal 24-hour pH monitoring PRIMARY INDICATION FOR PROCEDURE: The same PLANNED PROCEDURE: Operation Date: 10/31/21 08:20 Proposed Procedures p Laparoscopic Hiatal Hernia Repair w/ teddy fundoplication poss mesh [id number]/r943.8/k44.9/k21.9(Not Applicable) - Booker Garcia MD s EGD(Not Applicable) - Booker Garcia MD
[2021-10-31] MEDS: midazolam 1 mg/mL INJ 2 mL 2 MG IVP (08:58)
[2021-10-31] MEDS: ondansetron 2 mg/ML SDV 2 mL 4 MG IVP ×5 (09:03→19:40)
[2021-10-31] MEDS: levofloxacin-dextrose 5 % 500 MG/100 ML PREMIX 100 MG IV (09:13)
--- NOTE | 2021-10-31 11:28 | SUR.OPER ---
Family Notified Of Patient's Status Via Phone.
--- NOTE | 2021-10-31 12:27 | SUR.OPER ---
Family Notified Of Patient's Status Via Phone.
--- NOTE | 2021-10-31 13:20 | SUR.OPER ---
Family Notified Of Patient's Status Via Phone.
--- NOTE | 2021-10-31 13:32 | PM.OP ---
Operative Report Date of procedure: October 31, 2021 Pre-op diagnosis: Preop Diagnosis Abnormal 24-hour pH monitoring/hiatal hernia and persistent acid reflux Post-op diagnosis: Hiatal hernia Post-op findings: Hiatal hernia Procedure done: Laparoscopic hiatal hernia repair with Des fundoplication and intraoperative EGD Implants: Pieces of Surgicel Specimens removed/disposition: Hiatal hernia sac and contents Surgeon: Booker Garcia MD Juvenile Justice Specialist: Surgical techs Clive Dong and Lucille Circulating nurses Ludmila and Ml Burden Anesthesia: General (Renny Ferguson, Dr. Cook and JITNEY DRIVER James Cummings) Estimated blood loss (mL): 25 IV fluids (mL): 2,000 Urine output (mL): 400 Procedure: Patient was identified in holding area,appropriate pharmacologic DVT prophylaxis was given, patient was then taken to the operating room where the patient was placed in supine position, intubated by anesthesia prophylactic antibiotics were given per protocol,Time-out was done verifying the patient's name/date of /planned procedure and destination after the procedure, all were in agreement. SCDs confirmed to be functioning, preoperative antibiotics administered per protocol, and beta radha protocol was confirmed patient was placed in a low lithotomy position, both arms were tucked to the sides.and all pressure points were padded, a Renee catheter was placed by the circulating nurse that revealed clear urine. The patient was appropriately secured to the operating table, and I asked anesthesia to swing the table [id number] in different positions that the patient is appropriately secured to the OR table which it was the case. Prep and drape of the abdomen was done under the usual sterile technique, started by 1.2 cm transverse incision with 15 blade knife, 12 cm below the xiphoid and 3 cm to the left of the midline, followed by that a 12 mm optical trocar was used under direct vision and placed in the peritoneal cavity without difficulty. The peritoneal cavity was insufflated with CO2 gas up to 15 mmHg, followed by that an angled scope 10 mm was inserted in the abdominal cavity, the abdomen was surveyed there was no evidence of blood or fluid or other evidence of intra-abdominal injury. Following that two 5 mm ports were placed one at 10 cm from the xiphoid process under the left subcostal region and the other one was placed at the left flank. A 12 mm port was placed in the subxiphoid region towards the right upper subcostal region, underlying there was a small subserosal hematoma of the distal part of the stomach there was no violation of the stomach. An additional 5 mm trocar 15 centimeter to the right of the xiphoid process at the upper abdomen, and liver retractor was placed under direct visualization to lift the liver up and helped greatly for appropriate visualization of the hiatus. Patient was placed in steep reverse T Darling and I stood between the patient's legs. I Started at that point dissecting the hiatal hernia using the harmonic scalpel near the caudate lobe and right maury of the diaphragm where it was identified. Dissection was continued around the border of the maury from the right side to the left side circumferentially, dissection was done as the sac was adherent to the stomach and up in the chest. The hernia sac was sent for permanent pathology. I noticed some in the right maury of the diaphragm that encountered some oozing which was controlled by multiple 5 mm clips and ended up putting a figure of eight 2-0 silk suture.same was applied at the index subserosal hematoma. After appropriate lesser curvature dissection circumferentially and the short gastrics were taken down an additional 5 mm clips were applied to secure hemostasis a Horacio drain was passed behind the esophagus from the right side to the left side ends of the [place] was secured in place and was held down to assist in retraction for better navigation. At that point once dissection and reduction of the hernia was complete. There was 3-4 cm of the esophagus now is intra-abdominal after appropriate dissection being with no tension. A well-lubricated bougie was inserted 52 [place] in size, by the anesthesiologist without difficult, to be used as a template to prevent narrowing of the esophagus. The posterior crura was reapproximated with 2-0 Ethibond sutures with pledgets.This closed the hiatal defect leaving an opening that of the submits the esophagus to pass through comfortably. I found a loose fundus that I was able to grab the stomach around the GE junction from the left side to the right side.Shoeshine technique was applied at this point to make sure that the wrap carries no tension.First 2 stitches were taken stomach esophagus stomach, the the third stitch was stomach to stomach using 2-0 silk sutures about 1 cm apart. 360? fundoplication was noted from securing the fundus to either side of the esophagus.The length was about 3-4 cm and followed by that an upper GI scope by me after I scrubbed out was introduced from the mouth down to the esophagus to the stomach preceded by bougie was taken out and there was no evidence of bleeding or injury. There was no blood on the tip of the bougie as well,nothing of significance, stomach looked fine was no injury and the wrap looked appropriate from within. I was able to intubate all the way to the first part of the duodenum and there was no evidence of leak or bleeding or ischemia. I scrubbed back in after adequate hemostasis, elected to place couple of Surgicel pieces towards the site of the initial oozing. The liver retractor was taken out under direct visualization, final laparoscopic survey was done showing no injuries to intra-abdominal structures, the 12 mm trocar sites were closed by Cheikh Herrmann under direct visualization using #1 PDS sutures,following that a TAP Block was done using Exparel then all ports were removed and both 12 mm ports.The rest of the stab incisions were closed by skin josefina, followed by Band-Aids and patient tolerated the procedure well. Bilateral TAP (transversus abdominous plain peripheral nerve block )block using Exparel 20 mL Exparel 40 ml Normal saline 20 ml bupivacaine 0.25% 30 mL on each side injected 20 mL injected the port sites The count of instruments,needles and sponges was completed at the end of the procedure. Renee catheter was kept towards the end of the procedure I was present for the whole entire procedure patient was extubated and was taken to the recovery room in stable condition.
[2021-10-31] MEDS: fentaNYL 50 mcg/mL INJ 2mL IVP ×2 (13:52→14:10)
--- NOTE | 2021-10-31 14:27 | ANE.PACU2 ---
Inpatient post-anesthesia follow up: Airway intact: Yes Vital signs: Temperature 97.0 F Pulse Rate 101 Respiratory Rate 15 Blood Pressure 135/72 Pulse Oximetry 93 Oxygen Delivery Me thod Room Air Oxygen Flow Rate 8 Fraction of Inspir ed Oxygen Hydration adequate: Yes Nausea and vomiting: No Pain level: 3 Mental status: Baseline
[2021-10-31] MEDS: lactated ringers 1,000 ML 150 ML IV ×2 (14:48→21:08)
[2021-10-31] MEDS: morphine 4 mg/mL SDV 1 mL 2 MG IVP ×2 (14:49→16:47)
[2021-10-31] MEDS: famotidine 20 mg/2 mL INJ IVP (16:42)
[2021-10-31] MEDS: metoclopramide 5 mg/mL SDV 2 mL IVP ×2 (17:47→23:56)
[2021-10-31] MEDS: HYDROmorphone 1 mg/mL INJ 1 mL IVP ×4 (18:29→23:56)
[2021-10-31] MEDS: promethazine 25 mg/mL SDV 1 mL 12.5 MG IM (18:29)
[2021-10-31] MEDS: LORazepam 0.5 mg Tablet PO (21:07)
[2021-11-01] VITALS (12 sets, daily range): BP systolic 119–158; BP diastolic 77–91; PULSE 73–82; RESP 16–18; TEMP 36.6–36.8; O2SAT 94–97
[2021-11-01 01:50] LABS: Hematocrit 35.7 % (37.0-47.0); Hemoglobin 11.7 g/dL (11.5-15.3)
[2021-11-01 02:12] LABS: Blood Urea Nitrogen 6 mg/dL (6-20); Calcium 8.2 mg/dL (8.5-10.5); Carbon Dioxide 21 mmol/L (22-29); Chloride 103 mmol/L (98-107); Creatinine Clr Calc Pharmacy 151.1354; Glomerular Filtration Rate 134.7 mL/min (90-130); Glucose 115 mg/dL (65-115); Osmolality Calculated 281 mOsm/kg (285-295); Sodium 136 mmol/L (136-145)
[2021-11-01 02:15] LABS: Anion Gap 15.8 (5-19); Potassium 3.8 mmol/L (3.5-5.1)
[2021-11-01] MEDS: ondansetron 2 mg/ML SDV 2 mL 4 MG IVP ×2 (02:44→09:06)
[2021-11-01] MEDS: HYDROmorphone 1 mg/mL INJ 1 mL IVP ×5 (02:45→11:20)
[2021-11-01] MEDS: LORazepam 0.5 mg Tablet PO ×2 (02:56→09:06)
[2021-11-01] MEDS: lactated ringers 1,000 ML 150 ML IV ×2 (03:45→13:17)
[2021-11-01] MEDS: famotidine 20 mg/2 mL INJ IVP (05:04)
[2021-11-01] MEDS: heparin 5,000 unit/mL INJ 1 mL 5000 UNIT SUBCUT (05:04)
[2021-11-01 06:33] LABS: Glucose Point of Care 104 mg/dL (70-110)
--- NOTE | 2021-11-01 06:59 | P.PN_ITS ---
Subjective Subjective: Patient overall feels a whole lot better yet she is sore but she does not feel the acid taste in her mouth as she used to. Stable vital signs and adequate urine output, language translator nurse reported that the patient has been anxious and responded well to Ativan. Medications: Reviewed: Yes Vitals/I&O/Wt Last Vital Signs Temp 98.2 F 11/01/21 04:00 Pulse 73 11/01/21 04:00 Resp 18 11/01/21 05:03 BP 129/82 11/01/21 04:00 Pulse Ox 97 11/01/21 04:00 10/31/21 10/31/21 11/01/21 14:59 22:59 06:59 Intake Total 2200 / 2200 1050 / 3250 1142.5 / 4392.5 Output Total 825 / 825 800 / 1625 1500 / 3125 Balance 1375 / 1375 250 / 1625 -357.5 / 1267.5 Weight last 48 hrs Weight 160 lb Weight 160 lb Weight 150 lb Physical Exam Narrative: Patient is conscious alert oriented X3 No apparent distress BMI 25.1 Head and neck examination PERRLA no masses no cervical lymphadenopathy no jaundice Cardiac examination audible S1-S2 no murmurs no gallops no arrhythmias Chest is clear bilateral,abscence of Rhonchi or wheezes,no surgical emphysema as there was a little postoperatively yesterday which is expected. Abdomen nontender nondistended soft no organomegaly guarding or rigidity/no signs of peritonitis Dressing is intact Renee catheter in place with clear urine Extremities no cyanosis no clubbing no edema Urinary Catheter Management: Renee: Cath Placed During This Visit: yes Reason for Continuing Indwelling Catheter: Acute Urinary Retention or Obstruction Urinary Catheter Date of Insertion: 10/31/21 Urinary Catheter Time of Insertion: 09:28 Data : 11/01/21 01:28 11/01/21 01:28 A&P Assessment and plan (1) Hiatal hernia: Assessment 41 years old female patient status post laparoscopic hiatal hernia repair and Des fundoplication with intraoperative EGD 11/01/2019 Plan Will follow on upper GI study as this is cleared we will start the patient on post Des diet DC Renee catheter Encourage ambulation Incentive spirometer every hour Assurance and education All questions have been answered and all concerns have been addressed to patient's satisfaction. Status: Resolved Attestations Medical Necessity Statement*: Observation status for perioperative care and pain control. Coding Level of Care Code Acute Promotions Intern for [facility] Fwd Diagnoses Hiatal hernia K44.9
[2021-11-01] MEDS: metoclopramide 5 mg/mL SDV 2 mL IVP ×2 (07:13→14:39)
--- NOTE | 2021-11-01 08:00 | FL_ITS ---
WS: [id number] Exam: [place] upper GI series [id number] Date/Time of Exam: 11/01/2021 8:00 AM Reason For Exam: Status Post laparoscopic hiatal hernia repair and Des Water-soluble upper GI exam is performed. Swallowing function was normal. The esophagus is smooth in contour with normal motility. Contrast ext ends into the stomach without obstruction. Postoperative changes noted at the fundal region. The stom ach is otherwise freely distensible. No evidence of gastric ulcer. The duodenal bulb is smooth in con tour. Contrast spills freely into the duodenal C-loop and proximal jejunum. There was no extravasatio n of contrast from the confines of the GI tract. FL/FL upper GI series [id number] IMPRESSION: 1. Postoperative changes in the stomach as noted above. 2. No indication of gastric or duodenal ulcer. 3. The esophagus and stomach are patent. There is free spillage of contrast int o the proximal small bowel.
[2021-11-01] MEDS: diatrizoate meglumine 120 mL Sol PO (08:43)
[2021-11-01] MEDS: HYDROcodone-acetaminophen 5-325 mg Tablet 1 TAB PO (13:15)
--- NOTE | 2021-11-01 15:08 | P.SS_ITS ---
Short Stay Summary Providers Date of Admit/Discharge: 11/01/21 Attending Provider: Booker Garcia MD Primary Care Provider: Jacky Freeman MD Chief Complaint: abnormal 24 hr ph study, hiatal hernia HPI History of Present Illness 07/19/2021 This is a pleasant 41 years old female patient presents to my practice with worsening vomiting, patient reports that she has been having repeated vomiting on daily basis and she is currently on medical marijuana but she does not believe that this has anything to do with her vomiting.? In fact she makes her feel better. Patient had diagnostic EGD back in August 2020 that showed reflux esophagitis, hiatal hernia and gastritis.? Patient was sent for 24-hour pH monitoring at an outside facility in [place] but unfortunately I did not receive those documents yet.? Also the patient had an upper GI study back in 08/15/2020 that showed: 1.? No gastroesophageal reflux identified on this examination. 2.? Very small reducible hiatal hernia. ? Patient is referred to my practice for further evaluation potential management. 08/09/2021 Patient comes today for follow-up and was expected to retrieve the 24-hour pH monitoring and unfortunately the reports we were able to retrieve was regarding a high-resolution impedance esophageal manometry study that showed; 1-esophageal junction morphology type III consistent with a hiatal hernia 2.? Normal behavior of the lower esophageal sphincter 3.? Normal esophageal motility by Spickard classification 4.? Normal bolus transit for liquids but impedance measures This study took place back in September 2020, and to my surprise the patient did not get a 24-hour pH monitoring 09/20/2021 Patient comes today with recurrent cyclical history of nausea and vomiting associated with abdominal discomfort with multiple visits to the emergency department.24-hour pH monitoring is pending. CT scan of the abdomen pelvis was done for 722 that showed 1.? No acute abdominal or pelvic findings. 2.? Prior hysterectomy and cholecystectomy. Prior reported appendectomy. 3.? No evidence of high-grade small or large bowel obstruction. No free fluid in the abdomen or pelvis. 4.? Tiny fat-containing umbilical hernia. 5.? No other significant findings. Following diet on 09/17/[address] scan of the abdomen pelvis was done that did not show No significant abdominal or pelvic findings ? Patient does have a chronic abdominal pain without obvious explanation and in addition to the repeated nausea and vomiting.Multiple EGDs were done that did show reflux esophagitis small hiatal hernia and gastritis.I am concerned that the patient may have something related to her ovarian cancer with potential metastatic disease to the brain.Or an underlying behavioral or psychological Disorder. 10/11/2021 Patient comes today after the 24-hour pH monitoring study was done that showed abnormal DeMeester score of 23.3 with normal less than 14.7, the conclusion that the patient does have abnormal esophageal pH reflux study and abnormal esophageal impedance reflux study. Patient did check with her GynOnc in [place] and her team does not think that her nausea and vomiting related to any potential metastatic disease because of her history of ovarian cancer, the patient undergoing psychological and behavioral therapy.? She does ingest oral CBD for her nausea and vomiting 10/18/2021 Patient comes today and she is interested to proceed with laparoscopic Des fundoplication and hiatal hernia repair.? She did read and educated herself about the expectations with regard to post Des diet and she is interested to proceed accordingly. Review of Systems General: Reports: 10 or more systems reviewed and unremarkable except in HPI and below Home Meds/Allergies Home Medications and Allergies Home Medications Medication Instructions Recorded Confirmed Type estradiol 10 mcg vaginal tablet See Rx Instructions .ROUTE .COMPLEX 06/14/20 10/31/21 History hydroxyzine HCl 50 mg tablet 50 mg PO DAILY 10/30/21 10/31/21 History pantoprazole 40 mg tablet,delayed 40 mg PO DAILY 10/30/21 10/31/21 History release Allergies Allergy/AdvReac Type Severity Reaction Status Date / Time aspirin Allergy ALGY-Hives Verified 10/19/21 12:53 capsaicin Allergy ALGY-Redness Verified 10/19/21 12:53 of Skin cephalexin [From Keflex] Allergy ALGY-Hives Verified 10/19/21 12:53 meperidine [From Demerol] Allergy Unknown Verified 10/19/21 12:53 PFSH Acute PFSH: Medical History Abnormal 24 hour ambulatory pH monitoring study Acute dehydration Cystitis Gastritis GERD (gastroesophageal reflux disease) Gross hematuria Interstitial cystitis Lactic acidosis Leukocytosis Nausea and vomiting Nausea and vomiting Pseudoseizures Surgical History History of appendectomy History of History of cholecystectomy History of colonoscopy History of esophagogastroduodenoscopy (EGD) History of hysterectomy for cancer History of ovarian resection Family History Denies family history of Anesthesia complication Bleeding disorder Social History Smoking and tobacco status: never smoked Alcohol intake: never Last substance use date: 10/12/19 Last substance use time: 01:00 Other details last substance use: Marijuana Current occupational status: employed Vitals/I&O/Wt Last Vital Signs Temp 98.0 F 11/01/21 11:14 Pulse 75 11/01/21 11:14 Resp 18 11/01/21 11:20 BP 134/90 11/01/21 11:14 Pulse Ox 95 11/01/21 11:14 11/01/21 11/01/21 11/01/21 06:59 14:59 22:59 Intake Total 1142.5 / 4392.5 1360 / 1360 Output Total 1500 / 3125 300 / 300 Balance -357.5 / 1267.5 1060 / 1060 Weight last 48 hrs Weight 160 lb Weight 160 lb Weight 150 lb Physical Exam Narrative: Patient is conscious alert oriented X3 No apparent distress BMI 25.1 Head and neck examination PERRLA no masses no cervical lymphadenopathy no jaundice Cardiac examination audible S1-S2 no murmurs no gallops no arrhythmias Chest is clear bilateral,abscence of? Rhonchi or wheezes,no surgical emphysema Abdomen nontender nondistended soft no organomegaly guarding or rigidity/no signs of peritonitis Dressing is intact Extremities no cyanosis no clubbing no edema Urinary Catheter Management: Renee: Cath Placed During This Visit: yes, but has since been removed by the nurse Reason for Continuing Indwelling Catheter: Decision to DC Catheter Urinary Catheter Date of Insertion: 10/31/21 Urinary Catheter Time of Insertion: 09:28 Date Urinary Catheter Removed: 11/01/21 Time Urinary Catheter Discontinued: 07:45 Hospital Course Hospital Course Patient undergone uneventful laparoscopic hiatal hernia repair with Des fundoplication. Undergone upper GI study today that did show patent esophagus and stomach with no obstructive pattern. Tolerated p.o. intake and had adequate urine output and continue to have stable vital signs. She did encounter some anxiety and responded well to as needed Ativan. Pain under control using oral pain medications Discharge Summary Patient met the appropriate criteria for safe discharge home and appropriate education was given to the patient even before surgery and we will plan to see the patient back in 1 week. SSS Data Data Completed and Pending: Completed Studies During Hospitalization Category Date Time Status [place] upper GI [place] [id number] Routine Exams 11/01/21 08:00 Completed Pending at discharge Category Date Time Status ES surgery / GI i mages Routine Exams 10/31/21 06:51 Taken Basic Metabolic P sarah beth AM LABS Lab 11/02/21 04:00 Ordered Basic Metabolic P sarah beth AM LABS Lab 11/03/21 04:00 Ordered Hemoglobin and He matocrit AM LABS Lab 11/02/21 04:00 Ordered Hemoglobin and He matocrit AM LABS Lab 11/03/21 04:00 Ordered Pathology: Surgic al [PTH] Routine Pth 10/31/21 13:46 Received Addt'l Data from Hospital Stay: Reason For Exam: Status Post laparoscopic hiatal hernia repair and Des Water-soluble upper GI exam is performed. Swallowing function was normal. The esophagus is smooth in contour with normal motility. Contrast extends into the stomach without obstruction. Postoperative changes noted at the fundal region. The stomach is otherwise freely distensible. No evidence of gastric ulcer. The duodenal bulb is smooth in contour. Contrast spills freely into the duodenal C-loop and proximal jejunum. There was no e xtravasation of contrast from the confines of the GI tract. AR/AR upper GI series [id number] IMPRESSION: 1. Postoperative changes in the stomach as noted above. 2. No indication of gastric or duodenal ulcer. 3. The esophagus and stomach are patent. There is free spillage of contrast into the proximal small bowel. Procedures Performed: Operative Report Date of procedure: October 31, 2021 Pre-op diagnosis: Preop Diagnosis ? Abnormal 24-hour pH monitoring/hiatal hernia and persistent acid reflux? Post-op diagnosis: Hiatal hernia Post-op findings: Hiatal hernia Procedure done: Laparoscopic hiatal hernia repair with Des fundoplication and intraoperative EGD Implants: Pieces of Surgicel Specimens removed/disposition: Hiatal hernia sac and contents Surgeon: Booker Garcia MD Security Threat Analyst: Surgical techs Clive Dong and Lucille Circulating nurses Ludmila and Ml Burden Anesthesia: General (Dr. Joyce Meneses and MEMORIAL COUNSELOR James Cummings) Estimated blood loss (mL): 25 IV fluids (mL): 2,000 Urine output (mL): 400 Procedure: Patient was identified in holding area,appropriate pharmacologic DVT prophylaxis was given, patient was then? taken to the operating room where the patient was placed in supine position, intubated by anesthesia prophylactic antibiotics were given per protocol,Time-out was done verifying the patient's name/date of /planned procedure? and destination after the procedure, all were in agreement.? SCDs confirmed to be functioning, preoperative antibiotics administered per protocol, and beta radha protocol was confirmed ?patient was placed in a low lithotomy position, both arms were tucked to the sides.and all pressure points were padded,? a Renee catheter was placed by the circulating nurse that revealed clear urine. The patient was appropriately secured to the operating table, and I asked anesthesia to swing the table [id number] in different positions that the patient is appropriately secured to the OR table which it was the case. Prep and drape of the abdomen was done under the usual sterile technique, started by 1.2 cm transverse incision with 15 blade knife, 12 cm below the xiphoid and 3 cm to the left of the midline, followed by that a 12 mm optical trocar was used under direct vision and placed in the peritoneal cavity without difficulty.? The peritoneal cavity was insufflated with CO2 gas up to 15 mmHg, followed by that an angled scope 10 mm was inserted in the abdominal cavity, the abdomen was surveyed there was no evidence of blood or fluid or other evidence of intra-abdominal injury. Following that two 5 mm ports were placed one at 10 cm from the xiphoid process under the left subcostal region and the other one was placed at the left flank.? A 12 mm port was placed in the subxiphoid region towards the right upper subcos aggie region, underlying there was a small subserosal hematoma of the distal part of the stomach there was no violation of the stomach. An additional 5 mm trocar 15 centimeter to the right of the xiphoid process at the upper abdomen, and liver retractor was placed under direct visualization to lift the liver up and helped greatly for appropriate visualization of the hiatus. Patient was placed in steep reverse T Darling and I stood between the patient's legs. I Started at that point dissecting the hiatal hernia using the harmonic scalpel near the caudate lobe and right maury of the diaphragm where it was identified.? Dissection was continued around the border of the maury from the right side to the left side circumferentially, dissection was done as the sac was adherent to the stomach and up in the chest.? The hernia sac was sent for permanent pathology. I noticed some in the right maury of the diaphragm that encountered some oozing which was controlled by multiple 5 mm clips and ended up putting a figure of eight 2-0 silk suture.same was applied at the index subserosal hematoma. After appropriate lesser curvature dissection circumferentially and the short gastrics were taken down an additional 5 mm clips were applied to secure hemostasis a Horacio drain was passed behind the esophagus from the right side to the left side ends of the Horacio was secured in place and was held down to a ssist in retraction for better navigation.? At that point once dissection and reduction of the hernia was complete. There was 3-4 cm of the esophagus now is intra-abdominal after appropriate dissection being with no tension. ?A well-lubricated bougie was inserted 52 American in size, by the anesthesiologist without difficult, to be used as a template to prevent narrowing of the esophagus. The posterior crura was reapproximated with 2-0 Ethibond sutures with pledgets.This closed the hiatal defect leaving an opening that of the submits the esophagus to pass through comfortably. I found a loose fundus that I was able to grab the stomach around the GE junction from the left side to the right side.Shoeshine technique was applied at this point to make sure that the wrap carries no tension.First 2 stitches were taken stomach esophagus stomach, the the third stitch was stomach to stomach using 2-0 silk sutures about 1 cm apart.? 360? fundoplication was noted from securing the fundus to either side of the esophagus.The length was about 3-4 cm and followed by that an upper GI scope by me after I scrubbed out was introduced from the mouth down to the esophagus to the stomach preceded by bougie was taken out and there was no evidence of bleeding or injury.? There was no blood on the tip of the bougie as well,nothing of significance, stomach looked fine was no injury and the wrap looked appropriate from within.? I was able to intubate all the way to the first part of the duodenum and there was no evidence of leak or bleeding or ischemia. I scrubbed back in after adequate hemostasis, elected to place couple of Surgicel pieces towards the site of the initial oozing.? The liver retractor was taken out under direct visualization, final laparoscopic survey was done showing no injuries to intra-abdominal structures, the 12 mm trocar sites were closed by Cheikh Herrmann under direct visualization using #1 PDS sutures,following that a TAP Block was done using Exparel then all ports were removed and both 12 mm ports.The rest of the stab incisions were closed by skin josefina, followed by Band-Aids and patient tolerated the procedure well. Bilateral TAP (transversus abdominous plain peripheral nerve block )block using Exparel 20 mL Exparel 40 ml Normal saline 20 ml bupivacaine 0.25% 30 mL on each side injected 20 mL injected the port sites The count of instruments,needles and sponges was completed at the end of the procedure. Renee catheter was kept towards the end of the procedure I was present for the whole entire procedure patient was extubated and was taken to the recovery room in stable condition. Dictated By: Booker Garcia MD Signed By: Booker Garcia MD Signed Date/Time: 11/01/21 0711 DD/ 1332 Diagnoses at Discharge Discharge Diagnosis (1) Hiatal hernia: Status: Resolved Discharge Plan Discharge Patient Disposition: Home Condition: Stable Prescriptions: New hydrocodone-acetaminophen 5-325 mg tablet 1 tab PO Q6H PRN (Reason: pain) Qty: 28 0RF ondansetron 4 mg tablet,disintegrating 4 mg PO Q6H PRN (Reason: nausea and vomiting) Qty: 30 2RF promethazine 12.5 mg tablet 12.5 mg PO Q6H PRN (Reason: nausea and vomiting) Qty: 20 0RF Transderm-Scop 1 mg over 3 days patch 3 day 1 patch transdermal Q72H PRN (Reason: nausea and vomiting) Qty: 4 1RF Continued estradiol 10 mcg tablet See Rx Instructions .ROUTE .COMPLEX 0RF Rx Instructions: 10 mcg vaginally twice weekly ondansetron 4 mg film 4 mg PO DAILY PRN (Reason: nausea and vomiting) Qty: 10 0RF pantoprazole 40 mg tablet,delayed release (DR/EC) 40 mg PO DAILY 0RF hydroxyzine HCl 50 mg tablet 50 mg PO DAILY 0RF Discharge Orders: Discharge Order (Routine); Ordered 11/01/21 Ordered By: Booker Garcia Referrals: Booker Garcia MD [Physician] - 11/08/21 2:55 pm (Return to general surgery office in 1 week) Discharge Diet: As Directed Discharge Activity: Limit activity as instructed Patient Instructions: Constipation - Adult, Scopolamine (Absorbed through the skin), Hydrocodone/Acetaminophen (By mouth), Promethazine (By mouth) (Phenergan, Promacot), Ondansetron (By mouth), Hiatal Hernia, Laparoscopic Hiatal Hernia Repair (DC), Opioid Safety Activity Restrictions/Additional Instructions: Post discharge instructions: 1. Patient can shower after 48 hours from surgery. Do not soak in bathtub, swimming pool or hot tub for 4 weeks after surgery. 2. Leave incisions open to air, do not apply triple antibiotic ointment or medications on the incisions. 3. Up and walking as tolerated Activity 4. Do not lift more than 5 pounds first 2 weeks after surgery and not more than 25 pounds 6 to 8 weeks after surgery. Driving 5. Do not operate heavy machinery or drive while using pain medications Diet Clear liquid diet for the first 3 to 4 days postoperatively followed by full li quid diet till patient is seen at my office, avoid any straws chewing gums or soda. Pain control Patient was given a prescription for hydrocodone Nausea Nausea is common after surgery, take nausea medications as needed and stay on a liquid bland diet until nausea resolves. Breathing Patient was encouraged and was given incentive spirometer to use at home 10 times an hour while awake Call the office at [phone] during office hours or go the Emergency Room after hours for - ?Fever to 100.4 or greater ?Shaking chills ?Pain that increases over time ?Redness, warmth, or pus draining from incision sites ?Persistent nausea or inability to take in liquids Attestations Medical Necessity Statement*: Observation status for perioperative care and pain control Time Spent in Patient Care*: greater than 30 min Specific Discharge Activities: Specific discharge activities: educating patient and educating and/or supporting family/caregiver Status at Discharge: Cognitive status at discharge: cognitively intact , Behavioral status at discharge: cooperative , Functional status at discharge: independent ambulation Overall status at discharge: patient is progressing back to baseline Quality Metrics Clinical Quality Measures: [ No reported AMI, CVA or VTE this stay ] Coding Level of Care Code Acute Glass Technician/Installer for Chg Fwd Diagnoses Hiatal hernia K44.9
== END 2021-11-01 16:25 | disposition home or self-care (01) ==
LOC: MEDSURG 14:12
PROVIDERS: Admitting Provider Surgery; PCP Family Medicine; Visit Provider Surgery
PROC: 0BQT4ZZ Repair Diaphragm, Percutaneous Endoscopic Approach (ICD-10-PCS; CPT 43280; principal; 2021-10-31 08:10)
PROC: 0DJ08ZZ Inspection of Upper Intestinal Tract, Via Natural or Artificial Opening Endoscopic (ICD-10-PCS; CPT 43235; 2021-10-31 08:10)
DX: K44.9 Diaphragmatic hernia without obstruction or gangrene (principal); K21.9 Gastro-esophageal reflux disease without esophagitis
CPT/HCPCS: 43280; 36410; 36415; 36416; 51702; 74240; 80048; 82962; 85014; 85018; 88302; C9113; C9290; G0378; J0330; J0360; J1100; J1170; J1200; J1644; J1956; J2250; J2270; J2405; J2550; J2704; J2710; J2765; J3010; J3490; J7030; Q9963

== ENCOUNTER 2021-11-15 08:51 | Emergency (ER) | payer OTHER, SELFPAY ==
[2021-11-15] VITALS (7 sets, daily range): BP systolic 144–174; BP diastolic 90–102; PULSE 70–82; RESP 14–16; TEMP 37; O2SAT 98–100; BMI 24.1
--- NOTE | 2021-11-15 09:36 | W.ED.ABDPA2 ---
HPI - Abdominal Pain General: Chief Complaint: Abdominal Pain Stated Complaint: n/v Time Seen by Provider: 11/15/21 09:13 Source: patient Mode of arrival: ambulatory Limitations: no limitations History of Present Illness: Patient is a 41-year-old female well-known to myself here for complaints of abdominal pain, nausea, vomiting that began a few hours ago. Patient has had countless episodes of similar symptoms. There seems to be some questions on the etiology for these episodes but cyclic vomiting syndrome, hyperemesis cannabis syndrome, and GERD are some of the diagnoses that she has had previously. She did receive 24 hour pH monitoring recently that was abnormal and Dr. Garcia thought that she would be a good candidate for an anti-reflux Niesen fundoplication/hiatal hernia repair. She underwent this procedure about a week ago and states she was doing good until today. She is not running fevers. Reports a small amount of diarrhea. No blood in emesis or stool. MD elicited complaint: abdominal pain Onset (ago): hour(s) Pain Consistency: constant Location: Diffuse Severity: severe Pain scale (0-10): 10 Radiation: none Migration to: no migration Associated Symptoms: Reports diarrhea, nausea and vomiting; Denies chills, dysuria, fever(s), hematuria and hematemesis Related Data: Patient : No Review of Systems Const: Denies: fever(s), chills, body aches, fatigue or malaise Card: Denies: chest pain Resp: Denies: dyspnea GI: Reports: abdominal pain, nausea, vomiting and diarrhea; Denies: hematemesis : Denies: flank pain, dysuria or hematuria Musc: Denies: neck pain, back pain, extremity pain or joint pain Skin/Breast: Denies: rash Neuro: Denies: headache(s), numbness in extremities, weakness in extremities or sensory changes PFSH ED PFSH: Medical History Abnormal 24 hour ambulatory pH monitoring study Acute dehydration Cystitis Gastritis GERD (gastroesophageal reflux disease) Gross hematuria Interstitial cystitis Lactic acidosis Leukocytosis Nausea and vomiting Nausea and vomiting Pseudoseizures Surgical History History of appendectomy History of History of cholecystectomy History of colonoscopy History of esophagogastroduodenoscopy (EGD) History of hysterectomy for cancer History of ovarian resection Family History Denies family history of Anesthesia complication Bleeding disorder Social History Smoking and tobacco status: never smoked Alcohol intake: never Last substance use date: 10/12/19 Last substance use time: 01:00 Other details last substance use: Marijuana Current occupational status: employed Physical Exam Const: COMMON NORMALS: patient oriented x3, no limitations and alert GENERAL APPEARANCE: cooperative and ill appearing ORIENTATION/CONSCIOUSNESS: Yes awake, Yes oriented to person, Yes oriented to place and Yes oriented to time HENMT: COMMON NORMALS: normocephalic and atraumatic HEAD & SCALP: normal to inspection, normocephalic and atraumatic Resp: COMMON NORMALS: normal respiratory effort and clear to auscultation bilaterally AUSCULTATION: clear to auscultation bilaterally Cardio: COMMON NORMALS: regular rate and regular rhythm RATE: regular rate RHYTHM: regular rhythm GI: INSPECTION: Yes normal to inspection and Yes other (livedo reticularis appearing skin that she states is from heating pad) AUSCULTATION: Yes normoactive bowel sounds PALPATION: Yes Tenderness to palpation present (GI) (diffusely), Yes Guarding due to palpation present (GI) and No Rigid due to palpation : COMMON NORMALS: Yes no CVA tenderness BLADDER/KIDNEY EXAM: Yes no CVA tenderness Back/Pelvis: COMMON NORMALS: no CVA tenderness Extremity: COMMON NORMALS: normal to inspection GENERAL: Yes normal exam except as noted Neuro: YOHANA COMA SCALE: document GCS findings Yohana coma scale eye opening: Spontaneous [place] coma scale verbal response: Orientated [place] coma scale motor response: Obey commands Yohana coma scale total score: 15 COMMON NORMALS: patient oriented x3, moves all extremities, no focal motor deficits and no sensory deficits noted SENSORIUM/ORIENTATION: Yes alert, Yes oriented to person, Yes oriented to place and Yes oriented to time Course Vital Signs: Vital signs: Vital Signs Temperature 98.6 F 11/15/21 09:32 Pulse Rate 70 11/15/21 13:25 Respiratory Rate 16 11/15/21 13:25 Blood Pressure 171/101 11/15/21 13:25 Pulse Oximetry 99 11/15/21 13:25 MDM - Abdominal Pain Medical Decision Making Patient has been given Zofran, Phenergan, and Reglan for her intractable nausea/vomiting. She has not had any further episodes of vomiting during her stay but does continue to feel incredibly nauseous. She is still complaining of abdominal pain despite Morphine and Dilaudid. Blood work shows a white count of 14.6. This most likely is stress-induced given her vomiting all morning. Chemistry shows a gap of 24.1. She was given 2 L of fluids here. Her hCG qualitative was mistakingly ordered (resulted at positive for some odd reason) as patient has had a hysterectomy. CT scan was essentially normal did not show any complications related to her recent surgery. Patient was offered admission given her recent Niesen fundoplication/hiatal hernia surgery in the setting of her intractable nausea and vomiting but she declines and would like to go home. Patient states she has Zofran and Phenergan she can treat nausea at home as well as hydrocodone for pain. Strict return to ED precautions given. Lab Data : 11/15/21 09:44 11/15/21 09:44 Labs/Radiology: Radiology Impressions Abdomen/Pelvis CT 11/15/21 10:04 IMPRESSION: 1. Limited noncontrast examination without CT evidence of acute intra-abdominal or pelvic pathology. 2. Additional findings, as above. Laboratory Results WBC 14.6 10^3/uL (4.0-10.0) H 11/15/21 09:44 RBC 4.79 10^6/uL (4.1-5.3) 11/15/21 09:44 Hgb 13.9 g/dL (11.5-15.3) 11/15/21 09:44 Hct 42.1 % (37.0-47.0) 11/15/21 09:44 MCV 87.9 fl (81-99) 11/15/21 09:44 MCH 29.0 pg (28.0-34.0) 11/15/21 09:44 MCHC 33.0 g/dL (30.0-36.0) 11/15/21 09:44 RDW 13.1 % (12.1-15.1) 11/15/21 09:44 Plt Count 435 10^3/cmm (130-400) H 11/15/21 09:44 MPV 11.3 fL (7.4-10.4) H 11/15/21 09:44 Neut % (Auto) 84.4 % 11/15/21 09:44 Lymph % (Auto) 11.1 % 11/15/21 09:44 [place] % (Auto) 3.1 % 11/15/21 09:44 Eos % (Auto) 0.6 % 11/15/21 09:44 Baso % (Auto) 0.5 % 11/15/21 09:44 Neut # (Auto) 12.33 10^3/uL (1.8-7.7) H 11/15/21 09:44 Lymph # (Auto) 1.6 10^3/uL (0.8-4.8) 11/15/21 09:44 [place] # (Auto) 0.5 10^3/uL (0.2-0.9) 11/15/21 09:44 Eos # (Auto) 0.1 10^3/uL (0.0-0.8) 11/15/21 09:44 Baso # (Auto) 0.1 10^3/uL (0.0-0.1) 11/15/21 09:44 Nucleated RBC % (auto) 0 % 11/15/21 09:44 Nucleated RBCs # 0.0 /100WBC 11/15/21 09:44 Sodium 140 mmol/L (136-145) 11/15/21 09:44 Potassium 4.1 mmol/L (3.5-5.1) 11/15/21 09:44 Chloride 103 mmol/L (98-107) 11/15/21 09:44 Carbon Dioxide 17 mmol/L (22-29) L 11/15/21 09:44 Anion Gap 24.1 (5-19) H 11/15/21 09:44 BUN 13 mg/dL (6-20) 11/15/21 09:44 Creatinine 0.7 mg/dL (0.5-0.9) 11/15/21 09:44 GFR Calculation 91.3 mL/min (90-130) 11/15/21 09:44 Glucose 206 mg/dL (65-115) H 11/15/21 09:44 Calculated Osmolality 296 mOsm/kg (285-295) H 11/15/21 09:44 Calcium 10.1 mg/dL (8.5-10.5) 11/15/21 09:44 Total Bilirubin 0.3 mg/dL (0.15-1.2) 11/15/21 09:44 AST 16 U/L (0-32) 11/15/21 09:44 ALT 18 U/L (0-33) 11/15/21 09:44 Alkaline Phosphatase 97 IU/L (35-105) 11/15/21 09:44 Total Protein 7.9 g/dL (6.6-8.7) 11/15/21 09:44 Albumin 4.7 g/dL (3.5-5.2) 11/15/21 09:44 Globulin 3.2 g/dL (1.3-4.6) 11/15/21 09:44 Lipase 17 U/L (13-60) 11/15/21 09:44 HCG, Qual Positive (Negative) H 11/15/21 09:44 Urine Color Yellow (Yellow) 11/15/21 11:31 Urine Appearance Clear (CLEAR) 11/15/21 11:31 Urine pH 8 (5-7) H 11/15/21 11:31 Ur Specific [place] 1.025 (1.005-1.030) 11/15/21 11:31 Urine Protein Neg (Negative) 11/15/21 11:31 Urine Glucose (UA) Norm (Normal) 11/15/21 11:31 Urine Ketones 3+ (Negative) H 11/15/21 11:31 Urine Blood 2+ (Negative) H 11/15/21 11:31 Urine Nitrate Negative (Negative) 11/15/21 11:31 Urine Bilirubin Neg (Negative) 11/15/21 11:31 Prot Sulfosalicylic Acd Negative (Negative) 11/15/21 11:31 Urine Urobilinogen Norm mg/dL (Negative) 11/15/21 11:31 Ur Leukocyte Esterase Negative (Negative) 11/15/21 11:31 Urine RBC 0-4 /hpf (0-2) H 11/15/21 11:31 Urine WBC 0-4 /hpf (0-5) H 11/15/21 11:31 Ur Squamous Epith Cells 0-4 /hpf (0-5) H 11/15/21 11:31 Amorphous Sediment Not Reportable 11/15/21 11:31 Urine Bacteria None /hpf (NONE) 11/15/21 11:31 Hyaline Casts 0-4 /lpf H 11/15/21 11:31 Urine Mucus 1+ /hpf 11/15/21 11:31 Serum Ketones Negative (Negative) 11/15/21 09:48 Discharge Plan Discharge Patient Disposition: Home Clinical Impression: Intractable nausea and vomiting, Status post laparoscopic Des fundoplication Condition: Stable Prescriptions: No Action estradiol 10 mcg tablet See Rx Instructions .ROUTE .COMPLEX 0RF Rx Instructions: 10 mcg vaginally twice weekly hydrocodone-acetaminophen 5-325 mg tablet 1 tab PO Q6H PRN (Reason: pain) 7 Days Qty: 28 0RF ondansetron 4 mg film 4 mg PO DAILY PRN (Reason: nausea and vomiting) Qty: 10 0RF pantoprazole 40 mg tablet,delayed release (DR/EC) 40 mg PO DAILY 0RF hydroxyzine HCl 50 mg tablet 50 mg PO DAILY 0RF ondansetron 4 mg tablet,disintegrating 4 mg PO Q6H PRN (Reason: nausea and vomiting) Qty: 30 2RF promethazine 12.5 mg tablet 12.5 mg PO Q6H PRN (Reason: nausea and vomiting) Qty: 20 0RF Transderm-Scop 1 mg over 3 days patch 3 day 1 patch transdermal Q72H PRN (Reason: nausea and vomiting) Qty: 4 1RF Discharge Orders: Discharge ED (Routine); Ordered 11/15/21 Ordered By: Qian Knight Referrals: Jacky Freeman MD [Primary Care Provider] - Coding Level of Care Code ED Production Troubleshooter for Chg Fwd Exam Comprehensive
[2021-11-15] MEDS: ondansetron 2 mg/ML SDV 2 mL 4 MG IVP (09:59)
[2021-11-15] MEDS: morphine 4 mg/mL SDV 1 mL IVP (10:00)
[2021-11-15] MEDS: LORazepam 2 mg/mL INJ 1 mL 1 MG IVP (10:00)
[2021-11-15] MEDS: sodium chloride 0.9% 1,000 ML 999 ML IV ×2 (10:01→13:22)
[2021-11-15 10:02] LABS: Basophils # 0.1 10^3/uL (0.0-0.1); Basophils % 0.5 %; Eosinophils # 0.1 10^3/uL (0.0-0.8); Eosinophils % 0.6 %; Hematocrit 42.1 % (37.0-47.0); Hemoglobin 13.9 g/dL (11.5-15.3); Lymphocytes # 1.6 10^3/uL (0.8-4.8); Lymphocytes % 11.1 %; Mean Corpuscular Volume 87.9 fl (81-99); Mean Platelet Volume 11.3 fL (7.4-10.4); Monocytes # 0.5 10^3/uL (0.2-0.9); Monocytes % 3.1 %; Neutrophils # 12.33 10^3/uL (1.8-7.7); Neutrophils % 84.4 %; Nucleated Red Blood Cells % 0 %; Platelet Count 435 10^3/cmm (130-400); Red Blood Count 4.79 10^6/uL (4.1-5.3); Red Cell Distribution Width 13.1 % (12.1-15.1); White Blood Count 14.6 10^3/uL (4.0-10.0)
--- NOTE | 2021-11-15 10:04 | CTR_ITS ---
PROCEDURE INFORMATION: Exam: CT Abdomen And Pelvis Without Contrast Exam date and time: 11/15/2021 11:51 AM Age: 41 years old Clinical indication: Abdominal pain; Generalized; Prior surgery; Surgery type: Hyst, appy, gb; Patient HX: HX of ovarian cancer; Additional info: Ab pain, nausea/vomiting, recent niesen fundoplication/hiatal hernia repair TECHNIQUE: Imaging protocol: Computed tomography of the abdomen and pelvis without contrast. Axial, coronal and sagittal reformatted images were created and reviewed. Radiation optimization: All CT scans at this facility use at least one of these dose optimization techniques: automated exposure control; mA and/or kV adjustment per patient size (includes targeted exams where dose is matched to clinical indication); or iterative reconstruction. COMPARISON: CT abdomen pelvis w con* [id number] 09/17/2021 11:21 PM RADIATION DOSE METRICS: Total DLP (mGy-cm): 1120.63 FINDINGS: Liver: Unremarkable. Gallbladder and bile ducts: Status post cholecystectomy. No biliary ductal dilatation. Pancreas: Unremarkable. Spleen: Unremarkable. Adrenal glands: Normal. No mass. Kidneys and ureters: No mass. No radiodense calculi. No hydronephrosis. Stomach and bowel: Evidence of prior Des fundoplication. No definite bowel wall thickening. No obstruction. No pneumatosis. Appendix: Status post appendectomy by history. Intraperitoneal space: No free fluid. No organized fluid collection. No free air. Vasculature: Mild atherosclerotic disease. No aneurysm. Lymph nodes: No pathologically enlarged lymph nodes. Urinary bladder: Unremarkable as visualized. Reproductive: Status post hysterectomy. Bones/joints: No acute osseous abnormality. Osteopenia. Mild degenerative changes. Soft tissues: Unremarkable. CT/CT abdomen pelvis con [id number] IMPRESSION: 1. Limited noncontrast examination without CT evidence of acute intra-abdominal or pelvic pathology. 2. Additional findings, as above.
[2021-11-15 10:13] LABS: Alanine Aminotransferase 18 U/L (0-33); Albumin Level 4.7 g/dL (3.5-5.2); Alkaline Phosphatase 97 IU/L (35-105); Blood Urea Nitrogen 13 mg/dL (6-20); Calcium 10.1 mg/dL (8.5-10.5); Carbon Dioxide 17 mmol/L (22-29); Chloride 103 mmol/L (98-107); Globulin 3.2 g/dL (1.3-4.6); Glomerular Filtration Rate 91.3 mL/min (90-130); Glucose 206 mg/dL (65-115); Lipase 17 U/L (13-60); Osmolality Calculated 296 mOsm/kg (285-295); Sodium 140 mmol/L (136-145); Total Bilirubin 0.3 mg/dL (0.15-1.2); Total Protein 7.9 g/dL (6.6-8.7)
[2021-11-15 10:16] LABS: Anion Gap 24.1 (5-19); Potassium 4.1 mmol/L (3.5-5.1)
[2021-11-15 10:17] LABS: Aspartate Amino Transferase 16 U/L (0-32)
[2021-11-15] MEDS: haloperidol inj 5 mg/mL INJ 1 mL IVP (10:54)
[2021-11-15] MEDS: metoclopramide 5 mg/mL SDV 2 mL 10 MG IVP (10:55)
[2021-11-15] MEDS: HYDROmorphone 1 mg/mL INJ 1 mL 0.5 MG IVP (10:55)
[2021-11-15 11:01] LABS: HCG, Serum Qual Positive (Negative)
[2021-11-15 11:28] LABS: Ketone (Acetest) Serum Negative (Negative)
[2021-11-15 12:35] LABS: Urine Appearance Clear (CLEAR); Urine Color Yellow (Yellow)
[2021-11-15 12:36] LABS: Protein Urine Neg (Negative); Specific Gravity, Urine 1.025 (1.005-1.030); pH Urine 8 (5-7)
[2021-11-15 12:41] LABS: Add Urine Microscopic? YES; Bilirubin Urine Neg (Negative); Blood Urine 2+ (Negative); Glucose Urine UA Norm (Normal); Ketones Urine 3+ (Negative); Leukocyte Esterase Urine Negative (Negative); Nitrate Urine Negative (Negative); Sulfosalicylic Acid Urine Negative (Negative); Urobilinogen Urine Norm (Negative)
[2021-11-15 12:42] LABS: Add Urine Culture? No; Hyaline Casts Urine 0-4 /lpf; Mucus Urine 1+ /hpf; RBC Urine 0-4 /hpf (0-2); Squamous Epithelial Cell Urine 0-4 /hpf (0-5); WBC Urine 0-4 /hpf (0-5)
[2021-11-15] MEDS: promethazine 25 mg/mL SDV 1 mL IM (13:22)
== END 2021-11-15 14:32 | disposition home or self-care (01) ==
PROVIDERS: Emergency Provider Physician Assistant; PCP Family Medicine
DX: R11.2 Nausea with vomiting, unspecified (principal); Z98.890 Other specified postprocedural states; K21.9 Gastro-esophageal reflux disease without esophagitis; Z90.710 Acquired absence of both cervix and uterus
CPT/HCPCS: 74176; 80053; 81001; 82009; 83690; 84703; 85025; 96361; 96372; 96374; 96375; 99284; J1170; J1630; J2060; J2270; J2405; J2550; J2765; J7030

== ENCOUNTER 2021-11-16 15:20 | Inpatient (IN) | payer OTHER, SELFPAY ==
[2021-11-16] VITALS (8 sets, daily range): BP systolic 159–173; BP diastolic 96–110; PULSE 87–101; RESP 18; TEMP 37.4; O2SAT 97–99; BMI 24.1
--- NOTE | 2021-11-16 17:27 | W.ED.GENADLT ---
HPI - General Adult General: Chief complaint: Nausea/Vomiting/Diarrhea Stated complaint: N/V, post surgery Time Seen by Provider: 11/16/21 17:18 History of Present Illness: Patient is a 41-year-old female with a history of cholecystectomy, hysterectomy, recent Des fundoplication on 10/31/[address] Garcia presenting to the emergency room acute onset of nausea and vomiting x3 days with decreased p.o. intake. Patient tells me that she initially presented to the emergency room on 11/15/2021 for these complaints. She received medicine in the emergency room and was discharged home after negative CT scan. Since discharge, patient continues to have significant nausea and vomiting despite medication. Patient is unable to hold down her antiemetics. Patient denies any fever or chills but reports significant sharp upper quadrant abdominal pain. Patient reports diarrhea but denies any melena/medic easier. No complaints. Patient denies any chest pain, shortness breath, palpitation, cough runny nose or sore throat. Onset:3 days ago Duration:3 days Location:home Severity:moderate Associated symptoms: Reports nausea and vomiting; Deny chest pain, dyspnea, rash or palpitations Review of Systems Const: Denies: fever(s) or chills Eyes: Denies: change in vision ENMT: Denies: mouth pain Card: Denies: chest pain or palpitations Resp: Denies: dyspnea or non-productive cough GI: Reports: abdominal pain, nausea, vomiting and diarrhea : Denies: dysuria Musc: Denies: extremity pain Skin/Breast: Denies: rash or new lesions Neuro: Denies: weakness in extremities Psych: Reports: other (Normal mood) [place]/Lymph: Denies: easy bruising PFSH ED PFSH: Medical History Abnormal 24 hour ambulatory pH monitoring study Acute dehydration Anxiety Cystitis Gastritis GERD (gastroesophageal reflux disease) Gross hematuria Interstitial cystitis Lactic acidosis Leukocytosis Mid back pain on right side Nausea and vomiting Nausea and vomiting Pseudoseizures Surgical History History of appendectomy History of History of cholecystectomy History of colonoscopy History of esophagogastroduodenoscopy (EGD) History of hysterectomy for cancer History of ovarian resection Hx of hernia repair Laparoscopic hiatal hernia repair with Des fundoplication and intraoperative EGD Family History Denies family history of Anesthesia complication Bleeding disorder Social History Smoking and tobacco status: never smoked Alcohol intake: never Last substance use date: 10/12/19 Last substance use time: 01:00 Other details last substance use: Marijuana Current occupational status: employed Physical Exam Const: COMMON NORMALS: alert HENMT: COMMON NORMALS: atraumatic HEAD & SCALP: atraumatic MOUTH: moist mucous membranes abnormal Eye: COMMON NORMALS: EOMs intact bilaterally and conjunctivae normal CONJUNCTIVA: Yes conjunctivae normal Neck/C-Spine: COMMON NORMALS: full ROM and supple Resp: COMMON NORMALS: normal respiratory effort and clear to auscultation bilaterally AUSCULTATION: clear to auscultation bilaterally Cardio: COMMON NORMALS: regular rate RATE: regular rate GI: COMMON NORMALS: Soft to palpation PALPATION: Yes Soft to palpation OTHER: + Moderate epigastric and LUQ TTP. NO guarding rebound, guarding, rigidity. No CVA tenderness to percussion. Neg Lim/Neg McBurney's point tenderness, no suprabupic tenderness to palpation. Extremity: COMMON NORMALS: full ROM Neuro: SENSORIUM/ORIENTATION: Yes alert MOTOR EXAM: No Abnormal motor strength present and Other motor observations present (no focal motor deficits) Psych: COMMON NORMALS: speech normal SPEECH: Yes normal speech MOOD & AFFECT: Yes euthymic mood Course Vital Signs: Vital signs: Vital Signs Temperature 98.3 F 11/20/21 15:26 Pulse Rate 79 11/20/21 15:26 Respiratory Rate 17 11/20/21 15:26 Blood Pressure 122/79 11/20/21 15:26 Pulse Oximetry 95 11/20/21 15:26 MDM - General Adult Medical Decision Making 41-year-old female with a history of recent Des fundoplication, hysterectomy, prior , cholecystectomy for the next emergency room comes in nausea/vomiting, diarrhea and abdominal pain on improved despite recent ED evaluation. On exam, patient appears to be dry with moderate tenderness palpation of the mid epigastric, left upper quadrant area. Recent surgery will evaluate CT scan to determine if patient has small bowel obstruction. CT showed enteritis. Potassium of 2.9. We will supplement with IV and p.o. potassium. Patient did have white count 12.8. Given significant vomiting and abdominal pain. Patient has not been able to tolerate p.o. patient received multiple doses of Zofran and opiate medication. Given this is patient's second visit, patient was admitted to hospital for intractable vomiting, dehydration, abdominal pain, and failure of outpatient therapy. Disposition: admission Lab Data : 11/20/21 04:44 11/20/21 05:58 Radiology Impressions Abdomen/Pelvis CT 11/16/21 17:26 IMPRESSION: Sequela of Butch fundoplication. Nonspecific mild distention of the stomach. This does not appear to be obstructed at this level as there is normal caliber loops of small bowel and colon distal to the stomach. There is nonspecific diffuse fluid-filled small bowel and colon. This could be indicative of a gastroenteritis, the loops of bowel are not pathologically distended to suggest bowel obstruction or ileus. Chest X-Ray 11/19/21 14:42 IMPRESSION: There are hazy opacities at the lung bases, right greater than left, raising concern for pneumonia. KUB X-Ray 11/19/21 14:44 IMPRESSION: Large and small bowel gaseous distention is similar to the prior study and is consistent with ileus. Gastrografin Study 11/20/21 06:16 IMPRESSION: 1. Delayed esophageal emptying with moderate dysmotility and tertiary contractions in the distal esophagus 2. Moderate narrowing at the GE junction at the presumed site of fundoplication appears progressed compared to November 01, 2021 likely postoperative edema. This partially distends with additional fluid ingestion 3. Free spillage of contrast into the proximal duodenum. 4. No evidence of leak. 5. No evidence of reflux. Laboratory Results WBC 12.8 10^3/uL (4.0-10.0) H 11/16/21 18:20 RBC 4.03 10^6/uL (4.1-5.3) L 11/16/21 18:20 Hgb 11.7 g/dL (11.5-15.3) 11/16/21 18:20 Hct 33.4 % (37.0-47.0) L 11/16/21 18:20 MCV 82.9 fl (81-99) 11/16/21 18:20 MCH 29.0 pg (28.0-34.0) 11/16/21 18:20 MCHC 35.0 g/dL (30.0-36.0) 11/16/21 18:20 RDW 13.2 % (12.1-15.1) 11/16/21 18:20 Plt Count 335 10^3/cmm (130-400) 11/16/21 18:20 MPV 11.6 fL (7.4-10.4) H 11/16/21 18:20 Neut % (Auto) 81.0 % 11/16/21 18:20 Lymph % (Auto) 10.6 % 11/16/21 18:20 [place] % (Auto) 7.7 % 11/16/21 18:20 Eos % (Auto) 0.0 % 11/16/21 18:20 Baso % (Auto) 0.2 % 11/16/21 18:20 Neut # (Auto) 10.38 10^3/uL (1.8-7.7) H 11/16/21 18:20 Lymph # (Auto) 1.4 10^3/uL (0.8-4.8) 11/16/21 18:20 [place] # (Auto) 1.0 10^3/uL (0.2-0.9) H 11/16/21 18:20 Eos # (Auto) 0.0 10^3/uL (0.0-0.8) 11/16/21 18:20 Baso # (Auto) 0.0 10^3/uL (0.0-0.1) 11/16/21 18:20 Nucleated RBC % (auto) 0 % 11/16/21 18:20 Nucleated RBCs # 0.0 /100WBC 11/16/21 18:20 Sodium 135 mmol/L (136-145) L 11/16/21 18:20 Potassium 2.9 mmol/L (3.5-5.1) L 11/16/21 18:20 Chloride 98 mmol/L (98-107) 11/16/21 18:20 Carbon Dioxide 18 mmol/L (22-29) L 11/16/21 18:20 Anion Gap 21.9 (5-19) H 11/16/21 18:20 BUN 11 mg/dL (6-20) 11/16/21 18:20 Creatinine 0.5 mg/dL (0.5-0.9) 11/16/21 18:20 GFR Calculation 134.7 mL/min (90-130) H 11/16/21 18:20 Glucose 127 mg/dL (65-115) H 11/16/21 18:20 Calculated Osmolality 281 mOsm/kg (285-295) L 11/16/21 18:20 Calcium 9.0 mg/dL (8.5-10.5) 11/16/21 18:20 Total Bilirubin 0.6 mg/dL (0.15-1.2) 11/16/21 18:20 AST 26 U/L (0-32) 11/16/21 18:20 ALT 19 U/L (0-33) 11/16/21 18:20 Alkaline Phosphatase 80 IU/L (35-105) 11/16/21 18:20 Total Protein 7.5 g/dL (6.6-8.7) 11/16/21 18:20 Albumin 4.7 g/dL (3.5-5.2) 11/16/21 18:20 Globulin 2.8 g/dL (1.3-4.6) 11/16/21 18:20 Lipase 7 U/L (13-60) L 11/16/21 18:20 Imaging Data Other Imaging: Radiologist's impression: [address] [address] [address] Scan Report Signed Patient: Jana Strange Unit #: [id number] : 1980 Age/Sex: 41 / F ADM Date: 11/16/21 Loc: ER Room/Bed: Attending Dr: Ordering Provider/Ordering MD: Sven Cruz MD Date of Service: 11/16/21 Procedure(s): CT abdomen pelvis w con* [id number] Accession Number(s): [id number] Report Number: [id number] PROCEDURE INFORMATION: Exam: CT Abdomen And Pelvis With Contrast Exam date and time: 11/16/2021 7:15 PM Age: 41 years old Clinical indication: Nausea and vomiting; Prior surgery; Surgery date: <1 month; Surgery type: Cholecystectomy, hysterectomy, recent des fundoplication on 10/31/2021; Additional info: Abd pain TECHNIQUE: Imaging protocol: Computed tomography of the abdomen and pelvis with contrast. Radiation optimization: All CT scans at this facility use at least one of these dose optimization techniques: automated exposure control; mA and/or kV adjustment per patient size (includes targeted exams where dose is matched to clinical indication); or iterative reconstruction. Contrast material: OMNI 300; Contrast volume: 50 ml; Contrast route: INTRAVENOUS (IV);? COMPARISON: CT abdomen pelvis wo con [id number] 11/15/2021 11:51 AM RADIATION DOSE METRICS: Total DLP (mGy-cm): 1202.23 FINDINGS: Liver: Normal. No mass. Gallbladder and bile ducts: Cholecystectomy. No ductal dilation. Pancreas: Normal. No ductal dilation. Spleen: Normal. No splenomegaly. Adrenal glands: Normal. No mass. Kidneys and ureters: Normal. No hydronephrosis. Stomach and bowel: Sequela of Butch fundoplication. Mild air and fluid filled distention of the stomach. Diffuse fluid-filled loops of small bowel and colon noted. They are not pathologically distended to suggest obstruction or ileus. No apparent mucosal thickening. Appendix: No evidence of appendicitis. Intraperitoneal space: Unremarkable. No free air. No significant fluid collection. Vasculature: Unremarkable. No abdominal aortic aneurysm. Lymph nodes: Unremarkable. No enlarged lymph nodes. Urinary bladder: Unremarkable as visualized. Reproductive: Hysterectomy. Bones/joints: No acute fracture. Soft tissues: Unremarkable. CT/CT abdomen pelvis w con* [id number] IMPRESSION: Sequela of [place] fundoplication. Nonspecific mild distention of the stomach. This does not appear to be obstructed at this level as there is normal caliber loops of small bowel and colon distal to the stomach. There is nonspecific diffuse fluid-filled small bowel and colon. This could be indicative of a gastroenteritis, the loops of bowel are not pathologically distended to suggest bowel obstruction or ileus. ? Dictated By: Alton Romero DO Signed By: Alton Romero DO Signed Date/Time: 11/16/212016 DD/ 14 Discharge Plan Discharge Patient Disposition: Admitted As Inpatient Admit Provider: Guillermo Aviles Clinical Impression: Abdominal pain, Nausea & vomiting, Diarrhea, Intractable vomiting Condition: Stable Discharge Diet: As Directed and Clear Liquid Discharge Activity: Limit activity as instructed Coding Level of Care Code ED Bill Of Lading Clerk for Chg Fwd Exam Comprehensive
[2021-11-16 18:54] LABS: Basophils % 0.2 %; Hematocrit 33.4 % (37.0-47.0); Hemoglobin 11.7 g/dL (11.5-15.3); Lymphocytes # 1.4 10^3/uL (0.8-4.8); Lymphocytes % 10.6 %; Mean Corpuscular Volume 82.9 fl (81-99); Mean Platelet Volume 11.6 fL (7.4-10.4); Monocytes % 7.7 %; Neutrophils # 10.38 10^3/uL (1.8-7.7); Nucleated Red Blood Cells % 0 %; Platelet Count 335 10^3/cmm (130-400); Red Blood Count 4.03 10^6/uL (4.1-5.3); Red Cell Distribution Width 13.2 % (12.1-15.1); White Blood Count 12.8 10^3/uL (4.0-10.0)
[2021-11-16] MEDS: ondansetron 2 mg/ML SDV 2 mL 4 MG IVP ×3 (18:59→22:34)
[2021-11-16] MEDS: sodium chloride 0.9% 1,000 ML 999 ML IV (18:59)
[2021-11-16] MEDS: famotidine 20 mg/2 mL INJ IVP (18:59)
[2021-11-16 19:03] LABS: Alanine Aminotransferase 19 U/L (0-33); Albumin Level 4.7 g/dL (3.5-5.2); Alkaline Phosphatase 80 IU/L (35-105); Anion Gap 21.9 (5-19); Aspartate Amino Transferase 26 U/L (0-32); Blood Urea Nitrogen 11 mg/dL (6-20); Carbon Dioxide 18 mmol/L (22-29); Chloride 98 mmol/L (98-107); Creatinine Clr Calc Pharmacy 148.6418; Globulin 2.8 g/dL (1.3-4.6); Glomerular Filtration Rate 134.7 mL/min (90-130); Glucose 127 mg/dL (65-115); Lipase 7 U/L (13-60); Osmolality Calculated 281 mOsm/kg (285-295); Sodium 135 mmol/L (136-145); Total Bilirubin 0.6 mg/dL (0.15-1.2); Total Protein 7.5 g/dL (6.6-8.7)
[2021-11-16] MEDS: iohexol 350 mg/mL 100 mL Btl IV (19:17)
[2021-11-16 19:25] LABS: Potassium 2.9 mmol/L (3.5-5.1)
[2021-11-16] MEDS: HYDROmorphone 1 mg/mL INJ 1 mL 0.5 MG IVP (19:54)
[2021-11-16] MEDS: potassium chloride ER 20 mEq Tablet 40 MEQ PO (19:55)
[2021-11-16] MEDS: potassium chloride premix 100 ML 25 MEQ IV (20:19)
--- NOTE | 2021-11-16 21:24 | PM.HP ---
Providers/Chief Complaint Primary Care Provider: Jacky Freeman MD Chief Complaint: N/V, post surgery History of Present Illness Jana Strange is a 41 year old female with pmh of Pseudo seizures as well recurrent nausea and vomiting came in with c/o having, status post laparoscopic hiatal hernia repair and Des fundoplication, ( 10/31 ) for her h/o abnormal 24-hour pH monitoring/hiatal hernia and persistent acid reflux?came back today with chief complaint of similar episodes of intractable nausea, vomiting going on for the last few days, she is also experienced watery diarrhea during this time, 2-3 episodes each day.She does complain mild abdominal pain Particularly in the epigastric region. Currently she is denying any fever chest pain cough shortness of breath, any sick contact. Upon arrival in the ER: CT abdomen and pelvis with contrast was done: Nonspecific mild distention of the stomach.nonspecific diffuse fluid-filled small bowel and colon. This could be indicative of a gastroenteritis, Pertinent labs: WBC 12.8, H&H:11.7/33 , PLT : 335, serum sodium 135, serum potassium 2.9, BUN and serum creatinine:11/0.5 , Random blood sugar:127 , AST ALT alk phos total bilirubin normal. Lipase 7. Review of Systems General: Reports: 10 or more systems reviewed and unremarkable except in HPI and below Narrative: 66-year-old currently not in acute distress being admitted for chest pain evaluation Const: Denies: fever(s), chills, body aches, change in appetite or diaphoresis Card: Denies: palpitations, edema, swelling of feet/ankles, dyspnea on exertion, orthopnea or leg pain with exertion Resp: Denies: dyspnea, productive cough, wheezing or pain on inspiration GI: Reports: abdominal pain, nausea, vomiting and diarrhea; Denies: constipation : Denies: flank pain Musc: Denies: back pain, extremity pain or extremity swelling Neuro: Denies: headache(s), difficulty walking or confusion Medications/Allergies Home Medications Medication Instructions Recorded Confirmed Last Taken Type estradiol 10 mcg vaginal tablet See Rx Instructions .ROUTE .COMPLEX 06/14/20 11/16/21 10/29/21 History hydroxyzine HCl 50 mg tablet 50 mg PO DAILY 10/30/21 11/16/21 11/16/21 History ondansetron 4 mg disintegrating 4 mg PO Q6H PRN #30 tab 11/01/21 11/16/21 11/16/21 Rx tablet promethazine 12.5 mg tablet 12.5 mg PO Q6H PRN #20 tab 11/01/21 11/16/21 11/16/21 Rx scopolamine base 1 mg over 3 days 1 patch TRANSDERMAL Q72H PRN #4 ea 11/01/21 11/16/21 Unknown Rx transdermal patch (Transderm-Scop) hydrocodone 5 mg-acetaminophen 325 1 tab PO Q6H PRN 7 Days #28 tab 11/08/21 11/16/21 Unknown Rx mg tablet lorazepam 0.5 mg tablet 0.5 mg PO DAILY PRN 11/16/21 11/16/21 11/16/21 History Allergies Allergy/AdvReac Type Severity Reaction Status Date / Time aspirin Allergy ALGY-Hives Verified 11/09/21 16:50 capsaicin Allergy ALGY-Redness Verified 11/09/21 16:50 of Skin cephalexin [From Keflex] Allergy ALGY-Hives Verified 11/09/21 16:50 meperidine [From Demerol] Allergy Unknown Verified 11/09/21 16:50 PFSH Acute PFSH: Medical History Abnormal 24 hour ambulatory pH monitoring study Acute dehydration Cystitis Gastritis GERD (gastroesophageal reflux disease) Gross hematuria Interstitial cystitis Lactic acidosis Leukocytosis Nausea and vomiting Nausea and vomiting Pseudoseizures Surgical History History of appendectomy History of History of cholecystectomy History of colonoscopy History of esophagogastroduodenoscopy (EGD) History of hysterectomy for cancer History of ovarian resection Family History Denies family history of Anesthesia complication Bleeding disorder Social History Smoking and tobacco status: never smoked Alcohol intake: never Last substance use date: 10/12/19 Last substance use time: 01:00 Other details last substance use: Marijuana Current occupational status: employed Vitals/I&O/Wt Last Vital Signs Temp 99.3 F 11/16/21 15:43 Pulse 87 11/16/21 21:00 Resp 18 11/16/21 15:43 BP 169/110 11/16/21 21:00 Pulse Ox 97 11/16/21 21:00 Weight last 48 hrs Weight 69.853 kg Physical Exam Const: COMMON NORMALS: patient oriented x3 HENMT: COMMON NORMALS: normocephalic, atraumatic, hearing grossly normal bilaterally and external ears normal HEAD & SCALP: normocephalic and atraumatic EXTERNAL EAR: Yes external ears normal Eye: COMMON NORMALS: no scleral icterus GENERAL EYE: appearance normal, both eyes and all related structures Chest: COMMONS NORMALS: normal inspection of the chest and normal palpation of entire chest wall CHEST: Yes Symmetrical chest wall rise Resp: COMMON NORMALS: normal respiratory effort, No retractions, No use of accessory muscles and clear to auscultation bilaterally EFFORT & INSPECTION: Yes symmetric chest movement AUSCULTATION: clear to auscultation bilaterally Cardio: COMMON NORMALS: regular rate, regular rhythm, S1 normal heart sound present, S2 normal heart sound present, No gallops present (Cardio), No murmurs present (Cardio), No rub (Cardio) and Peripheral pulses 2+ throughout RATE: regular rate RHYTHM: regular rhythm HEART SOUNDS: S1 normal heart sound present and S2 normal heart sound present PERIPHERAL PULSES: Peripheral pulses 2+ throughout GI: AUSCULTATION: Yes normoactive bowel sounds RECTAL EXAM: deferred OTHER: Mild epigastric abdominal tenderness present. No guarding no rigidity no rebound tenderness. Extremity: COMMON NORMALS: no clubbing, cyanosis or edema and no pedal edema Neuro: COMMON NORMALS: patient oriented x3 Data : 11/16/21 18:20 11/16/21 18:20 A&P Assessment and plan (1) Intractable nausea and vomiting: Status: Acute (2) Abdominal pain: Status: Acute (3) Diarrhea: Status: Acute (4) Status post laparoscopic Des fundoplication: Status: Acute (5) Gastroenteritis: Status: Acute Plan 41 year old female with pmh of Pseudo seizures as well recurrent nausea and vomiting came in with c/o having, status post laparoscopic hiatal hernia repair and Des fundoplication, ( 10/31 ) for her h/o abnormal 24-hour pH monitoring/hiatal hernia and persistent acid reflux?came back today with chief complaint of similar episodes of intractable nausea, vomiting going on for the last few days, she is also experienced watery diarrhea during this time, 2-3 episodes each day. Assessment: Gastroenteritis Intractable nausea vomiting. Hypokalemia Dehydration Plan: Continue IV hydration with normal saline with potassium Continue Reglan Zofran Follow stool studies Monitor BMP Pain control Full liquid diet CODE STATUS: Full CODE DVT PPX : On Lovenox Attestations Medical Necessity Statement*: Patient is to be in hospital for management of dehydration, hypokalemia, need for IV fluids. Coding Level of Care Code Acute Analytical Laboratory Technician for Chg Fwd Diagnoses Intractable nausea and vomiting R11.2 Abdominal pain R10.9 Diarrhea R19.7 Status post laparoscopic Des fundoplication Z98.890 Gastroenteritis K52.9
[2021-11-16] MEDS: LORazepam 1 mg Tablet PO (22:34)
[2021-11-16] MEDS: morphine 4 mg/mL SDV 1 mL 2 MG IVP (22:34)
[2021-11-17] VITALS (11 sets, daily range): BP systolic 146–156; BP diastolic 79–104; PULSE 82–104; RESP 16–20; TEMP 36.6–37.4; O2SAT 96–98
--- NOTE | 2021-11-17 00:41 | PC.NURSE ---
KRider ER nurse reports that patient only received half her Krider in ER due to not tolerating it. 50mL of 100mL bag wasted in AUG.
[2021-11-17] MEDS: promethazine 25 mg Tablet 12.5 MG PO ×2 (01:18→10:16)
[2021-11-17] MEDS: ondansetron 4 MG Tablet PO ×5 (01:18→17:09)
[2021-11-17] MEDS: sodium chlor 0.9% + KCl 20 mEq 20 MEQ/1,000 ML BAG 100 MEQ IV ×2 (01:19→11:05)
[2021-11-17] MEDS: enoxaparin 40 mg/0.4 mL Syringe SUBCUT ×2 (01:19→21:15)
[2021-11-17] MEDS: HYDROcodone-acetaminophen 5-325 mg Tablet 1 TAB PO (01:59)
[2021-11-17] MEDS: morphine 4 mg/mL SDV 1 mL 2 MG IVP (04:40)
[2021-11-17] MEDS: LORazepam 0.5 mg Tablet PO ×2 (04:51→21:38)
[2021-11-17 06:28] LABS: Basophils % 0.2 %; Eosinophils % 0.1 %; Hematocrit 31.6 % (37.0-47.0); Hemoglobin 10.7 g/dL (11.5-15.3); Lymphocytes # 1.6 10^3/uL (0.8-4.8); Lymphocytes % 12.4 %; Mean Corpuscular HGB Conc 33.9 g/dL (30.0-36.0); Mean Corpuscular Hemoglobin 29.6 pg (28.0-34.0); Mean Corpuscular Volume 87.5 fl (81-99); Mean Platelet Volume 11.3 fL (7.4-10.4); Monocytes # 1.1 10^3/uL (0.2-0.9); Monocytes % 8.8 %; Neutrophils # 9.86 10^3/uL (1.8-7.7); Neutrophils % 78.3 %; Nucleated Red Blood Cells % 0 %; Platelet Count 276 10^3/cmm (130-400); Red Blood Count 3.61 10^6/uL (4.1-5.3); Red Cell Distribution Width 13.6 % (12.1-15.1); White Blood Count 12.6 10^3/uL (4.0-10.0)
[2021-11-17 06:48] LABS: Alanine Aminotransferase 17 U/L (0-33); Albumin Level 3.7 g/dL (3.5-5.2); Alkaline Phosphatase 63 IU/L (35-105); Blood Urea Nitrogen 7 mg/dL (6-20); Calcium 7.7 mg/dL (8.5-10.5); Carbon Dioxide 17 mmol/L (22-29); Chloride 102 mmol/L (98-107); Globulin 2.1 g/dL (1.3-4.6); Glomerular Filtration Rate 174.2 mL/min (90-130); Glucose 119 mg/dL (65-115); Magnesium 1.6 mg/dL (1.7-2.3); Osmolality Calculated 277 mOsm/kg (285-295); Phosphorus 2.1 mg/dL (2.5-4.5); Sodium 134 mmol/L (136-145); Total Bilirubin 0.6 mg/dL (0.15-1.2); Total Protein 5.8 g/dL (6.6-8.7)
[2021-11-17 06:50] LABS: Anion Gap 19.2 (5-19); Aspartate Amino Transferase 27 U/L (0-32); Potassium 4.2 mmol/L (3.5-5.1)
[2021-11-17] MEDS: metoclopramide 5 mg/mL SDV 2 mL IVP ×3 (08:19→20:54)
[2021-11-17] MEDS: hyDROXYzine 25 mg Capsule 50 MG PO (08:19)
[2021-11-17 09:09] LABS: Bilirubin Urine Neg (Negative); Blood Urine 2+ (Negative); Glucose Urine UA Norm (Normal); Ketones Urine 2+ (Negative); Nitrate Urine Negative (Negative); Protein Urine Neg (Negative); Urine Appearance Clear (CLEAR); Urine Color Yellow (Yellow); pH Urine 5 (5-7)
[2021-11-17 09:10] LABS: Add Urine Microscopic? YES; Leukocyte Esterase Urine Negative (Negative); Urobilinogen Urine Norm (Negative)
[2021-11-17 09:13] LABS: WBC Urine 0-4 /hpf (0-5)
[2021-11-17] MEDS: pantoprazole 40 mg SDV IVP ×2 (11:05→23:04)
[2021-11-17] MEDS: morphine 4 mg/mL SDV 1 mL 1 MG IVP ×4 (11:05→23:01)
--- NOTE | 2021-11-17 11:49 | PC.CHAP ---
Pastoral Care Encounter/Spiritual Assessment Type of Contact [] Declined twine winder visit [] Patient/Family/Request visit [] Outpatient visit [] Follow-up visit [] Physician referral [] Code/Alert [x] Routine visit [] Staff referral [] Actively dying [] Patient sleeping [] Family support [] [] Out of room [] Palliative care [] [] Receiving care in room [] Pre-surgical visit [] Trauma [] Long length of stay [] ICU visit [] Other: Relational/Emotional Strength [x] Patient feels connected with others/family/visitors/staff [] Distress [] Loneliness/isolation [] Abandonment Spirituality of Patient [x] Person of Romi [] Attends Mu-Ism of their Romi [x] Believes in Prayer [] Reads Bible or Synagogue materials [] There are Spiritual issues to be addressed Wet Wash Assembler Interventions [x] Prayer [x] Active listening [x] Non-anxious presence [] Spiritual/emotional support [] Crisis/trauma care [] Spiritual counseling [] Bereavement support [] Provided bereavement packet [] Provided Bible/devotional materials [] Provided toy/stuffed animal, coloring book to patient or family member [] Provided Communion [] Anointing/[place] [] Salvation [xxx] Completed spiritual assessment [] Other: Impact on Illness or Injury [] Angry [] Fearful [] Anxious [] Often cries [] Exhaustion [] Unable to work [] Unable to attend methodist [] Unable to walk/stand [] Unable to read [] Unable to drive [] Unable to eat/drink [] Unable to sleep [] Unable to be with family [] Patient intubated [] Other: Summary Time spent with patient 15 min
[2021-11-17] MEDS: LORazepam 2 mg/mL INJ 1 mL 0.5 MG IVP (12:26)
--- NOTE | 2021-11-17 12:45 | PC.NURSE ---
Patient is up ambulating the hallway and verbalizes to this nurse that she is still hurting after recent administration of morphine and feeling anxious. Dr Casanova notified and orders received to administer 0.5mg ativan IVP once.
--- NOTE | 2021-11-17 13:06 | P.PN_ITS ---
Subjective Subjective: Seen this morning. She continues to complain of nausea. She states she had surgery about 2 weeks ago as a 12 application. She also been having some diarrhea. He states she has been very adherent and compliant to her diet. Labs this morning magnesium 1.6, anion gap 19.6. Vitals/I&O/Wt Last Vital Signs Temp 98.1 F 11/17/21 11:40 Pulse 82 11/17/21 11:40 Resp 18 11/17/21 11:40 BP 149/89 11/17/21 11:40 Pulse Ox 96 11/17/21 11:40 11/16/21 11/17/21 11/17/21 22:59 06:59 14:59 Intake Total 1300 / 1300 1456.667 / 1456.667 Output Total Balance 1299 / 1299 1456.667 / 1456.667 Weight last 48 hrs Weight 74.026 kg Weight 69.853 kg Physical Exam Narrative: General: Alert oriented x3, patient seen sitting up in bed appearing nauseous with bucket in hand HEENT: Normocephalic, atraumatic, EOMI, breathing normally Cardio: Regular rate rhythm, normal S1-S2, no murmurs rubs gallops, Respiratory: Good bilateral air entry, no wheezes no rhonchi appreciated GI: Abdomen soft, nontender, nondistended, bowel sounds + and normoactive. Behavior: Appropriate and cooperative Extremities: no edema, no cyanosis Data : 11/17/21 06:17 11/17/21 06:17 A&P Assessment and plan (1) Gastroenteritis: Status: Acute (2) Intractable nausea and vomiting: Status: Acute (3) Abdominal pain: Status: Acute (4) Nausea & vomiting: Status: Acute (5) Diarrhea: Status: Acute (6) Intractable vomiting: Status: Acute (7) Status post laparoscopic Des fundoplication: Status: Acute Plan 41 year old female with pmh of Pseudo seizures as well recurrent nausea and vomiting came in with c/o having, status post laparoscopic hiatal hernia repair and Des fundoplication, ( 10/31 ) for her h/o abnormal 24-hour pH monitoring/hiatal hernia and persistent acid reflux?came back today with chief complaint of similar episodes of intractable nausea, vomiting going on for the last few days, she is also experienced watery diarrhea during this time, 2-3 episodes each day. Assessment: Gastroenteritis Intractable nausea vomiting. Hypokalemia Dehydration Plan: Continue IV hydration with normal saline with potassium Continue Reglan Zofran Follow stool studies. Nurse to obtain sample Normal saline bolus 1 L x 1 Continue to monitor and watch patient for now Replete magnesium Monitor BMP Pain control Full liquid diet CODE STATUS: Full CODE DVT PPX : On Lovenox Attestations Medical Necessity Statement*: Patient is to be in hospital for management of dehydration, hypokalemia, need for IV fluids. Coding Level of Care Code Acute Primary Clinician for Chg Fwd Diagnoses Gastroenteritis K52.9 Intractable nausea and vomiting R11.2 Abdominal pain R10.9 Nausea & vomiting R11.2 Diarrhea R19.7 Intractable vomiting R11.10 Status post laparoscopic Des fundoplication Z98.890
[2021-11-17] MEDS: sodium chloride 0.9% 1,000 ML 999 ML IV (13:47)
[2021-11-17] MEDS: magnesium sulfate premix 4 GM/100 ML PREMIX IV (14:48)
[2021-11-17] MEDS: ondansetron 2 mg/ML SDV 2 mL 4 MG IVP (19:42)
--- NOTE | 2021-11-17 19:42 | PC.NURSE ---
N&V Is c/o nausea and had small clear liquid emesis. RN is giving IV Zofran instead of the scheduled po is scheduled to receive. Pt is c/o that the Morphine makes her nauseous and is requesting pain med change to Dilaudid because this does not make her nauseous
--- NOTE | 2021-11-17 20:09 | PC.NURSE ---
CALL TO DR Grider was requesting pain med change to Dilaudid from Morphine. Says Morphine makes her nausea worse. Dr Aviles hospitalist was called and pt told he is not changing med. Was told prior to call that he may not be willing to change meds
[2021-11-17] MEDS: lanolin oint 7 gm 1 APPLIC TOPICAL (22:13)
[2021-11-18] VITALS (12 sets, daily range): BP systolic 141–161; BP diastolic 94–102; PULSE 68–111; RESP 16–20; TEMP 36.7–38.4; O2SAT 90–98
[2021-11-18] MEDS: ondansetron 4 MG Tablet PO ×6 (00:18→19:50)
[2021-11-18] MEDS: sodium chlor 0.9% + KCl 20 mEq 20 MEQ/1,000 ML BAG 100 MEQ IV (02:18)
[2021-11-18] MEDS: morphine 4 mg/mL SDV 1 mL 1 MG IVP ×4 (02:56→19:43)
[2021-11-18 05:30] LABS: Basophils % 0.1 %; Eosinophils % 0.1 %; Hematocrit 33.8 % (37.0-47.0); Hemoglobin 11.8 g/dL (11.5-15.3); Lymphocytes # 2.1 10^3/uL (0.8-4.8); Lymphocytes % 10.2 %; Mean Corpuscular HGB Conc 34.9 g/dL (30.0-36.0); Mean Corpuscular Hemoglobin 29.4 pg (28.0-34.0); Mean Corpuscular Volume 84.1 fl (81-99); Mean Platelet Volume 11.3 fL (7.4-10.4); Monocytes # 1.7 10^3/uL (0.2-0.9); Monocytes % 8.4 %; Neutrophils # 16.51 10^3/uL (1.8-7.7); Neutrophils % 80.8 %; Nucleated Red Blood Cells % 0 %; Platelet Count 334 10^3/cmm (130-400); Red Blood Count 4.02 10^6/uL (4.1-5.3); Red Cell Distribution Width 13.1 % (12.1-15.1); White Blood Count 20.5 10^3/uL (4.0-10.0)
[2021-11-18 05:49] LABS: Anion Gap 18.5 (5-19); Blood Urea Nitrogen 5 mg/dL (6-20); Calcium 7.6 mg/dL (8.5-10.5); Carbon Dioxide 19 mmol/L (22-29); Chloride 101 mmol/L (98-107); Glomerular Filtration Rate 174.2 mL/min (90-130); Glucose 131 mg/dL (65-115); Magnesium 2.3 mg/dL (1.7-2.3); Osmolality Calculated 279 mOsm/kg (285-295); Potassium 3.5 mmol/L (3.5-5.1); Sodium 135 mmol/L (136-145)
[2021-11-18] MEDS: promethazine 25 mg Tablet 12.5 MG PO (05:53)
[2021-11-18] MEDS: LORazepam 0.5 mg Tablet PO (05:53)
--- NOTE | 2021-11-18 06:49 | PC.NURSE ---
SHIFT SUMMARY Has slept for short periods tonight. Has been medicated with multiple meds for nausea c/o and never says anything actually helps. Has had X3 small clear liquid emesis. Also medicated with IV Morphine prn for c/o abdominal pain. Again does not express any relief but does rest short while after receiving it. Has taken 3 showers tonight stating it helps with her panic Attcks . IV infusing at 125ml/hr rate.
[2021-11-18] MEDS: hyDROXYzine 25 mg Capsule 50 MG PO (08:42)
[2021-11-18] MEDS: metoclopramide 5 mg/mL SDV 2 mL IVP (08:43)
--- NOTE | 2021-11-18 11:38 | XRR_ITS ---
PROCEDURE INFORMATION: Exam: XR Chest Exam date and time: 11/18/2021 11:50 AM Age: 41 years old Clinical indication: Chest wall pain; Additional info: Baseline assessment TECHNIQUE: Imaging protocol: XR of the chest. Views: 1 view. COMPARISON: 1. CR XR chest 1V portable [id number] 09/14/2021 12:[address] abdomen pelvis w con* [id number] 11/16/2021 7:15 PM FINDINGS: Lungs: Hazy ground-glass opacities at the lung bases with Bradley B lines. No focal consolidation. Pleural spaces: Small pleural effusions suspected. No visible pneumothorax. Heart/Mediastinum: Surgical clips near the GE junction. Bones/joints: Unremarkable. XR/XR chest 1V portable [id number] IMPRESSION: Suspicion for mild pulmonary edema and small effusions, new since November 16 CT abdomen. No dense consolidation.
--- NOTE | 2021-11-18 11:38 | XRR_ITS ---
PROCEDURE INFORMATION: Exam: XR Abdomen Exam date and time: 11/18/2021 11:50 AM Age: 41 years old Clinical indication: Abdominal pain; Additional info: Epigastric pain, nausea TECHNIQUE: Imaging protocol: XR of the abdomen. Views: Frontal supine view of the abdomen. 1 View. COMPARISON: CT abdomen pelvis w con* [id number] 11/16/2021 7:15 PM FINDINGS: Gastrointestinal tract: Air scattered throughout the GI tract from stomach to rectum. Nonobstructed pattern. Intraperitoneal space: No visible free air. Bones/joints: Unremarkable. XR/XR KUB portable [id number] IMPRESSION: Air throughout the GI tract from stomach to rectum. Nonobstructive pattern.
[2021-11-18] MEDS: pantoprazole 40 mg SDV IVP ×2 (12:09→22:58)
[2021-11-18] MEDS: scopolamine 1.5 Patch 1 PATCH TRANSDERMA (12:11)
[2021-11-18] MEDS: HYDROmorphone 1 mg/mL INJ 1 mL 0.25 MG IVP ×3 (12:13→22:58)
[2021-11-18] MEDS: LORazepam 2 mg/mL INJ 1 mL 0.5 MG IVP (12:17)
[2021-11-18] MEDS: sodium chlor 0.9% + KCl 20 mEq 20 MEQ/1,000 ML BAG 125 MEQ IV ×2 (12:19→20:51)
--- NOTE | 2021-11-18 12:27 | P.PN_ITS ---
Subjective Subjective: Seen this morning. She states she has been having significant nausea and vomiting. She has not had any bowel movement since admission. She complains of epigastric pain. Requesting Dilaudid for pain as she says it works better for her. Morphine makes her more nauseous. She is unable to tell a difference whether Zofran or Reglan is working better at this time. Vitals/I&O/Wt Last Vital Signs Temp 98.2 F 11/18/21 12:00 Pulse 92 11/18/21 12:00 Resp 18 11/18/21 08:43 BP 141/94 11/18/21 12:00 Pulse Ox 98 11/18/21 12:00 11/17/21 11/18/21 11/18/21 22:59 06:59 14:59 Intake Total 1340 / 4036.667 680 / 4716.667 925 / 925 Balance 1340 / 4036.667 680 / 4716.667 925 / 925 Weight last 48 hrs Weight 76.702 kg Weight 74.026 kg Weight 69.853 kg Physical Exam Narrative: General: Alert oriented x3, patient seen sitting up in bed appearing nauseous with bucket in hand HEENT: Normocephalic, atraumatic, EOMI, breathing normally Cardio: Regular rate rhythm, normal S1-S2, no murmurs rubs gallops, Respiratory: Good bilateral air entry, no wheezes no rhonchi appreciated GI: Abdomen soft, mildly tender to palpation diffusely throughout all quadrants, more of a soreness than pain, epigastric area more tender compared to rest of abdomen, no guarding or rigidity, Lim sign by palpation negative, bowel sounds present but hypoactive Behavior: Appropriate and cooperative Extremities: no edema, no cyanosis ? Data : 11/18/21 05:13 11/18/21 05:13 A&P Assessment and plan (1) Gastroenteritis: Status: Acute (2) Intractable nausea and vomiting: Status: Acute (3) Abdominal pain: Status: Acute (4) Diarrhea: Status: Acute (5) Nausea & vomiting: Status: Acute (6) Intractable vomiting: Status: Acute (7) Status post laparoscopic Des fundoplication: Status: Acute (8) Mid back pain on right side: Status: Acute Plan 41 year old female with pmh of Pseudo seizures as well recurrent nausea and vomiting came in with c/o having, status post laparoscopic hiatal hernia repair and Des fundoplication, ( 10/31 ) for her h/o abnormal 24-hour pH monitoring/hiatal hernia and persistent acid reflux?came back today with chief complaint of similar episodes of intractable nausea, vomiting going on for the last few days, she is also experienced watery diarrhea during this time, 2-3 episodes each day. Ever since hospital stay patient has not had a bowel movement. Stool cultures for C. difficile and bacterial ova and parasite have been ordered. She continues to complain of nausea vomiting. KUB today showed ileus. I have made her n.p.o. except chips or meds. I have added scopolamine patch, increase Reglan from 5 mg 3 times daily to 10 mg 3 times daily, Phenergan as needed, Zofran as needed. Instructed nurses to obtain stool sample whenever she has a BM. WBC count jumped to 20,000. I think this is mostly stress related however we will cover her with Zosyn and will empirically treat for C. difficile with vancomycin 125 MCG orally 4 times a day. She did report liquidy bowel movements 2-3 episodes each day prior to admission. I will hold off on starting IV metronidazole for now as her CT did not show evidence of colitis. We will avoid putting an NG tube due to recent surgery in order to avoid injuring the surgical site. Discussed with Dr. Garcia over the phone and he agrees with the above. Continue IV hydration with normal saline. It is also evidence from the notes that patient has been taking marijuana at home and that she states it helps her nausea vomiting. I am suspecting a component of cyclical vomiting syndrome at this point from marijuana use. We will do a U tox today. Assessment: Ileus Gastroenteritis Possible C. difficile infection Possible cyclic vomiting syndrome from marijuana use Intractable nausea vomiting. Hypokalemia Dehydration Anxiety Plan: Continue IV hydration with normal saline with potassium Reglan 10 3 times daily IV Zofran 4 to 8 mg every 4 hours as needed Phenergan 12.5 every 6 hours as needed Scopolamine patch every 3 days Check stool cultures for ova parasite and C. difficile Will empirically treat for C. difficile vancomycin 125 4 times daily x10 days for now. Will de-escalate if C. difficile negative once we have a bowel movemen t. Empirically cover with Zosyn. I believe leukocytosis secondary to stress response at this time even though it is as high as 20,000. Patient is afebrile Check blood cultures Check lactic acid Repeat electrolyte Ordered Dilaudid 0.25 every 6 hours as needed for pain Ativan 0.5 twice daily as needed for anxiety N.p.o. except meds chips Full code DVT prophylaxis: Lovenox Attestations Medical Necessity Statement*: Continues to have nausea vomiting. Now has an ileus. Will need to be in the hospital for management of all the above. Expect her stay to be greater than 48 hours at this point Coding Level of Care Code Acute Election Supervisor for g Fwd Diagnoses Gastroenteritis K52.9 Intractable nausea and vomiting R11.2 Abdominal pain R10.9 Diarrhea R19.7 Nausea & vomiting R11.2 Intractable vomiting R11.10 Status post laparoscopic Des fundoplication Z98.890 Mid back pain on right side M54.9
[2021-11-18 13:46] LABS: Lactic Sepsis W/Reflex 1.2 mmol/L (0.5-2.2)
[2021-11-18] MEDS: metoclopramide 5 mg/mL SDV 2 mL 10 MG IVP ×2 (14:00→21:07)
[2021-11-18] MEDS: piperacillin-tazobactam 3.375 GM in sodium chloride 0.9% (plus) 50 ML IV ×2 (14:10→20:52)
[2021-11-18] MEDS: potassium chloride premix 100 ML 25 MEQ IV (14:11)
--- NOTE | 2021-11-18 14:46 | P.CONIM_ITS ---
Providers/Reason For Consult Consulting Physician/Specialty*: Booker Garcia MD Reason for Consult*: Nausea and vomiting status post laparoscopic Des fundoplication and hiatal hernia repair Requesting Physician: Dr. Casanova Attending Physician: Kezia Casanova MD Primary Care Provider: Jacky Freeman MD History of Present Illness History of Present Illness Mr. Jana Strange is a pleasant 41 year old female, well-known to me from prev ious clinical encounters as recently I did perform uneventful laparoscopic hiatal hernia repair with 360 degree Des fundoplication 10/31/2021 for abnormal pH monitoring as well as symptomatic hiatal hernia. And inpite of PPI therapy patient had persistent acid reflux and frequent ER visits and persistent heartburn. Patient was discharged home shortly after postoperative day 1 and maintained to be on appropriate protocol for post Des diet per my instructions. And she was seen at my office as a follow-up visit on 11/08/2021. Apparently per patient's description last Saturday in the later afternoon had ingested water from a bottle that was kept in the car for a while and shortly thereafter started to have nausea and vomiting associated with profound diarrhea. Presented to the emergency department with chest and upper abdominal pain due to the repeated retching and vomiting. Further work-up was done that showed; Initial lab work showed WBC count of 14.6, hemoglobin of 13.9, platelets 435. Sodium 140, potassium 4.1 liver function test within normal, albumin 4.7 and lipase of 17. Repeated lab over the course of the hospital showed lactic acid of 1.2, elevated WBC count up to 20.5. CT of the abdomen and pelvis without contrast on 11/15/2021 1. Limited noncontrast examination without CT evidence of acute intra-abdominal or pelvic pathology. 2. Additional findings, as above. Followed by repeat CT scan of the abdomen and pelvis with IV contra Sequela of [place] fundoplication. Nonspecific mild distention of the stomach. This does not appear to be obstructed at this level as there is normal caliber loops of small bowel and colon distal to the stomach. There is nonspecific diffuse fluid-filled small bowel and colon. This could be indicative of a gastroenteritis, the loops of bowel are not pathologically distended to suggest bowel obstruction or ileus. Patient was admitted to the hospitalist service for IV fluid resuscitation and control of nausea and vomiting and planning was to obtain stool sample. I was approached by Dr. Casanova yesterday evening as I was out of state for a conference discussing the plan of care and agreed upon conservative measures. I had the chance today to come and visit the patient myself and check on her. Reports that she has been doing fine for the past couple of weeks postoperatively yet for the last few days and after ingesting this water started to complain of gastroenteritis like symptoms, no other sick contacts. Review of Systems General: Reports: 10 or more systems reviewed and unremarkable except in HPI and below Medications/Allergies Home Medications Medication Instructions Recorded Confirmed Last Taken Type estradiol 10 mcg vaginal tablet See Rx Instructions .ROUTE .COMPLEX 06/14/20 11/16/21 10/29/21 History hydroxyzine HCl 50 mg tablet 50 mg PO DAILY 10/30/21 11/16/21 11/16/21 History ondansetron 4 mg disintegrating 4 mg PO Q6H PRN #30 tab 11/01/21 11/16/21 11/16/21 Rx tablet promethazine 12.5 mg tablet 12.5 mg PO Q6H PRN #20 tab 11/01/21 11/16/21 11/16/21 Rx scopolamine base 1 mg over 3 days 1 patch TRANSDERMAL Q72H PRN #4 ea 11/01/21 11/16/21 Unknown Rx transdermal patch (Transderm-Scop) hydrocodone 5 mg-acetaminophen 325 1 tab PO Q6H PRN 7 Days #28 tab 11/08/21 11/16/21 Unknown Rx mg tablet lorazepam 0.5 mg tablet 0.5 mg PO DAILY PRN 11/16/21 11/16/21 11/16/21 History Allergies Allergy/AdvReac Type Severity Reaction Status Date / Time aspirin Allergy ALGY-Hives Verified 11/09/21 16:50 capsaicin Allergy ALGY-Redness Verified 11/09/21 16:50 of Skin cephalexin [From Keflex] Allergy ALGY-Hives Verified 11/09/21 16:50 meperidine [From Demerol] Allergy Unknown Verified 11/09/21 16:50 Current Medications Generic Name Dose Route Start Last Admin Trade Name Freq PRN Reason Stop Dose Admin Enoxaparin Sodium 40 mg 11/16/21 21:30 11/17/21 21:15 Enoxaparin 40 Mg/0.4 Ml Syringe SUBCUT 40 mg Q24H SIDNEY Administration Hydromorphone HCl 0.25 mg 11/18/21 11:41 11/18/21 12:13 Hydromorphone 1 Mg/Ml Inj 1 Ml IVP 0.25 mg Q6H PRN Administration PAIN Hydroxyzine Pamoate 50 mg 11/17/21 09:00 11/18/21 08:42 Hydroxyzine 25 Mg Capsule PO 50 mg DAILY SIDNEY Administration Potassium Chloride/Sodium Chloride 20 meq in 1,000 mls @ 125 mls/hr 11/16/21 21:30 11/18/21 12:19 Sodium Chlor 0.9% + Kcl 20 Meq IV 125 mls/hr .Q8H SIDNEY Administration Potassium Chloride 100 mls @ 25 mls/hr 11/18/21 12:30 11/18/21 14:11 K-Elias IV 11/18/21 16:29 25 mls/hr ONCE ONE Administration Piperacillin Sod/Tazobactam 50 mls @ 12.5 mls/hr 11/18/21 13:00 11/18/21 14:10 Sod 3.375 gm/ Sodium Chloride IV 12.5 mls/hr Q8H SIDNEY Administration Protocol Lanolin 1 applic 11/17/21 21:59 11/17/21 22:13 Lanolin Oint 7 Gm TOPICAL 1 tube PRN PRN Administration DRYNESS Lorazepam 0.5 mg 11/18/21 11:43 11/18/21 12:17 Lorazepam 2 Mg/Ml Inj 1 Ml IVP 0.5 mg Q12H PRN Administration ANXIETY Metoclopramide HCl 10 mg 11/18/21 12:15 11/18/21 14:00 Metoclopramide 5 Mg/Ml Sdv 2 Ml IVP 10 mg TID SIDNEY Administration Morphine Sulfate 1 mg 11/17/21 10:15 11/18/21 08:43 Morphine 4 Mg/Ml Sdv 1 Ml IVP 1 mg Q4H PRN Administration PAIN Ondansetron HCl 4 mg 11/16/21 20:34 11/17/21 19:42 Ondansetron 2 Mg/Ml Sdv 2 Ml IVP 4 mg Q6H PRN Administration NAUSEA AND VOMITING Ondansetron HCl 4 mg 11/17/21 00:39 11/18/21 12:11 Ondansetron 4 Mg Tablet PO 4 mg Q4H SIDNEY Administration Pantoprazole Sodium 40 mg 11/17/21 11:00 11/18/21 12:09 Pantoprazole 40 Mg Sdv IVP 40 mg Q12H SIDNEY Administration Promethazine HCl 12.5 mg 11/17/21 00:39 11/18/21 05:53 Promethazine 25 Mg Tablet PO 12.5 mg Q6H PRN Administration nausea and vomiting Scopolamine 1 patch 11/18/21 12:00 11/18/21 12:11 Scopolamine 1.5 Patch TRANSDERMA 1 patch Q3D SIDNEY Administration PFSH Acute PFSH: Medical History Abnormal 24 hour ambulatory pH monitoring study Acute dehydration Cystitis Gastritis GERD (gastroesophageal reflux disease) Gross hematuria Interstitial cystitis Lactic acidosis Leukocytosis Nausea and vomiting Nausea and vomiting Pseudoseizures Surgical History History of appendectomy History of History of cholecystectomy History of colonoscopy History of esophagogastroduodenoscopy (EGD) History of hysterectomy for cancer History of ovarian resection Family History Denies family history of Anesthesia complication Bleeding disorder Social History Smoking and tobacco status: never smoked Alcohol intake: never Last substance use date: 10/12/19 Last substance use time: 01:00 Other details last substance use: Marijuana Current occupational status: employed Vitals/I&O/Wt Last Vital Signs Temp 98.2 F 11/18/21 12:00 Pulse 92 11/18/21 12:00 Resp 18 11/18/21 08:43 BP 141/94 11/18/21 12:00 Pulse Ox 98 11/18/21 12:00 11/17/21 11/18/21 11/18/21 22:59 06:59 14:59 Intake Total 1340 / 4036.667 680 / 4716.667 925 / 925 Balance 1340 / 4036.667 680 / 4716.667 925 / 925 Weight last 48 hrs Weight 169 lb 1.6 oz Weight 163 lb 3.2 oz Weight 154 lb Physical Exam Narrative: Patient is conscious alert oriented X3 No apparent distress BMI 26.5 Head and neck examination PERRLA no masses no cervical lymphadenopathy no jaundice Cardiac examination audible S1-S2 no murmurs no gallops no arrhythmias Chest is clear bilateral,abscence of Rhonchi or wheezes,no surgical emphysema Abdomen nontender except over the anterior chest wall and to the left costal margin and epigastric area. Nondistended soft no organomegaly guarding or rigidity/no signs of peritonitis Incisions are well-healed Extremities no cyanosis no clubbing no edema Data : 11/18/21 05:13 11/18/21 05:13 Micro: Microbiology 11/18/21 13:17 Blood Culture - Preliminary Blood SPECIMEN COLLECTED A&P Assessment and plan (1) Intractable nausea and vomiting: After further history taking physical examination and reviewing the chart and i mages with my personal interpretation of the CT scan of the abdomen pelvis as well as the KUB that was obtained today and showed non-obstructive gas pattern and no evidence of free air also shows intact Des fundoplication Likely patient developed some sort of gastroenteritis and I would recommend to go to post Des diet on clear liquid. And avoid any straws. Continue IV fluid resuscitation Ice packs on areas of soreness No indication for any surgical intervention at this point Will follow on stool studies Encourage ambulation Strict I's and O's Reglan and scopolamine patch for nausea. Wean off any IV narcotics We will continue coordinating care with Dr. Casanova Assurance and education All questions have been answered and all concerns have been addressed to patient's satisfaction. Status: Acute Consult Attestations Medical Necessity Statement: Per admitting service Coding Level of Care Code Acute Inclusion Special Educator for Chg Fwd Diagnoses Intractable nausea and vomiting R11.2
--- NOTE | 2021-11-18 18:27 | PC.NURSE ---
Addendum entered by Uriel Hubbard RN 11/18/21 18:29: this telephone order to pencil maker Rn. Original Note: Physician telephone order Dr Pearce talked to pt via telephone at bedside, encourage pt to have Popsicle intake and do not insert NG tube if pt is having nausea and vomiting due to recent surgery.
[2021-11-18] MEDS: ondansetron 2 mg/ML SDV 2 mL 4 MG IVP (18:47)
--- NOTE | 2021-11-18 19:42 | PC.NURSE ---
UA Clean catch urine specimen sent to lab
--- NOTE | 2021-11-18 19:44 | PC.NURSE ---
bedside report given to ROMY Paris
[2021-11-18] MEDS: acetaminophen 325 mg Tablet 650 MG PO (19:49)
[2021-11-18 19:55] LABS: Amphetamines Screen Urine Negative (Negative); Barbiturates Screen Urine Negative (Negative); Benzodiazepines Screen Urine Positive (Negative); Cocaine Screen Urine Negative (Negative); Opiate Screen Urine Positive (Negative); PCP Screen Urine Negative (Negative); THC Screen Urine Positive (Negative)
[2021-11-18] MEDS: enoxaparin 40 mg/0.4 mL Syringe SUBCUT (20:50)
[2021-11-19] VITALS (14 sets, daily range): BP systolic 138–152; BP diastolic 93–119; PULSE 101–116; RESP 15–20; TEMP 36.3–37.8; O2SAT 90–95
[2021-11-19] MEDS: ondansetron 4 MG Tablet PO ×6 (00:07→20:28)
[2021-11-19] MEDS: LORazepam 2 mg/mL INJ 1 mL 0.5 MG IVP ×2 (00:09→12:47)
[2021-11-19] MEDS: morphine 4 mg/mL SDV 1 mL 1 MG IVP ×5 (01:04→23:19)
[2021-11-19] MEDS: promethazine 25 mg Tablet 12.5 MG PO (02:09)
[2021-11-19] MEDS: piperacillin-tazobactam 3.375 GM in sodium chloride 0.9% (plus) 50 ML IV ×3 (04:28→23:20)
[2021-11-19] MEDS: sodium chlor 0.9% + KCl 20 mEq 20 MEQ/1,000 ML BAG 125 MEQ IV ×2 (04:35→13:54)
[2021-11-19] MEDS: HYDROmorphone 1 mg/mL INJ 1 mL 0.25 MG IVP ×4 (04:52→20:29)
[2021-11-19 05:13] LABS: Basophils % 0.2 %; Hemoglobin 11.7 g/dL (11.5-15.3); Lymphocytes % 13.6 %; Mean Corpuscular HGB Conc 35.5 g/dL (30.0-36.0); Mean Corpuscular Hemoglobin 29.5 pg (28.0-34.0); Mean Corpuscular Volume 83.1 fl (81-99); Mean Platelet Volume 11.9 fL (7.4-10.4); Monocytes # 1.6 10^3/uL (0.2-0.9); Monocytes % 10.7 %; Neutrophils # 11.16 10^3/uL (1.8-7.7); Neutrophils % 74.9 %; Nucleated Red Blood Cells % 0 %; Platelet Count 320 10^3/cmm (130-400); Red Blood Count 3.97 10^6/uL (4.1-5.3); Red Cell Distribution Width 12.8 % (12.1-15.1); White Blood Count 14.9 10^3/uL (4.0-10.0)
[2021-11-19 05:30] LABS: Anion Gap 18.8 (5-19); Blood Urea Nitrogen 5 mg/dL (6-20); Calcium 7.6 mg/dL (8.5-10.5); Carbon Dioxide 17 mmol/L (22-29); Chloride 100 mmol/L (98-107); Glomerular Filtration Rate 134.7 mL/min (90-130); Glucose 140 mg/dL (65-115); Magnesium 1.9 mg/dL (1.7-2.3); Osmolality Calculated 274 mOsm/kg (285-295); Potassium 3.8 mmol/L (3.5-5.1); Sodium 132 mmol/L (136-145)
--- NOTE | 2021-11-19 06:35 | PC.NURSE ---
SHIFT SUMMARY Has not slept much tonight. Says she takes naps but pain & nausea wakes her up. c/o upper abd pain & tenderness. Requests multiple meds for pain & nausea but cont to deny that they help much. Only 1 small emesis tonight. Remains on sips of liquids, ice chips and meds only. Has had fever tonight and hospitalist was notified. No new orders were given. Is receiving IV antibiotics and blood cultures were done yesterday. No BM's this shift and pt is aware of need to obtain stool specimens if they do move. IV infusing without difficulty at 125ml/hr. Pt also c/o anxiety and says she has panic attacks
[2021-11-19] MEDS: metoclopramide 5 mg/mL SDV 2 mL 10 MG IVP ×3 (08:34→20:28)
[2021-11-19] MEDS: hyDROXYzine 25 mg Capsule 50 MG PO (08:34)
[2021-11-19 09:13] LABS: Alanine Aminotransferase 15 U/L (0-33); Albumin Level 3.5 g/dL (3.5-5.2); Alkaline Phosphatase 74 IU/L (35-105); Aspartate Amino Transferase 15 U/L (0-32); Globulin 2.8 g/dL (1.3-4.6); Total Bilirubin 0.5 mg/dL (0.15-1.2); Total Protein 6.3 g/dL (6.6-8.7)
[2021-11-19] MEDS: potassium chloride premix 100 ML 25 MEQ IV (09:45)
[2021-11-19] MEDS: pantoprazole 40 mg SDV IVP ×2 (10:21→23:19)
--- NOTE | 2021-11-19 12:46 | PM.PN ---
Subjective Subjective: Seen this morning. Patient is sitting up in bed appearing anxious. She did have 1 episode of vomiting overnight. No bowel movement so far. She has been requesting pain medication pretty consistently. Vitals/I&O/Wt Last Vital Signs Temp 99.6 F 11/19/21 12:00 Pulse 116 H 11/19/21 12:00 Resp 17 11/19/21 12:00 BP 142/99 11/19/21 12:00 Pulse Ox 90 11/19/21 12:00 11/18/21 11/19/21 11/19/21 22:59 06:59 14:59 Intake Total 1075 / 2236 1116.667 / 3352.667 290 / 290 Output Total 450 / 450 950 / 1400 Balance 625 / 1786 166.667 / 1952.667 290 / 290 Weight last 48 hrs Weight 78.381 kg Weight 76.702 kg Physical Exam Narrative: General: Alert oriented x3, patient seen sitting up in bed appearing anxious HEENT: Normocephalic, atraumatic, EOMI, breathing normally Cardio: Regular rate rhythm, normal S1-S2, no murmurs rubs gallops, Respiratory: Good bilateral air entry, no wheezes no rhonchi appreciated GI: Abdomen soft, mildly tender to palpation but better compared to yesterday, no guarding or rigidity, bowel sounds present. Behavior: Very anxious Extremities: no edema, no cyanosis ? Data : 11/19/21 04:54 11/19/21 04:54 Micro: Microbiology 11/18/21 19:07 Blood Culture - Preliminary Blood SPECIMEN COLLECTED 11/18/21 13:17 Blood Culture - Preliminary Blood SPECIMEN COLLECTED A&P Assessment and plan (1) Gastroenteritis: Status: Acute (2) Intractable nausea and vomiting: Status: Acute (3) Abdominal pain: Status: Acute (4) Nausea & vomiting: Status: Acute (5) Diarrhea: Status: Acute (6) Intractable vomiting: Status: Acute (7) Status post laparoscopic Des fundoplication: Status: Acute (8) Mid back pain on right side: Status: Acute Plan 41 year old female with pmh of Pseudo seizures as well recurrent nausea and vomiting came in with c/o having, status post laparoscopic hiatal hernia repair and Des fundoplication, ( 10/31 ) for her h/o abnormal 24-hour pH monitoring/hiatal hernia and persistent acid reflux?came back today with chief complaint of similar episodes of intractable nausea, vomiting going on for the last few days, she is also experienced watery diarrhea during this time, 2-3 episodes each day.? Ever since hospital stay patient has not had a bowel movement.? Stool cultures for C. difficile and bacterial ova and parasite have been ordered.? She continues to complain of nausea vomiting.? KUB today showed ileus.? I have made her n.p.o. except chips or meds.? I have added scopolamine patch, increase Reglan from 5 mg 3 times daily to 10 mg 3 times daily, Phenergan as needed, Zofran as needed.? Instructed nurses to obtain stool sample whenever she has a BM.? WBC count jumped to 20,000.? I think this is mostly stress related however we will cover her with Zosyn and will empirically treat for C. difficile with vancomycin 125 MCG orally 4 times a day.? She did report liquidy bowel movements 2-3 episodes each day prior to admission.? I will hold off on starting IV metronidazole for now as her CT did not show evidence of colitis.? We will avoid putting an NG tube due to recent surgery in order to avoid injuring the surgical site.? Discussed with Dr. Garcia over the phone and he agrees with the above.? Continue IV hydration with normal saline.? It is also evidence from the notes that patient has been taking marijuana at home and that she states it helps her nausea vomiting.? I am suspecting a component of cyclical vomiting syndrome at this point from marijuana use.? We will do a U tox today. Assessment: Ileus Gastroenteritis Possible C. difficile infection Possible cyclic vomiting syndrome from marijuana use Intractable nausea vomiting. Hypokalemia Dehydration Anxiety Plan: Continue IV hydration with normal saline with potassium Reglan 10 3 times daily IV Zofran 4 to 8 mg every 4 hours as needed Phenergan 12.5 every 6 hours as needed Scopolamine patch every 3 days Check stool cultures for ova parasite and C. difficile Will empirically treat for C. difficile vancomycin 125 4 times daily x10 days for now.? Will de-escalate if C. difficile negative once we have a bowel movement.? Empirically cover with Zosyn.? Patient febrile overnight. T-max 101.2. Blood cultures negative to date, lactic acid negative I am unsure of source of infection at this point. We will check chest x-ray. Could all just be intra-abdominal. Continue vancomycin oral 125 4 times daily, IV Zosyn WBC count trended down to 14,000. Repeat electrolyte Ordered Dilaudid 0.25 every 6 hours as needed for pain Ativan 0.5 twice daily as needed for anxiety U tox positive for marijuana Clear liquid Des diet. Avoid straws. Repeat KUB today. Check urine culture Full code DVT prophylaxis: Lovenox Attestations Medical Necessity Statement*: Requires in-hospital patient is also febrile. Needs work-up and management of infection. Coding Level of Care Code Acute Stationary Engineer Refrigeration for [facility] Fwd Diagnoses Gastroenteritis K52.9 Intractable nausea and vomiting R11.2 Abdominal pain R10.9 Nausea & vomiting R11.2 Diarrhea R19.7 Intractable vomiting R11.10 Status post laparoscopic Des fundoplication Z98.890 Mid back pain on right side M54.9
--- NOTE | 2021-11-19 14:42 | XRR_ITS ---
PROCEDURE INFORMATION: Exam: XR Chest Exam date and time: 11/19/2021 4:14 PM Age: 41 years old Clinical indication: Cough; Additional info: R/O pneumonia TECHNIQUE: Imaging protocol: XR of the chest. Views: 1 view. COMPARISON: CR (CHEST, ) 11/18/2021 11:50 AM FINDINGS: Lungs: Unremarkable. No consolidation. Pleural spaces: Unremarkable. No pleural effusion. No pneumothorax. Heart/Mediastinum: Unremarkable. No cardiomegaly. Bones/joints: Unremarkable. Organs: Clips are present in the right upper quadrant consistent with prior cholecystectomy. Other findings: Hazy opacities overlie the lung bases, right greater than left. XR/XR chest 1V portable [id number] IMPRESSION: There are hazy opacities at the lung bases, right greater than left, raising concern for pneumonia.
--- NOTE | 2021-11-19 14:44 | XRR_ITS ---
PROCEDURE INFORMATION: Exam: XR Abdomen Exam date and time: 11/19/2021 4:14 PM Age: 41 years old Clinical indication: Condition or disease; Intestinal condition; Prior surgery; Patient HX: Follow up to evaluate ileus; Additional info: Eval ileus TECHNIQUE: Imaging protocol: XR of the abdomen. Views: Frontal supine view of the abdomen. 1 View. COMPARISON: CR (ABDOMEN, ) 11/18/2021 11:50 AM FINDINGS: Gastrointestinal tract: There is large and small bowel gaseous distension similar to the prior study. Organs: Clips are present in the right upper quadrant consistent with prior cholecystectomy. Bones/joints: Unremarkable. XR/XR KUB portable [id number] IMPRESSION: Large and small bowel gaseous distention is similar to the prior study and is consistent with ileus.
--- NOTE | 2021-11-19 15:23 | P.PN_ITS ---
Subjective Subjective: Patient overall seems to be improving yet she continues to have nausea, leukocytosis trending down and continue to have adequate urine output, passing gas but no bowel movements Medications: Reviewed: Yes Vitals/I&O/Wt Last Vital Signs Temp 99.6 F 11/19/21 12:00 Pulse 116 H 11/19/21 12:00 Resp 17 11/19/21 12:00 BP 142/99 11/19/21 12:00 Pulse Ox 90 11/19/21 12:00 11/19/21 11/19/21 11/19/21 06:59 14:59 22:59 Intake Total 1116.667 / 3352.667 1460 / 1460 Output Total 950 / 1400 Balance 166.667 / 1151.388 0139 / 1460 Weight last 48 hrs Weight 172 lb 12.8 oz Weight 169 lb 1.6 oz Physical Exam Narrative: Patient is conscious alert oriented X3 No apparent distress BMI 26.5 Head and neck examination PERRLA no masses no cervical lymphadenopathy no jaundice Abdomen nontender except over the left upper quadrant and epigastric areas Nondistended soft no organomegaly guarding or rigidity/no signs of peritonitis Incisions are well-healed Extremities no cyanosis no clubbing no edema Data : 11/19/21 04:54 11/19/21 04:54 Micro: Microbiology 11/18/21 13:17 Blood Culture - Preliminary Blood NEGATIVE TO DATE 11/18/21 19:07 Blood Culture - Preliminary Blood SPECIMEN COLLECTED A&P Assessment and plan (1) Intractable nausea and vomiting: After further history taking physical examination and reviewing the chart and images with my personal interpretation of the CT scan of the abdomen pelvis as well as the KUB that was obtained today and showed non-obstructive gas pattern and no evidence of free air also shows intact Des fundoplication Likely patient developed some sort of gastroenteritis and I would recommend to go to post Des diet on clear liquid. And avoid any straws. Continue IV fluid resuscitation Continue clear liquid continue clear liquid diet and patient was educated to stay in upright position while drinking Ice packs on areas of soreness Encourage ambulation Strict I's and O's Reglan and scopolamine patch for nausea. Wean off any IV narcotics We will continue coordinating care with Dr. Casanova We will continue to follow on patient's clinical progress Assurance and education All questions have been answered and all concerns have been addressed to p atient's satisfaction. Status: Acute Attestations Medical Necessity Statement*: Per admitting service Coding Level of Care Code Acute Certified Pesticide Applicator for g Fwd Diagnoses Intractable nausea and vomiting R11.2
[2021-11-19] MEDS: FUROsemide 10 mg/mL SDV 4mL 40 MG IVP (17:05)
[2021-11-19] MEDS: enoxaparin 40 mg/0.4 mL Syringe SUBCUT (20:29)
[2021-11-20] VITALS: BP 153/106; PULSE 93; RESP 17; TEMP 37.1; O2SAT 94
[2021-11-20] MEDS: ondansetron 4 MG Tablet PO ×4 (00:19→12:15)
[2021-11-20] MEDS: LORazepam 2 mg/mL INJ 1 mL 0.5 MG IVP ×2 (00:21→12:15)
[2021-11-20 04:00] VITALS: BP 143/100; PULSE 89; RESP 17; TEMP 37.2; O2SAT 91
[2021-11-20 05:00] LABS: Basophils % 0.4 %; Eosinophils # 0.1 10^3/uL (0.0-0.8); Eosinophils % 0.8 %; Hematocrit 38.4 % (37.0-47.0); Lymphocytes # 2.2 10^3/uL (0.8-4.8); Mean Corpuscular HGB Conc 33.9 g/dL (30.0-36.0); Mean Corpuscular Hemoglobin 29.1 pg (28.0-34.0); Mean Corpuscular Volume 86.1 fl (81-99); Mean Platelet Volume 11.4 fL (7.4-10.4); Monocytes # 1.3 10^3/uL (0.2-0.9); Monocytes % 13.2 %; Neutrophils # 5.94 10^3/uL (1.8-7.7); Neutrophils % 61.9 %; Nucleated Red Blood Cells % 0 %; Platelet Count 268 10^3/cmm (130-400); Red Blood Count 4.46 10^6/uL (4.1-5.3); White Blood Count 9.6 10^3/uL (4.0-10.0)
[2021-11-20] MEDS: piperacillin-tazobactam 3.375 GM in sodium chloride 0.9% (plus) 50 ML IV (06:09)
[2021-11-20] MEDS: HYDROcodone-acetaminophen 5-325 mg Tablet 1 TAB PO ×2 (06:12→12:15)
--- NOTE | 2021-11-20 06:16 | FL_ITS ---
WS: [id number] UPPER GI TECHNICAL: Single contrast upper GI with water] soluble contrast. Patient was nauseous and only uprig ht imaging was performed FLUOROSCOPY TIME: 2min [id number] # of spot films: 10 CLINICAL INFORMATION: Status post laparoscopic Fundoplication COMPARISON: November 01, 2021 FINDINGS: Status Post laparoscopic hiatal hernia repair and Des fundoplication Swallowing: Normal oropharyngeal phase. No evidence of aspiration. Esophagus: Delayed esophageal emptying with moderate dysmotility and tertiary contractions in the dis aggie esophagus. Moderate narrowing at the GE junction at the presumed site of fundoplication appears p rogressed compared to November 01, 2021 likely postoperative edema. This partially distends with additiona l fluid ingestion. No evidence of contrast leak. Gastroesophageal reflux: None observed. Stomach: Normal. Duodenum: Normal. Other findings: Retained contrast visualized after termination of the procedure with residual standin g column of contrast in the esophagus. This cleared with additional dry swallows. FL/FL upper GI gastrografin [id number] IMPRESSION: 1. Delayed esophageal emptying with moderate dysmotility and tertiary contract ions in the distal esophagus 2. Moderate narrowing at the GE junction at the presumed site of fundoplicatio n appears progressed compared to November 01, 2021 likely postoperative edema. This partially distends with additional fluid ingestion 3. Free spillage of contrast into the proximal duodenum. 4. No evidence of leak. 5. No evidence of reflux.
[2021-11-20 06:32] LABS: Anion Gap 18.2 (5-19); Blood Urea Nitrogen 6 mg/dL (6-20); Calcium 8.3 mg/dL (8.5-10.5); Carbon Dioxide 24 mmol/L (22-29); Chloride 94 mmol/L (98-107); Glomerular Filtration Rate 109.1 mL/min (90-130); Glucose 138 mg/dL (65-115); Magnesium 1.8 mg/dL (1.7-2.3); Osmolality Calculated 276 mOsm/kg (285-295); Potassium 3.2 mmol/L (3.5-5.1); Sodium 133 mmol/L (136-145)
[2021-11-20 08:00] VITALS: BP 145/98; PULSE 90; RESP 16; TEMP 36.7; O2SAT 96
[2021-11-20] MEDS: metoclopramide 5 mg/mL SDV 2 mL 10 MG IVP (08:45)
[2021-11-20] MEDS: hyDROXYzine 25 mg Capsule 50 MG PO (08:45)
--- NOTE | 2021-11-20 11:02 | PC.NURSE ---
Patient going for upper GI study at this time.
[2021-11-20] MEDS: diatrizoate meglumine 120 mL Sol PO (11:59)
[2021-11-20 12:00] VITALS: BP 121/82; PULSE 86; RESP 17; TEMP 36.4; O2SAT 96
[2021-11-20] MEDS: pantoprazole 40 mg SDV IVP (12:14)
--- NOTE | 2021-11-20 14:14 | PM.PN ---
Subjective Subjective: Patient overall feels a whole lot better, was seen and examined earlier today. Keeping oral intake and no vomiting Medications: Reviewed: Yes Vitals/I&O/Wt Last Vital Signs Temp 97.5 F L 11/20/21 12:00 Pulse 86 11/20/21 12:00 Resp 17 11/20/21 12:00 BP 121/82 11/20/21 12:00 Pulse Ox 96 11/20/21 12:00 11/19/21 11/20/21 11/20/21 22:59 06:59 14:59 Intake Total 470 / 0 1979 530 / 530 Balance 470 / 0 1979 530 / 530 Weight last 48 hrs Weight 165 lb 6.4 oz Weight 172 lb 12.8 oz Physical Exam Narrative: Patient is conscious alert oriented X3 No apparent distress BMI 26.5 Head and neck examination PERRLA no masses no cervical lymphadenopathy no jaundice Abdomen nontender Nondistended soft no organomegaly guarding or rigidity/no signs of peritonitis Incisions are well-healed Extremities no cyanosis no clubbing no edema Data : 11/20/21 04:44 11/20/21 05:58 Micro: Microbiology 11/18/21 19:35 Urine Culture - Preliminary Urine,Clean Catch 11/18/21 19:07 Blood Culture - Preliminary Blood NEGATIVE TO DATE 11/18/21 13:17 Blood Culture - Preliminary Blood NEGATIVE TO DATE Other Imaging: My impression: Upper GI study did show 1.? Delayed esophageal emptying with moderate dysmotility and tertiary contractions in the distal esophagus 2.? Moderate narrowing at the GE junction at the presumed site of fundoplication appears progressed compared to November 01, 2021 likely postoperative edema. This partially distends with additional fluid ingestion 3.? Free spillage of contrast into the proximal duodenum. 4.? No evidence of leak. 5.? No evidence of reflux. My impression this is an expected postoperative changes status post Des fundoplication. A&P Assessment and plan (1) Intractable nausea and vomiting: Condition resolved and from surgical standpoint of view patient can be discharged home today. Recommend to continue on clear liquid diet till the patient comes in see me back as scheduled this coming Saturday at the office. Appropriate education was given to the patient regarding to avoid narcotics Assurance and education All questions have been answered and all concerns have been addressed to patient's satisfaction. Status: Resolved Attestations Medical Necessity Statement*: Per admitting service Coding Level of Care Code Acute Punchboard Stuffer for Chg Fwd Diagnoses Intractable nausea and vomiting R11.2
--- NOTE | 2021-11-20 14:24 | PM.DCS ---
Discharge Providers Date of Admission: 11/19/21 15:00 Date of Discharge: November 20, 2021 Attending Provider at Admission: Guillermo Aviles MD Attending Provider at Discharge: Catalino Gomez MD Consults: Surgery: Dr. Garcia Primary Care Provider: Jacky Freeman MD Diagnoses at Discharge Discharge Diagnosis (1) Intractable nausea and vomiting: Status: Resolved (2) Anxiety: Status: Acute Reason for Visit Reason for Visit: N/V, post surgery Brief History: History as per HPI: Jana Strange is a 41 year old female with pmh of Pseudo seizures as well recurrent nausea and vomiting came in with c/o having, status post laparoscopic hiatal hernia repair and Des fundoplication, ( 10/31 ) for her h/o abnormal 24-hour pH monitoring/hiatal hernia and persistent acid reflux?came back today with chief complaint of similar episodes of intractable nausea, vomiting going on for the last few days, she is also experienced watery diarrhea during this time, 2-3 episodes each day.She does complain mild abdominal pain particularly in the epigastric region. Currently she is denying any fever chest pain cough shortness of breath, any sick contact. Hospital Course Hospital Course Patient went to the hospital for further evaluation and management for nausea and vomiting in setting of recent fundoplication. Surgery was consulted. Patient was treated conservatively by changing her diet and IV hydration Her diet was gradually advanced. Currently she is tolerating clear liquid diet as per postoperative recommendations well with occasional episodes of anxiety and abdominal pain. Gastrografin study was done which showed postoperative changes as per surgical team. On admission because of history of diarrhea prior to admission and leukocytosis there was concern for gastroenteritis and possible C. difficile. She was started empirically on oral vancomycin. During hospitalization patient did not have any further diarrhea even before oral vancomycin was started. Patient is being discharged off antibiotics other than Augmentin for 2 days in hemodynamically stable condition on clear liquid diet with advised to follow-up with surgical team on 11/22 in the office. She is restarted on Lexapro for anxiety. Physical Exam Narrative: General: Alert oriented x3, patient seen sitting up in bed appearing anxious HEENT: Normocephalic, atraumatic, EOMI, breathing normally Cardio: Regular rate rhythm, normal S1-S2, no murmurs rubs gallops, Respiratory: Good bilateral air entry, no wheezes no rhonchi appreciated GI: Abdomen soft, mildly tender to palpation but better compared to yesterday, no guarding or rigidity, bowel sounds present. Behavior: Very anxious Extremities: no edema, no cyanosis ? Discharge Data Studies Completed and Pending Completed Studies During Hospitalization Category Date Time Status CT abdomen pelvis w con* [id number] Urgent Cat Scan 11/16/21 17:26 Completed [place] upper GI gastrografin [id number] Urgent Exams 11/20/21 06:16 Completed XR KUB portable [id number] Routine Exams 11/19/21 14:44 Completed XR KUB portable [id number] Stat Exams 11/18/21 11:38 Completed XR chest 1V portable [id number] Routine Exams 11/19/21 14:42 Completed XR chest 1V portable [id number] Stat Exams 11/18/21 11:38 Completed Pending at discharge Category Date Time Status Blood Culture Stat Lab 11/18/21 19:07 Results Clostridioides Difficile PCR Routine Lab 11/17/21 00:39 Uncollected Clostridioides Difficile PCR Stat Lab 11/18/21 08:13 Uncollected Sputum Culture and Gram Stain Stat Lab 11/18/21 11:37 Uncollected Stool Culture, Bacterial [Enteric Bacterial Panel by Lab 11/16/21 21:27 Uncollected PCR] Routine Stool Culture, Bacterial [Enteric Bacterial Panel by Lab 11/18/21 08:13 Uncollected PCR] Stat Urine Culture Stat Lab 11/18/21 19:35 Results stool Ova and Parasite [Enteric Parasite Panel by PCR] Lab 11/16/21 21:27 Uncollected Routine stool Ova and Parasite [Enteric Parasite Panel by PCR] Lab 11/18/21 08:13 Uncollected Stat Radiology Impressions Abdomen/Pelvis CT 11/16/21 17:26 IMPRESSION: Sequela of Butch fundoplication. Nonspecific mild distention of the stomach. This does not appear to be obstructed at this level as there is normal caliber loops of small bowel and colon distal to the stomach. There is nonspecific diffuse fluid-filled small bowel and colon. This could be indicative of a gastroenteritis, the loops of bowel are not pathologically distended to suggest bowel obstruction or ileus. Chest X-Ray 11/19/21 14:42 IMPRESSION: There are hazy opacities at the lung bases, right greater than left, raising concern for pneumonia. KUB X-Ray 11/19/21 14:44 IMPRESSION: Large and small bowel gaseous distention is similar to the prior study and is consistent with ileus. Gastrografin Study 11/20/21 06:16 IMPRESSION: 1. Delayed esophageal emptying with moderate dysmotility and tertiary contractions in the distal esophagus 2. Moderate narrowing at the GE junction at the presumed site of fundoplication appears progressed compared to November 01, 2021 likely postoperative edema. This partially distends with additional fluid ingestion 3. Free spillage of contrast into the proximal duodenum. 4. No evidence of leak. 5. No evidence of reflux. Laboratory Results WBC 9.6 10^3/uL (4.0-10.0) 11/20/21 04:44 RBC 4.46 10^6/uL (4.1-5.3) 11/20/21 04:44 Hgb 13.0 g/dL (11.5-15.3) 11/20/21 04:44 Hct 38.4 % (37.0-47.0) 11/20/21 04:44 MCV 86.1 fl (81-99) 11/20/21 04:44 MCH 29.1 pg (28.0-34.0) 11/20/21 04:44 MCHC 33.9 g/dL (30.0-36.0) 11/20/21 04:44 RDW 13.0 % (12.1-15.1) 11/20/21 04:44 Plt Count 268 10^3/cmm (130-400) 11/20/21 04:44 MPV 11.4 fL (7.4-10.4) H 11/20/21 04:44 Neut % (Auto) 61.9 % 11/20/21 04:44 Lymph % (Auto) 23.0 % 11/20/21 04:44 [place] % (Auto) 13.2 % 11/20/21 04:44 Eos % (Auto) 0.8 % 11/20/21 04:44 Baso % (Auto) 0.4 % 11/20/21 04:44 Neut # (Auto) 5.94 10^3/uL (1.8-7.7) 11/20/21 04:44 Lymph # (Auto) 2.2 10^3/uL (0.8-4.8) 11/20/21 04:44 Perkins # (Auto) 1.3 10^3/uL (0.2-0.9) H 11/20/21 04:44 Eos # (Auto) 0.1 10^3/uL (0.0-0.8) 11/20/21 04:44 Baso # (Auto) 0.0 10^3/uL (0.0-0.1) 11/20/21 04:44 Nucleated RBC % (auto) 0 % 11/20/21 04:44 Nucleated RBCs # 0.0 /100WBC 11/20/21 04:44 Sodium 133 mmol/L (136-145) L 11/20/21 05:58 Potassium 3.2 mmol/L (3.5-5.1) L 11/20/21 05:58 Chloride 94 mmol/L (98-107) L 11/20/21 05:58 Carbon Dioxide 24 mmol/L (22-29) 11/20/21 05:58 Anion Gap 18.2 (5-19) 11/20/21 05:58 BUN 6 mg/dL (6-20) 11/20/21 05:58 Creatinine 0.6 mg/dL (0.5-0.9) 11/20/21 05:58 GFR Calculation 109.1 mL/min (90-130) 11/20/21 05:58 Glucose 138 mg/dL (65-115) H 11/20/21 05:58 Calculated Osmolality 276 mOsm/kg (285-295) L 11/20/21 05:58 Lactic Acid 1.2 mmol/L (0.5-2.2) 11/18/21 13:17 Calcium 8.3 mg/dL (8.5-10.5) L 11/20/21 05:58 Phosphorus 2.1 mg/dL (2.5-4.5) L 11/17/21 06:17 Magnesium 1.8 mg/dL (1.7-2.3) 11/20/21 05:58 Total Bilirubin 0.5 mg/dL (0.15-1.2) 11/19/21 04:54 Direct Bilirubin 0.20 mg/dL (0.00-0.30) 11/19/21 04:54 AST 15 U/L (0-32) 11/19/21 04:54 ALT 15 U/L (0-33) 11/19/21 04:54 Alkaline Phosphatase 74 IU/L (35-105) 11/19/21 04:54 Total Protein 6.3 g/dL (6.6-8.7) L 11/19/21 04:54 Albumin 3.5 g/dL (3.5-5.2) 11/19/21 04:54 Globulin 2.8 g/dL (1.3-4.6) 11/19/21 04:54 Lipase 7 U/L (13-60) L 11/16/21 18:20 Urine Color Yellow (Yellow) 11/17/21 08:51 Urine Appearance Clear (CLEAR) 11/17/21 08:51 Urine pH 5 (5-7) 11/17/21 08:51 Ur Specific [place] 1.020 (1.005-1.030) 11/17/21 08:51 Urine Protein Neg (Negative) 11/17/21 08:51 Urine Glucose (UA) Norm (Normal) 11/17/21 08:51 Urine Ketones 2+ (Negative) H 11/17/21 08:51 Urine Blood 2+ (Negative) H 11/17/21 08:51 Urine Nitrate Negative (Negative) 11/17/21 08:51 Urine Bilirubin Neg (Negative) 11/17/21 08:51 Urine Urobilinogen Norm mg/dL (Negative) 11/17/21 08:51 Ur Leukocyte Esterase Negative (Negative) 11/17/21 08:51 Urine RBC 10-15 /hpf (0-2) H 11/17/21 08:51 Urine WBC 0-4 /hpf (0-5) H 11/17/21 08:51 Ur Squamous Epith Cells 5-10 /hpf (0-5) H 11/17/21 08:51 Amorphous Sediment Not Reportable 11/17/21 08:51 Urine Bacteria None /hpf (NONE) 11/17/21 08:51 Urine Opiates Screen Positive ng/mL (Negative) H 11/18/21 19:35 Ur Barbiturates Screen Negative ng/mL (Negative) 11/18/21 19:35 Ur Phencyclidine Scrn Negative ng/mL (Negative) 11/18/21 19:35 Ur Amphetamines Screen Negative ng/mL (Negative) 11/18/21 19:35 U Benzodiazepines Scrn Positive ng/mL (Negative) H 11/18/21 19:35 Urine Cocaine Screen Negative ng/mL (Negative) 11/18/21 19:35 U Marijuana (THC) Screen Positive ng/mL (Negative) H 11/18/21 19:35 Vitals Last Vital Signs Temp 97.5 F L 11/20/21 12:00 Pulse 86 11/20/21 12:00 Resp 17 11/20/21 12:00 BP 121/82 11/20/21 12:00 Pulse Ox 96 11/20/21 12:00 Discharge Plan Discharge Condition: Stable Prescriptions: New amoxicillin-pot clavulanate [Augmentin] 500-125 mg tablet 1 tab PO BID Qty: 6 0RF escitalopram oxalate [Lexapro] 10 mg tablet 5 mg PO DAILY Qty: 30 0RF Continued estradiol 10 mcg tablet See Rx Instructions .ROUTE .COMPLEX 0RF Rx Instructions: 10 mcg vaginally twice weekly hydrocodone-acetaminophen 5-325 mg tablet 1 tab PO Q6H PRN (Reason: pain) 7 Days Qty: 28 0RF lorazepam 0.5 mg tablet 0.5 mg PO DAILY PRN (Reason: Anxiety) 0RF hydroxyzine HCl 50 mg tablet 50 mg PO DAILY 0RF ondansetron 4 mg tablet,disintegrating 4 mg PO Q6H PRN (Reason: nausea and vomiting) Qty: 30 2RF promethazine 12.5 mg tablet 12.5 mg PO Q6H PRN (Reason: nausea and vomiting) Qty: 20 0RF scopolamine base [Transderm-Scop] 1 mg over 3 days patch 3 day 1 patch transdermal Q72H PRN (Reason: nausea and vomiting) Qty: 4 1RF Discharge Orders: Discharge Order (Routine); Ordered 11/20/21 Ordered By: Catalino Gomez Referrals: Booker Garcia MD [Physician] - (Return to surgery office this coming Saturday as scheduled) Jacky Freeman MD [Primary Care Provider] - Discharge Diet: As Directed and Clear Liquid Discharge Activity: Limit activity as instructed Patient Instructions: Opioid Safety Activity Restrictions/Additional Instructions: 1. Patient can shower 2. Avoid narcotics or NSAIDs Tylenol for pain 3. Up and walking as tolerated 4. Do not lift more than 5 pounds first 2 weeks after surgery and not more than 25 pounds 6 to 8 weeks after surgery. 5. Do not operate heavy machinery or drive while using pain medications. 6.Contact the office or return to the ER for worsening nausea vomiting fevers or chills, or noticing any redness around incision sites or discharge. 7. Stay on clear liquid diet 8. Avoid constipation Discharge Attestations Time Spent in Discharge Care*: greater than 30 min Specific Discharge Activities: educating patient, discussing with pcp/other providers, discussing with housing case manager/social workers/dc planners, documenting/other paperwork and evaluating patient/reviewing data Status at Discharge: Cognitive status at discharge: cognitively intact, Behavioral status at discharge: cooperative, Functional status at discharge: independent ambulation, Overall status at discharge: patient is back to baseline Quality Metrics Clinical Quality Measures [ No reported AMI, CVA or VTE this stay] Coding Level of Care Code Acute [facility] DC note Diagnoses Intractable nausea and vomiting R11.2 Anxiety F41.9
[2021-11-20 14:55] VITALS: BP 121/82; PULSE 86; RESP 17; TEMP 36.4; O2SAT 96
[2021-11-20 15:26] VITALS: BP 122/79; PULSE 79; RESP 17; TEMP 36.8; O2SAT 95
== END 2021-11-20 16:00 | disposition home or self-care (01) | DRG 392 ==
LOC: ER 17:27 → MEDSURG 11-17 06:26
PROVIDERS: Internal Medicine; Physician Assistant; Admitting Provider Internal Medicine; Emergency Provider Emergency Medicine; PCP Family Medicine; Visit Provider Student in an Organized Health Care Education/Training Program
DX: K52.9 Noninfective gastroenteritis and colitis, unspecified (principal); K56.7 Ileus, unspecified; K21.9 Gastro-esophageal reflux disease without esophagitis; F12.90 Cannabis use, unspecified, uncomplicated; Z98.890 Other specified postprocedural states; E87.6 Hypokalemia; E86.0 Dehydration; M54.6 Pain in thoracic spine; F41.9 Anxiety disorder, unspecified; Z79.890 Hormone replacement therapy
CPT/HCPCS: 36415; 71045; 74018; 74177; 74240; 80048; 80053; 80076; 80306; 81001; 83605; 83690; 83735; 84100; 85025; 87040; 87086; 96365; 96366; 96372; 96375; 96376; 99285; C9113; G0378; J1170; J1650; J1940; J2060; J2270; J2405; J2543; J2765; J3370; J3475; J3480; J3490; J7030; Q0162; Q0169; Q9963; Q9967

== ENCOUNTER 2021-11-20 21:12 | Emergency (ER) | payer OTHER, SELFPAY ==
[2021-11-20 21:15] VITALS: BP 124/86; PULSE 103; RESP 17; TEMP 37.2; O2SAT 98; BMI 23.5
--- NOTE | 2021-11-20 21:15 | CTR_ITS ---
PROCEDURE INFORMATION: Exam: CT Abdomen And Pelvis With Contrast Exam date and time: 11/20/2021 11:50 PM Age: 41 years old Clinical indication: Abdominal pain; Generalized; Prior surgery; Surgery date: 6+ months; Additional info: Abd pain TECHNIQUE: Imaging protocol: Computed tomography of the abdomen and pelvis with contrast. Radiation optimization: All CT scans at this facility use at least one of these dose optimization techniques: automated exposure control; mA and/or kV adjustment per patient size (includes targeted exams where dose is matched to clinical indication); or iterative reconstruction. Contrast material: OMNI 300; Contrast volume: 65 ml; Contrast route: INTRAVENOUS (IV); COMPARISON: CT abdomen pelvis w con* [id number] 11/16/2021 7:15 PM RADIATION DOSE METRICS: Total DLP (mGy-cm): 1143.85 FINDINGS: Lungs: The lung bases are clear. No effusion Pleural spaces: Small bilateral pleural effusions. Liver: Normal. No mass. Gallbladder and bile ducts: No wall thickening, pericholecystic fluid or stones. Pancreas: Normal. No ductal dilation. Spleen: Normal. No splenomegaly. Adrenal glands: Normal. No mass. Kidneys and ureters: Normal. No hydronephrosis. Stomach and bowel: There are changes of prior Des fundoplication. Stable fatty structure anterior to the left lobe of the liver which is likely related to the Des fundoplication. Stable mild gaseous distention of the stomach. Few loops of mildly prominent small bowel which are nonspecific but could be seen with gastroenteritis. Appendix: No evidence of appendicitis. Intraperitoneal space: Unremarkable. No free air. No significant fluid collection. Vasculature: Unremarkable. No abdominal aortic aneurysm. Lymph nodes: Unremarkable. No enlarged lymph nodes. Urinary bladder: Unremarkable as visualized. Reproductive: There has been a hysterectomy. Bones/joints: Unremarkable. No acute fracture. Soft tissues: Unremarkable. CT/CT abdomen pelvis w con* [id number] IMPRESSION: 1. Small bilateral pleural effusions. 2. Stable mild gaseous distention of the stomach. 3. Few loops of mildly prominent small bowel which are nonspecific but could be seen with gastroenteritis.
--- NOTE | 2021-11-20 23:12 | W.ED.GENADLT ---
HPI - General Adult General: Chief complaint: General Medical Stated complaint: ABD Pain post surgery-sent by debra Time Seen by Provider: 11/20/21 23:09 History of Present Illness: Patient is a 41-year-old female comes to the ED with abdominal pain. Patient had hiatal hernia surgically repaired back on October 31. She was recently hospitalized for intractable nausea and vomiting on November 15 and discharged earlier today November 20. Patient discharged home with antibiotic that she started taking today. Today she started having worsening abdominal pain that she rates a 10 out of 10 and is located in the upper abdomen. She contacted Dr. Hughes's office and they told her to come here to get evaluated and to have her pain controlled. She endorses having nausea and has been gagging a lot but denies any emesis. Patient says her surgical site on her abdomen is healing well. denies any current fevers, dysuria or hematuria. She endorses having some diarrhea but that has been constant for the past several weeks. Pt has appointment with Dr. Hughes on wednesday 11/22. Associated symptoms: Reports nausea; Deny chest pain, dyspnea, headache(s), rash, palpitations or vomiting Review of Systems Const: Denies: fever(s), chills or fatigue Eyes: Denies: change in vision or eye discomfort ENMT: Denies: throat pain, odynophagia, nasal discharge or nasal congestion Card: Denies: chest pain, palpitations, edema, swelling of feet/ankles, dyspnea on exertion or orthopnea Resp: Denies: dyspnea, productive cough or non-productive cough GI: Reports: abdominal pain, nausea and diarrhea; Denies: vomiting, constipation or hematochezia : Denies: flank pain, dysuria or hematuria Musc: Denies: neck pain, back pain or extremity swelling Skin/Breast: Denies: rash or new lesions Neuro: Denies: headache(s), numbness in extremities or weakness in extremities PFSH ED PFSH: Medical History Abnormal 24 hour ambulatory pH monitoring study Acute dehydration Anxiety Cystitis Gastritis GERD (gastroesophageal reflux disease) Gross hematuria Interstitial cystitis Lactic acidosis Leukocytosis Mid back pain on right side Nausea and vomiting Nausea and vomiting Pseudoseizures Surgical History History of appendectomy History of History of cholecystectomy History of colonoscopy History of esophagogastroduodenoscopy (EGD) History of hysterectomy for cancer History of ovarian resection Hx of hernia repair Laparoscopic hiatal hernia repair with Des fundoplication and intraoperative EGD Family History Denies family history of Anesthesia complication Bleeding disorder Social History Smoking and tobacco status: never smoked Alcohol intake: never Last substance use date: 10/12/19 Last substance use time: 01:00 Other details last substance use: Marijuana Current occupational status: employed Physical Exam Const: COMMON NORMALS: patient oriented x3 and alert GENERAL APPEARANCE: cooperative HENMT: COMMON NORMALS: normocephalic HEAD & SCALP: normocephalic MOUTH: Normal oral and palatal mucosa present THROAT: posterior oropharynx normal and uvula midline Eye: COMMON NORMALS: Equal, round and reactive pupils present and conjunctivae normal CONJUNCTIVA: Yes conjunctivae normal PUPIL: Yes Equal, round and reactive pupils present Neck/C-Spine: COMMON NORMALS: supple GENERAL: Yes normal visual inspection Resp: COMMON NORMALS: normal respiratory effort, No retractions, No use of accessory muscles and clear to auscultation bilaterally AUSCULTATION: clear to auscultation bilaterally Cardio: COMMON NORMALS: regular rate, regular rhythm, S1 normal heart sound present, S2 normal heart sound present, No gallops present (Cardio), No clicks present (Cardio), No murmurs present (Cardio) and Peripheral pulses 2+ throughout RATE: regular rate RHYTHM: regular rhythm HEART SOUNDS: S1 normal heart sound present and S2 normal heart sound present PERIPHERAL PULSES: Peripheral pulses 2+ throughout GI: COMMON NORMALS: Normal to inspection, nondistended, normoactive bowel sounds present, Soft to palpation and no masses INSPECTION: Yes incision Inspection of incision: healing well PALPATION: Yes Soft to palpation and Yes Tenderness to palpation present (GI) Details: LUQ and RUQ : COMMON NORMALS: Yes no CVA tenderness BLADDER/KIDNEY EXAM: Yes no CVA tenderness Back/Pelvis: COMMON NORMALS: no CVA tenderness Extremity: COMMON NORMALS: normal to inspection and no pedal edema Neuro: COMMON NORMALS: patient oriented x3 and moves all extremities SENSORIUM/ORIENTATION: Yes alert Skin: GENERAL SKIN EXAM: dry skin Course Vital Signs: Vital signs: Vital Signs Temperature 98.9 F 11/20/21 21:15 Pulse Rate 92 11/21/21 02:29 Respiratory Rate 16 11/21/21 02:29 Blood Pressure 110/73 11/21/21 02:29 Pulse Oximetry 94 11/21/21 02:29 MDM - General Adult Medical Decision Making Patient is a 41-year-old female comes to the ED with abdominal pain. Patient had hiatal hernia surgically repaired back on October 31. She was recently hospitalized for intractable nausea and vomiting on November 15 and discharged earlier today this morning November 20. Later today she started having worsening abdominal pain that she rates a 10 out of 10 and is located in the upper abdomen. She contacted Dr. Hughes's office and they told her to come here to get evaluated and to have her pain controlled. Vitals are stable and patient is afebrile. Patient appears nontoxic and in no acute distress. She does have some palpable tenderness that is generalized in the upper abdomen. Rest of exam is benign. White blood cell count 12.4 but the rest of CBC and CMP were unremarkable. Lipase and UA were unremarkable as well. CT of abdomen pelvis showed some stable mild gaseous distention of the stomach and some mildly prominent small bowel loops. Patient was given IV fluids, Zofran and pain meds and her symptoms were controlled. I discussed case with Dr. Paniagua and he agreed that patient stable for discharge home. She has follow-up appointment with Dr. Hughes this Saturday, November 22. She was diagnosed with abdominal pain and nausea. She was discharged home with a prescription for [place] for pain and Reglan for nausea. She was told to continue taking all home meds as previously prescribed. Return to ED precautions given. Patient understood and agreed with plan. Lab Data I reviewed the patient's lab results. : 11/21/21 00:57 11/20/21 23:25 Radiology Impressions Abdomen/Pelvis CT 11/20/21 21:15 IMPRESSION: 1. Small bilateral pleural effusions. 2. Stable mild gaseous distention of the stomach. 3. Few loops of mildly prominent small bowel which are nonspecific but could be seen with gastroenteritis. Laboratory Results WBC 12.4 10^3/uL (4.0-10.0) H 11/21/21 00:57 Corrected WBC Cancelled 11/20/21 23:25 RBC 4.09 10^6/uL (4.1-5.3) L 11/21/21 00:57 Hgb 11.9 g/dL (11.5-15.3) 11/21/21 00:57 Hct 34.2 % (37.0-47.0) L 11/21/21 00:57 MCV 83.6 fl (81-99) 11/21/21 00:57 MCH 29.1 pg (28.0-34.0) 11/21/21 00:57 MCHC 34.8 g/dL (30.0-36.0) 11/21/21 00:57 RDW 12.9 % (12.1-15.1) 11/21/21 00:57 Plt Count 292 10^3/cmm (130-400) 11/21/21 00:57 MPV 11.3 fL (7.4-10.4) H 11/21/21 00:57 Gran % Cancelled 11/20/21 23:25 Neut % (Auto) 80.6 % 11/21/21 00:57 Lymph % (Auto) 10.1 % 11/21/21 00:57 [place] % (Auto) 8.2 % 11/21/21 00:57 Eos % (Auto) 0.2 % 11/21/21 00:57 Baso % (Auto) 0.3 % 11/21/21 00:57 Neut # (Auto) 10.01 10^3/uL (1.8-7.7) H 11/21/21 00:57 Lymph # (Auto) 1.3 10^3/uL (0.8-4.8) 11/21/21 00:57 [place] # (Auto) 1.0 10^3/uL (0.2-0.9) H 11/21/21 00:57 Eos # (Auto) 0.0 10^3/uL (0.0-0.8) 11/21/21 00:57 Baso # (Auto) 0.0 10^3/uL (0.0-0.1) 11/21/21 00:57 Absolute Gran (auto) Cancelled 11/20/21 23:25 Nucleated RBC % (auto) 0 % 11/21/21 00:57 Nucleated RBCs # 0.0 /100WBC 11/21/21 00:57 Sodium 135 mmol/L (136-145) L 11/20/21 23:25 Potassium 4.0 mmol/L (3.5-5.1) 11/20/21 23:25 Chloride 93 mmol/L (98-107) L 11/20/21 23:25 Carbon Dioxide 23 mmol/L (22-29) 11/20/21 23:25 Anion Gap 23.0 (5-19) H 11/20/21 23:25 BUN 10 mg/dL (6-20) 11/20/21 23:25 Creatinine 0.7 mg/dL (0.5-0.9) 11/20/21 23:25 GFR Calculation 91.3 mL/min (90-130) 11/20/21 23:25 Glucose 120 mg/dL (65-115) H 11/20/21 23:25 Calculated Osmolality 280 mOsm/kg (285-295) L 11/20/21 23:25 Calcium 8.9 mg/dL (8.5-10.5) 11/20/21 23:25 Total Bilirubin 0.5 mg/dL (0.15-1.2) 11/20/21 23:25 AST 26 U/L (0-32) 11/20/21 23:25 ALT 23 U/L (0-33) 11/20/21 23:25 Alkaline Phosphatase 81 IU/L (35-105) 11/20/21 23:25 Total Protein 7.0 g/dL (6.6-8.7) 11/20/21 23:25 Albumin 4.4 g/dL (3.5-5.2) 11/20/21 23:25 Globulin 2.6 g/dL (1.3-4.6) 11/20/21 23:25 Lipase 14 U/L (13-60) 11/20/21 23:25 Urine Color Yellow (Yellow) 11/21/21 00:14 Urine Appearance Clear (CLEAR) 11/21/21 00:14 Urine pH 7 (5-7) 11/21/21 00:14 Ur Specific [place] 1.005 (1.005-1.030) 11/21/21 00:14 Urine Protein Neg (Negative) 11/21/21 00:14 Urine Glucose (UA) Norm (Normal) 11/21/21 00:14 Urine Ketones 2+ (Negative) H 11/21/21 00:14 Urine Blood 2+ (Negative) H 11/21/21 00:14 Urine Nitrate Negative (Negative) 11/21/21 00:14 Urine Bilirubin Neg (Negative) 11/21/21 00:14 Urine Urobilinogen Norm mg/dL (Negative) 11/21/21 00:14 Ur Leukocyte Esterase Negative (Negative) 11/21/21 00:14 Urine RBC 0-4 /hpf (0-2) H 11/21/21 00:14 Urine WBC 5-10 /hpf (0-5) H 11/21/21 00:14 Ur Squamous Epith Cells 5-10 /hpf (0-5) H 11/21/21 00:14 Amorphous Sediment Not Reportable 11/21/21 00:14 Urine Bacteria Trace /hpf (NONE) 11/21/21 00:14 Urine Mucus 1+ /hpf 11/21/21 00:14 Discharge Plan Discharge Patient Disposition: Home Clinical Impression: Nausea Abdominal pain Qualifiers: Abdominal location: upper abdomen, unspecified Qualified Code(s): R10.10 - Upper abdominal pain, unspecified Condition: Stable Prescriptions: New Reglan 10 mg tablet 10 mg PO Q6H PRN (Reason: nausea and vomiting) Qty: 20 0RF No Action estradiol 10 mcg tablet See Rx Instructions .ROUTE .COMPLEX 0RF Rx Instructions: 10 mcg vaginally twice weekly hydrocodone-acetaminophen 5-325 mg tablet 1 tab PO Q6H PRN (Reason: pain) 7 Days Qty: 28 0RF lorazepam 0.5 mg tablet 0.5 mg PO DAILY PRN (Reason: Anxiety) 0RF Augmentin 500-125 mg tablet 1 tab PO BID Qty: 6 0RF Lexapro 10 mg tablet 5 mg PO DAILY Qty: 30 0RF hydroxyzine HCl 50 mg tablet 50 mg PO DAILY 0RF ondansetron 4 mg tablet,disintegrating 4 mg PO Q6H PRN (Reason: nausea and vomiting) Qty: 30 2RF promethazine 12.5 mg tablet 12.5 mg PO Q6H PRN (Reason: nausea and vomiting) Qty: 20 0RF scopolamine base [Transderm-Scop] 1 mg over 3 days patch 3 day 1 patch transdermal Q72H PRN (Reason: nausea and vomiting) Qty: 4 1RF Discharge Orders: Discharge ED (Routine); Ordered 11/21/21 Ordered By: Jacky Latif Referrals: Jacky Freeman MD [Primary Care Provider] - Discharge Diet: Advance as tolerated Discharge Activity: Increase activity as tolerated Patient Instructions: Abdominal Pain (ED), Opioid Safety Activity Restrictions/Additional Instructions: Follow-up with medical provider as directed at your next scheduled appointment this coming November 22. Take medications as prescribed. Return to the ER or your medical provider if condition worsens. Please read and understand discharge instructions. Thank you for choosing [facility] for your healthcare needs today. Please realize this is an emergency room and that we are providing you with a medical screening exam and this may not be complete and all inclusive of all the testing and or work up that you may need to determine your ailment or severity of your illness. It is very important that you follow up as instructed or that you return to the Emergency Department should you have concerns or if your condition changes or worsens in any way. Coding Level of Care Code ED [employer] for Chg Fwd Exam Comprehensive
[2021-11-20 23:39] VITALS: RESP 16
[2021-11-20] MEDS: sodium chloride 0.9% 1,000 ML 999 ML IV (23:39)
[2021-11-20] MEDS: HYDROmorphone 1 mg/mL INJ 1 mL 0.5 MG IVP (23:39)
[2021-11-20] MEDS: ondansetron 2 mg/ML SDV 2 mL 4 MG IVP (23:40)
[2021-11-20 23:49] LABS: Albumin Level 4.4 g/dL (3.5-5.2); Alkaline Phosphatase 81 IU/L (35-105); Blood Urea Nitrogen 10 mg/dL (6-20); Calcium 8.9 mg/dL (8.5-10.5); Carbon Dioxide 23 mmol/L (22-29); Chloride 93 mmol/L (98-107); Globulin 2.6 g/dL (1.3-4.6); Glomerular Filtration Rate 91.3 mL/min (90-130); Glucose 120 mg/dL (65-115); Lipase 14 U/L (13-60); Osmolality Calculated 280 mOsm/kg (285-295); Sodium 135 mmol/L (136-145); Total Bilirubin 0.5 mg/dL (0.15-1.2)
[2021-11-20 23:54] LABS: Alanine Aminotransferase 23 U/L (0-33); Aspartate Amino Transferase 26 U/L (0-32)
[2021-11-20] MEDS: iohexol 300 mg/mL 100 mL Btl IV (23:59)
[2021-11-21] MEDS: LORazepam 2 mg/mL INJ 1 mL 1 MG IVP (00:15)
[2021-11-21 00:26] LABS: Add Urine Microscopic? YES; Bilirubin Urine Neg (Negative); Blood Urine 2+ (Negative); Glucose Urine UA Norm (Normal); Ketones Urine 2+ (Negative); Leukocyte Esterase Urine Negative (Negative); Nitrate Urine Negative (Negative); Protein Urine Neg (Negative); RBC Urine 0-4 /hpf (0-2); Specific Gravity, Urine 1.005 (1.005-1.030); Urine Appearance Clear (CLEAR); Urine Color Yellow (Yellow); Urobilinogen Urine Norm (Negative); pH Urine 7 (5-7)
[2021-11-21 00:27] LABS: Add Urine Culture? No; Bacteria Urine TRACE /hpf; Mucus Urine 1+ /hpf
[2021-11-21] MEDS: HYDROmorphone 1 mg/mL INJ 1 mL IVP (00:43)
[2021-11-21 01:00] LABS: Basophils % 0.3 %; Eosinophils % 0.2 %; Hematocrit 34.2 % (37.0-47.0); Hemoglobin 11.9 g/dL (11.5-15.3); Lymphocytes # 1.3 10^3/uL (0.8-4.8); Lymphocytes % 10.1 %; Mean Corpuscular HGB Conc 34.8 g/dL (30.0-36.0); Mean Corpuscular Hemoglobin 29.1 pg (28.0-34.0); Mean Corpuscular Volume 83.6 fl (81-99); Mean Platelet Volume 11.3 fL (7.4-10.4); Monocytes % 8.2 %; Neutrophils # 10.01 10^3/uL (1.8-7.7); Neutrophils % 80.6 %; Nucleated Red Blood Cells % 0 %; Platelet Count 292 10^3/cmm (130-400); Red Blood Count 4.09 10^6/uL (4.1-5.3); Red Cell Distribution Width 12.9 % (12.1-15.1); White Blood Count 12.4 10^3/uL (4.0-10.0)
[2021-11-21 01:10] VITALS: BP 142/80; PULSE 97; RESP 16; O2SAT 92
[2021-11-21] MEDS: HYDROcodone-acetaminophen 7.5-325 mg Tablet 1 TAB PO (02:21)
[2021-11-21 02:29] VITALS: BP 110/73; PULSE 92; RESP 16; O2SAT 94
== END 2021-11-21 02:31 | disposition home or self-care (01) ==
PROVIDERS: Emergency Medicine; Emergency Provider Physician Assistant; PCP Family Medicine
DX: R10.10 Upper abdominal pain, unspecified (principal); K21.9 Gastro-esophageal reflux disease without esophagitis
CPT/HCPCS: 74177; 80053; 81001; 83690; 85025; 96361; 96374; 96375; 96376; 99284; J1170; J2060; J2405; J7030; Q9967

== ENCOUNTER 2021-11-22 05:06 | Emergency (ER) | payer OTHER, SELFPAY ==
--- NOTE | 2021-11-22 05:28 | ED_ITS ---
Documented by User: Kaz Mejia MD 11/22/21 19:12 HPI - Nausea/Vomiting/Diarrhea General: Chief complaint: Abdominal Pain Stated complaint: N/V post surgery Time Seen by Provider: 11/22/21 05:28 History of Present Illness: Ms. Strange is a 41-year-old lady with recent complex past medical history. She underwent Des fundoplication on 10/31 and initially was doing well for about 2 weeks and subsequently developed nausea and vomiting which has been recurrent. She has required hospitalization due to electrolyte abnormalities. She reports continued symptoms despite home treatment. Moderate to severe intensity. Worse with any oral intake. General ized pain that radiates into the chest. No other specific changes in health, exacerbating, or alleviating factors identified. Onset (ago): day(s) Description of vomiting: watery Associated nausea: Yes Associated abdominal pain: Yes Location of pain: Diffuse Radiation: diffuse Severity: moderate Quality: cramping and aching Exacerbating factors: eating Associated symtoms: Reports nausea Review of Systems General: Reports: 10 or more systems reviewed and unremarkable except in HPI and below GI: Reports: nausea PFSH ED PFSH: Medical History Abnormal 24 hour ambulatory pH monitoring study Acute dehydration Anxiety Cystitis Gastritis GERD (gastroesophageal reflux disease) Gross hematuria Interstitial cystitis Lactic acidosis Leukocytosis Mid back pain on right side Nausea and vomiting Nausea and vomiting Pseudoseizures Surgical History History of appendectomy History of History of cholecystectomy History of colonoscopy History of esophagogastroduodenoscopy (EGD) History of hysterectomy for cancer History of ovarian resection Hx of hernia repair Laparoscopic hiatal hernia repair with Des fundoplication and intraoperative EGD Family History Denies family history of Anesthesia complication Bleeding disorder Social History Smoking and tobacco status: never smoked Alcohol intake: never Last substance use date: 10/12/19 Last substance use time: 01:00 Other details last substance use: Marijuana Current occupational status: employed Physical Exam Const: COMMON NORMALS: alert GENERAL APPEARANCE: cooperative, well developed and ill appearing HENMT: COMMON NORMALS: normocephalic and atraumatic HEAD & SCALP: normoc ephalic and atraumatic Eye: COMMON NORMALS: conjunctivae normal CONJUNCTIVA: Yes conjunctivae normal SCLERA: sclerae normal Neck/C-Spine: COMMON NORMALS: supple GENERAL: Yes trachea midline Resp: COMMON NORMALS: normal respiratory effort and clear to auscultation bilaterally EFFORT & INSPECTION: Yes able to speak in complete sentences AUSCULTATION: clear to auscultation bilaterally Cardio: COMMON NORMALS: regular rate and regular rhythm RATE: regular rate RHYTHM: regular rhythm GI: COMMON NORMALS: Soft to palpation PALPATION: Yes Soft to palpation, Yes Tenderness to palpation present (GI), No Guarding due to palpation present (GI) and No Rigid due to palpation Extremity: GENERAL: Yes normal exam except as noted and No edema Neuro: COMMON NORMALS: moves all extremities SENSORIUM/ORIENTATION: Yes alert and No Orientation impaired Psych: COMMON NORMALS: mental status grossly normal and Normal thought process present THOUGHT PROCESS: Normal thought process present Course ED course: - Patient was seen and evaluated by me at bedside - Patient placed on cardiac monitors, IV access obtained - Initial evaluation notable for exam as above. Somewhat ill with generalized abdominal tenderness. - Labs personally interpreted by me - Fluids, antiemetic, analgesia given - Patient care handed off to Dr. Puri pending completion of ED evaluation and reassessment of patient condition. Vital Signs: Vital signs: Vital Signs Temperature 98.9 F 11/22/21 06:06 Pulse Rate 102 H 11/22/21 11:13 Respiratory Rate 16 11/22/21 10:44 Blood Pressure 127/74 11/22/21 11:13 Pulse Oximetry 99 11/22/21 11:13 MDM - Nausea/Vomiting/Diarrhea Medical Decision Making 41-year-old lady with history of Des fundoplication initially doing well postop however now doing worse with recurrent episodes of nausea and vomiting. She is required hospitalization in the past due to electrolyte derangement. Handed off to Dr. Puri pending completion of ED evaluation and reassessment of patient condition for disposition. Medical Records I reviewed the patient's medical records. Lab Data I reviewed the patient's lab results. : 11/22/21 05:53 11/22/21 05:53 Laboratory Results WBC 7.4 10^3/uL (4.0-10.0) 11/22/21 05:53 RBC 4.06 10^6/uL (4.1-5.3) L 11/22/21 05:53 Hgb 12.0 g/dL (11.5-15.3) 11/22/21 05:53 Hct 33.0 % (37.0-47.0) L 11/22/21 05:53 MCV 81.3 fl (81-99) 11/22/21 05:53 MCH 29.6 pg (28.0-34.0) 11/22/21 05:53 MCHC 36.4 g/dL (30.0-36.0) H 11/22/21 05:53 RDW 12.8 % (12.1-15.1) 11/22/21 05:53 Plt Count 308 10^3/cmm (130-400) 11/22/21 05:53 MPV 11.5 fL (7.4-10.4) H 11/22/21 05:53 Neut % (Auto) 64.0 % 11/22/21 05:53 Lymph % (Auto) 22.6 % 11/22/21 05:53 [place] % (Auto) 12.1 % 11/22/21 05:53 Eos % (Auto) 0.4 % 11/22/21 05:53 Baso % (Auto) 0.4 % 11/22/21 05:53 Neut # (Auto) 4.70 10^3/uL (1.8-7.7) 11/22/21 05:53 Lymph # (Auto) 1.7 10^3/uL (0.8-4.8) 11/22/21 05:53 [place] # (Auto) 0.9 10^3/uL (0.2-0.9) 11/22/21 05:53 Eos # (Auto) 0.0 10^3/uL (0.0-0.8) 11/22/21 05:53 Baso # (Auto) 0.0 10^3/uL (0.0-0.1) 11/22/21 05:53 Nucleated RBC % (auto) 0 % 11/22/21 05:53 Nucleated RBCs # 0.0 /100WBC 11/22/21 05:53 Sodium 131 mmol/L (136-145) L 11/22/21 05:53 Potassium 2.9 mmol/L (3.5-5.1) L 11/22/21 05:53 Chloride 93 mmol/L (98-107) L 11/22/21 05:53 Carbon Dioxide 21 mmol/L (22-29) L 11/22/21 05:53 Anion Gap 19.9 (5-19) H 11/22/21 05:53 BUN 7 mg/dL (6-20) 11/22/21 05:53 Creatinine 0.6 mg/dL (0.5-0.9) 11/22/21 05:53 GFR Calculation 109.1 mL/min (90-130) 11/22/21 05:53 Glucose 112 mg/dL (65-115) 11/22/21 05:53 Calculated Osmolality 271 mOsm/kg (285-295) L 11/22/21 05:53 Calcium 8.5 mg/dL (8.5-10.5) 11/22/21 05:53 Total Bilirubin 0.4 mg/dL (0.15-1.2) 11/22/21 05:53 AST 17 U/L (0-32) 11/22/21 05:53 ALT 17 U/L (0-33) 11/22/21 05:53 Alkaline Phosphatase 66 IU/L (35-105) 11/22/21 05:53 Total Protein 6.5 g/dL (6.6-8.7) L 11/22/21 05:53 Albumin 3.9 g/dL (3.5-5.2) 11/22/21 05:53 Globulin 2.6 g/dL (1.3-4.6) 11/22/21 05:53 Lipase 15 U/L (13-60) 11/22/21 05:53 Urine Color Yellow (Yellow) 11/22/21 05:53 Urine Appearance Clear (CLEAR) 11/22/21 05:53 Urine pH 8 (5-7) H 11/22/21 05:53 Ur Specific [place] 1.015 (1.005-1.030) 11/22/21 05:53 Urine Protein Neg (Negative) 11/22/21 05:53 Urine Glucose (UA) Norm (Normal) 11/22/21 05:53 Urine Ketones 2+ (Negative) H 11/22/21 05:53 Urine Blood Trace (Negative) H 11/22/21 05:53 Urine Nitrate Negative (Negative) 11/22/21 05:53 Urine Bilirubin Neg (Negative) 11/22/21 05:53 Prot Sulfosalicylic Acd Negative (Negative) 11/22/21 05:53 Urine Urobilinogen Norm mg/dL (Negative) 11/22/21 05:53 Ur Leukocyte Esterase Negative (Negative) 11/22/21 05:53 Urine RBC 0-4 /hpf (0-2) H 11/22/21 05:53 Urine WBC 0-4 /hpf (0-5) H 11/22/21 05:53 Ur Squamous Epith Cells 0-4 /hpf (0-5) H 11/22/21 05:53 Amorphous Sediment Trace /hpf 11/22/21 05:53 Urine Bacteria Trace /hpf (NONE) 11/22/21 05:53 Urine Mucus 2+ /hpf 11/22/21 05:53 Discharge Plan Discharge Patient Disposition: Home Clinical Impression: Nausea & vomiting, Status post Des fundoplication, Hypokalemia Condition: Stable Prescriptions: New potassium chloride 20 mEq tablet,ER particles/crystals 20 meq PO DAILY Qty: 20 0RF promethazine 25 mg tablet 25 mg PO Q6H PRN (Reason: nausea and vomiting) Qty: 20 0RF No Action lorazepam 0.5 mg tablet 0.5 mg PO DAILY PRN (Reason: Anxiety) 0RF amoxicillin-pot clavulanate [Augmentin] 500-125 mg tablet 1 tab PO BID Qty: 6 0RF hydroxyzine HCl 50 mg tablet 50 mg PO TID PRN (Reason: Anxiety) 0RF ondansetron 4 mg tablet,disintegrating 4 mg PO Q6H PRN (Reason: nausea and vomiting) Qty: 30 2RF hydrocodone-acetaminophen 7.5-325 mg tablet 1 tab PO Q6H PRN (Reason: Pain) 0RF promethazine 25 mg tablet 25 mg PO QID PRN (Reason: Nausea And Vomiting) 0RF estradiol 10 mcg tablet 10 mcg VAGINAL .ON AND 0RF Lexapro 10 mg tablet 5 mg PO QAM 0RF Discharge Orders: Discharge ED (Routine); Ordered 11/22/21 Ordered By: Catarino Puri Referrals: Jacky Freeman MD [Primary Care Provider] - Discharge Diet: As Directed Discharge Activity: Limit activity as instructed Patient Instructions: Opioid Safety Activity Restrictions/Additional Instructions: After leaving the emergency room proceed directly to Dr. Garcia's office for your follow-up appointment I have contacted him he is expecting to see you for follow-up in the office. Sign Out Sign Out Data: Patient Sign Out occurred on 11/22/21 at 06:31. Patient's care was discussed, and care was transferred from to Catarino Puri DO. Coding Level of Care Code ED Correctional Sergeant for Chg Fwd Exam Comprehensive Documented by User: Catarino Puri DO 11/22/21 10:57 HPI - Nausea/Vomiting/Diarrhea General: Chief complaint: Abdominal Pain Stated complaint: N/V post surgery Time Seen by Provider: 11/22/21 05:28 PFS ED PFSH: Medical History Abnormal 24 hour ambulatory pH monitoring study Acute dehydration Anxiety Cystitis Gastritis GERD (gastroesophageal reflux disease) Gross hematuria Interstitial cystitis Lactic acidosis Leukocytosis Mid back pain on right side Nausea and vomiting Nausea and vomiting Pseudoseizures Surgical History History of appendectomy History of History of cholecystectomy History of colonoscopy History of esophagogastroduodenoscopy (EGD) History of hysterectomy for cancer History of ovarian resection Hx of hernia repair Laparoscopic hiatal hernia repair with Des fundoplication and intraoper ative EGD Family History Denies family history of Anesthesia complication Bleeding disorder Social History Smoking and tobacco status: never smoked Alcohol intake: never Last substance use date: 10/12/19 Last substance use time: 01:00 Other details last substance use: Marijuana Current occupational status: employed Course Vital Signs: Vital signs: Vital Signs Temperature 98.9 F 11/22/21 06:06 Pulse Rate 102 H 11/22/21 11:13 Respiratory Rate 16 11/22/21 10:44 Blood Pressure 127/74 11/22/21 11:13 Pulse Oximetry 99 11/22/21 11:13 MDM - Nausea/Vomiting/Diarrhea Medical Decision Making 41-year-old lady with history of Des fundoplication initially doing well postop however now doing worse with recurrent episodes of nausea and vomiting. She is required hospitalization in the past due to electrolyte derangement. Handed off to Dr. Puri pending completion of ED evaluation and reassessment of patient condition for disposition. Fluid replacing potassium supplement given IV and p.o. We will discharge the patient home. I discussed with Dr. Morales. He has an appointment with her for follow-up today in his office she will leave the emergency room proceed directly there just did discharge home with more Phenergan and potassium supplement to take p.o. Lab Data : 11/22/21 05:53 11/22/21 05:53 Laboratory Results WBC 7.4 10^3/uL (4.0-10.0) 11/22/21 05:53 RBC 4.06 10^6/uL (4.1-5.3) L 11/22/21 05:53 Hgb 12.0 g/dL (11.5-15.3) 11/22/21 05:53 Hct 33.0 % (37.0-47.0) L 11/22/21 05:53 MCV 81.3 fl (81-99) 11/22/21 05:53 MCH 29.6 pg (28.0-34.0) 11/22/21 05:53 MCHC 36.4 g/dL (30.0-36.0) H 11/22/21 05:53 RDW 12.8 % (12.1-15.1) 11/22/21 05:53 Plt Count 308 10^3/cmm (130-400) 11/22/21 05:53 MPV 11.5 fL (7.4-10.4) H 11/22/21 05:53 Neut % (Auto) 64.0 % 11/22/21 05:53 Lymph % (Auto) 22.6 % 11/22/21 05:53 [place] % (Auto) 12.1 % 11/22/21 05:53 Eos % (Auto) 0.4 % 11/22/21 05:53 Baso % (Auto) 0.4 % 11/22/21 05:53 Neut # (Auto) 4.70 10^3/uL (1.8-7.7) 11/22/21 05:53 Lymph # (Auto) 1.7 10^3/uL (0.8-4.8) 11/22/21 05:53 [place] # (Auto) 0.9 10^3/uL (0.2-0.9) 11/22/21 05:53 Eos # (Auto) 0.0 10^3/uL (0.0-0.8) 11/22/21 05:53 Baso # (Auto) 0.0 10^3/uL (0.0-0.1) 11/22/21 05:53 Nucleated RBC % (auto) 0 % 11/22/21 05:53 Nucleated RBCs # 0.0 /100WBC 11/22/21 05:53 Sodium 131 mmol/L (136-145) L 11/22/21 05:53 Potassium 2.9 mmol/L (3.5-5.1) L 11/22/21 05:53 Chloride 93 mmol/L (98-107) L 11/22/21 05:53 Carbon Dioxide 21 mmol/L (22-29) L 11/22/21 05:53 Anion Gap 19.9 (5-19) H 11/22/21 05:53 BUN 7 mg/dL (6-20) 11/22/21 05:53 Creatinine 0.6 mg/dL (0.5-0.9) 11/22/21 05:53 GFR Calculation 109.1 mL/min (90-130) 11/22/21 05:53 Glucose 112 mg/dL (65-115) 11/22/21 05:53 Calculated Osmolality 271 mOsm/kg (285-295) L 11/22/21 05:53 Calcium 8.5 mg/dL (8.5-10.5) 11/22/21 05:53 Total Bilirubin 0.4 mg/dL (0.15-1.2) 11/22/21 05:53 AST 17 U/L (0-32) 11/22/21 05:53 ALT 17 U/L (0-33) 11/22/21 05:53 Alkaline Phosphatase 66 IU/L (35-105) 11/22/21 05:53 Total Protein 6.5 g/dL (6.6-8.7) L 11/22/21 05:53 Albumin 3.9 g/dL (3.5-5.2) 11/22/21 05:53 Globulin 2.6 g/dL (1.3-4.6) 11/22/21 05:53 Lipase 15 U/L (13-60) 11/22/21 05:53 Urine Color Yellow (Yellow) 11/22/21 05:53 Urine Appearance Clear (CLEAR) 11/22/21 05:53 Urine pH 8 (5-7) H 11/22/21 05:53 Ur Specific [place] 1.015 (1.005-1.030) 11/22/21 05:53 Urine Protein Neg (Negative) 11/22/21 05:53 Urine Glucose (UA) Norm (Normal) 11/22/21 05:53 Urine Ketones 2+ (Negative) H 11/22/21 05:53 Urine Blood Trace (Negative) H 11/22/21 05:53 Urine Nitrate Negative (Negative) 11/22/21 05:53 Urine Bilirubin Neg (Negative) 11/22/21 05:53 Prot Sulfosalicylic Acd Negative (Negative) 11/22/21 05:53 Urine Urobilinogen Norm mg/dL (Negative) 11/22/21 05:53 Ur Leukocyte Esterase Negative (Negative) 11/22/21 05:53 Urine RBC 0-4 /hpf (0-2) H 11/22/21 05:53 Urine WBC 0-4 /hpf (0-5) H 11/22/21 05:53 Ur Squamous Epith Cells 0-4 /hpf (0-5) H 11/22/21 05:53 Amorphous Sediment Trace /hpf 11/22/21 05:53 Urine Bacteria Trace /hpf (NONE) 11/22/21 05:53 Urine Mucus 2+ /hpf 11/22/21 05:53 Discharge Plan Discharge Patient Disposition: Home Clinical Impression: Nausea & vomiting, Status post Des fundoplication, Hypokalemia Condition: Stable Prescriptions: New potassium chloride 20 mEq tablet,ER particles/crystals 20 meq PO DAILY Qty: 20 0RF promethazine 25 mg tablet 25 mg PO Q6H PRN (Reason: nausea and vomiting) Qty: 20 0RF No Action lorazepam 0.5 mg tablet 0.5 mg PO DAILY PRN (Reason: Anxiety) 0RF amoxicillin-pot clavulanate [Augmentin] 500-125 mg tablet 1 tab PO BID Qty: 6 0RF hydroxyzine HCl 50 mg tablet 50 mg PO TID PRN (Reason: Anxiety) 0RF ondansetron 4 mg tablet,disintegrating 4 mg PO Q6H PRN (Reason: nausea and vomiting) Qty: 30 2RF hydrocodone-acetaminophen 7.5-325 mg tablet 1 tab PO Q6H PRN (Reason: Pain) 0RF promethazine 25 mg tablet 25 mg PO QID PRN (Reason: Nausea And Vomiting) 0RF estradiol 10 mcg tablet 10 mcg VAGINAL .ON AND 0RF Lexapro 10 mg tablet 5 mg PO QAM 0RF Discharge Orders: Discharge ED (Routine); Ordered 11/22/21 Ordered By: Catarino Puri Referrals: Jacky Freeman MD [Primary Care Provider] - Discharge Diet: As Directed Discharge Activity: Limit activity as instructed Patient Instructions: Opioid Safety Activity Restrictions/Additional Instructions: After leaving the emergency room proceed directly to Dr. Garcia's office for your follow-up appointment I have contacted him he is expecting to see you for follow-up in the office. Sign Out Sign Out Data: Patient Sign Out occurred on 11/22/21 at 06:31. Patient's care was discussed, and care was transferred from to Catarino Puri DO. Coding Level of Care Code ED Correctional Sergeant for Gaurang[place] Fwd Exam Comprehensive
[2021-11-22 05:32] VITALS: BP 168/104; PULSE 91; RESP 18; O2SAT 98; BMI 23.5
[2021-11-22 05:40] VITALS: TEMP 36.8
[2021-11-22 06:06] VITALS: BP 133/79; PULSE 94; RESP 16; RESP 18; TEMP 37.2; O2SAT 96; O2SAT 97
[2021-11-22] MEDS: morphine 4 mg/mL SDV 1 mL IVP (06:06)
[2021-11-22] MEDS: sodium chloride 0.9% 1,000 ML 999 ML IV (06:07)
[2021-11-22] MEDS: ondansetron 2 mg/ML SDV 2 mL 4 MG IVP (06:07)
[2021-11-22] MEDS: LORazepam 2 mg/mL INJ 1 mL 1 MG IVP (06:17)
[2021-11-22 06:19] LABS: Basophils % 0.4 %; Eosinophils % 0.4 %; Lymphocytes # 1.7 10^3/uL (0.8-4.8); Lymphocytes % 22.6 %; Mean Corpuscular HGB Conc 36.4 g/dL (30.0-36.0); Mean Corpuscular Hemoglobin 29.6 pg (28.0-34.0); Mean Corpuscular Volume 81.3 fl (81-99); Mean Platelet Volume 11.5 fL (7.4-10.4); Monocytes # 0.9 10^3/uL (0.2-0.9); Monocytes % 12.1 %; Nucleated Red Blood Cells % 0 %; Platelet Count 308 10^3/cmm (130-400); Red Blood Count 4.06 10^6/uL (4.1-5.3); Red Cell Distribution Width 12.8 % (12.1-15.1); White Blood Count 7.4 10^3/uL (4.0-10.0)
[2021-11-22 06:41] LABS: Alanine Aminotransferase 17 U/L (0-33); Albumin Level 3.9 g/dL (3.5-5.2); Alkaline Phosphatase 66 IU/L (35-105); Anion Gap 19.9 (5-19); Aspartate Amino Transferase 17 U/L (0-32); Blood Urea Nitrogen 7 mg/dL (6-20); Calcium 8.5 mg/dL (8.5-10.5); Carbon Dioxide 21 mmol/L (22-29); Chloride 93 mmol/L (98-107); Globulin 2.6 g/dL (1.3-4.6); Glomerular Filtration Rate 109.1 mL/min (90-130); Glucose 112 mg/dL (65-115); Lipase 15 U/L (13-60); Osmolality Calculated 271 mOsm/kg (285-295); Sodium 131 mmol/L (136-145); Total Bilirubin 0.4 mg/dL (0.15-1.2); Total Protein 6.5 g/dL (6.6-8.7)
[2021-11-22 07:22] LABS: Add Urine Microscopic? YES; Bilirubin Urine Neg (Negative); Blood Urine Trace (Negative); Glucose Urine UA Norm (Normal); Ketones Urine 2+ (Negative); Leukocyte Esterase Urine Negative (Negative); Nitrate Urine Negative (Negative); Protein Urine Neg (Negative); Specific Gravity, Urine 1.015 (1.005-1.030); Urine Appearance Clear (CLEAR); Urine Color Yellow (Yellow); Urobilinogen Urine Norm (Negative); pH Urine 8 (5-7)
[2021-11-22 07:23] LABS: Add Urine Culture? No; Amorphous Sediment Urine TRACE /hpf; Bacteria Urine TRACE /hpf; Mucus Urine 2+ /hpf; RBC Urine 0-4 /hpf (0-2); Squamous Epithelial Cell Urine 0-4 /hpf (0-5); Sulfosalicylic Acid Urine Negative (Negative); WBC Urine 0-4 /hpf (0-5)
[2021-11-22 07:31] LABS: Potassium 2.9 mmol/L (3.5-5.1)
--- NOTE | 2021-11-22 07:38 | PC.NURSE ---
Potassium level 2.9, verbally notified Dr. Puri, verbal order given to this RN to give 80 meq of Potassium via IV infusion.
[2021-11-22] MEDS: sodium chloride 0.9% 1,000 ML 125 ML IV (08:28)
[2021-11-22] MEDS: potassium chloride premix 100 ML 25 MEQ IV (08:28)
[2021-11-22 08:42] VITALS: BP 138/92; PULSE 81; RESP 16; O2SAT 98
[2021-11-22] MEDS: morphine 4 mg/mL SDV 1 mL 2 MG IVP (09:42)
[2021-11-22 10:44] VITALS: BP 135/77; PULSE 83; RESP 16; O2SAT 96
[2021-11-22] MEDS: potassium chloride oral liq 20 mEq/15 mL UDC 40 MEQ PO (10:54)
[2021-11-22 11:13] VITALS: BP 127/74; PULSE 102; O2SAT 99
== END 2021-11-22 11:16 | disposition home or self-care (01) ==
PROVIDERS: Emergency Medicine; Emergency Provider Family Medicine; PCP Family Medicine
DX: R11.2 Nausea with vomiting, unspecified (principal); E87.6 Hypokalemia; Z98.890 Other specified postprocedural states
CPT/HCPCS: 80053; 81001; 83690; 85025; 96365; 96375; 96376; 99284; J2060; J2270; J2405; J3480; J7030

== ENCOUNTER 2021-11-22 23:46 | Emergency (ER) | payer OTHER, SELFPAY ==
[2021-11-23] VITALS (12 sets, daily range): BP systolic 122–179; BP diastolic 72–108; PULSE 70–92; RESP 14–20; TEMP 36.7; O2SAT 94–99
--- NOTE | 2021-11-23 00:22 | ECG_ITS ---
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 Measurements Intervals [place] Rate: 78 P: 67 NE: 118 QRS: 56 QRSD: 89 T: -78 QT: 489 QTc: 557 Interpretive Statements SINUS RHYTHM WITH SHORT NE INTERVAL ST DEVIATION AND MODERATE T-WAVE ABNORMALITY, CONSIDER ANTEROLATERAL ISCHEMIA [-0.1+ mV T-WAVE IN V3-V6] ST DEVIATION AND MODERATE T-WAVE ABNORMALITY, CONSIDER INFERIOR ISCHEMIA [-0.1+ mV T-WAVE IN II/aVF] Compared to ECG 09/14/2021 11:01:41 Short NE interval now present T-wave abnormality still present Possible ischemia still present Electronically Signed On 11-24-2021 5:57:43 CDT by Andre Kong M.D. [id number]
--- NOTE | 2021-11-23 00:43 | ED_ITS ---
Documented by User: Kaz Mejia MD 12/06/21 19:17 HPI - Recheck/Abnormal Lab/Rx General: Chief Complaint: Recheck/Abnormal Lab/Rx Stated Complaint: ABD Pain Time Seen by Provider: 11/23/21 00:43 History of Present Illness: Ms. Strange is a 41-year-old lady with recent complex past medical history.? She underwent Des fundoplication on 10/31 and initially was doing well for about 2 weeks and subsequently developed nausea and vomiting which has been recurrent.? She has required hospitalization due to electrolyte abnormalities.? She reports continued symptoms despite home treatment.? Moderate to severe intensity.? Worse with any oral intake.? General ized pain that radiates into the chest.? No other specific changes in health, exacerbating, or alleviating factors identified. She was seen and evaluated compensation/benefits specialist 11/22 and subsequently discharged from the emergency department. She had follow-up with Dr. Garcia in clinic. Symptoms have subsequently persisted. She did have shaking spells in triage however does report a history of pseudose izures. Initial visit (ago): week(s) Initial visit for: other Returns today for: other Associated symptoms: nausea, abdominal pain and other Review of Systems General: Reports: 10 or more systems reviewed and unremarkable except in HPI and below PFSH ED PFSH: Medical History Abnormal 24 hour ambulatory pH monitoring study Anxiety Gastritis GERD (gastroesophageal reflux disease) Gross hematuria (~2017) Interstitial cystitis (~2019) Nausea & vomiting History of intractable, recurrent issues Pseudoseizures Surgical History History of appendectomy History of History of cholecystectomy History of colonoscopy History of esophagogastroduodenoscopy (EGD) History of hysterectomy for cancer History of ovarian resection Hx of hernia repair Laparoscopic hiatal hernia repair with Des fundoplication and intraoperative EGD Status post laparoscopic Des fundoplication (10/31/21) Family History Denies family history of Anesthesia complication Bleeding disorder Social History Smoking and tobacco status: never smoked Alcohol intake: never Last substance use date: 10/12/19 Last substance use time: 01:00 Other details last substance use: Marijuana Current occupational status: employed Physical Exam Const: COMMON NORMALS: alert GENERAL APPEARANCE: cooperative, well developed and ill appearing HENMT: COMMON NORMALS: normocephalic and atraumatic HEAD & SCALP: normocephalic and atraumatic Eye: COMMON NORMALS: conjunctivae normal CONJUNCTIVA: Yes conjunctivae normal SCLERA: sclerae normal Neck/C-Spine: COMMON NORMALS: supple GENERAL: Yes trachea midline Resp: COMMON NORMALS: normal respiratory effort EFFORT & INSPECTION: Yes able to speak in complete sentences Cardio: COMMON NORMALS: regular rate and regular rhythm RATE: regular rate RHYTHM: regular rhythm GI: COMMON NORMALS: Soft to palpation PALPATION: Yes Soft to palpation, Yes Tenderness to palpation present (GI), No Guarding due to palpation present (GI) and No Rigid due to palpation PERCUSSION: normal to percussion Extremity: GENERAL: Yes normal exam except as noted and No edema Neuro: COMMON NORMALS: moves all extremities SENSORIUM/ORIENTATION: Yes alert and No Orientation impaired Psych: COMMON NORMALS: mental status grossly normal and Normal thought process present THOUGHT PROCESS: Normal thought process present Course ED course: - Patient was seen and evaluated by me at bedside - Patient placed on cardiac monitors, IV access obtained - Initial evaluation notable for exam as above. EKG with nonspecific ST segment abnormalities - Labs personally interpreted by me -Symptom treatment ordered - Labs notable for no leukocytosis, normal hemoglobin. Metabolic panel with hypokalemia and evidence of dehydration. Urinalysis not concerning for urinary tract infection. - Imaging notable for nonobstructive bowel gas pattern - Upon serial reexamination after treatment the patient was mildly improved - Patient discussed with Dr. Hooper of the hospitalist service who will come and evaluate the patient. Patient care handed off to Dr. Burt pending hospitalist assessment of patient for disposition. Vital Signs: Vital signs: Vital Signs Temperature 98.1 F 11/23/21 00:12 Pulse Rate 73 11/23/21 07:24 Respiratory Rate 16 11/23/21 07:24 Blood Pressure 137/82 11/23/21 07:24 Pulse Oximetry 98 11/23/21 07:24 MDM - Recheck/Abnormal Lab/Rx Medical Decision Making 41-year-old lady with complicated postsurgical course after Des presenting with recurrent nausea and vomiting. Patient feels she is ready to be discharged home. She does admit she is feeling better than prior to her Des. Patient will start back on a clear liquid diet as she likely advance it too quickly. She will follow-up with her general surgeon and give him a call today if her symptoms continue. Patient is stable and discharged home Medical Records I reviewed the patient's medical records. Lab Data I reviewed the patient's lab results. : 11/23/21 01:35 11/23/21 01:35 Radiology Impressions Abdomen X-Ray 11/23/21 03:06 IMPRESSION: Nonobstructive bowel gas pattern. Laboratory Results WBC 7.6 10^3/uL (4.0-10.0) 11/23/21 01:35 RBC 4.10 10^6/uL (4.1-5.3) 11/23/21 01:35 Hgb 12.0 g/dL (11.5-15.3) 11/23/21 01:35 Hct 33.7 % (37.0-47.0) L 11/23/21 01:35 MCV 82.2 fl (81-99) 11/23/21 01:35 MCH 29.3 pg (28.0-34.0) 11/23/21 01:35 MCHC 35.6 g/dL (30.0-36.0) 11/23/21 01:35 RDW 13.1 % (12.1-15.1) 11/23/21 01:35 Plt Count 309 10^3/cmm (130-400) 11/23/21 01:35 MPV 11.1 fL (7.4-10.4) H 11/23/21 01:35 Neut % (Auto) 66.6 % 11/23/21 01:35 Lymph % (Auto) 18.5 % 11/23/21 01:35 [place] % (Auto) 13.3 % 11/23/21 01:35 Eos % (Auto) 0.7 % 11/23/21 01:35 Baso % (Auto) 0.4 % 11/23/21 01:35 Neut # (Auto) 5.08 10^3/uL (1.8-7.7) 11/23/21 01:35 Lymph # (Auto) 1.4 10^3/uL (0.8-4.8) 11/23/21 01:35 [place] # (Auto) 1.0 10^3/uL (0.2-0.9) H 11/23/21 01:35 Eos # (Auto) 0.1 10^3/uL (0.0-0.8) 11/23/21 01:35 Baso # (Auto) 0.0 10^3/uL (0.0-0.1) 11/23/21 01:35 Nucleated RBC % (auto) 0 % 11/23/21 01:35 Nucleated RBCs # 0.0 /100WBC 11/23/21 01:35 Sodium 135 mmol/L (136-145) L 11/23/21 01:35 Potassium 3.1 mmol/L (3.5-5.1) L 11/23/21 01:35 Chloride 97 mmol/L (98-107) L 11/23/21 01:35 Carbon Dioxide 23 mmol/L (22-29) 11/23/21 01:35 Anion Gap 18.1 (5-19) 11/23/21 01:35 BUN 5 mg/dL (6-20) L 11/23/21 01:35 Creatinine 0.6 mg/dL (0.5-0.9) 11/23/21 01:35 GFR Calculation 109.1 mL/min (90-130) 11/23/21 01:35 Glucose 109 mg/dL (65-115) 11/23/21 01:35 Calculated Osmolality 278 mOsm/kg (285-295) L 11/23/21 01:35 Lactate 1.0 mmol/L (0.5-2.2) 11/23/21 01:35 Calcium 8.8 mg/dL (8.5-10.5) 11/23/21 01:35 Magnesium 1.8 mg/dL (1.7-2.3) 11/23/21 01:35 Total Bilirubin 0.4 mg/dL (0.15-1.2) 11/23/21 01:35 AST 15 U/L (0-32) 11/23/21 01:35 ALT 16 U/L (0-33) 11/23/21 01:35 Alkaline Phosphatase 66 IU/L (35-105) 11/23/21 01:35 Total Protein 6.5 g/dL (6.6-8.7) L 11/23/21 01:35 Albumin 3.9 g/dL (3.5-5.2) 11/23/21 01:35 Globulin 2.6 g/dL (1.3-4.6) 11/23/21 01:35 Lipase 19 U/L (13-60) 11/23/21 01:35 Prolactin 73.73 ng/mL (4.8-23.3) H 11/23/21 01:35 Discharge Plan Discharge Patient Disposition: Home Clinical Impression: Abdominal pain, Nausea & vomiting, Hypokalemia, Dehydration Condition: Stable Prescriptions: No Action lorazepam 0.5 mg tablet 0.5 mg PO DAILY PRN (Reason: Anxiety) 0RF amoxicillin-pot clavulanate [Augmentin] 500-125 mg tablet 1 tab PO BID Qty: 6 0RF hydroxyzine HCl 50 mg tablet 50 mg PO TID PRN (Reason: Anxiety) 0RF ondansetron 4 mg tablet,disintegrating 4 mg PO Q6H PRN (Reason: nausea and vomiting) Qty: 30 2RF hydrocodone-acetaminophen 7.5-325 mg tablet 1 tab PO Q6H PRN (Reason: Pain) 0RF promethazine 25 mg tablet 25 mg PO QID PRN (Reason: Nausea And Vomiting) 0RF estradiol 10 mcg tablet 10 mcg VAGINAL .ON AND 0RF Lexapro 10 mg tablet 5 mg PO QAM 0RF potassium chloride 20 mEq tablet,ER particles/crystals 20 meq PO DAILY Qty: 20 0RF promethazine 25 mg tablet 25 mg PO Q6H PRN (Reason: nausea and vomiting) Qty: 20 0RF Discharge Orders: Discharge ED (Routine); Ordered 11/23/21 Ordered By: Kd Burt Referrals: Jacky Freeman MD [Primary Care Provider] - Discharge Diet: Clear Liquid Discharge Activity: Increase activity as tolerated Patient Instructions: Dehydration (ED), Hypokalemia (ED), Abdominal Pain (ED), Opioid Safety Activity Restrictions/Additional Instructions: Thank you for visiting the emergency department. You were seen and evaluated for abdominal pain with nausea and vomiting. You were found to have dehydration and hypokalemia. Please follow-up with Dr. Garcia and your primary care provider. Please return to the emergency department for anything that you are concerned about a feel needs emergency department evaluation. Sign Out Sign Out Data: Patient Sign Out occurred on 11/23/21 at 06:08. Patient's care was discussed, and care was transferred from to Kd Burt DO. Coding Level of Care Code ED Earthmoving Plant Operator for Chg Fwd Exam Comprehensive Documented by User: Kd Burt DO 11/23/21 10:56 HPI - Recheck/Abnormal Lab/Rx General: Chief Complaint: Recheck/Abnormal Lab/Rx Stated Complaint: ABD Pain Time Seen by Provider: 11/23/21 00:43 PFSH ED PFSH: Medical History Abnormal 24 hour ambulatory pH monitoring study Anxiety Gastritis GERD (gastroesophageal reflux disease) Gross hematuria (~2017) Interstitial cystitis (~2019) Nausea & vomiting History of intractable, recurrent issues Pseudoseizures Surgical History History of appendectomy History of History of cholecystectomy History of colonoscopy History of esophagogastroduodenoscopy (EGD) History of hysterectomy for cancer History of ovarian resection Hx of hernia repair Laparoscopic hiatal hernia repair with Des fundoplication and intraoperative EGD Status post laparoscopic Des fundoplication (10/31/21) Family History Denies family history of Anesthesia complication Bleeding disorder Social History Smoking and tobacco status: never smoked Alcohol intake: never Last substance use date: 10/12/19 Last substance use time: 01:00 Other details last substance use: Marijuana Current occupational status: employed Course Vital Signs: Vital signs: Vital Signs Temperature 98.1 F 11/23/21 00:12 Pulse Rate 73 11/23/21 07:24 Respiratory Rate 16 11/23/21 07:24 Blood Pressure 137/82 11/23/21 07:24 Pulse Oximetry 98 11/23/21 07:24 MDM - Recheck/Abnormal Lab/Rx Medical Decision Making Patient feels she is ready to be discharged home. She does admit she is feeling better than prior to her Des. Patient will start back on a clear liquid diet as she likely advance it too quickly. She will follow-up with her general surgeon and give him a call today if her symptoms continue. Patient is stable and discharged home Lab Data : 11/23/21 01:35 11/23/21 01:35 Radiology Impressions Abdomen X-Ray 11/23/21 03:06 IMPRESSION: Nonobstructive bowel gas pattern. Laboratory Results WBC 7.6 10^3/uL (4.0-10.0) 11/23/21 01:35 RBC 4.10 10^6/uL (4.1-5.3) 11/23/21 01:35 Hgb 12.0 g/dL (11.5-15.3) 11/23/21 01:35 Hct 33.7 % (37.0-47.0) L 11/23/21 01:35 MCV 82.2 fl (81-99) 11/23/21 01:35 MCH 29.3 pg (28.0-34.0) 11/23/21 01:35 MCHC 35.6 g/dL (30.0-36.0) 11/23/21 01:35 RDW 13.1 % (12.1-15.1) 11/23/21 01:35 Plt Count 309 10^3/cmm (130-400) 11/23/21 01:35 MPV 11.1 fL (7.4-10.4) H 11/23/21 01:35 Neut % (Auto) 66.6 % 11/23/21 01:35 Lymph % (Auto) 18.5 % 11/23/21 01:35 [place] % (Auto) 13.3 % 11/23/21 01:35 Eos % (Auto) 0.7 % 11/23/21 01:35 Baso % (Auto) 0.4 % 11/23/21 01:35 Neut # (Auto) 5.08 10^3/uL (1.8-7.7) 11/23/21 01:35 Lymph # (Auto) 1.4 10^3/uL (0.8-4.8) 11/23/21 01:35 [place] # (Auto) 1.0 10^3/uL (0.2-0.9) H 11/23/21 01:35 Eos # (Auto) 0.1 10^3/uL (0.0-0.8) 11/23/21 01:35 Baso # (Auto) 0.0 10^3/uL (0.0-0.1) 11/23/21 01:35 Nucleated RBC % (auto) 0 % 11/23/21 01:35 Nucleated RBCs # 0.0 /100WBC 11/23/21 01:35 Sodium 135 mmol/L (136-145) L 11/23/21 01:35 Potassium 3.1 mmol/L (3.5-5.1) L 11/23/21 01:35 Chloride 97 mmol/L (98-107) L 11/23/21 01:35 Carbon Dioxide 23 mmol/L (22-29) 11/23/21 01:35 Anion Gap 18.1 (5-19) 11/23/21 01:35 BUN 5 mg/dL (6-20) L 11/23/21 01:35 Creatinine 0.6 mg/dL (0.5-0.9) 11/23/21 01:35 GFR Calculation 109.1 mL/min (90-130) 11/23/21 01:35 Glucose 109 mg/dL (65-115) 11/23/21 01:35 Calculated Osmolality 278 mOsm/kg (285-295) L 11/23/21 01:35 Lactate 1.0 mmol/L (0.5-2.2) 11/23/21 01:35 Calcium 8.8 mg/dL (8.5-10.5) 11/23/21 01:35 Magnesium 1.8 mg/dL (1.7-2.3) 11/23/21 01:35 Total Bilirubin 0.4 mg/dL (0.15-1.2) 11/23/21 01:35 AST 15 U/L (0-32) 11/23/21 01:35 ALT 16 U/L (0-33) 11/23/21 01:35 Alkaline Phosphatase 66 IU/L (35-105) 11/23/21 01:35 Total Protein 6.5 g/dL (6.6-8.7) L 11/23/21 01:35 Albumin 3.9 g/dL (3.5-5.2) 11/23/21 01:35 Globulin 2.6 g/dL (1.3-4.6) 11/23/21 01:35 Lipase 19 U/L (13-60) 11/23/21 01:35 Prolactin 73.73 ng/mL (4.8-23.3) H 11/23/21 01:35 Discharge Plan Discharge Patient Disposition: Home Clinical Impression: Abdominal pain, Nausea & vomiting, Hypokalemia, Dehydration Condition: Stable Prescriptions: No Action lorazepam 0.5 mg tablet 0.5 mg PO DAILY PRN (Reason: Anxiety) 0RF amoxicillin-pot clavulanate [Augmentin] 500-125 mg tablet 1 tab PO BID Qty: 6 0RF hydroxyzine HCl 50 mg tablet 50 mg PO TID PRN (Reason: Anxiety) 0RF ondansetron 4 mg tablet,disintegrating 4 mg PO Q6H PRN (Reason: nausea and vomiting) Qty: 30 2RF hydrocodone-acetaminophen 7.5-325 mg tablet 1 tab PO Q6H PRN (Reason: Pain) 0RF promethazine 25 mg tablet 25 mg PO QID PRN (Reason: Nausea And Vomiting) 0RF estradiol 10 mcg tablet 10 mcg VAGINAL .ON AND 0RF Lexapro 10 mg tablet 5 mg PO QAM 0RF potassium chloride 20 mEq tablet,ER particles/crystals 20 meq PO DAILY Qty: 20 0RF promethazine 25 mg tablet 25 mg PO Q6H PRN (Reason: nausea and vomiting) Qty: 20 0RF Discharge Orders: Discharge ED (Routine); Ordered 11/23/21 Ordered By: Kd Burt Referrals: Jacky Freeman MD [Primary Care Provider] - Discharge Diet: Clear Liquid Discharge Activity: Increase activity as tolerated Patient Instructions: Dehydration (ED), Hypokalemia (ED), Abdominal Pain (ED), Opioid Safety Activity Restrictions/Additional Instructions: Thank you for visiting the emergency department. You were seen and evaluated for abdominal pain with nausea and vomiting. You were found to have dehydration and hypokalemia. Please follow-up with Dr. Garcia and your primary care provider. Please return to the emergency department for anything that you are concerned about a feel needs emergency department evaluation. Sign Out Sign Out Data: Patient Sign Out occurred on 11/23/21 at 06:08. Patient's care was discussed, and care was transferred from to Kd Burt DO. Coding Level of Care Code ED Earthmoving Plant Operator for Shira Fwd Exam Comprehensive
[2021-11-23] MEDS: haloperidol inj 5 mg/mL INJ 1 mL 2 MG IVP (01:11)
[2021-11-23] MEDS: ondansetron 2 mg/ML SDV 2 mL 4 MG IVP (01:11)
[2021-11-23] MEDS: LORazepam 2 mg/mL INJ 1 mL 1 MG IVP (01:11)
[2021-11-23 01:45] LABS: Basophils % 0.4 %; Eosinophils # 0.1 10^3/uL (0.0-0.8); Eosinophils % 0.7 %; Hematocrit 33.7 % (37.0-47.0); Lymphocytes # 1.4 10^3/uL (0.8-4.8); Lymphocytes % 18.5 %; Mean Corpuscular HGB Conc 35.6 g/dL (30.0-36.0); Mean Corpuscular Hemoglobin 29.3 pg (28.0-34.0); Mean Corpuscular Volume 82.2 fl (81-99); Mean Platelet Volume 11.1 fL (7.4-10.4); Monocytes % 13.3 %; Neutrophils # 5.08 10^3/uL (1.8-7.7); Neutrophils % 66.6 %; Nucleated Red Blood Cells % 0 %; Platelet Count 309 10^3/cmm (130-400); Red Cell Distribution Width 13.1 % (12.1-15.1); White Blood Count 7.6 10^3/uL (4.0-10.0)
[2021-11-23 02:06] LABS: Alanine Aminotransferase 16 U/L (0-33); Albumin Level 3.9 g/dL (3.5-5.2); Alkaline Phosphatase 66 IU/L (35-105); Anion Gap 18.1 (5-19); Aspartate Amino Transferase 15 U/L (0-32); Blood Urea Nitrogen 5 mg/dL (6-20); Calcium 8.8 mg/dL (8.5-10.5); Carbon Dioxide 23 mmol/L (22-29); Chloride 97 mmol/L (98-107); Globulin 2.6 g/dL (1.3-4.6); Glomerular Filtration Rate 109.1 mL/min (90-130); Glucose 109 mg/dL (65-115); Lipase 19 U/L (13-60); Magnesium 1.8 mg/dL (1.7-2.3); Osmolality Calculated 278 mOsm/kg (285-295); Potassium 3.1 mmol/L (3.5-5.1); Sodium 135 mmol/L (136-145); Total Bilirubin 0.4 mg/dL (0.15-1.2); Total Protein 6.5 g/dL (6.6-8.7)
[2021-11-23] MEDS: morphine 4 mg/mL SDV 1 mL IVP ×2 (02:21→06:09)
[2021-11-23] MEDS: magnesium sulfate premix 2 GM/50 ML PIGGYBACK IV (02:24)
[2021-11-23 02:42] LABS: Prolactin 73.73 ng/mL (4.8-23.3)
[2021-11-23] MEDS: potassium chloride premix 100 ML 25 MEQ IV (02:50)
--- NOTE | 2021-11-23 03:06 | XRR_ITS ---
PROCEDURE INFORMATION: Exam: XR Abdomen Exam date and time: 11/23/2021 3:12 AM Age: 41 years old Clinical indication: Abdominal pain; Generalized; Prior surgery; Surgery date: <1 month; Surgery type: Teddy fundoplication on 10/31/2021. Csection. Gb. Hysterectomy. Hernia repair. Patient HX: C/O persistent abd pain since teddy fundoplication on 10/31/2021. ; Additional info: Abd pain, n/v TECHNIQUE: Imaging protocol: Radiologic exam of the abdomen. Views: Frontal supine view of the abdomen. 1 View. COMPARISON: CT abdomen pelvis w con* [id number] 11/20/2021 11:50 PM FINDINGS: Tubes, catheters and devices: Surgical clips overlying the abdomen. Gastrointestinal tract: No abnormally dilated air-filled bowel loops identified. Bones/joints: Unremarkable. XR/XR abdomen 1V* [id number] IMPRESSION: Nonobstructive bowel gas pattern.
[2021-11-23] MEDS: acetaminophen 1,000 MG/100 ML PIGGYBACK 400 MG IV (03:52)
[2021-11-23] MEDS: metoclopramide 5 mg/mL SDV 2 mL 10 MG IVP (03:52)
== END 2021-11-23 07:14 | disposition home or self-care (01) ==
PROVIDERS: Emergency Medicine; Emergency Provider Student in an Organized Health Care Education/Training Program; PCP Family Medicine
DX: R10.9 Unspecified abdominal pain (principal); R11.2 Nausea with vomiting, unspecified; E87.6 Hypokalemia; E86.0 Dehydration
CPT/HCPCS: 74018; 80053; 83605; 83690; 83735; 84146; 85025; 93005; 96365; 96367; 96375; 96376; 99284; J1630; J2060; J2270; J2405; J2765; J3475; J3480

== ENCOUNTER 2021-11-23 19:16 | Emergency (ER) | payer OTHER, SELFPAY ==
[2021-11-23 19:39] VITALS: BP 149/83; PULSE 83; RESP 16; TEMP 37.6; O2SAT 99; BMI 23.5
--- NOTE | 2021-11-23 20:50 | W.ED.ANXIETY ---
HPI - Anxiety General: Chief Complaint: Anxiety Stated Complaint: anxiety attack Time Seen by Provider: 11/23/21 20:50 History of Present Illness: Ms Pulliam is a 41-year-old lady with complex past medical history presenting to the emergency department due to anxiety. She has recently been seen in the emergency department for nausea and vomiting after Des procedure. This is actually improved today and she tolerated small amounts of p.o. intake. She began feeling anxious as she is supposed to return to work. She feels anxious, has mild palpitations, and racing thoughts. No SI or HI. She has had similar episodes in the past. Intensity is moderate. Course has persisted. No other specific changes in health, exacerbating, or alleviating factors identified. Onset (ago): hour(s) Severity: moderate Quality: constant History of similar episodes: Yes Provoking factors: work/job stress Associated symptoms: Reports palpitations and other Review of Systems General: Reports: 10 or more systems reviewed and unremarkable except in HPI and below Card: Reports: palpitations PFSH ED PFSH: Medical History Abnormal 24 hour ambulatory pH monitoring study Anxiety Gastritis GERD (gastroesophageal reflux disease) Gross hematuria (~2018) Interstitial cystitis (~2019) Nausea & vomiting History of intractable, recurrent issues Pseudoseizures Surgical History History of appendectomy History of History of cholecystectomy History of colonoscopy History of esophagogastroduodenoscopy (EGD) History of hysterectomy for cancer History of ovarian resection Hx of hernia repair Laparoscopic hiatal hernia repair with Des fundoplication and intraoperative EGD Status post laparoscopic Des fundoplication (10/31/21) Family History Denies family history of Anesthesia complication Bleeding disorder Social History Smoking and tobacco status: never smoked Alcohol intake: never Last substance use date: 10/12/19 Last substance use time: 01:00 Other details last substance use: Marijuana Current occupational status: employed Physical Exam Const: COMMON NORMALS: alert GENERAL APPEARANCE: cooperative and well developed HENMT: COMMON NORMALS: normocephalic and atraumatic HEAD & SCALP: normocephalic and atraumatic Eye: COMMON NORMALS: conjunctivae normal CONJUNCTIVA: Yes conjunctivae normal SCLERA: sclerae normal Neck/C-Spine: COMMON NORMALS: supple GENERAL: Yes trachea midline Resp: COMMON NORMALS: normal respiratory effort EFFORT & INSPECTION: Yes able to speak in complete sentences Cardio: COMMON NORMALS: regular rate and regular rhythm RATE: regular rate RHYTHM: regular rhythm GI: COMMON NORMALS: Soft to palpation PALPATION: Yes Soft to palpation and No Tenderness to palpation present (GI) PERCUSSION: normal to percussion Extremity: GENERAL: Yes normal exam except as noted and No edema Neuro: COMMON NORMALS: moves all extremities SENSORIUM/ORIENTATION: Yes alert and No Orientation impaired Psych: COMMON NORMALS: mental status grossly normal and Normal thought process present MOOD & AFFECT: Yes anxious THOUGHT PROCESS: Normal thought process present Course Vital Signs: Vital signs: Vital Signs Temperature 99.6 F 11/23/21 19:39 Pulse Rate 96 11/23/21 23:11 Respiratory Rate 18 11/23/21 23:11 Blood Pressure 167/107 11/23/21 23:11 Pulse Oximetry 100 11/23/21 23:11 MDM - Anxiety Medical Decision Making 41-year-old lady presenting due to anxiety regarding return to work. Has a history of similar and reports symptoms are typical. EKG showing sinus rhythm with nonspecific ST segment abnormalities similar to prior. Vitals satisfactory and patient improved with treatment. Satisfactory for outpatient management. Medical Records I reviewed the patient's medical records. Lab Data I reviewed the patient's lab results. Laboratory Results Urine Color Yellow (Yellow) 11/23/21 21:00 Urine Appearance Cloudy (CLEAR) 11/23/21 21:00 Urine pH 7 (5-7) 11/23/21 21:00 Ur Specific [place] 1.015 (1.005-1.030) 11/23/21 21:00 Urine Protein Trace (Negative) 11/23/21 21:00 Urine Glucose (UA) Norm (Normal) 11/23/21 21:00 Urine Ketones 2+ (Negative) H 11/23/21 21:00 Urine Blood Neg (Negative) 11/23/21 21:00 Urine Nitrate Negative (Negative) 11/23/21 21:00 Urine Bilirubin Neg (Negative) 11/23/21 21:00 Urine Urobilinogen Norm mg/dL (Negative) 11/23/21 21:00 Ur Leukocyte Esterase Negative (Negative) 11/23/21 21:00 Urine RBC 0-4 /hpf (0-2) H 11/23/21 21:00 Urine WBC 0-4 /hpf (0-5) H 11/23/21 21:00 Ur Squamous Epith Cells 0-4 /hpf (0-5) H 11/23/21 21:00 Amorphous Sediment 4+ /hpf 11/23/21 21:00 Urine Bacteria Trace /hpf (NONE) 11/23/21 21:00 Urine Mucus Trace /hpf 11/23/21 21:00 Discharge Plan Discharge Patient Disposition: Home Clinical Impression: Acute anxiety Condition: Stable Prescriptions: No Action lorazepam 0.5 mg tablet 0.5 mg PO DAILY PRN (Reason: Anxiety) 0RF amoxicillin-pot clavulanate [Augmentin] 500-125 mg tablet 1 tab PO BID Qty: 6 0RF hydroxyzine HCl 50 mg tablet 50 mg PO TID PRN (Reason: Anxiety) 0RF ondansetron 4 mg tablet,disintegrating 4 mg PO Q6H PRN (Reason: nausea and vomiting) Qty: 30 2RF hydrocodone-acetaminophen 7.5-325 mg tablet 1 tab PO Q6H PRN (Reason: Pain) 0RF promethazine 25 mg tablet 25 mg PO QID PRN (Reason: Nausea And Vomiting) 0RF estradiol 10 mcg tablet 10 mcg VAGINAL .ON AND 0RF Lexapro 10 mg tablet 5 mg PO QAM 0RF potassium chloride 20 mEq tablet,ER particles/crystals 20 meq PO DAILY Qty: 20 0RF promethazine 25 mg tablet 25 mg PO Q6H PRN (Reason: nausea and vomiting) Qty: 20 0RF Discharge Orders: Discharge ED (Routine); Ordered 11/23/21 Ordered By: Kaz Mejia Referrals: Jacky Freeman MD [Primary Care Provider] - Discharge Diet: Advance as tolerated and Clear Liquid Discharge Activity: Increase activity as tolerated Patient Instructions: Anxiety (ED), Anxiolysis in Adults (ED) Activity Restrictions/Additional Instructions: Thank you for visiting the emergency department. You were seen and evaluated for anxiety. The exact cause of the symptoms is unclear however we are pleased that you improved with treatment end overall are improving. Please follow-up with your primary care provider. Return to the emergency department for anything that you are concerned about a feel needs emergency department evaluation. Coding Level of Care Code ED Manager Field Sales for Shira Carter
--- NOTE | 2021-11-23 21:01 | ECG_ITS ---
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 Measurements Intervals [place] Rate: 85 P: 72 ND: 122 QRS: 68 QRSD: 84 T: -80 QT: 477 QTc: 568 Interpretive Statements SINUS RHYTHM POSSIBLE LEFT ATRIAL ENLARGEMENT [-0.1mV P-WAVE IN V1/V2] MODERATE T-WAVE ABNORMALITY, CONSIDER ANTEROLATERAL ISCHEMIA [-0.1+ mV T-WAVE IN V3-V6] MODERATE T-WAVE ABNORMALITY, CONSIDER INFERIOR ISCHEMIA [-0.1+ mV T-WAVE IN II/aVF] Compared to ECG 11/23/2021 01:46:28 Short ND interval no longer present T-wave abnormality still present Possible ischemia still present Electronically Signed On 11-24-2021 20:48:23 CDT by Wilber Ni M.D. [email or web address]
[2021-11-23 21:08] VITALS: BP 145/90; RESP 16
[2021-11-23] MEDS: LORazepam 0.5 mg Tablet PO (21:24)
[2021-11-23 21:39] LABS: Add Urine Culture? No; Add Urine Microscopic? YES; Amorphous Sediment Urine 4+ /hpf; Bacteria Urine TRACE /hpf; Bilirubin Urine Neg (Negative); Blood Urine Neg (Negative); Glucose Urine UA Norm (Normal); Ketones Urine 2+ (Negative); Leukocyte Esterase Urine Negative (Negative); Mucus Urine TRACE /hpf; Nitrate Urine Negative (Negative); Protein Urine Trace (Negative); RBC Urine 0-4 /hpf (0-2); Specific Gravity, Urine 1.015 (1.005-1.030); Squamous Epithelial Cell Urine 0-4 /hpf (0-5); Urine Appearance Cloudy (CLEAR); Urine Color Yellow (Yellow); Urobilinogen Urine Norm (Negative); WBC Urine 0-4 /hpf (0-5); pH Urine 7 (5-7)
[2021-11-23] MEDS: LORazepam 2 mg/mL INJ 1 mL 1 MG IM (22:19)
[2021-11-23] MEDS: promethazine 25 mg/mL SDV 1 mL IM (22:19)
[2021-11-23 22:30] VITALS: BP 167/107; PULSE 96; RESP 18; O2SAT 100
[2021-11-23 23:11] VITALS: BP 167/107; PULSE 96; RESP 18; O2SAT 100
== END 2021-11-23 23:11 | disposition home or self-care (01) ==
PROVIDERS: Emergency Medicine; Emergency Provider Emergency Medicine; PCP Family Medicine
DX: F41.9 Anxiety disorder, unspecified (principal)
CPT/HCPCS: 81001; 93005; 96372; 99283; J2060; J2550

== ENCOUNTER 2021-11-24 05:27 | Emergency (ER) | payer OTHER, SELFPAY ==
[2021-11-24 05:35] VITALS: BP 163/96; PULSE 91; RESP 24; TEMP 36.6; O2SAT 98; BMI 23.5
[2021-11-24] MEDS: sodium chloride 0.9% 1,000 ML 999 ML IV (05:55)
[2021-11-24] MEDS: ondansetron 2 mg/ML SDV 2 mL 4 MG IVP (05:55)
[2021-11-24 05:58] LABS: Basophils % 0.3 %; Eosinophils % 0.2 %; Hematocrit 34.5 % (37.0-47.0); Hemoglobin 12.1 g/dL (11.5-15.3); Lymphocytes # 2.2 10^3/uL (0.8-4.8); Lymphocytes % 20.8 %; Mean Corpuscular HGB Conc 35.1 g/dL (30.0-36.0); Mean Corpuscular Hemoglobin 29.2 pg (28.0-34.0); Mean Corpuscular Volume 83.3 fl (81-99); Mean Platelet Volume 11.1 fL (7.4-10.4); Monocytes # 1.4 10^3/uL (0.2-0.9); Neutrophils # 6.89 10^3/uL (1.8-7.7); Neutrophils % 65.1 %; Nucleated Red Blood Cells % 0 %; Platelet Count 364 10^3/cmm (130-400); Red Blood Count 4.14 10^6/uL (4.1-5.3); Red Cell Distribution Width 13.6 % (12.1-15.1); White Blood Count 10.6 10^3/uL (4.0-10.0)
[2021-11-24 06:09] VITALS: BP 150/98; PULSE 90; RESP 20; O2SAT 98
[2021-11-24 06:14] LABS: Alanine Aminotransferase 16 U/L (0-33); Albumin Level 4.3 g/dL (3.5-5.2); Alkaline Phosphatase 68 IU/L (35-105); Anion Gap 23.1 (5-19); Aspartate Amino Transferase 15 U/L (0-32); Blood Urea Nitrogen 6 mg/dL (6-20); Calcium 8.7 mg/dL (8.5-10.5); Carbon Dioxide 20 mmol/L (22-29); Chloride 97 mmol/L (98-107); Globulin 2.5 g/dL (1.3-4.6); Glomerular Filtration Rate 109.1 mL/min (90-130); Glucose 128 mg/dL (65-115); Lipase 24 U/L (13-60); Osmolality Calculated 283 mOsm/kg (285-295); Potassium 3.1 mmol/L (3.5-5.1); Sodium 137 mmol/L (136-145); Total Bilirubin 0.3 mg/dL (0.15-1.2); Total Protein 6.8 g/dL (6.6-8.7)
[2021-11-24] MEDS: haloperidol inj 5 mg/mL INJ 1 mL 2.5 MG IVP (06:21)
[2021-11-24] MEDS: LORazepam 2 mg/mL INJ 1 mL IVP (06:21)
--- NOTE | 2021-11-24 07:37 | W.ED.NAVMDI ---
HPI - Nausea/Vomiting/Diarrhea General: Chief complaint: Nausea/Vomiting/Diarrhea Stated complaint: N/V Time Seen by Provider: 11/24/21 06:04 Source: patient Mode of arrival: ambulatory Limitations: no limitations History of Present Illness: 41-year-old female presents emergency room with nausea and vomiting. This is her fourth visit in 48 hours. She underwent a Des fundoplication after which she is decreased or stopped her medical marijuana use per her report. She has persistent nausea and vomiting with each presentation. There is some component of anxiety that appears to be present as well. She has had multiple imaging studies including an upper GI which did not show anything acute. There is some delayed gastric emptying and some narrowing at the esophageal gastric junction however this is to be expected per Dr. Hand's and is appropriate in the postop setting of her Des fundoplication. She denies hematochezia melena hematemesis cough congestion not had any fever. MD elicited complaint: nausea and vomiting Pertinent past history: cyclical vomiting Onset (ago): day(s) Description of vomiting: watery and bilious Associated nausea: Yes Associated abdominal pain: Yes Location of pain: None Radiation: diffuse Pain consistency: intermittent Severity: moderate Quality: cramping Exacerbating factors: none Relieving factors: none Context: recent surgery/procedure and history of abdominal surgery Associated symtoms: Reports anxiety and nausea; Denies altered mental status, bloating, change in vision, chest pain, cough, diaphoresis, decreased urine output, dizziness, dysuria, epistaxis, fatigue, fecal incontinence, fevers/chills, headache(s), anorexia, malaise, myalgias, numbness, palpitations, rash, short of breath, syncope, tenesmus, tinnitus or weakness Review of Systems Const: Denies: fever(s), chills, fatigue, malaise or diaphoresis Eyes: Denies: change in vision ENMT: Denies: tinnitus or epistaxis Card: Denies: chest pain, palpitations or syncope Resp: Denies: dyspnea, productive cough or non-productive cough GI: Reports: abdominal pain, nausea, vomiting and GI cramping; Denies: hematemesis, coffee ground emesis, dysphagia, diarrhea, constipation, bloating or fecal incontinence : Denies: flank pain, difficulty voiding, dysuria, urinary frequency or urinary urgency Skin/Breast: Denies: rash or pruritus Neuro: Denies: headache(s) or dizziness Psych: Reports: anxiety PFSH ED PFSH: Medical History Abnormal 24 hour ambulatory pH monitoring study Anxiety Gastritis GERD (gastroesophageal reflux disease) Gross hematuria (~2017) Interstitial cystitis (~2019) Nausea & vomiting History of intractable, recurrent issues Pseudoseizures Surgical History History of appendectomy History of History of cholecystectomy History of colonoscopy History of esophagogastroduodenoscopy (EGD) History of hysterectomy for cancer History of ovarian resection Hx of hernia repair Laparoscopic hiatal hernia repair with Des fundoplication and intraoperative EGD Status post laparoscopic Des fundoplication (10/31/21) Family History Denies family history of Anesthesia complication Bleeding disorder Social History Smoking and tobacco status: never smoked Alcohol intake: never Last substance use date: 10/12/19 Last substance use time: 01:00 Other details last substance use: Marijuana Current occupational status: employed Physical Exam Const: COMMON NORMALS: no acute distress EXAM LIMITATIONS: no altered mental status GENERAL APPEARANCE: cooperative and comfortable ORIENTATION/CONSCIOUSNESS: Yes awake, Yes oriented to person, Yes oriented to place and Yes oriented to time HENMT: COMMON NORMALS: normocephalic, atraumatic and hearing grossly normal bilaterally HEAD & SCALP: normocephalic and atraumatic Neck/C-Spine: COMMON NORMALS: no JVD Resp: COMMON NORMALS: normal respiratory effort, No retractions, No use of accessory muscles and clear to auscultation bilaterally AUSCULTATION: clear to auscultation bilaterally Cardio: COMMON NORMALS: no JVD, regular rate, regular rhythm and No murmurs present (Cardio) RATE: regular rate RHYTHM: regular rhythm GI: COMMON NORMALS: No hepatosplenomegaly present AUSCULTATION: Yes normoactive bowel sounds PALPATION: Yes Tenderness to palpation present (GI) (Diffuse), No Guarding due to palpation present (GI) and Yes No hepatosplenomegaly present Extremity: COMMON NORMALS: normal to inspection, capillary refill normal, no clubbing, cyanosis or edema, no calf tenderness and no pedal edema Neuro: SENSORIUM/ORIENTATION: Yes oriented to person, Yes oriented to place and Yes oriented to time Skin: COMMON NORMALS: no rashes or lesions noted GENERAL SKIN EXAM: no rashes or lesions noted Course Vital Signs: Vital signs: Vital Signs Temperature 97.8 F 11/24/21 05:35 Pulse Rate 90 11/24/21 06:09 Respiratory Rate 20 H 11/24/21 06:09 Blood Pressure 150/98 11/24/21 06:09 Pulse Oximetry 98 11/24/21 06:09 MDM - Nausea/Vomiting/Diarrhea Medical Decision Making Significant release of the Ativan and Haldol. Think there is a component of anxiety associated with this as well as hyperemesis cannabinoid syndrome. Difficult to tell which is the most predominant. I did discussion with Dr. Garcia at this point it does not appear to be anything surgically related she has had significant lab work and imaging. Discussed with the patient both of these issues I recommend that she follow-up with [facility] [place] to help with her anxiety. Also recommend that she minimize her use of medical marijuana. She should is especially avoid using the marijuana and attempt to alleviate nausea and vomiting. Discussed with her other options including warm showers and capsaicin cream to the abdomen. Medical Records I reviewed the patient's medical records. Lab Data I reviewed the patient's lab results. : 11/24/21 05:45 11/24/21 05:45 Laboratory Results WBC 10.6 10^3/uL (4.0-10.0) H 11/24/21 05:45 RBC 4.14 10^6/uL (4.1-5.3) 11/24/21 05:45 Hgb 12.1 g/dL (11.5-15.3) 11/24/21 05:45 Hct 34.5 % (37.0-47.0) L 11/24/21 05:45 MCV 83.3 fl (81-99) 11/24/21 05:45 MCH 29.2 pg (28.0-34.0) 11/24/21 05:45 MCHC 35.1 g/dL (30.0-36.0) 11/24/21 05:45 RDW 13.6 % (12.1-15.1) 11/24/21 05:45 Plt Count 364 10^3/cmm (130-400) 11/24/21 05:45 MPV 11.1 fL (7.4-10.4) H 11/24/21 05:45 Neut % (Auto) 65.1 % 11/24/21 05:45 Lymph % (Auto) 20.8 % 11/24/21 05:45 [place] % (Auto) 13.0 % 11/24/21 05:45 Eos % (Auto) 0.2 % 11/24/21 05:45 Baso % (Auto) 0.3 % 11/24/21 05:45 Neut # (Auto) 6.89 10^3/uL (1.8-7.7) 11/24/21 05:45 Lymph # (Auto) 2.2 10^3/uL (0.8-4.8) 11/24/21 05:45 [place] # (Auto) 1.4 10^3/uL (0.2-0.9) H 11/24/21 05:45 Eos # (Auto) 0.0 10^3/uL (0.0-0.8) 11/24/21 05:45 Baso # (Auto) 0.0 10^3/uL (0.0-0.1) 11/24/21 05:45 Nucleated RBC % (auto) 0 % 11/24/21 05:45 Nucleated RBCs # 0.0 /100WBC 11/24/21 05:45 Sodium 137 mmol/L (136-145) 11/24/21 05:45 Potassium 3.1 mmol/L (3.5-5.1) L 11/24/21 05:45 Chloride 97 mmol/L (98-107) L 11/24/21 05:45 Carbon Dioxide 20 mmol/L (22-29) L 11/24/21 05:45 Anion Gap 23.1 (5-19) H 11/24/21 05:45 BUN 6 mg/dL (6-20) 11/24/21 05:45 Creatinine 0.6 mg/dL (0.5-0.9) 11/24/21 05:45 GFR Calculation 109.1 mL/min (90-130) 11/24/21 05:45 Glucose 128 mg/dL (65-115) H 11/24/21 05:45 Calculated Osmolality 283 mOsm/kg (285-295) L 11/24/21 05:45 Calcium 8.7 mg/dL (8.5-10.5) 11/24/21 05:45 Total Bilirubin 0.3 mg/dL (0.15-1.2) 11/24/21 05:45 AST 15 U/L (0-32) 11/24/21 05:45 ALT 16 U/L (0-33) 11/24/21 05:45 Alkaline Phosphatase 68 IU/L (35-105) 11/24/21 05:45 Total Protein 6.8 g/dL (6.6-8.7) 11/24/21 05:45 Albumin 4.3 g/dL (3.5-5.2) 11/24/21 05:45 Globulin 2.5 g/dL (1.3-4.6) 11/24/21 05:45 Lipase 24 U/L (13-60) 11/24/21 05:45 Discharge Plan Discharge Patient Disposition: Home Clinical Impression: Nausea & vomiting, Acute anxiety, Cannabinoid hyperemesis syndrome Condition: Stable Prescriptions: No Action lorazepam 0.5 mg tablet 0.5 mg PO DAILY PRN (Reason: Anxiety) 0RF amoxicillin-pot clavulanate [Augmentin] 500-125 mg tablet 1 tab PO BID Qty: 6 0RF hydroxyzine HCl 50 mg tablet 50 mg PO TID PRN (Reason: Anxiety) 0RF ondansetron 4 mg tablet,disintegrating 4 mg PO Q6H PRN (Reason: nausea and vomiting) Qty: 30 2RF hydrocodone-acetaminophen 7.5-325 mg tablet 1 tab PO Q6H PRN (Reason: Pain) 0RF promethazine 25 mg tablet 25 mg PO QID PRN (Reason: Nausea And Vomiting) 0RF estradiol 10 mcg tablet 10 mcg VAGINAL .ON AND 0RF Lexapro 10 mg tablet 5 mg PO QAM 0RF potassium chloride 20 mEq tablet,ER particles/crystals 20 meq PO DAILY Qty: 20 0RF promethazine 25 mg tablet 25 mg PO Q6H PRN (Reason: nausea and vomiting) Qty: 20 0RF Discharge Orders: Discharge ED (Routine); Ordered 11/24/21 Ordered By: Catarino Puri Referrals: Jacky Freeman MD [Primary Care Provider] - Discharge Diet: Clear Liquid Discharge Activity: Resume usual activity Patient Instructions: Opioid Safety Activity Restrictions/Additional Instructions: Follow-up with Dr. Morales as previously scheduled. Case management make arrangements for you to be seen at [facility] [place]. Recommend minimizing or avoiding use of medical marijuana. There may be a time initially with decreased use of medical marijuana of persistent nausea and vomiting. Coding Level of Care Code ED Mechanical Pencils Assembler for Shira Carter
--- NOTE | 2021-11-24 14:15 | DCPLANNER ---
bowling alley manager had message to speak with patient about services at [facility]. bowling alley manager called phone number [phone], unable to speak with patient at this time. bowling alley manager left a voicemail for patient to return machine adjuster leader case trim phone call.
== END 2021-11-24 08:10 | disposition home or self-care (01) ==
PROVIDERS: Emergency Medicine; Emergency Provider Family Medicine; PCP Family Medicine
DX: R11.2 Nausea with vomiting, unspecified (principal); F41.9 Anxiety disorder, unspecified; F12.90 Cannabis use, unspecified, uncomplicated; Z98.890 Other specified postprocedural states
CPT/HCPCS: 80053; 83690; 85025; 96374; 96375; 99284; J1630; J2060; J2405; J7030

== ENCOUNTER 2021-11-26 11:16 | Emergency (ER) | payer OTHER, SELFPAY ==
[2021-11-26 11:51] VITALS: BP 138/100; PULSE 91; RESP 18; TEMP 36.7; O2SAT 97; BMI 22.7
--- NOTE | 2021-11-26 12:12 | ED_ITS ---
HPI - Abdominal Pain General: Chief Complaint: Abdominal Pain Stated Complaint: pain in surgery location on chest Time Seen by Provider: 11/26/21 12:05 History of Present Illness: 41-year-old presents with diffuse abdominal pain. She has had numerous visits over the last several days for similar symptoms. She has had serial lab work and imaging did not reveal any acute abnormality. Most recently was seen at [place] yesterday evening with unremarkable lab work. She had a CT scan from several days ago without any other acute findings. She continues to complain of diffuse abdominal pain nausea and nonbloody nonbilious vomiting. Denies diarrhea or constipation. Review of Systems Narrative: - CONSTITUTIONAL: Denies weight loss, fever and chills. - HEENT: Denies changes in vision and hearing. - RESPIRATORY: Denies SOB and cough. - CV: Denies palpitations and CP. - GI: As above - : Denies dysuria and urinary frequency. - MSK: Denies myalgia and joint pain. - SKIN: Denies rash and pruritus. - NEUROLOGICAL: Denies headache, weakness, numbness and syncope. - PSYCHIATRIC: Denies suicidal ideation PFSH ED PFSH: Medical History Abnormal 24 hour ambulatory pH monitoring study Anxiety Gastritis GERD (gastroesophageal reflux disease) Gross hematuria (~2017) Interstitial cystitis (~2019) Nausea & vomiting History of intractable, recurrent issues Pseudoseizures Surgical History History of appendectomy History of History of cholecystectomy History of colonoscopy History of esophagogastroduodenoscopy (EGD) History of hysterectomy for cancer History of ovarian resection Hx of hernia repair Laparoscopic hiatal hernia repair with Des fundoplication and intraoperative EGD Status post laparoscopic Des fundoplication (10/31/21) Family History Denies family history of Anesthesia complication Bleeding disorder Social History Smoking and tobacco status: never smoked Alcohol intake: never Last substance use date: 10/12/19 Last substance use time: 01:00 Other details last substance use: Marijuana Current occupational status: employed Physical Exam Narrative: EXAM NARRATIVE: - GENERAL: Alert and oriented x 3. No acute distress. Well-nourished. - EYES: EOMI. Anicteric. - HENT: Atraumatic, no C-spine tenderness. Moist mucous membranes. No scleral icterus. No cervical lymphadenopathy. - LUNGS: Clear to auscultation bilaterally. No accessory muscle use. Equal lung sounds bilaterally. No respiratory distress. - CARDIOVASCULAR: Regular rate and rhythm. No murmur. No JVD. - ABDOMEN: Soft, mild diffuse tenderness, non-distended. Negative CVA tenderness bilaterally, no rebound or guarding, negative Lim sign. No palpable masses. - EXTREMITIES: No edema. Non-tender. - SKIN: No rashes or lesions. Warm. - NEUROLOGIC: No meningismus or focal neurological deficits. CN II-XII grossly intact. - PSYCHIATRIC: Cooperative. Appropriate mood and affect. Course Vital Signs: Vital signs: Vital Signs Temperature 98.0 F 11/26/21 11:51 Pulse Rate 91 11/26/21 11:51 Respiratory Rate 18 11/26/21 11:51 Blood Pressure 138/100 11/26/21 11:51 Pulse Oximetry 97 11/26/21 11:51 MDM - Abdominal Pain Medical Decision Making 41-year-old presents due to diffuse abdominal pain. She has had numerous recent visits for similar complaints without acute abnormality being found. Thoroughly reviewed her lab work and imaging without acute abnormality. At this time do not believe repeat lab work or imaging is warranted. Provided with dose of IM Haldol. Strongly suspect cyclic vomiting syndrome based on previous urine toxicology. Patient also states that she has had hysterectomy and cannot be . She is hemodynamically stable afebrile nontoxic-appearing. Prescription for promethazine suppositories provided. At this time I believe patient would be safe for discharge and outpatient follow-up. Return precautions provided. Plan was reviewed with the patient who expressed understanding. Questions answered. Patient will follow up with PCP. Patient discharged in stable condition. Discharge Plan Discharge Condition: Stable Prescriptions: No Action lorazepam 0.5 mg tablet 0.5 mg PO DAILY PRN (Reason: Anxiety) 0RF amoxicillin-pot clavulanate [Augmentin] 500-125 mg tablet 1 tab PO BID Qty: 6 0RF hydroxyzine HCl 50 mg tablet 50 mg PO TID PRN (Reason: Anxiety) 0RF ondansetron 4 mg tablet,disintegrating 4 mg PO Q6H PRN (Reason: nausea and vomiting) Qty: 30 2RF hydrocodone-acetaminophen 7.5-325 mg tablet 1 tab PO Q6H PRN (Reason: Pain) 0RF promethazine 25 mg tablet 25 mg PO QID PRN (Reason: Nausea And Vomiting) 0RF estradiol 10 mcg tablet 10 mcg VAGINAL .ON AND 0RF Lexapro 10 mg tablet 5 mg PO QAM 0RF potassium chloride 20 mEq tablet,ER particles/crystals 20 meq PO DAILY Qty: 20 0RF promethazine 25 mg tablet 25 mg PO Q6H PRN (Reason: nausea and vomiting) Qty: 20 0RF Referrals: Jacky Freeman MD [Primary Care Provider] - Coding Level of Care Code ED Facilities Custodian for Shira Carter
[2021-11-26] MEDS: haloperidol inj 5 mg/mL INJ 1 mL IM (12:25)
--- NOTE | 2021-11-26 12:36 | PC.NURSE ---
1230 Patient here for recurrent N/V/abd pain. Has been seen here for same several times in last few days. Also seen at [facility] last night and this morning-please note patient omitted the fact that she was seen this am at [place]. Aware of visit last night as they requested records from this facility last night. Exam by EDP. Dr. Celis aware of patient.
== END 2021-11-26 12:40 | disposition home or self-care (01) ==
PROVIDERS: Emergency Provider Emergency Medicine; PCP Family Medicine
DX: R10.9 Unspecified abdominal pain (principal)
CPT/HCPCS: 96372; 99283; J1630

== ENCOUNTER 2021-12-11 13:35 | Emergency (ER) | payer OTHER, SELFPAY ==
[2021-12-11 13:51] VITALS: BP 151/92; PULSE 106; RESP 16; TEMP 37.1; O2SAT 96; BMI 22.4
--- NOTE | 2021-12-11 14:07 | ED.C_ITS ---
HPI - Psych General: Chief Complaint: Psychiatric Symptoms Stated Complaint: anxiety Time Seen by Provider: 12/11/21 14:07 History of Present Illness: Ms Pulliam is a 41-year-old lady who presents to the emergency department due to anxiety. She reports history of similar however has not been on medications for some period of time. When she was on medications that she did feel mild improvement. She reports increased anxiety over the past week especially regarding her health, she is also in the process of moving which has added stress. She notes tearfulness and decreased motivation. She denies suicidal or homicidal ideation. She saw her primary care and was prescribed lorazepam however did not feel that that helped today. Overall course of symptoms has worsened though occurs intermittently. Intensity currently is moderate to severe. She has associated tearfulness. No other specific changes in health, exacerbating, or alleviating factors identified. Onset (ago): day(s) Duration: intermittent History of same: Yes Context: significant life stressor Associated psychiatric symptoms: depression and racing thoughts Associated symptoms: Deny delusions Review of Systems General: Reports: 10 or more systems reviewed and unremarkable except in HPI and below PFSH ED PFSH: Medical History Abnormal 24 hour ambulatory pH monitoring study Anxiety Gastritis GERD (gastroesophageal reflux disease) Gross hematuria (~2017) Interstitial cystitis (~2019) Nausea & vomiting History of intractable, recurrent issues Pseudoseizures Surgical History History of appendectomy History of History of cholecystectomy History of colonoscopy History of esophagogastroduodenoscopy (EGD) History of hysterectomy for cancer History of ovarian resection Hx of hernia repair Laparoscopic hiatal hernia repair with Des fundoplication and intraoperative EGD Status post laparoscopic Des fundoplication (10/31/21) Family History Denies family history of Anesthesia complication Bleeding disorder Social History Smoking and tobacco status: never smoked Alcohol intake: never Last substance use date: 10/12/19 Last substance use time: 01:00 Other details last substance use: Marijuana Current occupational status: employed Physical Exam Const: COMMON NORMALS: alert GENERAL APPEARANCE: cooperative and well developed HENMT: COMMON NORMALS: normocephalic and atraumatic HEAD & SCALP: normocephalic and atraumatic Eye: COMMON NORMALS: conjunctivae normal CONJUNCTIVA: Yes conjunctivae normal SCLERA: sclerae normal Neck/C-Spine: COMMON NORMALS: supple GENERAL: Yes trachea midline Resp: COMMON NORMALS: normal respiratory effort and clear to auscultation bilaterally EFFORT & INSPECTION: Yes able to speak in complete sentences AUSCULTATION: clear to auscultation bilaterally Cardio: COMMON NORMALS: regular rate and regular rhythm RATE: regular rate RHYTHM: regular rhythm GI: COMMON NORMALS: Soft to palpation PALPATION: Yes Soft to palpation and No Tenderness to palpation present (GI) PERCUSSION: normal to percussion Extremity: GENERAL: Yes normal exam except as noted and No edema Neuro: COMMON NORMALS: moves all extremities SENSORIUM/ORIENTATION: Yes alert and No Orientation impaired Psych: COMMON NORMALS: mental status grossly normal and Normal thought process present MOOD & AFFECT: Yes anxious and Yes tearful THOUGHT PROCESS: Normal thought process present THOUGHT CONTENT: No Suicidality present, No Homicidality present, No delusions and No Hallucination(s) present Course ED course: - Patient was seen and evaluated by me at bedside - Patient placed on cardiac monitors, IV access obtained - Initial evaluation notable for exam as above. Patient denies suicidal or homicidal ideation. No evidence of clinical intoxication or acute psychosis. She is tearful and anxious. -Anxiolysis ordered - Upon serial reexamination after treatment the patient was improved. I recomm ended admission given severity of depression however patient declined. I will initiate patient on Lexapro after significant discussion of risks and strict return precautions given. - Based on patient history, evaluation, and testing as interpreted the most likely cause of the patient's condition is worsening depression without suicidal or homicidal ideation or evidence of psychosis. - The results of ED evaluation were discussed with the patient including prescriptions and/or symptomatic cares (if applicable) including appropriate and responsible use, followup plan, and return precautions. The patient verbalized understanding and felt safe for discharge. - Patient discharged in satisfactory condition. Note: Click bubbles or prepopulated salguero in note writing are used for assistance with data collection and billing and are inherently more limited than narrative and other text portions of this note. Please use narrative for additional clinical history and defer to narrative/free test for any case of contradictory information. If information appears in only free text or click bubble it should be considered present or absent as reported. Please contact note scientific technical writer for clarifications of clinical information or contradictory information. MDM is a brief summary, contradictory or erroneous seeming information should be clarified and full note should be reviewed. Vital Signs: Vital signs: Vital Signs Temperature 98.7 F 12/11/21 13:51 Pulse Rate 76 12/11/21 16:04 Respiratory Rate 16 12/11/21 13:51 Blood Pressure 129/87 12/11/21 16:04 Pulse Oximetry 96 12/11/21 16:04 MDM - Psych Medical Decision Making 41-year-old lady presenting with worsening depression. She is tearful and anxious. Symptoms improved with anxiolysis. I offered admission which the patient declined. After extensive discussion plan to initiate the patient on Lexapro with strict return precautions. Medical Records I reviewed the patient's medical records. Lab Data I reviewed the patient's lab results. Discharge Plan Discharge Patient Disposition: Home Clinical Impression: Acute anxiety, Depression Condition: Stable Prescriptions: Discontinued escitalopram oxalate [Lexapro] 10 mg tablet 5 mg PO QAM 0RF No Action lorazepam 0.5 mg tablet 0.5 mg PO DAILY PRN (Reason: Anxiety) 0RF hydroxyzine HCl 50 mg tablet 50 mg PO TID PRN (Reason: Anxiety) 0RF ondansetron 4 mg tablet,disintegrating 4 mg PO Q6H PRN (Reason: nausea and vomiting) Qty: 30 2RF promethazine 25 mg tablet 25 mg PO QID PRN (Reason: Nausea And Vomiting) 0RF estradiol 10 mcg tablet 10 mcg VAGINAL .ON AND 0RF Discharge Orders: Discharge ED (Routine); Ordered 12/11/21 Ordered By: Kaz Mejia Referrals: Jacky Freeman MD [Primary Care Provider] - Discharge Diet: Usual diet Discharge Activity: Increase activity as tolerated Patient Instructions: Duloxetine (By mouth), Depression (ED), Anxiety (ED) Activity Restrictions/Additional Instructions: Thank you for visiting the emergency department. You were seen evaluated for anxiety and depression. The causes of anxiety and depression are often complex. As discussed this requires further follow-up in the outpatient setting. I will prescribe Cymbalta. Please watch for any adverse effects and return to the emergency department for any thoughts of suicide, harming yourself, or harming/killing others. Please follow-up with your primary care provider. Please return to the emergency department for anything else that you are concerned about and feel needs emergency department evaluation. Coding Level of Care Code ED Hot Tar Roofer Helper for Shira Fwjames Exam Comprehensive
[2021-12-11 14:24] VITALS: BP 133/71; PULSE 92; O2SAT 95
[2021-12-11 14:30] VITALS: BP 133/77; PULSE 94; O2SAT 97
[2021-12-11] MEDS: LORazepam 0.5 mg Tablet PO (14:45)
[2021-12-11 15:00] VITALS: BP 128/72; PULSE 86; O2SAT 95
[2021-12-11 16:04] VITALS: BP 129/87; PULSE 76; O2SAT 96
== END 2021-12-11 15:45 | disposition home or self-care (01) ==
PROVIDERS: Emergency Provider Emergency Medicine; PCP Family Medicine
DX: F41.9 Anxiety disorder, unspecified (principal); F32.A Depression, unspecified
CPT/HCPCS: 99283

== ENCOUNTER 2021-12-11 19:09 | Inpatient (IN) | payer OTHER, SELFPAY ==
[2021-12-11 19:15] VITALS: BP 155/93; PULSE 95; RESP 18; O2SAT 97; BMI 22.4
[2021-12-11 19:21] VITALS: PULSE 96; RESP 22; O2SAT 96
--- NOTE | 2021-12-11 19:24 | ED_ITS ---
HPI - Anxiety General: Chief Complaint: Anxiety Stated Complaint: anxiety Time Seen by Provider: 12/11/21 19:23 History of Present Illness: Ms. Pulliam is a 41-year-old lady who returns to the emergency department today desiring admission for uncontrolled depression and anxiety. She endorses a week history of worse symptoms. Associated is tearfulness at random times, uncontrolled anxiety, poor appetite, poor sleep, and poor interest. She does have remote history of suicide attempt at 17 and inpatient psychiatric hospitalization at that time. She was last on antidepressants 5 years ago. No other new changes since prior ED visit. She did not fill the prescription yet for Cymbalta that was written earlier today. No other specific changes in health, exacerbating, or alleviating factors identified. Onset (ago): week(s) Severity: moderate Provoking factors: emotional stress and work/job stress Relieving factors: nothing Exacerbating factors: thinking about event Review of Systems General: Reports: 10 or more systems reviewed and unremarkable except in HPI and below PFSH ED PFSH: Medical History Abnormal 24 hour ambulatory pH monitoring study Anxiety Gastritis GERD (gastroesophageal reflux disease) Gross hematuria (~2017) Interstitial cystitis (~2019) Nausea & vomiting History of intractable, recurrent issues Pseudoseizures Surgical History History of appendectomy History of History of cholecystectomy History of colonoscopy History of esophagogastroduodenoscopy (EGD) History of hysterectomy for cancer History of ovarian resection Hx of hernia repair Laparoscopic hiatal hernia repair with Des fundoplication and intraoperative EGD Status post laparoscopic Des fundoplication (10/31/21) Family History Denies family history of Anesthesia complication Bleeding disorder Social History Smoking and tobacco status: never smoked Alcohol intake: never Last substance use date: 10/12/19 Last substance use time: 01:00 Other details last substance use: Marijuana Current occupational status: employed Physical Exam Const: COMMON NORMALS: alert GENERAL APPEARANCE: cooperative and well developed HENMT: COMMON NORMALS: normocephalic and atraumatic HEAD & SCALP: normocephalic and atraumatic Eye: COMMON NORMALS: conjunctivae normal CONJUNCTIVA: Yes conjunctivae normal SCLERA: sclerae normal Neck/C-Spine: COMMON NORMALS: supple GENERAL: Yes trachea midline Resp: COMMON NORMALS: normal respiratory effort EFFORT & INSPECTION: Yes able to speak in complete sentences Cardio: COMMON NORMALS: regular rate and regular rhythm RATE: regular rate RHYTHM: regular rhythm GI: COMMON NORMALS: Soft to palpation PALPATION: Yes Soft to palpation and No Tenderness to palpation present (GI) Extremity: GENERAL: Yes normal exam except as noted and No edema Neuro: COMMON NORMALS: moves all extremities SENSORIUM/ORIENTATION: Yes alert and No Orientation impaired Psych: COMMON NORMALS: mental status grossly normal and Normal thought process present MOOD & AFFECT: Yes depressed mood, Yes anxious and Yes tearful THOUGHT PROCESS: Normal thought process present Course ED course: - Patient was seen and evaluated by me at bedside - Patient placed on cardiac monitors, IV access obtained - Initial evaluation notable for exam as above - Labs personally interpreted by me - Antiemetic and anxiolysis ordered - Labs notable for no leukocytosis, normal hemoglobin. Metabolic panel with evidence of dehydration, patient has similar in the past. Delta troponin negative. - Patient now requires inpatient management of worsening depression - Based on ED evaluation at this point there is no obvious condition that would preclude the patient from inpatient management of psychiatric concerns. -Discussed with psychiatry service and patient will be admitted to neuropsych unit. Note: Click bubbles or prepopulated salguero in note writing are used for assistance with data collection and billing and are inherently more limited than narrative and other text portions of this note. Please use narrative for additional clinical history and defer to narrative/free test for any case of contradictory information. If information appears in only free text or click bubble it should be considered present or absent as reported. Please contact note mortgage loan underwriter for clarifications of clinical information or contradictory information. MDM is a brief summary, contradictory or erroneous seeming information should be clarified and full note should be reviewed. Vital Signs: Vital signs: Vital Signs Temperature 98.6 F 12/16/21 12:54 Pulse Rate 108 H 12/16/21 12:54 Respiratory Rate 16 12/16/21 12:54 Blood Pressure 159/95 12/16/21 12:54 Pulse Oximetry 97 12/16/21 12:54 MDM - Anxiety Medical Decision Making 41-year-old lady seen earlier today by me presenting with depression now wishing to be admitted. Admitted to neuropsych unit for further management. Medical Records I reviewed the patient's medical records. Lab Data I reviewed the patient's lab results. : 12/16/21 04:32 12/16/21 04:32 Radiology Impressions Chest/Abdomen X-ray 12/12/21 02:23 IMPRESSION: Abnormally dilated small bowel loops. Recommend correlation for any signs of obstruction. Head CT 12/13/21 13:48 IMPRESSION: Negative head CT. Laboratory Results WBC 6.5 10^3/uL (4.0-10.0) 12/11/21 20:07 RBC 3.95 10^6/uL (4.1-5.3) L 12/11/21 20:07 Hgb 11.6 g/dL (11.5-15.3) 12/11/21 20:07 Hct 34.7 % (37.0-47.0) L 12/11/21 20:07 MCV 87.8 fl (81-99) 12/11/21 20:07 MCH 29.4 pg (28.0-34.0) 12/11/21 20:07 MCHC 33.4 g/dL (30.0-36.0) 12/11/21 20:07 RDW 13.4 % (12.1-15.1) 12/11/21 20:07 Plt Count 252 10^3/cmm (130-400) 12/11/21 20:07 MPV 10.9 fL (7.4-10.4) H 12/11/21 20:07 Neut % (Auto) 56.0 % 12/11/21 20:07 Lymph % (Auto) 30.6 % 12/11/21 20:07 Louisa % (Auto) 12.2 % 12/11/21 20:07 Eos % (Auto) 0.3 % 12/11/21 20:07 Baso % (Auto) 0.6 % 12/11/21 20:07 Neut # (Auto) 3.64 10^3/uL (1.8-7.7) 12/11/21 20:07 Lymph # (Auto) 2.0 10^3/uL (0.8-4.8) 12/11/21 20:07 Louisa # (Auto) 0.8 10^3/uL (0.2-0.9) 12/11/21 20:07 Eos # (Auto) 0.0 10^3/uL (0.0-0.8) 12/11/21 20:07 Baso # (Auto) 0.0 10^3/uL (0.0-0.1) 12/11/21 20:07 Nucleated RBC % (auto) 0 % 12/11/21 20:07 Nucleated RBCs # 0.0 /100WBC 12/11/21 20:07 Sodium 137 mmol/L (136-145) 12/11/21 20:07 Potassium 3.2 mmol/L (3.5-5.1) L 12/11/21 20:07 Chloride 100 mmol/L (98-107) 12/11/21 20:07 Carbon Dioxide 20 mmol/L (22-29) L 12/11/21 20:07 Anion Gap 20.2 (5-19) H 12/11/21 20:07 BUN 9 mg/dL (6-20) 12/11/21 20:07 Creatinine 0.7 mg/dL (0.5-0.9) 12/11/21 20:07 GFR Calculation 91.3 mL/min (90-130) 12/11/21 20:07 Glucose 98 mg/dL (65-115) 12/11/21 20:07 Calculated Osmolality 283 mOsm/kg (285-295) L 12/11/21 20:07 Calcium 8.9 mg/dL (8.5-10.5) 12/11/21 20:07 Total Bilirubin 0.4 mg/dL (0.15-1.2) 12/11/21 20:07 AST 12 U/L (0-32) 12/11/21 20:07 ALT 10 U/L (0-33) 12/11/21 20:07 Alkaline Phosphatase 68 IU/L (35-105) 12/11/21 20:07 Total Protein 6.5 g/dL (6.6-8.7) L 12/11/21 20:07 Albumin 4.4 g/dL (3.5-5.2) 12/11/21 20:07 Globulin 2.1 g/dL (1.3-4.6) 12/11/21 20:07 Lipase 11 U/L (13-60) L 12/11/21 20:07 TSH 1.89 uIU/mL (0.27-4.20) 12/11/21 20:07 HCG, Qual Negative (Negative) 12/11/21 20:26 Salicylates < 0.3 mg/dL (3-10) L 12/11/21 20:07 Urine Opiates Screen Positive ng/mL (Negative) H 12/11/21 20:26 Acetaminophen < 5.0 ug/mL (10-30) L 12/11/21 20:07 Ur Barbiturates Screen Negative ng/mL (Negative) 12/11/21 20:26 Ur Phencyclidine Scrn Negative ng/mL (Negative) 12/11/21 20:26 Ur Amphetamines Screen Negative ng/mL (Negative) 12/11/21 20:26 U Benzodiazepines Scrn Positive ng/mL (Negative) H 12/11/21 20:26 Urine Cocaine Screen Negative ng/mL (Negative) 12/11/21 20:26 U Marijuana (THC) Screen Positive ng/mL (Negative) H 12/11/21 20:26 Ethyl Alcohol < 10 mg/dL (0-10) 12/11/21 20:07 Discharge Plan Discharge Patient Disposition: Admitted As Inpatient Admit Provider: Justino Coleman Clinical Impression: Depression, uncontrolled, Anxiety Condition: Stable Discharge Diet: GI Soft Discharge Activity: Resume usual activity Coding Level of Care Code ED Harm Reduction Worker for Shira Carter
[2021-12-11] MEDS: LORazepam 1 mg Tablet PO (19:48)
[2021-12-11] MEDS: ondansetron 2 mg/ML SDV 2 mL 4 MG IM (19:49)
[2021-12-11 20:11] LABS: Basophils % 0.6 %; Eosinophils % 0.3 %; Hematocrit 34.7 % (37.0-47.0); Hemoglobin 11.6 g/dL (11.5-15.3); Lymphocytes % 30.6 %; Mean Corpuscular HGB Conc 33.4 g/dL (30.0-36.0); Mean Corpuscular Hemoglobin 29.4 pg (28.0-34.0); Mean Corpuscular Volume 87.8 fl (81-99); Mean Platelet Volume 10.9 fL (7.4-10.4); Monocytes # 0.8 10^3/uL (0.2-0.9); Monocytes % 12.2 %; Neutrophils # 3.64 10^3/uL (1.8-7.7); Nucleated Red Blood Cells % 0 %; Platelet Count 252 10^3/cmm (130-400); Red Blood Count 3.95 10^6/uL (4.1-5.3); Red Cell Distribution Width 13.4 % (12.1-15.1); White Blood Count 6.5 10^3/uL (4.0-10.0)
[2021-12-11 20:43] LABS: HCG Qualitative Urine. Negative (Negative)
[2021-12-11 20:43] LABS: Alanine Aminotransferase 10 U/L (0-33); Albumin Level 4.4 g/dL (3.5-5.2); Alkaline Phosphatase 68 IU/L (35-105); Anion Gap 20.2 (5-19); Aspartate Amino Transferase 12 U/L (0-32); Blood Urea Nitrogen 9 mg/dL (6-20); Calcium 8.9 mg/dL (8.5-10.5); Carbon Dioxide 20 mmol/L (22-29); Chloride 100 mmol/L (98-107); Globulin 2.1 g/dL (1.3-4.6); Glomerular Filtration Rate 91.3 mL/min (90-130); Glucose 98 mg/dL (65-115); Osmolality Calculated 283 mOsm/kg (285-295); Potassium 3.2 mmol/L (3.5-5.1); Sodium 137 mmol/L (136-145); Thyroid Stimulating Hormone 1.89 uIU/mL (0.27-4.20); Total Bilirubin 0.4 mg/dL (0.15-1.2); Total Protein 6.5 g/dL (6.6-8.7)
[2021-12-11 20:46] LABS: Acetaminophen < 5.0 ug/mL (10-30); Alcohol Level < 10 mg/dL (0-10); Salicylate < 0.3 mg/dL (3-10)
[2021-12-11 20:46] LABS: Amphetamines Screen Urine Negative (Negative); Barbiturates Screen Urine Negative (Negative); Benzodiazepines Screen Urine Positive (Negative); Cocaine Screen Urine Negative (Negative); Opiate Screen Urine Positive (Negative); PCP Screen Urine Negative (Negative); THC Screen Urine Positive (Negative)
[2021-12-11] MEDS: potassium chloride ER 20 mEq Tablet 40 MEQ PO (21:13)
[2021-12-11 21:17] VITALS: PULSE 96; RESP 22; O2SAT 96
[2021-12-11 22:00] VITALS: BP 135/89; PULSE 98; RESP 18; TEMP 37.4; O2SAT 92
[2021-12-11] MEDS: trazodone 50 mg Tablet PO (22:07)
[2021-12-11] MEDS: hyDROXYzine 25 mg Capsule 50 MG PO (22:07)
[2021-12-11] MEDS: promethazine 25 mg Tablet PO (22:09)
[2021-12-11] MEDS: OLANZapine 5 mg ODT PO (22:44)
[2021-12-11] MEDS: LORazepam 0.5 mg Tablet PO (22:44)
--- NOTE | 2021-12-12 02:15 | PC.NURSE ---
pt continuously c/o nausea and vomiting with increased anxiety noted. staff has not seen any vomiting. pt has been heard dry retching. consult placed for hospitalist to see pt due to pt complaints. hospitalist Dr Ventura here to see pt at approximately 0215. orders placed, ordered med given. suggested to alert Dr Garcia that pt is here on this unit.
--- NOTE | 2021-12-12 02:23 | P.HP_ITS ---
Providers/Chief Complaint Admitting Physician: Justino Coleman MD Primary Care Provider: Jacky Freeman MD Chief Complaint: anxiety History of Present Illness Pleasant 41-year-old lady with history of fundoplication on 10/31, subsequently with persistent nausea, and on and off burning abdominal pain, admitted earlier to the neuropsychiatric unit due to worsening depression and anxiety, however, is having persistent nausea and burning central abdominal pain due to which a consult was requested with hospitalist. She states that the pain is no different in the last 3 days. She had had an admission earlier in November with the same symptoms, and states that they overall have not changed much since the surgery. Denies any constipation. Has been only able to tolerate only small amounts of liquids. She states that the planned with Dr. Garcia for upper GI study on the of this month. Review of Systems Const: Denies: fever(s), chills, body aches or malaise Eyes: Denies: change in vision, eye discomfort or eye redness ENMT: Denies: throat pain, oral sores or ear or mastoid pain Card: Denies: chest pain, edema, pre-syncope or dyspnea on exertion Resp: Denies: dyspnea, productive cough, change in phlegm color or hemoptysis GI: Reports: abdominal pain, nausea and vomiting; Denies: diarrhea, constipation, hematochezia or melena : Denies: flank pain, urinary frequency or hematuria Musc: Denies: back pain, joint swelling or joint redness Skin/Breast: Denies: rash or new lesions Neuro: Denies: headache(s), numbness in extremities, weakness in extremities, dizziness, confusion or seizure-like activity Endo: Denies: polyuria or polydipsia Austyn/Lymph: Denies: easy bleeding or tender lymph nodes All/Imm: Denies: urticaria or tongue swelling Medications/Allergies Home Medications Medication Instructions Recorded Confirmed Last Taken Type hydroxyzine HCl 50 mg tablet 50 mg PO TID PRN 10/30/21 12/11/21 11/16/21 History ondansetron 4 mg disintegrating 4 mg PO Q6H PRN #30 tab 11/01/21 12/11/21 12/11/21 Rx tablet lorazepam 0.5 mg tablet 0.5 mg PO DAILY PRN 11/16/21 12/11/21 12/11/21 History estradiol 10 mcg vaginal tablet 10 mcg VAGINAL .ON TUES AND TH11/22/21 12/11/21 11/21/21 History hydrocodone 7.5 mg-acetaminophen 1 tab PO Q6H PRN 11/22/21 12/11/21 Unknown History 325 mg tablet potassium chloride 20 mEq 20 meq PO DAILY #20 tab 11/22/21 12/11/21 12/11/21 Rx tablet,extended release(part/cryst) promethazine 25 mg tablet 25 mg PO QID PRN 11/22/21 12/11/21 12/11/21 History duloxetine 30 mg capsule,delayed 30 mg PO DAILY #30 cap 12/11/21 12/11/21 Unknown Rx release (Cymbalta) Allergies Allergy/AdvReac Type Severity Reaction Status Date / Time aspirin Allergy ALGY-Hives Verified 12/07/21 12:45 capsaicin Allergy ALGY-Redness Verified 12/07/21 12:45 of Skin cephalexin [From Keflex] Allergy ALGY-Hives Verified 12/07/21 12:45 meperidine [From Demerol] Allergy Unknown Verified 12/07/21 12:45 PFSH Acute PFSH: Medical History Abnormal 24 hour ambulatory pH monitoring study Anxiety Gastritis GERD (gastroesophageal reflux disease) Gross hematuria (~2017) Interstitial cystitis (~2019) Nausea & vomiting History of intractable, recurrent issues Pseudoseizures Surgical History History of appendectomy History of History of cholecystectomy History of colonoscopy History of esophagogastroduodenoscopy (EGD) History of hysterectomy for cancer History of ovarian resection Hx of hernia repair Laparoscopic hiatal hernia repair with Des fundoplication and intraoperative EGD Status post laparoscopic Des fundoplication (10/31/21) Family History Denies family history of Anesthesia complication Bleeding disorder Social History Smoking and tobacco status: never smoked Alcohol intake: never Last substance use date: 10/12/19 Last substance use time: 01:00 Other details last substance use: Marijuana Current occupational status: employed Vitals/I&O/Wt Last Vital Signs Temp 99.3 F 12/11/21 22:00 Pulse 98 12/11/21 22:00 Resp 18 12/11/21 22:00 BP 135/89 12/11/21 22:00 Pulse Ox 92 12/11/21 22:00 Weight last 48 hrs Weight 64.864 kg Physical Exam Const: COMMON NORMALS: alert GENERAL APPEARANCE: cooperative; not comfortable ORIENTATION/CONSCIOUSNESS: Yes awake HENMT: COMMON NORMALS: normocephalic, EAC's normal, Normal external nose present and moist oral mucous membranes HEAD & SCALP: normocephalic NOSE: Normal external nose present EXTERNAL AUDITORY CANAL: EAC's normal Neck/C-Spine: COMMON NORMALS: no meningeal signs Chest: CHEST: Yes Symmetrical chest wall rise Resp: COMMON NORMALS: clear to auscultation bilaterally AUSCULTATION: clear to auscultation bilaterally Cardio: COMMON NORMALS: regular rate, regular rhythm and No murmurs present (Cardio) RATE: regular rate RHYTHM: regular rhythm GI: COMMON NORMALS: Normal to inspection, nondistended, normoactive bowel sounds present and Soft to palpation PALPATION: Yes Soft to palpation and Yes Tenderness to palpation present (GI) (Mildly - central/periumbilical) Extremity: COMMON NORMALS: no pedal edema Neuro: COMMON NORMALS: moves all extremities SENSORIUM/ORIENTATION: Yes alert MENINGEAL SIGNS: Yes no meningeal signs Psych: COMMON NORMALS: mental status grossly normal Skin: COMMON NORMALS: no wounds RASHES: no rashes Data : 12/11/21 20:07 12/11/21 20:07 A&P Assessment and plan (1) Nausea and vomiting: After Des fundoplication 10/31. Persistent nausea, vomiting. Currently states burning abdominal pain from retching. Only tolerating small amounts of liquids. Will obtain acute abdominal series x-ray. Discussed with her CLD with small sips, which she states she is advised to do. Continue antiemetics. Continue PPI twice daily. She denies NSAID use. Denies alcohol consumption. Consider consultation with Dr. Garcia, who will be on-call starting tomorrow. On her UDS I see also positive for marijuana, consideration may be given to cannabinoid hyperemesis syndrome as well given chronicity of the symptoms. Please encourage her abstain from cannabinoid products. Status: Acute (2) Abdominal pain: Presenting abdominal pain, she states due to retching. As above. She is aware to let us know in case there is change in quality to the pain. Check lipase. Status: Acute (3) Depression: Pending additional assessment and management with neuropsychiatric team. Status: Acute (4) Anxiety: As above. Status: Acute Plan GERD Interstitial cystitis Other chronic morbidities noted Attestations Medical Necessity Statement*: Admission as per neuropsychiatric unit team. Coding Level of Care Code Acute Mails Supervisor for Shira Carter Diagnoses Nausea and vomiting R11.2 Abdominal pain R10.9 Depression F32.A Anxiety F41.9
--- NOTE | 2021-12-12 02:23 | XRR_ITS ---
PROCEDURE INFORMATION: Exam: XR Abdomen Exam date and time: 12/12/2021 7:15 AM Age: 41 years old Clinical indication: Abdominal pain; Localized; Patient HX: Abd pain and nausea x 2wks. Pain is in the mid upper and lower quadrants; Additional info: N/v TECHNIQUE: Imaging protocol: Radiologic exam of the abdomen. Views: 2 Views. Upright and supine views. COMPARISON: CT abdomen pelvis w con* [id number] 11/28/2021 2:12 AM FINDINGS: Gastrointestinal tract: A few abnormally dilated small bowel loops measuring up to 3.7 cm in diameter. Air noted distally in the rectum. Intraperitoneal space: Surgical clips in the abdomen noted. Bones/joints: Unremarkable. XR/XR acute abdomen series [id number] IMPRESSION: Abnormally dilated small bowel loops. Recommend correlation for any signs of obstruction.
[2021-12-12] MEDS: pantoprazole DR 40 mg Tablet PO ×2 (02:33→17:22)
[2021-12-12 02:43] LABS: Lipase 11 U/L (13-60)
[2021-12-12] MEDS: hyDROXYzine 25 mg Capsule 50 MG PO ×3 (04:29→17:22)
--- NOTE | 2021-12-12 05:23 | PC.NURSE ---
vistaril 50mg po given for anxiety wit fair results.
[2021-12-12] MEDS: ondansetron 4 MG Tablet PO ×2 (05:53→12:49)
[2021-12-12 06:00] VITALS: RESP 17
[2021-12-12] MEDS: potassium chloride ER 20 mEq Tablet PO (07:59)
[2021-12-12] MEDS: OLANZapine 5 mg ODT PO ×3 (08:24→13:24)
[2021-12-12] MEDS: promethazine 25 mg Tablet PO (08:24)
--- NOTE | 2021-12-12 09:09 | PC.NURSE ---
PT REPORT ANXIETY STAFF INFORMING HER THAT ATIVAN WAS NOT DUE UNTIL 1600. PT THEN PROCEEDED TO TENSE UP, ROLLING EYES IN THE BACK OF HER HEAD AND SPASTIC BODY MOVEMENTS. PT RESPONDED AFTER ONE MINUTE OF JERKING. VS OBTAINED, SPO2 99% ON ROOM AIR HR 80, BP 140/85 AND RR 18. PT DENIES PAIN. DENIES SI/HI AND AVH AT THIS TIME. PT REPORTS INCREASED ANXIETY AND DEPRESSION. MED NURSE TO GIVE ANXIETY MEDS. PT THEN GOT UP TOOK MEDS AND TOOK A SHOWER FOR THE 4TH TIME. SUPPORT VOICED.
--- NOTE | 2021-12-12 10:15 | PM.MISC ---
Miscellaneous Note Note: Patient is still complaining abdominal pain She had more than 5 episode of emesis today We will transfer her out of n.p.o. to [facility] Concern for partial SBO versus ileus Potassium 3.[address] Coleman to update Dr. Garcia as well Patient is walking down the lopez Abdomen is soft on palpation however on deep palpation there is some tenderness however I do not appreciate guarding rigidity or peritonitis Bowel sounds are hyperactive in right and left quadrant, hypoactive and midepigastric region Awake and alert Looks dehydrated Nonfocal neuro exam Saturating well on room air Plan for today Transferred to [facility] NG tube to suction N.p.o. IV fluid hydration Potassium complaining his Check magnesium Serial abdominal exam and KUB Update Dr. Garcia
--- NOTE | 2021-12-12 12:29 | W.PM.NPUH&PS ---
Providers/Chief Complaint Admitting Physician: Mahin Valverde MD Primary Care Provider: Jacky Freeman MD Chief Complaint: anxiety HPI NPU History of Present Illness The patient is a 41 year old white female who was admitted to the neuropsychiatric unit for depression and anxiety. She denies any other medications in the past. She denies tobacco, alcohol but reports using it in the past, marijuana, the last time of which was 2 months ago, and denies any other illicit drug use. She denies having induced vomiting previously and reports she has been having her current nausea and pain for a couple of weeks for which she has shown up to the ER multiple times. She reports experiencing increased depression and anxiety about how slowly she is healing but denies self-injurious or suicidal ideation currently. She reports having panic attacks on a daily basis with with chest pain, shortness of breath, and hyperventilation which do not appear to be triggered by anything. She reports that these typically last 20 to 30 minutes. She reports that she has been treated for occasional panic attacks with lorazepam but reports that the panic attack frequency has made it overwhelming for her. She reports for the last few weeks having chronic anxiety and pain issues from the surgery and reports that she just wants it to stop. She reports passive suicidal ideation with no plan. She reports some feelings of hopelessness for the last month. She reports more frequent crying episodes, Psychiatric History: None currently She reports she was psychiatrically hospitalized once in [place] at 17 years old at which point she was diagnosed with bipolar disorder and reports she was on Depakote for a long time. She reports her hospitalization was due to a maniac episode with lack of sleep and high energy. She reports outpatient treatment for years. She reports she has not been on psychiatric medications for 10 years now. She reports trials of lithium. She reports previous psychiatric treatment at [facility] but reports that it has been many years. Substance Abuse History: none reported Family History: She denies any mental health or addiction issues on either side of the family. Developmental History: She did not report any issues with her or meeting her developmental milestones, and denies any need for speech therapy, learning support, emotional support or special education classes. Psychosocial History: She reports she was born in [facility] and moved to the [facility] when she was 14 years old. She was raised by her biological parents and they are still together. She has a younger sibling who is a product of the same union. She denies any emotional, physical or sexual abuse during her childhood. She graduated from high school. She reports has been twice and is currently for 6 years. She has a 19 year old daughter. 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 Legal History: She did not report any legal issues during the interview. Medical History: She reports she is allergic to Keflex and Demerol. She had Butch Fundiplication a month and a half ago. She had GERD. She reports pain and nausea currently and for the past few weeks and they are ruling out a blockage. Meds NPU Home Medications Medication Instructions Recorded Confirmed Last Taken Type hydroxyzine HCl 50 mg tablet 50 mg PO TID PRN 10/30/21 12/11/21 11/16/21 History ondansetron 4 mg disintegrating 4 mg PO Q6H PRN #30 tab 11/01/21 12/11/21 12/11/21 Rx tablet lorazepam 0.5 mg tablet 0.5 mg PO DAILY PRN 11/16/21 12/11/21 12/11/21 History estradiol 10 mcg vaginal tablet 10 mcg VAGINAL .ON AND 11/22/21 12/11/21 11/21/21 History hydrocodone 7.5 mg-acetaminophen 1 tab PO Q6H PRN 11/22/21 12/11/21 Unknown History 325 mg tablet potassium chloride 20 mEq 20 meq PO DAILY #20 tab 11/22/21 12/11/21 12/11/21 Rx tablet,extended release(part/cryst) promethazine 25 mg tablet 25 mg PO QID PRN 11/22/21 12/11/21 12/11/21 History duloxetine 30 mg capsule,delayed 30 mg PO DAILY #30 cap 12/11/21 12/11/21 Unknown Rx release (Cymbalta) Allergies Allergy/AdvReac Type Severity Reaction Status Date / Time aspirin Allergy ALGY-Hives Verified 12/12/21 18:02 capsaicin Allergy ALGY-Redness Verified 12/12/21 18:02 of Skin cephalexin [From Keflex] Allergy ALGY-Hives Verified 12/12/21 18:02 meperidine [From Demerol] Allergy Unknown Verified 12/12/21 18:02 PFS NPU PFSH: Medical History Abnormal 24 hour ambulatory pH monitoring study Anxiety Gastritis GERD (gastroesophageal reflux disease) Gross hematuria (~2017) Interstitial cystitis (~2019) Nausea & vomiting History of intractable, recurrent issues Pseudoseizures Surgical History History of appendectomy History of History of cholecystectomy History of colonoscopy History of esophagogastroduodenoscopy (EGD) History of hysterectomy for cancer History of ovarian resection Hx of hernia repair Laparoscopic hiatal hernia repair with Des fundoplication and intraoperative EGD Status post laparoscopic Des fundoplication (10/31/21) Family History Denies family history of Anesthesia complication Bleeding disorder Social History Smoking and tobacco status: never smoked Alcohol intake: never Last substance use date: 10/12/19 Last substance use time: 01:00 Other details last substance use: Marijuana Current occupational status: employed Mental Status Exam MSE Comments: This is a well nourished, well developed female in hospital scrubs with adequate grooming and eye contact. No abnormal movements. Cooperative with exam in moderate distress as she appeared in signficant distress. Speech was normal in rate and volume. Mood described as depressed, affect is restricted. Thought process, organized. Thought content: patient denies homicidal ideation, there were no delusions reported or noted, and denies auditory or visual hallucinations. Attention and concentration are intact and memory appeared reliable though none were formally tested. She is alert and oriented three times. Insight and judgment are fair. Impulse control is fair. Vitals/I&O/Wt Last Vital Signs Temp 98 F 12/12/21 14:00 Pulse 100 12/12/21 14:00 Resp 14 12/12/21 14:01 BP 165/95 12/12/21 14:00 Pulse Ox 99 12/12/21 14:01 Weight last 48 hrs Weight 64.864 kg Data NPU : 12/11/21 20:07 12/11/21 20:07 A&P Assessment and plan (1) Pain disorder associated with psychological and physical factors: Status: Acute (2) Depression: Status: Acute (3) Panic attacks: Status: Acute (4) Depression, unspecified: Status: Acute Plan This is a 41 year old female with a past history of bipolar disorder who presents currently off of medication who will require acute psychiatric stabilization 1. Consults to surgery and medical unit. If continued episodes of emesis will likely transfer to medicine team. 2. Encourage individual, group and milieu therapy 3. Continue q-15 minute check for safety 4. Recommend sober living treatment at the highest level of care to which the patient is willing to commit. Attestations NPU Medical Necessity Statement*: Inpatient hospitalization is medically necessary and the clinically appropriate intervention at this time. We will monitor medications and make changes as indicated. Patient will be in the hospital for over two midnights. Likely length of stay is three to five days. Coding Level of Care Code New Pt Acute [employer] for Shira Carter Patient Type New History Problem Focused Exam Problem Focused Medical Decision Making Straight Forward Diagnoses Pain disorder associated with psychological and physical factors F45.42 Depression F32.A Panic attacks F41.0 Depression, unspecified F32.A
--- NOTE | 2021-12-12 13:37 | PC.NURSE ---
NEW ORDERS VERBAL ORDER RECEIVED FROM DR. BATES TO START OXYCODONE 5/325 MG PO 1 TAB Q 8 HOUR PRN. ORDERS PLACED IN [facility]. EDUCATED PT ON NEW MEDICATIONS. DR. BATES INFORMED THIS NURSE THAT TRANSFER TO MED SURG WAS CANCELLED. PT WILL MONITORED HERE IN NPU BY HOSPITALIST. INFORMED PT THAT TRANSFER WAS CANCELLED AND IF NAUSEA CONTINUED OR VOMITING OCCURRED TO NOTIFY THIS RN. ALL QUESTIONS ANSWERED AND SUPPORT VOICED.
[2021-12-12 14:00] VITALS: BP 165/95; PULSE 100; RESP 17; TEMP 36.6; O2SAT 98
[2021-12-12 14:01] VITALS: RESP 14; O2SAT 99
[2021-12-12] MEDS: oxyCODONE-APAP 5-325 mg Tablet 1 TAB PO (14:01)
--- NOTE | 2021-12-12 16:52 | PM.CONSULT ---
Providers/Reason For Consult Consulting Physician/Specialty*: Booker Garcia MD Reason for Consult*: Concern for bowel obstruction Requesting Physician: Dr. Lozano Attending Physician: Mahin Valverde MD Primary Care Provider: Jacky Freeman MD History of Present Illness History of Present Illness 11/08/2021 Patient comes today status post laparoscopic hiatal hernia repair and Des fundoplication 10/31/2021.? Pathology did show; ?Soft tissue, hiatal hernia sac , removal: ? Fibroadipose tissue with chronic inflammation, consistent with hernia sac contents. ? Two benign lymph nodes identified. Patient overall feels well and denies any acid reflux symptoms yet she has been the bit sore towards the left side of her abdomen at the incision site, without evidence of surgical site infection, requesting another refill of hydrocodone. Has been compliant with the post Des diet 11/22/2021 Patient comes today as a follow-up status post laparoscopic Des fundoplication and hiatal hernia repair.? Recently she was hospitalized for repeated nausea and vomiting in addition to diarrhea.? Patient was admitted to the hospitalist service and IV have seen the patient as a consult. On 11/18/21 Mr. Jana Strange is a pleasant 41 year old female, well-known to me from previous clinical encounters as recently I did perform uneventful laparoscopic hiatal hernia repair with 360 degree Des fundoplication 10/31/2021 for abnormal pH monitoring as well as symptomatic hiatal hernia.? And inpite of PPI therapy patient had persistent acid reflux and frequent ER visits and persistent heartburn. Patient was discharged home shortly after postoperative day 1 and maintained to be on appropriate protocol for post Des diet per my instructions.? And she was seen at my office as a follow-up visit on 11/08/2021.? Apparently per patient's description last Saturday in the later afternoon had ingested water from a bottle that was kept in the car for a while and shortly thereafter started to have nausea and vomiting associated with profound diarrhea.? Presented to the emergency department with chest and upper abdominal pain due to the repeated retching and vomiting.? Further work-up was done that showed; Initial lab work showed WBC count of 14.6, hemoglobin of 13.9, platelets 435.? Sodium 140, potassium 4.1 liver function test within normal, albumin 4.7 and lipase of 17. Repeated lab over the course of the hospital showed lactic acid of 1.2, elevated WBC count up to 20.5. CT of the abdomen and pelvis without contrast on 11/15/2021 1. Limited noncontrast examination without CT evidence of acute intra-abdominal or pelvic pathology. 2. Additional findings, as above. Followed by repeat CT scan of the abdomen and pelvis with IV contra Sequela of [place] fundoplication. Nonspecific mild distention of the stomach. This does not appear to be obstructed at this level as there is normal caliber loops of small bowel and colon distal to the stomach. There is nonspecific diffuse fluid-filled small bowel and colon. This could be indicative of a gastroenteritis, the loops of bowel are not pathologically distended to suggest bowel obstruction or ileus. Patient was admitted to the hospitalist service for IV fluid resuscitation and control of nausea and vomiting and planning was to obtain stool sample.? I was approached by Dr. Casanova yesterday evening as I was out of state for a conference discussing the plan of care and agreed upon conservative measures.? I had the chance today to come and visit the patient myself and check on her.? Reports that she has been doing fine for the past couple of weeks postoperatively yet for the last few days and after ingesting this water started to complain of gastroenteritis like symptoms, no other sick contacts. 11/22/2021 clinic notes Above was my HPI during the patient's hospitalization.? Patient after being discharged came back to the ER on 11/20/[address] scan of the abdomen and pelvis that did show; 1. Small bilateral pleural effusions. 2. Stable mild gaseous distention of the stomach. 3. Few loops of mildly prominent small bowel which are nonspecific but could be seen with gastroenteritis. Also prior to patient's discharge from the hospital I did send the patient for a dedicated upper GI study to evaluate the surgical anatomy of the Des fundoplication and hiatal hernia repair and that did show; 1.? Delayed esophageal emptying with moderate dysmotility and tertiary contractions in the distal esophagus 2.? Moderate narrowing at the GE junction at the presumed site of fundoplication appears progressed compared to November 01, 2021 likely postoperative edema. This partially distends with additional fluid ingestion 3.? Free spillage of contrast into the proximal duodenum. 4.? No evidence of leak. 5.? No evidence of reflux. Apparently the patient has been having ongoing nausea and has been having very stressful life event as her left his job recently and he comes with her today.? Patient has been consuming marijuana products.? She reports that she did not smoke for a while and she has been doing just fine for the first weeks after surgery and just started last Saturday her symptoms intra-articularly and vomiting associated with diarrhea ended up being admitted to the hospitalist service for IV fluid resuscitation.? Today prior to the patient coming to my office she went to the ER for the second visit after her recent discharge and blood work was obtained that was within normal limits and was treated conservatively with medications for her nausea and vomiting as I did have a conversation with Dr. Mary likely patient's symptoms is related to her consumption of marijuana. It is quite challenging to evaluate the patient clinically without behavioral therapy support.? I did asked the patient about her therapist that she said that she will get an appointment for follow-up. 11/25/2021 Telehealth visit Patient was able to communicate with me through the channeling machine operator few minutes ago and is requesting IV Dilaudid as that is the only medication that relieve her pain and subsequently she has been anxious and requesting to be admitted to the hospital for Parenteral narcotic pain medications.? Patient most of her complaints in the left side of the chest wall and she reports intractable nausea and vomiting.? Denies any other complaints.? She has been having diarrhea.? And obviously had frequent hospitalization and multiple visits to the ER.? Patient have been seen by her therapist per her description and she told me I cannot snap out this time patient seems to be very anxious and irritable despite all of the support that she receives from her spouse per her description. 11/30/2021 Patient comes today for follow-up and yesterday night I did receive a phone call from [facility] ER physician regarding the patient's being evaluated over there for repeated nausea and vomiting.? And apparently the patient did go to the same ER on November 28, [address] of the abdomen and pelvis was done at that time and showed; 1-normal findings at the GE junction some of which may be postsurgical in nature. 2-large amount of stool is noted 3-diverticular disease is noted CT report surgery at the GE junction with thickness of the tissues in the area.? With distention and elongation of the gastric silhouette, concerning for gastric outlet obstruction or gastroparesis. I did recommend that the patient follow-up with me today at my office. Patient is tolerating p.o. intake.? And responding well to Ativan and haloperidol which makes it more concerning that the patient does have suspecting cyclic vomiting syndrome based on previous urine toxicology.? Currently the patient is less stressed and she comes today escorted by her and kindly brought to me the CD of the recent CT scan at [place] where we get her loaded on our system for further review. Patient and her report to me that they are planning to move to [place] particularly in [facility] where there are job opportunities and closer to their families and would be more less and anxiety for the patient. 12/12/2021 Please see the above HPI Ms. Jana Strange is a pleasant 41 year old female well-known to me from previous clinical encounters as she did undergo uneventful laparoscopic Des fundoplication and hiatal hernia repair. 10/31/2021. Patient had uneventful surgery and was discharged without complications. Yet she had multiple visits to our emergency department and other ERs of other facilities with persistent nausea and vomiting. Patient is well-known from previous history that she has been diagnosed with cyclic vomiting syndrome based on previous urine toxicology. All the studies and imaging that has been done did not show any obstruction or esophageal narrowing except for postoperative changes which is expected after Des fundoplication and hiatal hernia repair. Patient has been suffering from anxiety and depression and has been getting worse. And today I was consulted to evaluate the patient as she has been admitted to Neuropsych Unit and there was a concern about alleged suicidal ideation pending further exploration by psychiatry team. Patient is scheduled for gastric emptying studies on December 21, 2021 She continues to complain of abdominal pain and requiring opioid for relief. She has been having diarrhea and she reports that she is not able to keep things down. Per nursing staff in the psych unit they report that she has been taking her medicine by mouth and keeping oral intake Review of Systems General: Reports: 10 or more systems reviewed and unremarkable except in HPI and below Medications/Allergies Home Medications Medication Instructions Recorded Confirmed Last Taken Type hydroxyzine HCl 50 mg tablet 50 mg PO TID PRN 10/30/21 12/11/21 11/16/21 History ondansetron 4 mg disintegrating 4 mg PO Q6H PRN #30 tab 11/01/21 12/11/21 12/11/21 Rx tablet lorazepam 0.5 mg tablet 0.5 mg PO DAILY PRN 11/16/21 12/11/21 12/11/21 History estradiol 10 mcg vaginal tablet 10 mcg VAGINAL .ON TU AND 11/22/21 12/11/21 11/21/21 History hydrocodone 7.5 mg-acetaminophen 1 tab PO Q6H PRN 11/22/21 12/11/21 Unknown History 325 mg tablet potassium chloride 20 mEq 20 meq PO DAILY #20 tab 11/22/21 12/11/21 12/11/21 Rx tablet,extended release(part/cryst) promethazine 25 mg tablet 25 mg PO QID PRN 11/22/21 12/11/21 12/11/21 History duloxetine 30 mg capsule,delayed 30 mg PO DAILY #30 cap 12/11/21 12/11/21 Unknown Rx release (Cymbalta) Allergies Allergy/AdvReac Type Severity Reaction Status Date / Time aspirin Allergy ALGY-Hives Verified 12/12/21 18:02 capsaicin Allergy ALGY-Redness Verified 12/12/21 18:02 of Skin cephalexin [From Keflex] Allergy ALGY-Hives Verified 12/12/21 18:02 meperidine [From Demerol] Allergy Unknown Verified 12/12/21 18:02 Current Medications Generic Name Dose Route Start Last Admin Trade Name Freq PRN Reason Stop Dose Admin Hydroxyzine Pamoate 50 mg 12/11/21 21:20 12/12/21 11:18 Hydroxyzine 25 Mg Capsule PO 50 mg Q6H PRN Administration ANXIETY Lorazepam 0.5 mg 12/11/21 21:55 12/11/21 22:44 Lorazepam 0.5 Mg Tablet PO 0.5 mg DAILY PRN Administration Anxiety Olanzapine 5 mg 12/11/21 21:20 12/12/21 12:49 Olanzapine 5 Mg Odt PO 5 mg Q4H PRN Administration Agitation/Psychosis Ondansetron HCl 4 mg 12/11/21 21:20 12/12/21 12:49 Ondansetron 4 Mg Tablet PO 4 mg Q6H PRN Administration NAUSEA AND VOMITING Oxycodone/Acetaminophen 1 tab 12/12/21 13:36 12/12/21 14:01 Oxycodone-Apap 5-325 Mg Tablet PO 1 tab Q8H PRN Administration MODERATE PAIN Pantoprazole Sodium 40 mg 12/12/21 02:25 12/12/21 02:[address] 40 Mg Tablet PO 40 mg BID SIDNEY Administration Potassium Chloride 20 meq 12/12/21 09:00 12/12/21 07:59 Potassium Chloride Er 20 Meq Tablet PO 20 meq DAILY SIDNEY Administration Promethazine HCl 25 mg 12/11/21 21:55 12/12/21 08:24 Promethazine 25 Mg Tablet PO 25 mg QID PRN Administration Nausea And Vomiting Trazodone HCl 50 mg 12/11/21 21:20 12/11/21 22:07 Trazodone 50 Mg Tablet PO 50 mg BEDTIME PRN Administration SLEEP PFSH Acute PFSH: Medical History Abnormal 24 hour ambulatory pH monitoring study Anxiety Gastritis GERD (gastroesophageal reflux disease) Gross hematuria (~2017) Interstitial cystitis (~2019) Nausea & vomiting History of intractable, recurrent issues Pseudoseizures Surgical History History of appendectomy History of History of cholecystectomy History of colonoscopy History of esophagogastroduodenoscopy (EGD) History of hysterectomy for cancer History of ovarian resection Hx of hernia repair Laparoscopic hiatal hernia repair with Des fundoplication and intraoperative EGD Status post laparoscopic Des fundoplication (10/31/21) Family History Denies family history of Anesthesia complication Bleeding disorder Social History Smoking and tobacco status: never smoked Alcohol intake: never Last substance use date: 10/12/19 Last substance use time: 01:00 Other details last substance use: Marijuana Current occupational status: employed Vitals/I&O/Wt Last Vital Signs Temp 98 F 12/12/21 14:00 Pulse 100 12/12/21 14:00 Resp 14 12/12/21 14:01 BP 165/95 12/12/21 14:00 Pulse Ox 99 12/12/21 14:01 Weight last 48 hrs Weight 143 lb Physical Exam Const: COMMON NORMALS: no acute distress and patient oriented x3 GENERAL APPEARANCE: cooperative ORIENTATION/CONSCIOUSNESS: Yes awake, Yes oriented to person, Yes oriented to place and Yes oriented to time HENMT: COMMON NORMALS: normocephalic HEAD & SCALP: normocephalic Eye: COMMON NORMALS: Equal, round and reactive pupils present and no scleral icterus PUPIL: Yes Equal, round and reactive pupils present Lymph: LYMPHATIC: no lymphadenopathy noted Chest: COMMONS NORMALS: normal inspection of the chest Resp: COMMON NORMALS: normal respiratory effort and clear to auscultation bilaterally AUSCULTATION: clear to auscultation bilaterally Cardio: COMMON NORMALS: S1 normal heart sound present and S2 normal heart sound present; negative for No murmurs present (Cardio) HEART SOUNDS: S1 normal heart sound present and S2 normal heart sound present GI: COMMON NORMALS: Soft to palpation; negative for No hepatosplenomegaly present INSPECTION: Yes normal to inspection PALPATION: Yes Soft to palpation, No Firmness to palpation present (GI), No Tenderness to palpation present (GI), No Guarding due to palpation present (GI), No Rigid due to palpation and No No hepatosplenomegaly present Neuro: COMMON NORMALS: patient oriented x3 SENSORIUM/ORIENTATION: Yes oriented to person, Yes oriented to place and Yes oriented to time Psych: COMMON NORMALS: mental status grossly normal Skin: COMMON NORMALS: no rashes or lesions noted GENERAL SKIN EXAM: no rashes or lesions noted Data : 12/11/21 20:07 12/11/21 20:07 A&P Assessment and plan (1) Nausea and vomiting: After history taking physical examination and reviewing the chart and images of the CT scan with my personal interpretation. I do not see any evidence of bowel obstruction or transition points. And expected findings after Des fundoplication hiatal hernia repair.I do highly recommend to start the patient on clear liquid diet and focus on Gatorade or Powerade for electrolyte replacement. I am very concerned about the repeated imaging studies and the amount of radiation exposure as I have been discussing this with the patient and her before. Patient may require IV fluid hydration and recommend scopolamine patch for nausea and vomiting We will try to get the gastric emptying studies earlier while the patient is in the hospital Please refrain from inserting any nasogastric tube because of patient's recent surgery. No surgical intervention required at this point patient is tolerating p.o. intake and having loose stools. Assurance and education All questions have been answered and all concerns have been addressed to patient's satisfaction. Status: Acute Consult Attestations Medical Necessity Statement: Per admitting service Coding Level of Care Code Acute Engine Emission Technician for Chg Fwd Diagnoses Nausea and vomiting R11.2
[2021-12-12] MEDS: LORazepam 0.5 mg Tablet PO (17:22)
--- NOTE | 2021-12-12 18:57 | PC.NURSE ---
Dr. Lema came to unit and spoke with the pt, about hydration. All scans were clear, no obstruction in esophagus.
[2021-12-12 19:54] VITALS: BP 143/75; PULSE 92; RESP 17; TEMP 36.7; O2SAT 97
[2021-12-12] MEDS: scopolamine 1.5 Patch 1 PATCH TRANSDERMA (20:38)
[2021-12-12] MEDS: trazodone 50 mg Tablet PO (21:48)
[2021-12-12] MEDS: acetaminophen 325 mg Tablet 650 MG PO (22:06)
[2021-12-13] MEDS: hyDROXYzine 25 mg Capsule 50 MG PO (02:34)
[2021-12-13] MEDS: promethazine 25 mg Tablet PO ×3 (05:17→19:37)
[2021-12-13 06:00] VITALS: BP 163/96; PULSE 97; RESP 18; TEMP 36.9; O2SAT 99
[2021-12-13] MEDS: pantoprazole DR 40 mg Tablet PO ×2 (08:30→20:25)
[2021-12-13] MEDS: potassium chloride ER 20 mEq Tablet PO (08:30)
[2021-12-13] MEDS: OLANZapine 5 mg ODT PO ×2 (09:11→20:25)
--- NOTE | 2021-12-13 09:11 | PC.NURSE ---
PRN ZYPREXA ZYDIS 5 MG GIVEN PO PER PT C/O STATED AGITATION, PT VOICES NO RELIEF FROM PRN VISTARIL GIVEN PREVIOUSLY FROM GEOCHEMICAL MANAGER NURSE EARLY THIS MORNING. NO OUTWARD S/S OF AGITATION NOTED. PT PLEASANT, SMILING WITH STAFF INTERACTION
--- NOTE | 2021-12-13 09:22 | PC.NURSE ---
IN HALLWAY VERY ANXIOUS DUE TO BATHROOM MATE DEFECATING ALL OVER THE BATHROOM AND HALLWAY. AREA WAS CLEANED BY HOUSE KEEPING BUT PT CONTINUES TO BE ANXIOUS. PT REPORTS SHE HAD 4 EPISODES OF VOMITING LAST NIGHT. PT STATES THE EMESIS WAS CLEAR AND THE COLOR OF THE GATORADE SHE HAD DRANK. PT REPORTS STOMACH PAIN // BS HYPOACTIVE IN UPPER QUADRANTS AND LOWER QUADRANTS THIS RN HEARD FAINT BOWEL SOUNDS. MED NURSE INFORMED TO GIVE ANXIETY MEDS DUE TO INCREASED ANXIETY. PT CONTINUES TO HAVE SCOPOLAMINE PATCH TO EAR. PT STATES SHE IS STILL NAUSEATED. SUPPORT VOICED.
[2021-12-13] MEDS: acetaminophen 325 mg Tablet 650 MG PO ×2 (10:14→23:38)
--- NOTE | 2021-12-13 12:54 | PC.NURSE ---
PT CONTINUES TO C/O NAUSEA AND VOMITING. THIS NURSE OBSERVED CLEAR THICK SECRETIONS IN BASIN. PT STATES SHE HAS HAD 2 EPISODES OF EMESIS TODAY AND 4 LAST NIGHT. INSTRUCTED PT NEXT TIME SHE HAS EMESIS TO LET ME KNOW SO THIS RN CAN VISUALIZE THE EMESIS TO REPORT TO DR. DR. JAIME CALLED AND SAID SHE WOULD BE DOWN TO SEE PT THIS AFTERNOON. PT WAS GIVEN PHENERGAN ORDERED.
--- NOTE | 2021-12-13 13:08 | PC.NURSE ---
PRN PHENERGAN 25 MG GIVEN PO PER PT C/O STATED NAUSEA
--- NOTE | 2021-12-13 13:46 | PC.NURSE ---
=FALL PT WAS OBSERVED IN FLOOR FACE DOWN. PT STATES SHE GOT UP AND FELT DIZZY THEN I FELL. THIS RN ASSESSED AND FOUND NO OBVIOUS INJURIES OR BRUISING. PT VS FOLLOWS 145/80, 20, 98.7, 98% RA HR 85 AND BLOOD GLUCOSE 109. PT WAS ASSISTED TO BED. PT WITH ACTIVE BS TIMES 4 AND HYPOACTIVE. PT HAD EMESIS IN BASIN AT BEDSIDE, SMALL AMOUNT IS NOTED. THIS RN NOTIFIED DR. JAIME AND RECEIVED NEW ORDERS TO TRANSFER TO MED SURG FOR HYDRATION. DR. JAIME TO PLACE ORDERS. WILL NOTIFY RN GEOTHERMAL POWERPLANT MECHANIC FOR BED PLACEMENT ON MED SURG. PT CURRENTLY RESTING, EDUCATED NOT TO GET UP WITHOUT ASSISTANCE. PT VERBALIZED UNDERSTANDING. ALL QUESTIONS ANSWERED AND SUPPORT VOICED.
[2021-12-13 13:47] LABS: Glucose Point of Care 109 mg/dL (70-110)
--- NOTE | 2021-12-13 13:48 | CT_ITS ---
WS: [id number] CT HEAD NONCONTRAST HISTORY: s/p fall, vomiting TECHNIQUE: Contiguous axial imaging performed through the brain in 2.5 mm imaging. Bone and soft tiss ue windows. Sagittal and coronal reformats reviewed. All CT scans at [facility] use at least one of these dose optimization techniques: automated exposure control; mA and/or kV adjustment per pa tient size (includes targeted exams where dose is matched to clinical indication); or iterative recon struction. DLP: 1079.88 mGy.cm COMPARISON: 09/14/2021 No acute intracranial hemorrhage, midline shift or mass effect. No atrophy or prior infarcts or herniation. Ventricles: Normal size with no hydrocephalus. Paranasal sinuses: As visualized are clear. Mastoid air cells: Well pneumatized. Calvarium and scalp: Skull is intact with no soft tissue edema or swelling. CT/CT head wo con* [id number] IMPRESSION: Negative head CT.
--- NOTE | 2021-12-13 13:56 | PC.NURSE ---
pt fall a patient came up to nurses station saying I think somebody fell down there staff immediately responded and went into room 127, found patient lying on her side on the floor, no new c/o pain. when asked what happened patient said I think I might of hit my head but I'm just not sure vital signs obtained, temp 98.7, pulse 95, resp 17, blood pressure 148/95, oxygen level 97 on room air. Hospitalist (Dr. Kezia Casanova) and extension supervisor notified of unwitnessed fall.
[2021-12-13 14:00] VITALS: BP 148/95; PULSE 95; RESP 17; TEMP 37.1; O2SAT 97
--- NOTE | 2021-12-13 14:19 | W.PM.NPUPNS ---
Subjective NPU Subjective: Patient seen this am, 6 episodes of emesis this morning, reporting excruciating pain, she reports that she feels something is wrong with her stomach. She endorses recent fundiplication 1 month ago and reports continuing to feel nauseous. Mental Status Exam MSE Comments: General she is a casually dressed white female who appeared in distress. She was alert and oriented to person place and time. She appeared in significant distress. She described her mood as terrible her affect appeared mood congruent and dysphoric. Her thought process was linear logical and goal-directed she did not endorse homicidal or suicidal ideation. There was no evidence of delusional thinking. Vitals/I&O/Wt Last Vital Signs Temp 98.7 F 12/13/21 14:00 Pulse 95 12/13/21 14:00 Resp 17 12/13/21 14:00 BP 148/95 12/13/21 14:00 Pulse Ox 97 12/13/21 14:00 Weight last 48 hrs Weight 64.864 kg Data NPU : 12/11/21 20:07 12/11/21 20:07 A&P Assessment and plan (1) Nausea and vomiting: Status: Acute (2) Abdominal pain: Status: Acute (3) Panic attacks: Status: Acute (4) Pain disorder associated with psychological and physical factors: Status: Acute (5) Depression: Status: Acute Plan Patient likely to be transferred to medicine due to cisneros of oral intake and persistent vomiting. Will likely follow on consultative basis. Attestations NPU Medical Necessity Statement*: Inpatient hospitalization is medically necessary and the clinically appropriate intervention at this time. We will monitor medications and make changes as indicated. Patient will be in the hospital for over two midnights. Likely length of stay is three to five days. Coding Level of Care Code Established Pt Acute Exchange Trouble Shooter for Shira Fwjames Patient Type Established History Problem Focused Exam Problem Focused Medical Decision Making Straight Forward Diagnoses Nausea and vomiting R11.2 Abdominal pain R10.9 Panic attacks F41.0 Pain disorder associated with psychological and physical factors F45.42 Depression F32.A
--- NOTE | 2021-12-13 15:56 | PC.NURSE ---
REPORT CALLED TO MEDICAL ASSISTING PROGRAM DIRECTOR. ALL QUESTIONS ANSWERED AND SUPPORT VOICED. PT WAS TRANSFERRED WITH ALL BELONGINGS WITH [place] AND THIS RN.
--- NOTE | 2021-12-13 17:04 | P.PN_ITS ---
Subjective Subjective: Patient overall remains quite the same requiring pain medications. Complaining of nausea Medications: Reviewed: Yes Vitals/I&O/Wt Last Vital Signs Temp 98.7 F 12/13/21 14:00 Pulse 95 12/13/21 14:00 Resp 17 12/13/21 14:00 BP 148/95 12/13/21 14:00 Pulse Ox 97 12/13/21 14:00 Weight last 48 hrs Weight 143 lb Physical Exam Narrative: Patient is conscious alert oriented X3 No apparent distress BMI 22.4 Head and neck examination PERRLA no masses no cervical lymphadenopathy no jaundice Abdomen nontender nondistended soft no organomegaly guarding or rigidity/no signs of peritonitis Physical exam was done in the presence of nursing staff Thao Data : 12/11/21 20:07 12/11/21 20:07 A&P Assessment and plan (1) Nausea and vomiting: Continue IV fluid hydration Encourage p.o. intake and particular focus on protein shake Strict I's and O From surgical standpoint of view no indication for narcotics unless medical hosp italist decided otherwise Pepcid IV Scopolamine patch Assurance and education All questions have been answered and all concerns have been addressed to patient's satisfaction. Status: Acute Attestations Medical Necessity Statement*: Per admitting service Coding Level of Care Code Acute Athletic Instructor for Shira Carter Diagnoses Nausea and vomiting R11.2
[2021-12-13] MEDS: sodium chloride 0.9% 1,000 ML 125 ML IV (17:26)
--- NOTE | 2021-12-13 18:50 | P.PN_ITS ---
Subjective Subjective: Seen today. Patient has been having nausea and vomiting and also fell today and hit her forehead. She will be transferred to [facility] floor for IV hydration. She says she is unable to keep anything down. She is requesting pain medication at this time. She was supposed to go for gastric emptying study but there was no space available on schedule to accommodate the patient for today. Vitals/I&O/Wt Last Vital Signs Temp 98.7 F 12/13/21 14:00 Pulse 95 12/13/21 14:00 Resp 17 12/13/21 14:00 BP 148/95 12/13/21 14:00 Pulse Ox 97 12/13/21 14:00 Weight last 48 hrs Weight 64.864 kg Physical Exam Narrative: General: Alert oriented x3, patient seen sitting up in bed appearing comfortable and somewhat anxious at this time. HEENT: Normocephalic, atraumatic, EOMI, breathing normally Cardio: Regular rate rhythm, normal S1-S2, no murmurs rubs gallops, Respiratory: Good bilateral air entry, no wheezes no rhonchi appreciated GI: Abdomen soft, very mildly tender to palpation no guarding or rigidity, bowel sounds present.? Extremities: no edema, no cyanosis Data : 12/11/21 20:07 12/11/21 20:07 A&P Assessment and plan (1) Depression, unspecified: Status: Acute (2) Panic attacks: Status: Acute (3) Pain disorder associated with psychological and physical factors: Status: Acute (4) Abdominal pain: Status: Acute (5) Nausea and vomiting: Status: Acute (6) Acute anxiety: Status: Acute (7) Depression: Status: Acute (8) Gastroenteritis: Status: Acute (9) Status post laparoscopic Des fundoplication: Status: Acute (10) Anxiety: Status: Acute Plan #Nausea and vomiting #Abdominal pain #Depression/anxiety #Cyclic vomiting syndrome secondary to marijuana use #Recent Des fundoplication 10/31 ? Patient has a history of Des fundoplication 10/31 she has been having persistent nausea vomiting. She did well for a couple of weeks after surgery and then developed abdominal pain and retching and nausea and vomiting. She is only tolerating small amounts of liquids. She has had several imaging studies done so far which have not really showed much of a pathology at this time. General surgery is also been consulted. Gastric emptying study and upper GI series were being planned for patient but due to scheduling issues that could not be done today. ? Patient fell and hit her head today. CT head negative ? We have transferred her to the floor for IV hydration today. ? I will avoid narcotics at this time. We can use IV Tylenol for pain ? This pain is most likely secondary to her dry heaving and retching continuously. We will continue to monitor. ? Urine drug screen also positive for marijuana on admission. Strong consideration to cyclic vomiting syndrome. -I will start her on liquid diet and continue on protein shakes ? Continue Pepcid and scopolamine patch ? We can order promethazine for patient if nausea uncontrolled. -Patient does have very high anxiety level. Psychiatry managing that. Will defer further management to psychiatric team. Full code DVT prophylaxis: Heparin Attestations Medical Necessity Statement*: Continue to monitor overnight. Still continues to have nausea and vomiting. Coding Level of Care Code Acute Programming Coordinator for Chg Fwd Diagnoses Depression, unspecified F32.A Panic attacks F41.0 Pain disorder associated with psychological and physical factors F45.42 Abdominal pain R10.9 Nausea and vomiting R11.2 Acute anxiety F41.9 Depression F32.A Gastroenteritis K52.9 Status post laparoscopic Des fundoplication Z98.890 Anxiety F41.9
[2021-12-13 20:20] VITALS: BP 196/117; PULSE 100; RESP 18; TEMP 37.6; O2SAT 98
[2021-12-13] MEDS: sucralfate 1 gm/10 mL Oral Liq UDC PO (20:25)
[2021-12-13] MEDS: potassium chloride premix 100 ML 25 MEQ IV (20:25)
[2021-12-13] MEDS: trazodone 50 mg Tablet PO (20:35)
[2021-12-13 21:00] VITALS: BP 172/98
--- NOTE | 2021-12-13 21:41 | ECG_ITS ---
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 Measurements Intervals [place] Rate: 104 P: 75 MA: 109 QRS: 58 QRSD: 75 T: 64 QT: 362 QTc: 477 Interpretive Statements SINUS TACHYCARDIA WITH SHORT MA INTERVAL Compared to ECG 11/23/2021 22:10:58 Short MA interval now present Sinus rhythm no longer present T-wave abnormality no longer present Possible ischemia no longer present Electronically Signed On 12-14-2021 0:27:01 CDT by Wilber Ni M.D. [email or web address] [email or web address].[employer]/store/[id number]
[2021-12-13] MEDS: LORazepam 0.5 mg Tablet PO (21:42)
--- NOTE | 2021-12-13 21:51 | P.EN_ITS ---
Event Note Event Note: This evening she had a convulsive episode lasting less than 30 seconds at just about 9:30 PM, spontaneously resolved, as I was being notified of this episode, she had an additional episode of generalized convulsions. I requested for IV Ativan, however, by the time I arrived at the bedside right a fter, the episode already resolved before Ativan could be obtained. She tells me that she continues being bothered by quite a bit of epigastric discomfort, which has raised her blood pressure which has happened before. States that she was seeing some spots. She tells me that she has history of seizures in the past and was seen Dr. Hernandez previously, states that the seizures previously were after her diagnosis of ovarian cancer which was about 4 years ago. She states that she had subsequently done well after being transiently on Keppra, and then was able to wean off and discontinue the medication. She is currently awake and alert, no trouble speaking, no trouble following directions, moving all extremities. Just earlier this afternoon had a head CT which was unremarkable. Requesting for blood glucose as well as chemistries, troponin. As above. Appears to be quite higher than previously, also will give a dose of IV hydralazine 5 mg. Monitor blood pressure. Maintain seizure precautions. Telemetry monitoring. Cherie suspicion of PNES. Provided reassurance. Check prolactin. Optimize blood pressure control. Will need follow-up with neurology in office. Monitor closely, consider resumption of Keppra, additional assessment with MRI, EEG.
[2021-12-13 21:52] VITALS: BP 178/101; PULSE 98; RESP 18; TEMP 37.1; O2SAT 97
[2021-12-13] MEDS: hyDRALAzine 20 mg/mL INJ 1 mL 5 MG IVP (21:55)
[2021-12-13] MEDS: ondansetron 4 MG Tablet PO (22:39)
[2021-12-13] MEDS: haloperidol 5 mg Tablet PO (22:40)
[2021-12-13 22:49] LABS: Troponin T (5th) Once 12 ng/L (0-10)
[2021-12-13 22:51] LABS: Alanine Aminotransferase 8 U/L (0-33); Albumin Level 4.5 g/dL (3.5-5.2); Alkaline Phosphatase 70 IU/L (35-105); Anion Gap 25.1 (5-19); Aspartate Amino Transferase 12 U/L (0-32); Blood Urea Nitrogen 7 mg/dL (6-20); Calcium 9.1 mg/dL (8.5-10.5); Carbon Dioxide 15 mmol/L (22-29); Chloride 97 mmol/L (98-107); Globulin 2.5 g/dL (1.3-4.6); Glomerular Filtration Rate 109.1 mL/min (90-130); Glucose 113 mg/dL (65-115); Magnesium 1.5 mg/dL (1.7-2.3); Osmolality Calculated 275 mOsm/kg (285-295); Potassium 4.1 mmol/L (3.5-5.1); Sodium 133 mmol/L (136-145); Total Bilirubin 0.6 mg/dL (0.15-1.2)
[2021-12-13] MEDS: magnesium sulfate premix 2 GM/50 ML PIGGYBACK IV (23:34)
[2021-12-13 23:38] LABS: Glucose Point of Care 105 mg/dL (70-110)
[2021-12-14] VITALS (10 sets, daily range): BP systolic 159–184; BP diastolic 88–104; PULSE 100–108; RESP 12–19; TEMP 36.6–37.2; O2SAT 97–98
--- NOTE | 2021-12-14 00:04 | PC.NURSE ---
Addendum entered by Isabela Guthrie LPN 12/14/21 01:20: when this nurse returned with iv tylenol, pt asked if she could take a shower. this nurse asked pt if she wanted the medication hung first, since it only takes 15 minutes to run, to help her pain or if she wanted to take the shower first. pt stated that she wanted to shower and that the medication could be hung afterwards. Original Note: what appear to be seizures at 2130 this nurse was called into pt room by aide to find pt flopping on the bed with eyes half open, not responding to name. rolled pt on her side and waited for episode to pass. total length 30 seconds. pt immediately opened eyes and could converse coherently, no post ictal period. dr ladd was called and informed, ordered 2 mg ivp ativan to be given, arrived and saw pt, decided po ativan could be given since no post ictal period. ekg and labs drawn as well. ativan was given as well as hydralazine for elevated bp of 172/98. this nurse was called back to room 5 min later for another episode, immediately coherent and lucid. this continued for 40 minutes with each episode lasting no longer than 45 seconds for a total of 9 episodes. at 2330 this nurse responded to pt call light, pt requested pain medication, this nurse informed the patient that she had tylenol available in her MAR and that the drs were concerned and were not wanting to give her narcotics as with her last admission. nurse retrieved the medication to give to pt and during administration pt went into another episode. during her twitching and flopping this nurse pressed down upon her nail bed of pointer finger of right hand with great pressure and pt immediately stopped her spasms, opened her eyes and half sat up uttering ouch . nurse asked if she was ok to take her tylenol, pt verbalized that she was, medication was given and this nurse left the room. was notified of this observation as well as pts request for something for pain. dr ladd ordered lidocain patch for abd and iv tylenol. this nurse will administer and will continue to monitor.
[2021-12-14] MEDS: acetaminophen 1,000 MG/100 ML PIGGYBACK 400 MG IV ×3 (01:10→17:14)
--- NOTE | 2021-12-14 02:12 | ECG_ITS ---
[facility] Test Date: 2021-12-14 Pat Name: Jana Strange Department: Room: 258 Gender: Female Geriatric Social Work Professor: : 1980 Requested By: Percy Ventura Order Number: [id number] Reading MD: Andre Kong M.D. Measurements Intervals [place] Rate: 101 P: 72 OK: 119 QRS: 46 QRSD: 73 T: 55 QT: 360 QTc: 467 Interpretive Statements SINUS TACHYCARDIA WITH SHORT [place] INTERVAL ABNORMAL RHYTHM ECG Compared to ECG 12/13/2021 22:53:10 No significant changes Electronically Signed On 12-14-2021 19:25:11 CDT by Andre Kong M.D. [email or web address]/[id number]
[2021-12-14] MEDS: hyDRALAzine 20 mg/mL INJ 1 mL 5 MG IVP (02:19)
--- NOTE | 2021-12-14 02:28 | ECG_ITS ---
[facility] Test Date: 2021-12-14 Pat Name: Jana Strange Department: Room: 258 Gender: Female Litigation Paralegal: : 1980 Requested By: Percy Ventura Order Number: [id number] Reading MD: Andre Kong M.D. Measurements Intervals [place] Rate: 107 P: 65 MI: 116 QRS: 52 QRSD: 80 T: 59 QT: 368 QTc: 492 Interpretive Statements SINUS TACHYCARDIA WITH SHORT MI INTERVAL WITH OCCASIONAL VENTRICULAR PREMATURE COMPLEXES MODERATE ST DEPRESSION [0.05+ mV ST DEPRESSION] Compared to ECG 12/14/2021 02:18:46 Ventricular premature complex(es) now present ST (T wave) deviation now present Electronically Signed On 12-14-2021 19:25:18 CDT by Andre Kong M.D. [email or web address] [email or web address] ([employer])/store/[id number]
[2021-12-14] MEDS: LORazepam 0.5 mg Tablet PO ×2 (02:46→04:06)
[2021-12-14] MEDS: sodium chloride 0.9% 1,000 ML 125 ML IV ×2 (02:47→13:20)
[2021-12-14 05:06] LABS: Basophils % 0.3 %; Hematocrit 34.1 % (37.0-47.0); Hemoglobin 11.7 g/dL (11.5-15.3); Lymphocytes # 1.6 10^3/uL (0.8-4.8); Lymphocytes % 18.3 %; Mean Corpuscular HGB Conc 34.3 g/dL (30.0-36.0); Mean Corpuscular Hemoglobin 29.4 pg (28.0-34.0); Mean Corpuscular Volume 85.7 fl (81-99); Mean Platelet Volume 11.1 fL (7.4-10.4); Monocytes # 0.9 10^3/uL (0.2-0.9); Monocytes % 9.7 %; Neutrophils # 6.29 10^3/uL (1.8-7.7); Neutrophils % 71.1 %; Nucleated Red Blood Cells % 0 %; Platelet Count 272 10^3/cmm (130-400); Red Blood Count 3.98 10^6/uL (4.1-5.3); Red Cell Distribution Width 13.8 % (12.1-15.1); White Blood Count 8.9 10^3/uL (4.0-10.0)
[2021-12-14 05:24] LABS: Troponin(5th) Baseline 11 ng/L (0-10)
[2021-12-14 05:26] LABS: Anion Gap 23.9 (5-19); Blood Urea Nitrogen 5 mg/dL (6-20); Calcium 8.6 mg/dL (8.5-10.5); Carbon Dioxide 16 mmol/L (22-29); Chloride 97 mmol/L (98-107); Glomerular Filtration Rate 134.7 mL/min (90-130); Glucose 114 mg/dL (65-115); Magnesium 2.1 mg/dL (1.7-2.3); Osmolality Calculated 274 mOsm/kg (285-295); Potassium 3.9 mmol/L (3.5-5.1); Sodium 133 mmol/L (136-145)
[2021-12-14] MEDS: sucralfate 1 gm/10 mL Oral Liq UDC PO ×4 (06:35→20:47)
[2021-12-14 07:37] LABS: Troponin 5 2HR 11.36 ng/L (0-10)
[2021-12-14 07:42] LABS: Troponin 5 2HR Delta 0.36 ABS# (0-10)
--- NOTE | 2021-12-14 08:00 | PM.PN ---
Subjective Subjective: Seen this morning. Overnight events noted. Patient had a few convulsive episodes. Please see event note from Dr. Ventura. Patient had total of 9 episodes. There was no postictal confusion. Patient also requested for pain medication overnight. IV Tylenol was ordered. As it was about to be administered patient had another episode during which she started twitching and flopping. At this point nurse pressed down upon her nailbed with great pressure and patient immediately stopped her spasms and opened her eyes and sat up saying ouch. Ultimately patient did get 1 dose of IV Tylenol. Lidocaine patch was ordered for abdominal pain and IV Tylenol last night. Suspicion of psychogenic seizures by Dr. Ventura media production manager overnight. This morning she is doing okay. She says she was seen by Dr. Hernandez in the past and was on Keppra but then it was taken off. She states her seizures were stress related as far as she knows. She states they stopped happening and therefore she is taken off of the Keppra later on. She still continues to vomit. Patient says anything she puts in her mouth and as soon as it hits her stomach she says she spasms up and she vomits. Unsure if this could be related to anxiety at this point. She does have positive ketones and high anion gap metabolic acidosis. Patient is repeatedly requesting for pain medication. She believes if she gets 1 dose of pain medication she will be able to eat. She did state to me that the pain medicine does not help her relax but helps with the pain in particular. We gave her IV Tylenol which she has stated that it did not help at all. She said it made no difference. She is looking forward to her gastric emptying study. Vitals/I&O/Wt Last Vital Signs Temp 97.9 F 12/14/21 07:57 Pulse 100 12/14/21 07:57 Resp 18 12/14/21 07:57 BP 162/100 12/14/21 07:57 Pulse Ox 98 12/14/21 07:57 12/13/21 12/14/21 12/14/21 22:59 06:59 14:59 Intake Total 1250 / 1250 Balance 1250 / 1250 Physical Exam Narrative: General: Alert oriented x3, patient seen sitting up in bed appearing comfortable and somewhat anxious at this time. HEENT: Normocephalic, atraumatic, EOMI, breathing normally Cardio: Regular rate rhythm, normal S1-S2, no murmurs rubs gallops, Respiratory: Good bilateral air entry, no wheezes no rhonchi appreciated GI: Abdomen soft, mildly tender to palpation no guarding or rigidity, bowel sounds present.? 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 #High anion gap metabolic acidosis possibly secondary to starvation ketosis secondary to nausea vomiting ? Patient has a history of Des fundoplication 10/31 she has been having persistent nausea vomiting.? She did well for a couple of weeks after surgery and then developed abdominal pain and retching and nausea and vomiting.? She is only tolerating small amounts of liquids.? She has had several imaging studies done so far which have not really showed much of a pathology at this time.? General surgery is also been consulted.? Gastric emptying study and upper GI series were being planned for patient but due to scheduling issues that could not be done yesterday. ? Patient fell and hit her head 12/13.? CT head negative ? She was transferred to floor yesterday for IV hydration. -Continue normal saline 125 cc/h. We will give additional normal saline 500 cc bolus this morning. ? Supplement potassium today ? I will avoid narcotics at this time.? We can use IV Tylenol for pain ? This pain is most likely secondary to her dry heaving and retching continuously.? We will continue to monitor. ? Urine drug screen also positive for marijuana on admission.? Strong consideration to cyclic vomiting syndrome. -Continue on liquid diet and continue on protein shakes ? Continue Pepcid and scopolamine patch. Add IM promethazine. Add Reglan. ? I will give a few doses of morphine 1 mg IV every 4 hours and see how patient responds. -Patient does have very high anxiety level.? Psychiatry managing that.? I will hold some of her medications and discussed with psychiatry. Will discuss with them and comanage. -We will discuss with psychiatry regarding her psychogenic seizure episodes overnight. -There was no postictal confusion noted. Unsure if this was true seizure from the nature of description that I got this morning. She does have history of pseudoseizures as per patient. I will discus with Dr. Hernandez. Full code DVT prophylaxis: Heparin Attestations Medical Necessity Statement*: Will need to continue to monitor patient in the hospital. Continues to have nausea vomiting, now having psychogenic seizures. High AG Metabolic acidosis. Coding Level of Care Code Acute Branding Machine Operator for Chg Fwd Diagnoses Depression, unspecified F32.A Panic attacks F41.0 Pain disorder associated with psychological and physical factors F45.42 Nausea and vomiting R11.2 Abdominal pain R10.9 Depression F32.A Depression, uncontrolled F32.A Anxiety F41.9 Status post laparoscopic Des fundoplication Z98.890
[2021-12-14] MEDS: sodium chloride 0.9% 500 ML IV (09:13)
[2021-12-14] MEDS: pantoprazole DR 40 mg Tablet PO ×2 (09:15→20:47)
[2021-12-14] MEDS: lidocaine 5% Patch 1 PATCH TOPICAL ×2 (09:15→20:47)
[2021-12-14] MEDS: amlodipine 5 mg Tablet PO (09:15)
[2021-12-14] MEDS: promethazine 25 mg Tablet PO (09:16)
[2021-12-14 09:36] LABS: Lactate (Lactic Acid level) 0.8 mmol/L (0.5-2.2)
[2021-12-14 09:39] LABS: Ketone (Acetest) Serum Positive (Negative)
[2021-12-14 11:29] LABS: Troponin 5 6HR 11.33 ng/L (0-10)
[2021-12-14 11:30] LABS: Troponin 5 6HR Delta 0.33 ng/L (0-12)
[2021-12-14] MEDS: potassium chloride ER 20 mEq Tablet PO (13:18)
--- NOTE | 2021-12-14 14:49 | PC.NURSE ---
Patient has taken showers at least every two hours throughout the day. Patient's Right Wrist IV is no longer patent. Discussed with patient the effect of showering on IV. Patient reported she was done showering for the day but since took two showers since that statement. Multiple attempts to gain IV access have been made by 3 different nurses.
[2021-12-14] MEDS: morphine 4 mg/mL SDV 1 mL 1 MG IM ×2 (14:59→20:54)
[2021-12-14] MEDS: metoclopramide 5 mg/mL SDV 2 mL IVP (17:15)
[2021-12-14] MEDS: trazodone 50 mg Tablet PO (20:47)
[2021-12-15] VITALS (10 sets, daily range): BP systolic 143–197; BP diastolic 69–109; PULSE 97–114; RESP 16–18; TEMP 36.9–37.3; O2SAT 97–98
[2021-12-15] MEDS: hyDRALAzine 20 mg/mL INJ 1 mL 5 MG IVP ×3 (00:03→10:40)
[2021-12-15] MEDS: metoclopramide 5 mg/mL SDV 2 mL IVP ×4 (00:03→19:45)
[2021-12-15] MEDS: hyDROXYzine 25 mg Capsule 50 MG PO (00:04)
[2021-12-15] MEDS: acetaminophen 1,000 MG/100 ML PIGGYBACK 400 MG IV (00:09)
[2021-12-15] MEDS: sodium chloride 0.9% 1,000 ML 125 ML IV ×3 (00:09→18:31)
[2021-12-15] MEDS: morphine 4 mg/mL SDV 1 mL 1 MG IM ×4 (02:58→19:45)
[2021-12-15 03:37] LABS: Anion Gap 22.3 (5-19); Blood Urea Nitrogen 4 mg/dL (6-20); Calcium 8.7 mg/dL (8.5-10.5); Carbon Dioxide 17 mmol/L (22-29); Chloride 97 mmol/L (98-107); Glomerular Filtration Rate 174.2 mL/min (90-130); Glucose 108 mg/dL (65-115); Magnesium 1.6 mg/dL (1.7-2.3); Osmolality Calculated 273 mOsm/kg (285-295); Potassium 3.3 mmol/L (3.5-5.1); Sodium 133 mmol/L (136-145)
[2021-12-15] MEDS: sucralfate 1 gm/10 mL Oral Liq UDC PO ×4 (06:26→20:43)
[2021-12-15] MEDS: amlodipine 5 mg Tablet PO (09:41)
[2021-12-15] MEDS: potassium chloride ER 20 mEq Tablet PO (09:41)
[2021-12-15] MEDS: pantoprazole DR 40 mg Tablet PO ×2 (09:41→20:43)
[2021-12-15] MEDS: LORazepam 0.5 mg Tablet PO ×2 (09:42→16:38)
[2021-12-15] MEDS: potassium chloride ER 20 mEq Tablet 40 MEQ PO ×2 (09:43→17:31)
[2021-12-15] MEDS: magnesium sulfate premix 4 GM/100 ML PREMIX IV (10:40)
--- NOTE | 2021-12-15 14:27 | P.PN_ITS ---
Subjective Subjective: Patient tolerated her full liquids. I have started her on GI soft diet. We will see how she does. She does feel a little bit better compared to before. She continues to complain of nausea but is no longer vomiting. Vitals/I&O/Wt Last Vital Signs Temp 98.8 F 12/15/21 11:55 Pulse 113 H 12/15/21 11:55 Resp 16 12/15/21 11:55 BP 143/69 12/15/21 11:55 Pulse Ox 97 12/15/21 11:55 12/14/21 12/15/21 12/15/21 22:59 06:59 14:59 Intake Total 1100 / 3180 880 / 4060 1100 / 1100 Balance 1100 / 3180 880 / 4060 1100 / 1100 Weight last 48 hrs Weight 68.583 kg Physical Exam Narrative: General: Alert oriented x3, patient seen sitting up in bed appearing comfortable and somewhat anxious at this time. HEENT: Normocephalic, atraumatic, EOMI, breathing normally Cardio: Regular rate rhythm, normal S1-S2, no murmurs rubs gallops, Respiratory: Good bilateral air entry, no wheezes no rhonchi appreciated GI: Abdomen soft, mildly tender to palpation no guarding or rigidity, bowel sounds present.? 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 #High anion gap metabolic acidosis possibly secondary to starvation ketosis secondary to nausea vomiting ? Patient has a history of Des fundoplication 10/31 she has been having persistent nausea vomiting.? She did well for a couple of weeks after surgery and then developed abdominal pain and retching and nausea and vomiting.? She is only tolerating small amounts of liquids.? She has had several imaging studies done so far which have not really showed much of a pathology at this time.? General surgery is also been consulted.? Gastric emptying study and upper GI series were being planned for patient but due to scheduling issues that could not be done yesterday. ? Patient fell and hit her head 12/13.? CT head negative ? She was transferred to floor yesterday for IV hydration. -Continue normal saline 125 cc/h.? We will give additional normal saline 500 cc bolus this morning. ? Supplement potassium today ? I will avoid narcotics at this time.? We can use IV Tylenol for pain ? This pain is most likely secondary to her dry heaving and retching continuously.? We will continue to monitor. ? Urine drug screen also positive for marijuana on admission.? Strong consideration to cyclic vomiting syndrome. -Continue on liquid diet and continue on protein shakes ? Continue Pepcid and scopolamine patch.? Continue promethazine and Reglan alternating. ? I will give a few doses of morphine 1 mg IV every 4 hours -Patient does have very high anxiety level.? -Patient has a known history of functional neurological disorder with seizure- like activity. She has been to our hospital in the past with exact same clinical picture with nausea vomiting and psychogenic seizures. ? I counseled the patient heavily. Patient was able to tolerate food after counseling session and no longer having vomiting. She did continue to complain of nausea however. She was able to tolerate her full liquids. ? We will advance to GI soft diet ? We will work-up for her hyponatremia. Check urine sodium check serum osmolality. This could possibly be SIADH, unknown etiology at this time. Patient can follow-up with her primary care physician regarding this as well. ? I will stop IV fluids for now and fluid restrict her. Once patient starts to eat I am hopeful that ketosis will also improve and gap will correct. ? She needs to follow-up with Dr. Hernandez as an outpatient once discharged. ? She will need to complete her gastric emptying study as scheduled in upcoming weeks. -DC patient in the morning if able to tolerate GI soft diet. Full code DVT prophylaxis: Heparin Attestations Medical Necessity Statement*: DC in AM if able to tolerate diet and clinical improvement Coding Level of Care Code Acute Peer Counselor for Chg Fwd Diagnoses Functional neurological symptom disorder with attacks or seizures F44.5 Psychogenic nonepileptic seizure F44.5 Functional neurological symptom disorder with mixed symptoms F44.7 Depression F32.A Anxiety F41.9 Acute anxiety F41.9 Pain disorder associated with psychological and physical factors F45.42 Status post laparoscopic Des fundoplication Z98.890
[2021-12-15 18:24] LABS: Blood Urea Nitrogen 3 mg/dL (6-20); Calcium 8.4 mg/dL (8.5-10.5); Carbon Dioxide 16 mmol/L (22-29); Chloride 97 mmol/L (98-107); Glomerular Filtration Rate 174.2 mL/min (90-130); Glucose 109 mg/dL (65-115); Osmolality Calculated 269 mOsm/kg (285-295); Sodium 131 mmol/L (136-145)
[2021-12-15 18:48] LABS: Anion Gap 22.4 (5-19); Potassium 4.4 mmol/L (3.5-5.1)
[2021-12-15] MEDS: scopolamine 1.5 Patch 1 PATCH TRANSDERMA (20:43)
[2021-12-15] MEDS: lidocaine 5% Patch 1 PATCH TOPICAL (20:44)
[2021-12-15 21:22] LABS: Urine Random Sodium 135 mmol/L
[2021-12-15 21:28] LABS: Add Urine Microscopic? YES; Bilirubin Urine Neg (Negative); Blood Urine Trace (Negative); Glucose Urine UA Norm (Normal); Ketones Urine 1+ (Negative); Leukocyte Esterase Urine Negative (Negative); Nitrate Urine Negative (Negative); Protein Urine Neg (Negative); Specific Gravity, Urine 1.015 (1.005-1.030); Urine Appearance Clear (CLEAR); Urine Color Straw (Yellow); Urobilinogen Urine Norm (Negative); pH Urine 5 (5-7)
[2021-12-15 21:29] LABS: Add Urine Culture? No; Bacteria Urine TRACE /hpf; Mucus Urine TRACE /hpf; RBC Urine 0-4 /hpf (0-2); WBC Urine 0-4 /hpf (0-5)
[2021-12-16] VITALS (8 sets, daily range): BP systolic 131–164; BP diastolic 77–102; PULSE 99–108; RESP 16–19; TEMP 36.7–37.1; O2SAT 97–98
[2021-12-16] MEDS: morphine 4 mg/mL SDV 1 mL 1 MG IM ×3 (00:46→09:44)
[2021-12-16 01:55] LABS: ABG PCO2 32.6 mmHg (35-45); ABG PH Result 7.43 (7.35-7.45); Alveolar-Arterial Oxygen Gradi 2.9 mmHg (5-10); Arterial Blood Gas Hematocrit 38.1 % (37-47); Base Excess ABG -1.9 mmol/L (-2.0-2.0); Blood Gas Allen Test Pos; Blood Gas Sample Type Arterial; Carboxyhemoglobin 0.7 %THgb (0.4-20.1); HCO3 ABG 21.7 mmol/L (22-26); HGB O2 Sat 96.1 % (95-100); Ionized Calcium Level - ABG 1.2 mmol/L (1.1-1.4); Methemoglobin 0.9 % (0.4-1.5); Oxygen Saturation ABG 97.7; PO2 ABG 85.9 mmHg (80.0-100.0); Total Hemoglobin 12.4 g/dL (12-16)
[2021-12-16 02:13] LABS: Blood Gas Sample Site Radial, left
[2021-12-16] MEDS: hyDRALAzine 20 mg/mL INJ 1 mL 5 MG IVP (04:59)
[2021-12-16] MEDS: metoclopramide 5 mg/mL SDV 2 mL IVP (05:01)
[2021-12-16 05:08] LABS: Basophils # 0.1 10^3/uL (0.0-0.1); Basophils % 0.6 %; Eosinophils # 0.1 10^3/uL (0.0-0.8); Eosinophils % 1.1 %; Hematocrit 41.2 % (37.0-47.0); Hemoglobin 13.1 g/dL (11.5-15.3); Lymphocytes # 2.6 10^3/uL (0.8-4.8); Lymphocytes % 26.8 %; Mean Corpuscular HGB Conc 31.8 g/dL (30.0-36.0); Mean Corpuscular Hemoglobin 29.2 pg (28.0-34.0); Mean Corpuscular Volume 91.8 fl (81-99); Monocytes # 1.1 10^3/uL (0.2-0.9); Monocytes % 11.4 %; Neutrophils # 5.75 10^3/uL (1.8-7.7); Neutrophils % 59.7 %; Nucleated Red Blood Cells % 0 %; Platelet Count 291 10^3/cmm (130-400); Red Blood Count 4.49 10^6/uL (4.1-5.3); Red Cell Distribution Width 14.4 % (12.1-15.1); White Blood Count 9.7 10^3/uL (4.0-10.0)
[2021-12-16 05:32] LABS: Anion Gap 20.1 (5-19); Blood Urea Nitrogen 3 mg/dL (6-20); Calcium 9.3 mg/dL (8.5-10.5); Carbon Dioxide 19 mmol/L (22-29); Chloride 97 mmol/L (98-107); Glomerular Filtration Rate 174.2 mL/min (90-130); Glucose 106 mg/dL (65-115); Osmolality Calculated 271 mOsm/kg (285-295); Potassium 4.1 mmol/L (3.5-5.1); Slide Review Slide Review Perform; Sodium 132 mmol/L (136-145)
[2021-12-16] MEDS: sucralfate 1 gm/10 mL Oral Liq UDC PO ×2 (06:23→12:02)
--- NOTE | 2021-12-16 08:23 | PM.DCS ---
Discharge Providers Date of Admission: 12/11/21 21:19 Date of Discharge: December 16, 2021 Attending Provider at Admission: Justino Coleman MD Attending Provider at Discharge: Mahin Valverde MD Primary Care Provider: Jacky Freeman MD Diagnoses at Discharge Discharge Diagnosis (1) Functional neurological symptom disorder with attacks or seizures: Status: Acute (2) Psychogenic nonepileptic seizure: Status: Acute (3) Functional neurological symptom disorder with mixed symptoms: Status: Acute (4) Depression: Status: Acute (5) Anxiety: Status: Acute (6) Acute anxiety: Status: Acute (7) Pain disorder associated with psychological and physical factors: Status: Acute (8) Status post laparoscopic Des fundoplication: Status: Acute Reason for Visit Reason for Visit: anxiety Brief History: Pleasant 41-year-old lady with history of fundoplication on 10/31, subsequently with persistent nausea, and on and off burning abdominal pain, admitted earlier to the neuropsychiatric unit due to worsening depression and anxiety, however, is having persistent nausea and burning central abdominal pain due to which a consult was requested with hospitalist.? She states that the pain is no different in the last 3 days.? She had had an admission earlier in November with the same symptoms, and states that they overall have not changed much since the surgery.? Denies any constipation.? Has been only able to tolerate only small amounts of liquids.? She states that the planned with Dr. Garcia for upper GI study on the of this month. Hospital Course Hospital Course Patient was initially admitted to Neuropsych Unit for worsening depression anxiety. Medicine was consulted for persistent nausea vomiting and burning central abdominal pain. She did have a Des fundoplication done on 10/31. She did present to the hospital few weeks ago with similar condition but at that time she was also having diarrhea and was treated with Zosyn. She was given pain medications and nausea was controlled. Eventually she was able to eat and was discharged home in stable condition. Patient has had numerous imaging studies including upper GI series and numerous CAT scans at our hospital and another hospital that she went to. She was transferred from Neuropsych Unit to [facility] for continued nausea vomiting and high anion gap metabolic acidosis secondary to starvation ketosis secondary to intractable vomiting. During hospital stay she also had episodes of seizure-like activity 9x1 night after she was told that we will not give her any more narcotics. Urine drug screen positive for marijuana once again. Strong consideration given to cyclic vomiting syndrome. General surgery also consulted on the patient. Imaging studies did not reveal any surgical related issue at this time. Case was discussed with Dr. Hernandez over the phone. Patient has a known history of functional neurological disorder with seizure-like activity/conversion disorder. She has been admitted to our hospital years ago for similar condition as well. She had seizure-like activity at that time as well up to 20 episodes a day. She was put on Keppra in the past but then it was taken off because she worsened after Keppra. Patient was heavily counseled by Dr. Hernandez and she was fine for a few years. Also of note patient has not kept any of her appointments for neurology recently. She did have an EEG scheduled on November 08 which she missed as well. I counseled quite extensively and placed her on promethazine IM and morphine. After which patient was able to tolerate full liquid diet and subsequently GI soft diet. Her electrical abnormalities started getting better. She was also given IV fluids during her hospital stay. She is encouraged to have protein shakes. She does have a gastric emptying study scheduled for December 21 which she will be keeping and following up with Dr. Garcia as an outpatient. During her hospital stay she also developed mild hyponatremia for which urine studies was done and minor work-up was completed revealing SIADH. Etiology unknown at this time most likely secondary to medication use and her current condition. I have given her repeat BMP to do within a week and to follow-up with her primary care. Today on day of discharge patient has stopped having nausea, vomiting and is tolerating a full-fledged GI soft diet. Denies any abdominal pain after eating and is feeling a lot better. She is looking forward to going home today. She is to follow-up with Dr. Hernandez and her primary care physician and Dr. Garcia at discharge. Physical Exam Narrative: General: Alert oriented x3, patient seen sitting up in bed appearing comfortable, appears happy today HEENT: Normocephalic, atraumatic, EOMI, breathing normally Cardio: Regular rate rhythm, normal S1-S2, no murmurs rubs gallops, Respiratory: Good bilateral air entry, no wheezes no rhonchi appreciated GI: Abdomen soft, mildly tender to palpation no guarding or rigidity, bowel sounds present.? Extremities: no edema, no cyanosis Discharge Data Studies Completed and Pending Completed Studies During Hospitalization Category Date Time Status CT head wo con* [id number] Urgent Cat Scan 12/13/21 13:48 Completed XR acute abdomen series [id number] Routine Exams 12/12/21 02:23 Completed Radiology Impressions Chest/Abdomen X-ray 12/12/21 02:23 IMPRESSION: Abnormally dilated small bowel loops. Recommend correlation for any signs of obstruction. Head CT 12/13/21 13:48 IMPRESSION: Negative head CT. Laboratory Results WBC 9.7 10^3/uL (4.0-10.0) 12/16/21 04:32 RBC 4.49 10^6/uL (4.1-5.3) 12/16/21 04:32 Hgb 13.1 g/dL (11.5-15.3) 12/16/21 04:32 Hct 41.2 % (37.0-47.0) 12/16/21 04:32 MCV 91.8 fl (81-99) 12/16/21 04:32 MCH 29.2 pg (28.0-34.0) 12/16/21 04:32 MCHC 31.8 g/dL (30.0-36.0) 12/16/21 04:32 RDW 14.4 % (12.1-15.1) 12/16/21 04:32 Plt Count 291 10^3/cmm (130-400) 12/16/21 04:32 MPV 12.0 fL (7.4-10.4) H 12/16/21 04:32 Neut % (Auto) 59.7 % 12/16/21 04:32 Lymph % (Auto) 26.8 % 12/16/21 04:32 Hill % (Auto) 11.4 % 12/16/21 04:32 Eos % (Auto) 1.1 % 12/16/21 04:32 Baso % (Auto) 0.6 % 12/16/21 04:32 Neut # (Auto) 5.75 10^3/uL (1.8-7.7) 12/16/21 04:32 Lymph # (Auto) 2.6 10^3/uL (0.8-4.8) 12/16/21 04:32 Hill # (Auto) 1.1 10^3/uL (0.2-0.9) H 12/16/21 04:32 Eos # (Auto) 0.1 10^3/uL (0.0-0.8) 12/16/21 04:32 Baso # (Auto) 0.1 10^3/uL (0.0-0.1) 12/16/21 04:32 Nucleated RBC % (auto) 0 % 12/16/21 04:32 Nucleated RBCs # 0.0 /100WBC 12/16/21 04:32 Specimen Type Arterial 12/15/21 01:43 Sample Site Radial, left 12/15/21 01:43 ABG pH 7.43 (7.35-7.45) 12/15/21 01:43 ABG pCO2 32.6 mmHg (35-45) L 12/15/21 01:43 ABG pO2 85.9 mmHg (80.0-100.0) 12/15/21 01:43 ABG HCO3 21.7 mmol/L (22-26) L 12/15/21 01:43 ABG O2 Saturation 97.7 12/15/21 01:43 ABG Base Excess -1.9 mmol/L (-2.0-2.0) 12/15/21 01:43 Dylan Test Pos 12/15/21 01:43 A-a O2 Gradient 2.9 mmHg (5-10) L 12/15/21 01:43 Hematocrit 38.1 % (37-47) 12/15/21 01:43 Hgb O2 Saturation 96.1 % (95-100) 12/15/21 01:43 Carboxyhemoglobin 0.7 %THgb (0.4-20.1) 12/15/21 01:43 Methemoglobin 0.9 % (0.4-1.5) 12/15/21 01:43 Total Hemoglobin 12.4 g/dL (12-16) 12/15/21 01:43 Sodium 133.0 mmol/L (131-143) 12/15/21 01:43 Potassium 4.0 mmol/L (3.5-5.0) 12/15/21 01:43 Glucose 101.0 mg/dL (70-115) 12/15/21 01:43 Ionized Calcium 1.2 mmol/L (1.1-1.4) 12/15/21 01:43 O2 Delivery Device None 12/15/21 01:43 Vp Account Director ID [email or web address] 12/15/21 01:43 Sodium 132 mmol/L (136-145) L 12/16/21 04:32 Potassium 4.1 mmol/L (3.5-5.1) 12/16/21 04:32 Chloride 97 mmol/L (98-107) L 12/16/21 04:32 Carbon Dioxide 19 mmol/L (22-29) L 12/16/21 04:32 Anion Gap 20.1 (5-19) H 12/16/21 04:32 BUN 3 mg/dL (6-20) L 12/16/21 04:32 Creatinine 0.4 mg/dL (0.5-0.9) L 12/16/21 04:32 GFR Calculation 174.2 mL/min (90-130) H 12/16/21 04:32 Glucose 106 mg/dL (65-115) 12/16/21 04:32 POC Glucose 105 mg/dL (70-110) 12/13/21 23:35 Calculated Osmolality 271 mOsm/kg (285-295) L 12/16/21 04:32 Lactate 0.8 mmol/L (0.5-2.2) 12/14/21 08:41 Calcium 9.3 mg/dL (8.5-10.5) 12/16/21 04:32 Magnesium 2.0 mg/dL (1.7-2.3) 12/16/21 04:32 Total Bilirubin 0.6 mg/dL (0.15-1.2) 12/13/21 22:20 AST 12 U/L (0-32) 12/13/21 22:20 ALT 8 U/L (0-33) 12/13/21 22:20 Alkaline Phosphatase 70 IU/L (35-105) 12/13/21 22:20 Troponin T Gen 5 ng/L 12 ng/L (0-10) H 12/13/21 22:20 Troponin T Baseline 11 ng/L (0-10) H 12/14/21 04:41 Troponin T 120 Minute 11.36 ng/L (0-10) H 12/14/21 07:07 Delta Troponin T 0.36 ABS# (0-10) 12/14/21 07:07 Troponin T Hi Sens 6Hr 11.33 ng/L (0-10) H 12/14/21 10:54 Troponin T Hi Sens 6Hr Delta 0.33 ng/L (0-12) 12/14/21 10:54 Total Protein 7.0 g/dL (6.6-8.7) 12/13/21 22:20 Albumin 4.5 g/dL (3.5-5.2) 12/13/21 22:20 Globulin 2.5 g/dL (1.3-4.6) 12/13/21 22:20 Lipase 11 U/L (13-60) L 12/11/21 20:07 TSH 1.89 uIU/mL (0.27-4.20) 12/11/21 20:07 Prolactin 11.90 ng/mL (4.8-23.3) 12/13/21 22:20 HCG, Qual Negative (Negative) 12/11/21 20:26 Urine Color Straw (Yellow) 12/15/21 20:56 Urine Appearance Clear (CLEAR) 12/15/21 20:56 Urine pH 5 (5-7) 12/15/21 20:56 Ur Specific [place] 1.015 (1.005-1.030) 12/15/21 20:56 Urine Protein Neg (Negative) 12/15/21 20:56 Urine Glucose (UA) Norm (Normal) 12/15/21 20:56 Urine Ketones 1+ (Negative) H 12/15/21 20:56 Urine Blood Trace (Negative) H 12/15/21 20:56 Urine Nitrate Negative (Negative) 12/15/21 20:56 Urine Bilirubin Neg (Negative) 12/15/21 20:56 Urine Urobilinogen Norm mg/dL (Negative) 12/15/21 20:56 Ur Leukocyte Esterase Negative (Negative) 12/15/21 20:56 Urine RBC 0-4 /hpf (0-2) H 12/15/21 20:56 Urine WBC 0-4 /hpf (0-5) H 12/15/21 20:56 Ur Squamous Epith Cells 10-15 /hpf (0-5) H 12/15/21 20:56 Amorphous Sediment Not Reportable 12/15/21 20:56 Urine Bacteria Trace /hpf (NONE) 12/15/21 20:56 Urine Mucus Trace /hpf 12/15/21 20:56 Ur Random Sodium 135 mmol/L 12/15/21 20:56 Salicylates < 0.3 mg/dL (3-10) L 12/11/21 20:07 Urine Opiates Screen Positive ng/mL (Negative) H 12/11/21 20:26 Acetaminophen < 5.0 ug/mL (10-30) L 12/11/21 20:07 Ur Barbiturates Screen Negative ng/mL (Negative) 12/11/21 20:26 Ur Phencyclidine Scrn Negative ng/mL (Negative) 12/11/21 20:26 Ur Amphetamines Screen Negative ng/mL (Negative) 12/11/21 20:26 U Benzodiazepines Scrn Positive ng/mL (Negative) H 12/11/21 20:26 Urine Cocaine Screen Negative ng/mL (Negative) 12/11/21 20:26 U Marijuana (THC) Screen Positive ng/mL (Negative) H 12/11/21 20:26 Ethyl Alcohol < 10 mg/dL (0-10) 12/11/21 20:07 Serum Ketones Positive (Negative) H 12/14/21 08:41 Vitals Last Vital Signs Temp 98.6 F 12/16/21 07:48 Pulse 100 12/16/21 07:48 Resp 16 12/16/21 07:48 BP 164/81 12/16/21 07:48 Pulse Ox 98 12/16/21 07:48 Discharge Plan Discharge Patient Disposition: Home Condition: Stable Prescriptions: New amlodipine 5 mg Tablet 5 mg PO DAILY 7 Days Qty: 7 0RF Reglan 5 mg tablet 5 mg PO TID PRN (Reason: nausea and vomiting) 7 Days Qty: 21 0RF Continued lorazepam 0.5 mg tablet 0.5 mg PO DAILY PRN (Reason: Anxiety) 0RF hydroxyzine HCl 50 mg tablet 50 mg PO TID PRN (Reason: Anxiety) 0RF ondansetron 4 mg tablet,disintegrating 4 mg PO Q6H PRN (Reason: nausea and vomiting) Qty: 30 2RF hydrocodone-acetaminophen 7.5-325 mg tablet 1 tab PO Q6H PRN (Reason: Pain) 0RF promethazine 25 mg tablet 25 mg PO QID PRN (Reason: Nausea And Vomiting) 0RF estradiol 10 mcg tablet 10 mcg VAGINAL .ON TUES AND THURS 0RF Held potassium chloride 20 mEq tablet,ER particles/crystals 20 meq PO DAILY Qty: 20 0RF Hold Instructions: see pcp. Discontinued duloxetine [Cymbalta] 30 mg capsule,delayed release(DR/EC) 30 mg PO DAILY Qty: 30 0RF Discharge Orders: Discharge Order (Routine); Ordered 12/16/21 Ordered By: Kezia Casanova Other Ambulatory Orders: Basic Metabolic Panel (Routine) Timeframe: 4 Days Facility: [facility] - Location: Lab - Main Lab Ordered By: Kezia Casanova Referrals: Jacky Freeman MD [Primary Care Provider] - 4-7 days (Please call Saturday to schedule a follow up appointment.) Jaqueline Hernandez MD [Physician] - 1 week Booker Garcia MD [Physician] - 2 weeks Discharge Diet: GI Soft Discharge Activity: Resume usual activity Patient Instructions: Metoclopramide (By mouth), Amlodipine (By mouth), Acute Nausea and Vomiting (GEN), Chronic Hypertension (DC), Opioid Safety Activity Restrictions/Additional Instructions: Please follow up for your nuclear gastric emptying study as previously scheduled on December. Please follow up with PCP within 4-7 days of discharge. Discharge Attestations Time Spent in Discharge Care*: greater than 30 min Status at Discharge: Cognitive status at discharge: cognitively intact, Behavioral status at discharge: cooperative, Quality Metrics Clinical Quality Measures [ No reported AMI, CVA or VTE this stay] Coding Level of Care Code Acute Chg FW DC note Diagnoses Functional neurological symptom disorder with attacks or seizures F44.5 Psychogenic nonepileptic seizure F44.5 Functional neurological symptom disorder with mixed symptoms F44.7 Depression F32.A Anxiety F41.9 Acute anxiety F41.9 Pain disorder associated with psychological and physical factors F45.42 Status post laparoscopic Des fundoplication Z98.890 Time Spent (min) 50
[2021-12-16] MEDS: potassium chloride ER 20 mEq Tablet PO (09:44)
[2021-12-16] MEDS: pantoprazole DR 40 mg Tablet PO (09:44)
[2021-12-16] MEDS: amlodipine 5 mg Tablet PO (09:45)
== END 2021-12-16 12:56 | disposition home or self-care (01) | DRG 880 ==
LOC: ER 20:28 → NP 12-12 06:07 → MEDSURG 12-13 16:02
PROVIDERS: Internal Medicine; Admitting Provider Psychiatry & Neurology Psychiatry; Emergency Provider Emergency Medicine; PCP Family Medicine; Visit Provider Psychiatry & Neurology Psychiatry
DX: F41.8 Other specified anxiety disorders (principal); E87.2 Acidosis; E22.2 Syndrome of inappropriate secretion of antidiuretic hormone; K21.9 Gastro-esophageal reflux disease without esophagitis; F12.90 Cannabis use, unspecified, uncomplicated; R10.9 Unspecified abdominal pain; F41.0 Panic disorder [episodic paroxysmal anxiety]; W19.XXXA Unspecified fall, initial encounter; R11.15 Cyclical vomiting syndrome unrelated to migraine; Z98.890 Other specified postprocedural states; F45.42 Pain disorder with related psychological factors; F44.5 Conversion disorder with seizures or convulsions; Z79.891 Long term (current) use of opiate analgesic; Z79.890 Hormone replacement therapy
CPT/HCPCS: 36415; 36416; 36600; 70450; 74022; 80048; 80051; 80053; 80306; 80307; 81001; 81025; 82009; 82330; 82805; 82962; 83605; 83690; 83735; 84146; 84300; 84443; 84484; 85025; 93005; 96372; 97165; 99285; J0360; J2270; J2405; J2765; J3411; J3475; J3480; J7030; J7040; Q0162; Q0169